=== PATIENT | female | born 1945 | race Caucasian/White ===

== ENCOUNTER 2017-02-16 16:11 | Outpatient (RCR) | payer MEDICARE, SELFPAY | END 2017-02-26 | LOC: PULREHAB 16:11 | PROVIDERS: Referring Provider Internal Medicine; Visit Provider Family Medicine | DX: J44.9 Chronic obstructive pulmonary disease, unspecified (principal) | CPT/HCPCS: G0239; G0424 ==

== ENCOUNTER → 2017-06-08 08:18 | Outpatient (CLI) | payer MEDICARE, SELFPAY ==
--- NOTE | 2017-06-08 08:26 | CT_ITS ---
EXAM: CT LUNG LOW DOSE WO CONTRAST COMPARISON: 05/07/2016 HISTORY: 71 year old female asymptomatic with 29-tdtc-slnm smoking history ORDERING PHYSICIAN: Mona Stephens MD PATIENT AGE: 71 years TECHNIQUE: The exam was performed on a GE Light Speed [address] scanner using 2.9 mGy CTDI. A low dose helical CT CHEST was performed on a multi-detector scanner. All CT scans at the facility use one or more dose reduction, viz: automated exposure control; ma/kV adjustment per patient size (including targeted exams where dose is matched to indication; i.e. head); or iterative reconstruction technique. The LDCT was performed in a facility that meets the criteria for the screening program. Data regarding this exam was submitted to ACR which is an approved registry. The order for this exam indicates that it came as a result of a lung cancer screening counseling shard decision-making visit that included all the elements required of such a visit including smoking cessation. The radiologist interpreting this exam meets the [facility] criteria for the LDCT lung cancer screening program. The exam is reported using the Lung-RADS classification scale and reported to the ACR registry. NOTE: This study was performed for the specific purposes of lung cancer screening and is not an alternative to diagnostic chest CT. RADIATION DOSE: CTDI vol(CT dose Index-volume) = 2.9mG DLP (Dose Length Product) = 97.16 mGcm FINDINGS: There are centrilobular emphysematous changes with scattered areas of fibrosis. There is mild bronchial thickening.. Slight increase atelectatic changes/scarring noted in the lingula. No suspicious pulmonary nodules. IMPRESSION: 1. Lung RADS Category: 2, benign 2. Other findings: Centrilobular emphysema with scattered areas of fibrosis RECOMMENDATIONS: 12 month LDCT follow-up
--- NOTE | 2017-06-08 08:51 | XR_ITS ---
XR DEXA axial skeleton HISTORY: ITS.REASON: POST MENOPAUSAL ORDERING PHYSICIAN: Mona Stephens MD PATIENT AGE: 71 years COMPARISON: None FINDINGS: The BMD measured at the left femoral neck is 0.729 g/cm squared with a T score of -2.2 . This is considered Osteopenic according to the World Health Organization criteria. Fracture risk is Moderate. Treatment is advised. L1 L4 density is a T score of 0.8 which is within normal limits. On the scanogram images there is some decreased density in the left femoral neck. While this could be artifactual, one cannot exclude a lytic process. Consider left hip films for further evaluation IMPRESSION: 1. Osteopenia with moderate fracture risk. Recommend follow-up exam May 2019 2. Possible lytic lesion left femoral neck. Suggest hip films for further evaluation
== END ==
PROVIDERS: Family Provider Family Medicine; PCP Family Medicine; Visit Provider Family Medicine
DX: Z87.891 Personal history of nicotine dependence (principal); M85.89 Other specified disorders of bone density and structure, multiple sites; Z12.2 Encounter for screening for malignant neoplasm of respiratory organs
CPT/HCPCS: 77080

== ENCOUNTER → 2017-06-08 10:27 | Outpatient (POV) | payer MEDICARE, SELFPAY | PROVIDERS: Family Provider Family Medicine; PCP Family Medicine; Visit Provider Family Medicine | DX: Z00.00 Encounter for general adult medical examination without abnormal findings (principal) ==

== ENCOUNTER 2017-06-15 14:36 | Observation (INO) ==
[2017-06-15 14:54] LABS: Basophils # 0.1 K/mm3 (0-0.2); Basophils % 0.9 % (0.1-2.0); Eosinophils # 0.4 K/mm3 (0.0-0.4); Eosinophils % 2.9 % (0.1-12.0); Hematocrit 37.4 % (37.0-47.0); Hemoglobin 11.3 g/dL (12.2-16.2); Lymphocytes # 2.6 K/mm3 (0.7-4.5); Lymphocytes % 19.5 K/mm3 (10-50); Mean Corpuscular HGB Conc 30.3 g/dL (31.8-35.4); Mean Corpuscular Hemoglobin 26.5 pg (27.0-31.2); Mean Corpuscular Volume 87.4 fl (81-99); Mean Platelet Volume 8.4 fl (7.4-10.4); Monocytes # 0.7 K/mm3 (0.1-1.0); Monocytes % 5.4 % (1.7-9.3); Neutrophils # 9.6 K/mm3 (1.8-7.8); Neutrophils % 71.2 % (37.0-80.0); Platelet Count 359 K/mm3 (142-424); Red Blood Count 4.28 M/mm3 (4.20-5.40); Red Cell Distribution Width 15.7 % (11.5-17.5); White Blood Count 13.4 K/mm3 (4.8-10.8)
--- NOTE | 2017-06-15 15:09 | Emergency Department Note ---
ED Disposition Clinical Impression: Chest pain Qualifiers: Chest pain type: precordial pain Qualified Code(s): R07.2 - Precordial pain Disposition: Still a Patient Condition on Discharge: Good Referrals: Mona Stephens MD [Primary Care Provider] - - Critical Care Critical Care Time: No Attestation: On 06/15/17, the high probability of a clinically significant, sudden or life threatening deterioration of the following system(s) required my full and direct attention, intervention and personal management. The time I documented below is in addition to time spent performing reported procedures but includes the following listed in this critical care notation. Medical Decision Making - Fernando Inquiry Pt receiving controlled substance: No Vital Signs: 06/15/17 14:37 Temperature 97.8 F Temperature Source Oral Pulse Rate [Right Radial] 96 H Respiratory Rate 16 Blood Pressure [Right Arm] 132/2 Blood Pressure Mean [Right Arm] 45 Blood Pressure Source [Right Arm] Automatic Cuff Blood Pressure Position [Right Arm] Supine 02 Sat by Pulse Oximetry 98 Oxygen Delivery Method Room Air Nasal Cannula - Lab Data Lab Results 06/15/17 14:40: WBC 13.4 H, RBC 4.28, Hgb 11.3 L, Hct 37.4, MCV 87.4, MCH 26.5 L , MCHC 30.3 L, RDW 15.7, Plt Count 359, MPV 8.4, Neut % (Auto) 71.2, Lymph % ( Auto) 19.5, [place] % (Auto) 5.4, Eos % (Auto) 2.9, Baso % (Auto) 0.9, Neut # (Auto ) 9.6 H, Lymph # (Auto) 2.6, [place] # (Auto) 0.7, Eos # (Auto) 0.4, Baso # (Auto) 0.1 06/15/17 14:40: Sodium 137, Potassium 4.5, Chloride 103, Carbon Dioxide 26, Anion Gap 12.5, BUN 22 H, Creatinine 1.64 H, Estimated Creat Clear 48, Estimated GFR 31 L, Est GFR ( Amer) 37 L, Glucose 103, Calcium 8.9, Total Bilirubin 0.4, AST 17, ALT 5 L, Alkaline Phosphatase 99, Total Creatine Kinase 119, CK-MB (CK-2) 0.7, CK-MB (CK-2) Rel Index 0.6, Troponin I < 0.02, Total Protein 7.5, Albumin 3.5, Globulin 4.0 H, Albumin/Globulin Ratio 0.9 L Result diagrams: 06/15/17 14:40 06/15/17 14:40 Orders (Tests/Meds): ORDERS Category Date Time Status ECG Request by /Nse Stat Y 06/15/17 14:46 Ordered - Radiology Data #1 Image(s): Chest Image Reviewed: Yes I have reviewed radiologist's interpretation Mild left lower lobe atelectasis - ECG Data Tracing #1 EKG interpreted by Claudio Keenan MD: Rhythm: sinus Rate: 96 [place]: normal Ectopy: none Conduction: normal ST Segment Changes: none T Wave Changes: none Q Waves: none No evidence of acute ischemia or injury Low voltage QRS Medical Decision Narrative: 3:45 PM: I have discussed the case with Dr. Stephens who agrees to admit the patient to the hospital. We discussed the patient's clinical information, including history, exam, laboratory and radiology results and ED course. Per hospital procedure, I will write temporary bridge inpatient orders on the patient. Specific orders requested by the admitting physician: Serial cardiac enzymes, cardiology consult General Adult HPI - General Chief complaint: Chest Pain Stated complaint: chest apin Time Seen by Provider: 06/15/17 15:08 Mode of Arrival: EMS Limitations: No Limitations Description of Symptoms (Recalled from ER Triage Doc. by RN): chest pain - History of Present Illness HPI narrative: Patient states that she was in the store today and had 3 episodes of chest pain which went from her substernal area up into her neck and jaw and under her right breast, associated with diaphoresis. She is always on oxygen so she says she does not really know if she was short of breath. She has COPD. Denies nausea or vomiting. Currently has no pain. Each episode lasted about 1-1/2 minutes. She says she does not have any known heart problems. She has seen Dr. Guzman but she does not remember what that was for. She has had a stress test but says it was a long time ago. To her knowledge she has never had an angiogram. Denies any history of heart attack or stent placement. She says she is on a blood pressure medication to lower her heart rate. She is on cholesterol medication. She denies diabetes. - Related Data Allergies Allergy/AdvReac Type Severity Reaction Status Date / Time Sulfa (Sulfonamide Allergy Unknown Unverified 02/16/17 14:48 Antibiotics) sulfamethoxazole AdvReac Unknown Unverified 02/16/17 14:48 trimethoprim AdvReac Unknown Unverified 02/16/17 14:48 [facility] History I have reviewed the patient's past medical history: Yes ROS Obtained: Yes All systems reviewed & no additional complaints Physical Exam - General General appearance: alert, in no apparent distress - Head Head exam: atraumatic, normocephalic, normal inspection - Eye Eye exam: Present: normal appearance, PERRL, EOMI - ENT ENT exam: Present: normal exam, normal oropharynx, mucous membranes moist, TM's normal bilaterally, normal external ear exam - Neck Neck exam: Present: normal inspection, full ROM, trachea midline. Absent: meningismus, lymphadenopathy - Chest Chest inspection: Present: normal inspection, symmetric chest wall rise. Absent : tenderness - Respiratory Respiratory exam: Present: normal lung sounds bilaterally. Absent: respiratory distress - Cardiovascular Cardiovascular exam: Present: regular rate, normal rhythm. Absent: JVD - Abdominal Exam Abdominal exam: Present: soft, normal bowel sounds. Absent: distention, tenderness, guarding - Extremities Exam Extremities exam: Present: normal inspection, full ROM, normal capillary refill. Absent: calf tenderness - Neurological Exam Neurological exam: Present: alert, oriented X3 - Psychiatric Psychiatric exam: Present: normal affect, normal mood - Skin Skin exam: Present: warm, dry, intact, normal color
[2017-06-15 15:14] LABS: Alanine Aminotransferase 5 U/L (12-78); Albumin Level 3.5 gm/dL (3.4-5.0); Albumin/Globulin Ratio 0.9 (1.1-1.8); Alkaline Phosphatase 99 U/L (46-116); Anion Gap 12.5 mEq/L (5-15); Aspartate Amino Transferase 17 U/L (15-37); Bilirubin,Total 0.4 mg/dL (0.2-1.0); Blood Urea Nitrogen 22 mg/dL (7-18); Calcium 8.9 mg/dL (8.5-10.1); Carbon Dioxide 26 mmol/L (21.0-32.0); Chloride 103 mmol/L (98-107); Creatine Kinase 119 U/L (26-192); Glucose 103 mg/dL (74-106); Potassium 4.5 mmoL/L (3.5-5.1); Sodium 137 mmol/L (136-145); Total Protein,Serum 7.5 gm/dL (6.4-8.2)
--- NOTE | 2017-06-15 17:57 | History & Physical Report ---
*Admission Date: 06/15/17 *Chief complaint: chst pain *History of present illness: Ms Roland is a 71 year old female with a history of COPD with chronic respiratory failure on continuous O2, HTN, Spinal stenosis, and anxiety and depression who when at [facility] today had a sudden onset of midsternal chest pain that lasted about 1 1/2 minutes. The pain radiated throughout the chest and up into her neck. She describes the pain as a heaviness and ache. Her breathing was as usual but she did become diaphoretic. She had 3 episodes of the chest pain with a brief time between each. EMS was called and the pain was gone when they arrived. She denied nausea and vomiting. She was brought to the ER for evaluation and then admitted for further evaluation and treatment. At the time of this exam the patient remains comfortable and breathing as usual. Monitor showing NSR. [facility] History Medical History: Reports:: Chronic Obstructive Pulmonary Disease (COPD), Depression, Gastroesophageal Reflux Disease(GERD), Hiatal Hernia, Home Oxygen, Hypertension, Lung Disease Denies:: Atherosclerotic Heart Disease, Diabetes Mellitus Type 2, Seizures Other Medical History: Reports: Arthritis Laterality Cases: Right: Total Hip Replacement Comment: Lipoma removed from Ax[place] 2012 - *Social History Smoking Status: Former smoker *Family Hx:: Cancer, Coronary Artery Disease, Diabetes Review of Systems - Constitutional Denies body ache(s), Denies fever(s), Denies headache(s) - Eyes Reports change in vision - ENT Denies ear pain, Denies sore throat - *Cardiovascular Reports chest pain, Reports excessive sweating, Reports shortness of breath, Denies leg swelling, Denies fast heart rate - *Respiratory Reports shortness of breath, Denies chest congestion, Denies cough - *Gastrointestinal Reports heartburn, Denies abdominal pain, Denies change in bowel habits, Denies change in stools, Denies bright, red blood in stools, Denies nausea, Denies vomiting - *Genitourinary Denies abnormal periods - *Musculoskeletal Comments: Has stayed in all winter and not been walking much. - *Neurologic Denies behavioral changes, Denies dizziness, Denies headache(s) Meds Home Medications Medication Instructions Recorded Confirmed Type ALPRAZolam [Xanax 0.5mg tab] 0.25 mg PO BID 06/15/17 06/15/17 History Duloxetine HCl [Duloxetine HCl] 60 mg PO DAILY 06/15/17 06/15/17 History Esomeprazole Magnesium [Nexium] 40 mg PO DAILY 06/15/17 06/15/17 History Gabapentin [Gabapentin 300mg Cap] 600 mg PO TID 06/15/17 06/15/17 History Metoprolol Tartrate [Lopressor 12.5 mg PO BID 06/15/17 06/15/17 History 25mg tablet] Montelukast Sodium [Montelukast 10 mg PO HS 06/15/17 06/15/17 History 10mg Tab] Pravastatin Sodium [Pravachol 20mg 20 mg PO HS 06/15/17 06/15/17 History Tablet] Roflumilast [Daliresp] 500 mcg PO DAILY 06/15/17 06/15/17 History Umeclidinium Brm/Vilanterol Tr 1 puff IH DAILY 06/15/17 06/15/17 History [Anoro Ellipta 62.5-25 Mcg INH] buPROPion HCl [Bupropion HCl Sr] 100 mg PO DAILY 06/15/17 06/15/17 History Allergies Allergy/AdvReac Type Severity Reaction Status Date / Time Sulfa (Sulfonamide Allergy Unknown Verified 06/15/17 16:27 Antibiotics) sulfamethoxazole AdvReac Unknown Verified 06/15/17 16:27 trimethoprim AdvReac Unknown Verified 06/15/17 16:27 Exam Vital signs and Labs for Last 24 Hours: Temp Pulse Resp BP Pulse Ox 97.6 F 99 H 20 166/66 96 06/15/17 17:27 06/15/17 17:27 06/15/17 17:27 06/15/17 17:27 06/15/17 17:27 Laboratory Tests 06/15/17 06/15/17 06/15/17 14:40 14:40 17:15 WBC 13.4 H RBC 4.28 Hgb 11.3 L Hct 37.4 MCV 87.4 MCH 26.5 L MCHC 30.3 L Plt Count 359 Neut % (Auto) 71.2 Lymph % (Auto) 19.5 [place] % (Auto) 5.4 Eos % (Auto) 2.9 Baso % (Auto) 0.9 Sodium 137 Potassium 4.5 Chloride 103 Carbon Dioxide 26 Anion Gap 12.5 BUN 22 H Creatinine 1.64 H Estimated Creat Clear 48 Estimated GFR 31 L Est GFR ( Amer) 37 L Glucose 103 Calcium 8.9 Total Bilirubin 0.4 AST 17 ALT 5 L Alkaline Phosphatase 99 Total Creatine Kinase 119 CK-MB (CK-2) 0.7 CK-MB (CK-2) Rel Index 0.6 Troponin I < 0.02 < 0.02 Total Protein 7.5 Albumin 3.5 Globulin 4.0 H I & O for Last 24 hours: Intake & Output 06/13/17 06/14/17 06/15/17 06/16/17 11:59 11:59 11:59 11:59 Weight 223 lb 3 oz Radiology Reports for the Last 24 Hours: 06/15/17 CXR IMPRESSION Mild left lower lobe atelectasis - Constitutional no acute distress Comments: comfortable - *Routine HEENT Exam Head: Present: normocephalic, atraumatic Eye: Present: PERRL. Absent: conjunctival icterus, scleral injection ENT: Present: mucous membranes moist, oropharynx clear - *Routine Neck Exam Present: supple. Absent: carotid bruit, lymphadenopathy, thyromegaly - *Routine Respiratory Exam Present: decreased breath sounds, CTA bilaterally (A&P), prolonged expiratory phase - *Routine Cardiovascular Exam Present: RRR Comments: monitor showing NSR - *Routine Abdominal Exam Present: soft, normoactive bowel sounds. Absent: tenderness, distended - *Routine Extremities Exam Absent: edema, calf tenderness - *Routine Skin Exam Present: dry, warm - *Routine Neurological Exam Present: alert, oriented X3 Assessment and Plan (1) Chest pain Current visit: Yes Status: Acute Qualifiers: Chest pain type: precordial pain Qualified Code(s): R07.2 - Precordial pain Category: Medical Code(s): R07.9 - Chest pain, unspecified (2) COPD (chronic obstructive pulmonary disease) Current visit: Yes Status: Chronic Category: Medical Code(s): J44.9 - Chronic obstructive pulmonary disease, unspecified (3) Chronic respiratory failure Current visit: Yes Status: Chronic Category: Medical Code(s): J96.10 - Chronic respiratory failure, unspecified whether with hypoxia or hypercapnia (4) HTN (hypertension) Current visit: Yes Status: Chronic Category: Medical Code(s): I10 - Essential (primary) hypertension (5) Spinal stenosis Current visit: Yes Status: Chronic Category: Medical Code(s): M48.00 - Spinal stenosis, site unspecified - Assessment and plan all Dx Assessment and Plan for all problems:: cardiology workup with cardiology consult
--- NOTE | 2017-06-16 08:08 | Progress Note ---
Internal Medicine - PN: Subj *Date: 06/16/17 *Time: 08:05 Interval history: Patient was able to sleep some last night. She is short of breath at present after giving herself a bath. He is n.p.o. for cardiac consult. She did eat last night without difficulty. She has ambulated to the bathroom. She has had no further chest discomfort Exam Vital signs and Labs for Last 24 Hours: Temp Pulse Resp BP Pulse Ox 98.2 F 89 18 102/46 92 L 06/16/17 07:35 06/16/17 07:35 06/16/17 07:35 06/16/17 07:35 06/16/17 07:35 Laboratory Results - last 24 hr 06/15/17 17:15: Troponin I < 0.02 06/15/17 19:53: Troponin I < 0.02 06/15/17 23:00: Troponin I < 0.02 I & O for Last 24 hours: Intake & Output 06/13/17 06/14/17 06/15/17 06/16/17 11:59 11:59 11:59 11:59 Intake Total 360 / 360 Balance 360 / 360 Weight 223 lb 3 oz - Constitutional no acute distress - *Routine Respiratory Exam Comments: Fibrotic crackles heard in bases bilaterally - *Routine Cardiovascular Exam Present: RRR Comments: Monitor showing normal sinus rhythm - *Routine Abdominal Exam Present: soft, normoactive bowel sounds. Absent: tenderness - *Routine Extremities Exam Absent: edema, calf tenderness - *Routine Neurological Exam Present: alert, oriented X3 Assessment and Plan (1) Chest pain Current visit: Yes Status: Acute Qualifiers: Chest pain type: precordial pain Qualified Code(s): R07.2 - Precordial pain Category: Medical Code(s): R07.9 - Chest pain, unspecified (2) COPD (chronic obstructive pulmonary disease) Current visit: Yes Status: Chronic Category: Medical Code(s): J44.9 - Chronic obstructive pulmonary disease, unspecified (3) Chronic respiratory failure Current visit: Yes Status: Chronic Category: Medical Code(s): J96.10 - Chronic respiratory failure, unspecified whether with hypoxia or hypercapnia (4) HTN (hypertension) Current visit: Yes Status: Chronic Category: Medical Code(s): I10 - Essential (primary) hypertension (5) Spinal stenosis Current visit: Yes Status: Chronic Category: Medical Code(s): M48.00 - Spinal stenosis, site unspecified - Assessment and plan all Dx Assessment and Plan for all problems:: Cardiology to see this morning and will follow their recommendations. Will repeat CBC and BMP now.
[2017-06-16 08:44] LABS: Basophils # 0.1 K/mm3 (0-0.2); Basophils % 1.2 % (0.1-2.0); Eosinophils # 0.4 K/mm3 (0.0-0.4); Eosinophils % 3.4 % (0.1-12.0); Hematocrit 33.2 % (37.0-47.0); Hemoglobin 10.2 g/dL (12.2-16.2); Lymphocytes # 2.2 K/mm3 (0.7-4.5); Lymphocytes % 21.2 K/mm3 (10-50); Mean Corpuscular HGB Conc 30.8 g/dL (31.8-35.4); Mean Corpuscular Hemoglobin 26.5 pg (27.0-31.2); Mean Corpuscular Volume 86.2 fl (81-99); Mean Platelet Volume 9.2 fl (7.4-10.4); Monocytes # 0.6 K/mm3 (0.1-1.0); Monocytes % 5.3 % (1.7-9.3); Neutrophils # 7.3 K/mm3 (1.8-7.8); Neutrophils % 68.9 % (37.0-80.0); Platelet Count 313 K/mm3 (142-424); Red Blood Count 3.85 M/mm3 (4.20-5.40); Red Cell Distribution Width 15.6 % (11.5-17.5); White Blood Count 10.6 K/mm3 (4.8-10.8)
[2017-06-16 08:56] LABS: Anion Gap 11.5 mEq/L (5-15); Potassium 4.5 mmoL/L (3.5-5.1)
--- NOTE | 2017-06-16 13:54 | Pharmacy Consult Notes ---
[facility] Pharmacy VTE Monitoring - Patient Demographics Admission date: 06/16/17 Report Date: 06/16/17 Time: 13:54 Allergies/Adverse Reactions: Patient Allergies Sulfa (Sulfonamide Antibiotics) Allergy (Unknown, Verified 06/15/17 16:27) sulfamethoxazole Adverse Reaction (Unknown, Verified 06/15/17 16:27) trimethoprim Adverse Reaction (Unknown, Verified 06/15/17 16:27) Height: 1.63 m Weight: 101.236 kg Patient Problems: Current Active Problems Chest pain (Acute) COPD (chronic obstructive pulmonary disease) (Chronic) Chronic respiratory failure (Chronic) HTN (hypertension) (Chronic) Spinal stenosis (Chronic) - VTE Risk Labs: VTE Related Lab Results Hgb 10.2 g/dL (12.2-16.2) L 06/16/17 08:25 Hct 33.2 % (37.0-47.0) L 06/16/17 08:25 Plt Count 313 K/mm3 (142-424) 06/16/17 08:25 BUN 20 mg/dL (7-18) H 06/16/17 08:25 Creatinine 1.49 mg/dL (0.55-1.02) H 06/16/17 08:25 Estimated Creat Clear 55 mL/min (0-300) 06/16/17 08:25 Was VTE Risk Assessment Performed: Yes VTE Score: 4 VTE Risk Level: Low Risk Clinical Trial Participant: No - Prophylaxis VTE Prophylaxis Ordered?: Yes Types of VTE Prophylaxis: TEDS Knee High Location of Applied Device: Bilateral Lower Extremeties
[2017-06-17 06:28] LABS: Hematocrit 31.5 % (37.0-47.0); Hemoglobin 9.8 g/dL (12.2-16.2)
--- NOTE | 2017-06-17 08:53 | Progress Note ---
Internal Medicine - PN: Subj *Date: 06/17/17 *Time: 08:50 Interval history: Patient states she is feeling well today other than some pain in her right wrist. She states she slept off and on last night. She denies any pain or shortness of breath. Exam Vital signs and Labs for Last 24 Hours: Temp Pulse Resp BP Pulse Ox 98.0 F 85 20 140/80 94 L 06/17/17 07:53 06/17/17 07:53 06/17/17 07:53 06/17/17 07:53 06/17/17 07:53 Laboratory Results - last 24 hr 06/16/17 08:25: Sodium 140, Potassium 4.5, Chloride 107, Carbon Dioxide 26, Anion Gap 11.5, BUN 20 H, Creatinine 1.49 H, Estimated Creat Clear 55, Estimated GFR 34 L, Est GFR ( Amer) 42 L, Glucose 109 H 06/17/17 06:04: Hgb 9.8 L, Hct 31.5 L I & O for Last 24 hours: Intake & Output 06/14/17 06/15/17 06/16/17 06/17/17 11:59 11:59 11:59 11:59 Intake Total 360 / 360 1340 / 1340 Output Total 900 / 900 Balance 360 / 360 440 / 440 Weight 223 lb 3 oz 223 lb 3 oz Radiology Reports for the Last 24 Hours: Heart Cath IMPRESSION: 1. Normal coronary arteries 2. Normal ejection fraction 3. Normal left ventricular end-diastolic pressure - Constitutional no acute distress - *Routine Respiratory Exam Present: rales (fibrotic rales in the bases) - *Routine Cardiovascular Exam Present: RRR - *Routine Abdominal Exam Present: soft, normoactive bowel sounds. Absent: tenderness - *Routine Extremities Exam Absent: edema Assessment and Plan (1) Chest pain Current visit: Yes Status: Acute Qualifiers: Chest pain type: precordial pain Qualified Code(s): R07.2 - Precordial pain Category: Medical Code(s): R07.9 - Chest pain, unspecified (2) COPD (chronic obstructive pulmonary disease) Current visit: Yes Status: Chronic Category: Medical Code(s): J44.9 - Chronic obstructive pulmonary disease, unspecified (3) Chronic respiratory failure Current visit: Yes Status: Chronic Category: Medical Code(s): J96.10 - Chronic respiratory failure, unspecified whether with hypoxia or hypercapnia (4) HTN (hypertension) Current visit: Yes Status: Chronic Category: Medical Code(s): I10 - Essential (primary) hypertension (5) Spinal stenosis Current visit: Yes Status: Chronic Category: Medical Code(s): M48.00 - Spinal stenosis, site unspecified - Assessment and plan all Dx Assessment and Plan for all problems:: Patient's heart cath was normal and her chest pain has resolved. Will discuss possible disposition today with Dr. Stephens.
--- NOTE | 2017-06-17 12:05 | Progress Note ---
Subjective Date: 06/17/17 Time: 12:02 Principal diagnosis: COPD and Angina Pectoris Interval history: 71-year-old white female admitted to facility on 06/15/2017 with chest pain and shortness of breath. Patient denies chest pain or shortness of breath during this examination. Patient underwent left heart catheterization on 06/16/2017, which revealed normal coronary arteries and a normal EF. Patient's chest pain was noncardiac. Patient stated she is doing much better today. Exam Vital signs and Labs for Last 24 Hours: Temp Pulse Resp BP Pulse Ox 98.2 F 91 H 20 153/77 93 L 06/17/17 11:54 06/17/17 11:54 06/17/17 11:54 06/17/17 11:54 06/17/17 11:54 Laboratory Results - last 24 hr 06/17/17 06:04: Hgb 9.8 L, Hct 31.5 L I & O for Last 24 hours: Intake & Output 06/14/17 06/15/17 06/16/17 06/17/17 23:59 23:59 23:59 23:59 Intake Total 360 / 360 850 / 850 490 / 490 Output Total 900 / 900 Balance 360 / 360 -50 / -50 490 / 490 Weight 223 lb 3 oz 223 lb 3 oz - Constitutional no acute distress, average body habitus, cooperative - *Routine Neck Exam Present: supple, full ROM, normal carotid upstroke, trachea midline. Absent: JVD, carotid bruit - *Routine Respiratory Exam Present: CTA bilaterally, wheezes Comments: bilateral lower bases. - *Routine Cardiovascular Exam Present: RRR, Normal S1, Normal S2. Absent: murmur, gallop, rubs, JVD - *Routine Abdominal Exam Present: soft. Absent: distended, guarding - *Routine Extremities Exam Present: full ROM, pulses intact, normal capillary refill. Absent: cyanosis, clubbing, edema, calf tenderness - *Routine Neurological Exam Present: alert, oriented X3, CN II-XII intact, moving all extremities, normal speech Progress Note: A&P (1) Chest pain Status: Acute Current Visit: Yes (2) COPD (chronic obstructive pulmonary disease) Status: Chronic Current Visit: Yes (3) Chronic respiratory failure Status: Chronic Current Visit: Yes (4) HTN (hypertension) Status: Chronic Current Visit: Yes (5) Spinal stenosis Status: Chronic Current Visit: Yes Assessment and Plan for All Diagnoses:: Plan: 1. Continue medical management per PCP. 2. Cardiology clinic follow up in 2-3 weeks.
--- NOTE | 2017-06-20 15:04 | Discharge Summary ---
General - General Admission date: 06/16/17 Discharge date: 06/17/17 HPI HPI: Ms Roland is a 71 year old female with a history of COPD with chronic respiratory failure on continuous O2, HTN, Spinal stenosis, and anxiety and depression who when at [facility] today, had a sudden onset of midsternal chest pain that lasted about 1 1/2 minutes. The pain radiated throughout the chest and up into her neck. She describes the pain as a heaviness and ache. Her breathing was as usual but she did become diaphoretic. She had 3 episodes of the chest pain with a brief time between each. EMS was called and the pain was gone when they arrived. She denied nausea and vomiting. She was brought to the ER for evaluation and then admitted for further evaluation and treatment. Hospital Course Hospital Course: Cardiology was consulted and the patient had a heart cath. It was normal. Her CP did not return. She was stable to be discharged home but on 06/08/2017, she had a Dexa scan that showed a possible lytic lesion in the left femoral neck. An x-ray was ordered and showed arthritis but no lytic lesion. The patient was dishcarged home. Objective Vital signs: Temp Pulse Resp BP Pulse Ox 98.2 F 91 H 20 153/77 93 L 06/17/17 11:54 06/17/17 11:54 06/17/17 11:54 06/17/17 11:54 06/17/17 11:54 Narrative: - Constitutional no acute distress Comments: comfortable - *Routine HEENT Exam Head: Present: normocephalic, atraumatic Eye: Present: PERRL. Absent: conjunctival icterus, scleral injection ENT: Present: mucous membranes moist, oropharynx clear - *Routine Neck Exam Present: supple. Absent: carotid bruit, lymphadenopathy, thyromegaly - *Routine Respiratory Exam Present: decreased breath sounds, CTA bilaterally (A&P), prolonged expiratory phase - *Routine Cardiovascular Exam Present: RRR Comments: monitor showing NSR - *Routine Abdominal Exam Present: soft, normoactive bowel sounds. Absent: tenderness, distended - *Routine Extremities Exam Absent: edema, calf tenderness - *Routine Skin Exam Present: dry, warm - *Routine Neurological Exam Present: alert, oriented X3 DS: Diagnosis - Discharge Diagnosis (1) Chest pain Status: Acute (2) COPD (chronic obstructive pulmonary disease) Status: Chronic (3) Chronic respiratory failure Status: Chronic (4) HTN (hypertension) Status: Chronic (5) Spinal stenosis Status: Chronic Discharge Plan - Patient Discharge Instructions ACTIVITY: Continue current activity DIET: continue same diet Additional Instructions: Continue same diet and activity Patient Instructions: Chronic Obstructive Pulmonary Disease, Cardiac Catheterization, High Blood Pressure, DI for Cardiac Catheterization, DI for Surgical Site Infection, DI for Chest Pain, Surgical Site Infection, Respiratory Failure - Follow up Plan Follow up with: Mona Stephens MD [Primary Care Provider] - 1 week Disposition: Home, Self-Custodial Medications: Home Medications Medication Instructions Recorded Confirmed Type ALPRAZolam [Xanax 0.5mg tab] 0.25 mg PO BID 06/15/17 06/15/17 History Duloxetine HCl 60 mg PO DAILY 06/15/17 06/15/17 History Esomeprazole Magnesium [Nexium] 40 mg PO DAILY 06/15/17 06/15/17 History Gabapentin [Gabapentin 300mg Cap] 600 mg PO TID 06/15/17 06/15/17 History Metoprolol Tartrate [Lopressor 12.5 mg PO BID 06/15/17 06/15/17 History 25mg tablet] Montelukast Sodium [Montelukast 10 mg PO HS 06/15/17 06/15/17 History 10mg Tab] Roflumilast [Daliresp] 500 mcg PO DAILY 06/15/17 06/15/17 History Umeclidinium Brm/Vilanterol Tr 1 puff IH DAILY 06/15/17 06/15/17 History [Anoro Ellipta 62.5-25 Mcg INH] buPROPion HCl [Bupropion HCl Sr] 100 mg PO DAILY 06/15/17 06/15/17 History Prescriptions/Medication Reconciliation: New Pravastatin Sodium [Pravachol 20mg Tablet] 20 mg PO HS tablet predniSONE [Deltasone 5mg tablet] 5 mg PO DAILY tablet Non Formulary [Pt's Own Medication] 1 each PO DAILY each Aspirin [Aspirin EC 325mg Tab] 325 mg PO DAILY tablet Nitroglycerin [Nitrostat 0.4mg SL Tablet] 0.4 mg SL Q5MINP PRN tab.subl PRN Reason: Chest Pain Continue Roflumilast [Daliresp] 500 mcg PO DAILY Montelukast Sodium [Montelukast 10mg Tab] 10 mg PO HS Gabapentin [Gabapentin 300mg Cap] 600 mg PO TID Esomeprazole Magnesium [Nexium] 40 mg PO DAILY Duloxetine HCl 60 mg PO DAILY buPROPion HCl [Bupropion HCl Sr] 100 mg PO DAILY ALPRAZolam [Xanax 0.5mg tab] 0.25 mg PO BID Umeclidinium Brm/Vilanterol Tr [Anoro Ellipta 62.5-25 Mcg INH] 1 puff IH DAILY Metoprolol Tartrate [Lopressor 25mg tablet] 12.5 mg PO BID Discontinued Pravastatin Sodium [Pravachol 20mg Tablet] 20 mg PO HS
== END 2017-06-17 13:30 | disposition home or self-care (01) ==
LOC: 2ND 14:36 → ER 14:36 → 2ND 17:11
PROVIDERS: ADMIT Family Medicine; ATTEND Family Medicine

== ENCOUNTER → 2017-06-30 10:55 | Outpatient (CLI) | payer MEDICARE, SELFPAY ==
--- NOTE | 2017-06-30 11:01 | XR_ITS ---
XR wrist RT min 3V, XR wrist LT min 3V Ordering Physician: XIAO Watkins Patient Age: 71 years: Female HISTORY: ITS.REASON: BILAT WRIST PAIN Bilateral wrist pain no known injury TECHNIQUE Right Wrist: 3 Views:. Left Wrist 3 Views COMPARISON :None ======= RIGHT WRIST: 3 VIEWS:. Arthritic changes are most pronounced at the articulation between the distal scaphoid and the trapezium here at the radial aspect of the distal wrist. The marked joint space narrowing with sclerosis about this joint reflects these arthritic changes. No erosions . The first carpal-metacarpal joint which is most typically involved with osteoarthritis appears to be well-maintained and unremarkable. The radial carpal joint appears intact carpals seem to demonstrate normal relationship. Specifically the lunate and scaphoid relationships normal. Mild diffuse demineralization evident. . LEFT WRIST 3 VIEWS There is a similar pattern at the left wrist with marked narrowing and sclerosis at the scaphoid-trapezium articulation. There is also slight narrowing and arthritic changes at the scaphoid-trapezoid articulation. As well here on the left Again the first carpal-metacarpal joint space is well-maintained with no remarkable arthritic changes evident. The lunate does have numerous stippled tiny cystic areas at dorsal and radial aspect which are likely tiny subchondral cyst. These do yield a slightly ill-defined appearance at its radial cortex where it articulates with the scaphoid.. Could reflect tiny erosions but this less likely & I favor numerous small subcortical cyst likely degenerative in nature. I would also note the lunate, although not displaced, does have slight accentuated dorsal tilt on the left than right. This could be in part positional. Otherwise the radial carpal joint spaces satisfactory distal radius and ulna appear satisfactory bilaterally. Carpal metacarpal joints appear satisfactory all levels note: This study was dictated with a voice-recognition system. There may be typographical error is related to such. If they are significant please notify us for corrections IMPRESSION: 1. Both right & left wrist demonstrate pronounced arthritic changes at the scaphoid-trapezium articulation. Both right & left wrist with marked sclerosis and narrowing about this joint. .. 2. The first carpal-metacarpal joint (which is more typically involved with early osteoarthritis), appears intact & satisfactory bilaterally. 3. At LEFT wrist, note numerous tiny lucent areas which are likely subchondral cystic changes, along the dorsal, & radial aspect lunate.-Suspect most Likely reflecting small degenerative changes,. Less likely other erosive change. No joint effusion evident 4. Slight dorsal tilt of the left lunate vs right noted, but no dislocation. This may be exaggerated by position 5. Diffuse demineralization bilateral
--- NOTE | 2017-06-30 11:01 | XR_ITS ---
XR chest 2V Ordering Physician: XIAO Watkins Patient Age: 71 years: Female HISTORY: ITS.REASON: SOBshort of breath coughing TECHNIQUE: PA and lateral chest COMPARISON :Screening CT chest from June 08, [address] chest is some COPD with fibrotic changes and some mild airway thickening most evident towards the right base. On today's plain film series slight hazy appearance the medial right base which reflects these chronic feature but I could not exclude some wispy infiltrate superimposed at the medial right lung base and. Also additional anterior fat pad towards the right middle lobe accounts for the density anteriorly towards the RML on lateral view. The diaphragm hyperexpansion reflecting COPD. Heart is normal in size calcified modest aorta. Chest wall T-spine unremarkable. No pleural effusions. No pneumothorax. IMPRESSION Images of changes and COPD again evident. Question/suspect subtle infiltrate superimposed upon chronic changes at the medial right base today's exam
== END ==
PROVIDERS: PCP Family Medicine; Visit Provider Physician Assistant
DX: M25.531 Pain in right wrist (principal); M25.532 Pain in left wrist; R06.02 Shortness of breath
CPT/HCPCS: 71046; 73110

== ENCOUNTER → 2017-09-06 16:53 | Outpatient (CLI) | payer MEDICARE, SELFPAY ==
--- NOTE | 2017-09-06 16:58 | XR_ITS ---
XR chest 2V HISTORY: ITS.REASON: CHRONIC RESPIRATORY FAILURE WITH HYPOXIA ORDERING PHYSICIAN: Mona Stephens MD PATIENT AGE: 71 years COMPARISON: 06/30/2017 FINDINGS: Unremarkable cardiovascular structures. Chronic changes are present in the left lower lobe. There is hyperinflation with attenuation of peripheral pulmonary vessels consistent with COPD. No lobar consolidation or collapse. There is a 12 mm hyperdensity in the posterior costophrenic sulcus possibly due to summation artifact. No acute bony anomalies. IMPRESSION: COPD with chronic changes 1 cm hyperdensity posterior costophrenic sulcus. Possible developing pulmonary nodule. Chest CT may be of further value
== END ==
PROVIDERS: PCP Family Medicine; Visit Provider Family Medicine
DX: J96.11 Chronic respiratory failure with hypoxia (principal)
CPT/HCPCS: 71046

== ENCOUNTER → 2018-03-14 16:21 | Outpatient (CLI) | payer MEDICARE, SELFPAY ==
--- NOTE | 2018-03-14 16:26 | XR_ITS ---
XR chest 2V HISTORY: ITS.REASON: CHRONIC RESPIRATORY FAILURE, COPD, former smoker ORDERING PHYSICIAN: Mona Stephens MD PATIENT AGE: 72 years COMPARISON: 09/06/2017 FINDINGS: The cardiomediastinal silhouette and pulmonary vascularity are within normal limits. The lungs are clear without infiltrates, suspicious nodules, or pleural effusions. COPD. Chronic changes in the left lower lung zone No acute bony abnormalities. IMPRESSION: COPD, no change with no acute finding
== END ==
PROVIDERS: PCP Family Medicine; Visit Provider Family Medicine
DX: J96.11 Chronic respiratory failure with hypoxia (principal)
CPT/HCPCS: 71046

== ENCOUNTER → 2018-04-20 12:54 | Outpatient (CLI) | payer MEDICARE, SELFPAY | PROVIDERS: PCP Family Medicine; Visit Provider Family Medicine | DX: J96.11 Chronic respiratory failure with hypoxia (principal) | CPT/HCPCS: 93225; 93226 ==

== ENCOUNTER → 2018-04-26 15:36 | Outpatient (POV) | payer MEDICARE, SELFPAY ==
[2018-04-26 16:23] LABS: Basophils # 0.1 K/mm3 (0-0.2); Basophils % 0.7 % (0.1-2.0); Eosinophils # 0.3 K/mm3 (0.0-0.4); Eosinophils % 1.6 % (0.1-12.0); Hematocrit 36.5 % (37.0-47.0); Lymphocytes # 2.4 K/mm3 (0.7-4.5); Lymphocytes % 15.4 % (10-50); Mean Corpuscular Hemoglobin 25.1 pg (27.0-31.2); Mean Corpuscular Volume 83.6 fl (81-99); Mean Platelet Volume 7.3 fl (7.4-10.4); Monocytes # 0.6 K/mm3 (0.1-1.0); Monocytes % 4.2 % (1.7-9.3); Neutrophils % 78.2 % (37.0-80.0); Platelet Count 471 K/mm3 (142-424); Red Blood Count 4.36 M/mm3 (4.20-5.40); White Blood Count 15.4 K/mm3 (4.8-10.8)
[2018-04-26 16:59] LABS: MANUAL DIFFERENTIAL MANUAL DIFFERENTIAL (MANUAL DIFF)
[2018-04-26 17:41] LABS: Lymphocytes % 16 % (10-50); Monocytes % 5 % (2-9); Neutrophils % 79 % (42-76); Platelet Estimate Slight Increase; Total Cells Counted 100
[2018-04-26 17:42] LABS: Hypochromasia 2+
[2018-04-26 18:18] LABS: Alanine Aminotransferase 15 U/L (12-78); Albumin Level 3.1 gm/dL (3.4-5.0); Albumin/Globulin Ratio 0.9 (1.1-1.8); Alkaline Phosphatase 99 U/L (46-116); Anion Gap 12.3 mEq/L (5-15); Aspartate Amino Transferase 6 U/L (15-37); Bilirubin,Total 0.2 mg/dL (0.2-1.0); Blood Urea Nitrogen 17 mg/dL (7-18); Calcium 9.4 mg/dL (8.5-10.1); Carbon Dioxide 28 mmol/L (21.0-32.0); Chloride 106 mmol/L (98-107); Creatinine,Serum 1.71 mg/dL (0.55-1.02); Estimated Glomerular Filt Rate 29 ml/min (>60); GFR (African American) 36 ML/MIN (>60); Globulin 3.6 gm/dl (1.3-3.2); Glucose 88 mg/dL (74-106); Potassium 5.3 mmoL/L (3.5-5.1); Sodium 141 mmol/L (136-145); Total Protein,Serum 6.7 gm/dL (6.4-8.2)
[2018-04-28 07:16] LABS: Iron 30 ug/dL (27-139); UIBC 327 ug/dL (118-369)
[2018-04-28 07:33] LABS: Iron Saturation 8 % (15-55)
[2018-04-28 09:25] LABS: Vitamin B12 589 pg/mL (232-1245)
== END ==
PROVIDERS: Visit Provider Internal Medicine
DX: D50.0 Iron deficiency anemia secondary to blood loss (chronic) (principal); J96.10 Chronic respiratory failure, unspecified whether with hypoxia or hypercapnia; J43.9 Emphysema, unspecified; J47.9 Bronchiectasis, uncomplicated
CPT/HCPCS: 36415; 80053; 82607; 83540; 83550; 85007; 85025

== ENCOUNTER 2018-05-31 10:05 | Inpatient (IN) ==
--- NOTE | 2018-05-31 10:09 | Emergency Department Note ---
ED Disposition Clinical Impression: Dizziness Vomiting Qualifiers: Vomiting type: unspecified Vomiting Intractability: non-intractable Nausea presence: with nausea Qualified Code(s): R11.2 - Nausea with vomiting, unspe cified Disposition: Admitted as Observation Condition on Discharge: [facility] - Critical Care Critical Care Time: No Attestation: On , the high probability of a clinically significant, sudden or life threatening deterioration of the following system(s) required my full and direct attention, intervention and personal management. The time I documented below is in addition to time spent performing reported procedures but includes the following listed in this critical care notation. Medical Decision Making - Fernando Inquiry Pt receiving controlled substance: No Vital Signs: 05/31/18 10:06 05/31/18 10:36 05/31/18 11:36 Temperature 97.8 F Temperature Source Oral Pulse Rate [Orthostatic Lying Left Radial] Pulse Rate [Orthostatic Sitting Left Radial] Pulse Rate [Orthostatic Standing Left Radial] Pulse Rate [Right Brachial] 66 72 74 Respiratory Rate 18 18 20 Blood Pressure [Orthostatic Lying Right Arm] Blood Pressure [Orthostatic Sitting Right Arm] Blood Pressure [Orthostatic Standing Right Arm] Blood Pressure [Right Arm] 153/67 H 149/57 H 111/62 Blood Pressure Mean [Right Arm] 95 87 78 Blood Pressure Source [Right Arm] Automatic Cuff Automatic Cuff Automatic Cuff Blood Pressure Position [Right Arm] Supine Sitting Sitting 02 Sat by Pulse Oximetry 96 99 98 Oxygen Delivery Method Nasal Cannula Room Air Oxygen Flow Rate (LPM) 2 05/31/18 12:00 05/31/18 12:30 05/31/18 13:00 Temperature Temperature Source Pulse Rate [Orthostatic Lying Left Radial] Pulse Rate [Orthostatic Sitting Left Radial] Pulse Rate [Orthostatic Standing Left Radial] Pulse Rate [Right Brachial] 73 79 80 Respiratory Rate 16 20 20 Blood Pressure [Orthostatic Lying Right Arm] Blood Pressure [Orthostatic Sitting Right Arm] Blood Pressure [Orthostatic Standing Right Arm] Blood Pressure [Right Arm] 140/66 149/60 H 150/69 H Blood Pressure Mean [Right Arm] 90 89 96 Blood Pressure Source [Right Arm] Automatic Cuff Automatic Cuff Automatic Cuff Blood Pressure Position [Right Arm] Sitting Sitting Sitting 02 Sat by Pulse Oximetry 99 97 96 Oxygen Delivery Method Nasal Cannula Room Air Room Air Oxygen Flow Rate (LPM) 2 05/31/18 14:00 05/31/18 14:09 05/31/18 14:30 Temperature Temperature Source Pulse Rate [Orthostatic Lying Left Radial] 77 Pulse Rate [Orthostatic Sitting Left Radial] 76 Pulse Rate [Orthostatic Standing Left Radial] 80 Pulse Rate [Right Brachial] 79 75 Respiratory Rate 14 21 Blood Pressure [Orthostatic Lying Right Arm] 141/74 H Blood Pressure [Orthostatic Sitting Right Arm] 141/75 H Blood Pressure [Orthostatic Standing Right Arm] 136/54 L Blood Pressure [Right Arm] 141/74 H 143/66 H Blood Pressure Mean [Right Arm] 96 91 Blood Pressure Source [Right Arm] Automatic Cuff Automatic Cuff Blood Pressure Position [Right Arm] Sitting Sitting 02 Sat by Pulse Oximetry 99 100 Oxygen Delivery Method Nasal Cannula Room Air Oxygen Flow Rate (LPM) 2 - Lab Data Lab Results 05/31/18 10:14: WBC 14.5 H, RBC 4.20, Hgb 10.8 L, Hct 34.4 L, MCV 81.8, MCH 25.6 L, MCHC 31.3 L, RDW 16.6, Plt Count 414, MPV 7.8, Neut % (Auto) 66.5, Lymph % (Auto) 24.9, [place] % (Auto) 4.8, Eos % (Auto) 3.2, Baso % (Auto) 0.6, Neut # (Auto) 9.7 H, Lymph # (Auto) 3.6, [place] # (Auto) 0.7, Eos # (Auto) 0.5 H, Baso # (Auto) 0.1 05/31/18 10:14: Sodium 138, Potassium 4.4, Chloride 102, Carbon Dioxide 26, Anion Gap 14.4, BUN 14, Creatinine 1.48 H, Estimated Creat Clear 52, Estimated GFR 35 L, Est GFR ( Amer) 42 L, Glucose 126 H, Calcium 8.9, Total Bilirubin 0.2, AST 15, ALT 17, Alkaline Phosphatase 95, Troponin I < 0.02, Total Protein 7.0, Albumin 2.8 L, Globulin 4.2 H, Albumin/Globulin Ratio 0.7 L 05/31/18 14:25: Urine Color Yellow, Urine Appearance Clear, Urine pH 6.5, Ur Specific [place] <= 1.005, Urine Protein Negative, Urine Glucose (UA) Negative, Urine Ketones Negative, Urine Blood Negative, Urine Nitrate Negative, Urine Bilirubin Negative, Urine Urobilinogen 0.2, Ur Leukocyte Esterase Negative, Urine RBC None, Urine WBC 3-5, Ur Squamous Epith Cells 3-5, Urine Bacteria Trace Result diagrams: 05/31/18 10:14 05/31/18 10:14 Orders (Tests/Meds): ED MEDICATIONS Generic Name Dose Route Start Last Admin Trade Name Freq PRN Reason Stop Dose Admin Sodium Chloride 1,000 mls @ 50 mls/hr 05/31/18 15:16 05/31/18 16:37 Sod Chlor 0.9% 1000ml Bag IV 06/30/18 15:15 50 mls/hr .Q20H NYASIA Administration Meclizine HCl 25 mg 05/31/18 21:00 Antivert 25mg Tablet PO 06/30/18 20:59 TID NYASIA Ondansetron HCl 4 mg 05/31/18 15:16 Zofran 4mg/2ml Vial IV 06/30/18 15:15 Q8HP PRN Nausea Discontinued Medications Generic Name Dose Route Start Last Admin Trade Name Freq PRN Reason Stop Dose Admin Meclizine HCl 25 mg 05/31/18 10:25 05/31/18 12:01 Antivert 25mg Tablet PO 05/31/18 10:26 25 mg ONCE ONE Administration Ondansetron HCl 4 mg 05/31/18 10:24 05/31/18 10:42 Zofran 4mg/2ml Vial IV 05/31/18 10:25 4 mg ONCE ONE Administration Promethazine HCl 6.25 mg 05/31/18 10:25 05/31/18 12:01 Phenergan 25mg/Ml 1ml Vial IM 05/31/18 10:26 6.25 mg ONCE ONE Administration Sodium Chloride 25 ml 05/31/18 10:25 05/31/18 12:01 Sod Chlor 0.9% 25ml Bag IV 05/31/18 10:26 Not Given ONCE ONE Sodium Chloride 1,000 ml 05/31/18 10:26 05/31/18 10:42 Sod Chlor 0.9% 1000ml Bag IV 05/31/18 10:27 1,000 ml BOLUS ONE Administration - Radiology Data #1 Image(s): Chest Image Reviewed: Yes I have reviewed radiologist's interpretation IMPRESSION: Possible minimal right lower lobe pneumonia versus confluence of vascular shadows or focal atelectasis Dictated By: Michael Ventura Signed By: <Electronically signed by Michael Ventura in OV> 05/31/18 1106 - CT Data CT Scan: Head Time Received: 11:[address] Reviewed: Yes: I discussed the CT results w/the radiologist, I have viewed the radiologist's interpretation Findings Narrative: IMPRESSION: Findings of age-appropriate cortical atrophy with mild chronic ischemic white matter changes, no acute intracranial pathology noted Dictated By: Michael Ventura Signed By: <Electronically signed by Michael Ventura in OV> 05/31/18 1053 - ECG Data Tracing #1 EKG interpreted by Claudio Keenan MD: Rhythm: sinus Rate: 69 [place]: normal Ectopy: none Conduction: normal ST Segment Changes: none T Wave Changes: none Q Waves: none No evidence of acute ischemia or injury Low voltage QRS Baseline artifact and wander present, but I consider the EKG adequate for accurate interpretation. - Physician Consults Physician Consulted: Angelo Time: 12:56 Reason -: Admission, Pt condition Comment/Response: He requests that Sanjay maneuver be performed to see if her symptoms resolved. Additional Consult: Angelo Time: 14:16 Reason -: Admission, Pt condition Comment/Response: Agrees to admit the patient to the hospital. We discussed the patient's clinical information, including history, exam, laboratory and radiology results and ED course. Per hospital procedure, I will write temporary bridge inpatient orders on the patient. Specific orders requested by the admitting physician: Gentle hydration, continued treatment with Antivert and antiemetics. - Reevaluation(s) Time: 12:43 Reevaluation #1: States she feels much better, dizziness is better, however when ambulated in the emergency department she is very dizzy and unable to walk without assistance. Medical Decision Narrative: Prior LH: ANGIOGRAPHIC RESULTS: 1. The left main artery normal 2. The left anterior descending artery normal 3. The circumflex artery dominant normal 4. The right coronary artery normal 5. The TAY ventriculogram reveals normal 65% 6. The left ventricular end-diastolic pressure 10 mmHg IMPRESSION: 1. Normal coronary arteries 2. Normal ejection fraction 3. Normal left ventricular end-diastolic pressure PLAN: 1. Evaluation of noncardiac chest pain Dictated By: Ian Guzman MD Signed By: <Electronically signed by Ian Guzman MD in [place]> 06/16/17 1134 12:50 PM: Sanjay maneuver performed. No vertigo induced to during any of the movements, therefore unlikely benign positional vertigo. She will be ambulated again to see if she has improved. 1:30 PM: Still feels unsteady when she walks. General Adult HPI - General Stated complaint: Vomiting Time Seen by Provider: 05/31/18 10:27 - History of Present Illness HPI narrative: Brought in by ambulance with complaints of vomiting and dizziness that began this morning at about 8:30 AM. About 6 episodes of vomiting. No diarrhea or abdominal pain. Describes dizziness that feels like movement. Dizziness improves when she closes her eyes. Worsens when she moves her head. No auditory symptoms. Has been getting occasional headaches, but does not have a headache now. Denies numbness or weakness or visual symptoms. No diplopia or loss of vision. Denies URI symptoms. No prior history of vertigo. - Related Data Home Medications Medication Instructions Recorded Confirmed ALPRAZolam [Xanax 0.5mg tab] 0.25 mg PO BID 06/15/17 05/31/18 Esomeprazole Magnesium [Nexium] 40 mg PO DAILY 06/15/17 05/31/18 Gabapentin [Gabapentin 300mg Cap] 600 mg PO TID 06/15/17 05/31/18 Metoprolol Tartrate [Lopressor 12.5 mg PO BID 06/15/17 05/31/18 25mg tablet] Montelukast Sodium [Montelukast 10 mg PO HS 06/15/17 05/31/18 10mg Tab] Roflumilast [Daliresp] 500 mcg PO DAILY 06/15/17 05/31/18 Pravastatin Sodium [Pravachol 20mg 20 mg PO HS 10/12/17 05/31/18 Tablet] predniSONE [Deltasone 5mg 5 mg PO DAILY 10/12/17 05/31/18 tablet] Albuterol Sulfate [Albuterol HFA 2 puffs IH QID 05/31/18 05/31/18 Inhaler] Clotrimazole [Mycelex 10mg Briseida] 10 mg PO 5XDAY 05/31/18 05/31/18 Duloxetine HCl 60 mg PO DAILY 05/31/18 05/31/18 Ferrous Sulfate [High Potency Iron] 65 mg PO DAILY 05/31/18 05/31/18 Fluticasone Propionate 1 spray NS DAILYP PRN 05/31/18 05/31/18 Tiotropium [place] [Spiriva 1 inh IH DAILY 05/31/18 05/31/18 18mcg/puff inhaler] Ubidecarenone [Co Q-10] 200 mg PO DAILY 05/31/18 05/31/18 buPROPion HCl [Bupropion Xl] 150 mg PO DAILY 05/31/18 05/31/18 hydroCHLOROthiazide [HCTZ 25mg 12.5 mg PO DAILY 05/31/18 05/31/18 tab] Allergies Allergy/AdvReac Type Severity Reaction Status Date / Time Sulfa (Sulfonamide Allergy Unknown Verified 05/31/18 10:13 Antibiotics) sulfamethoxazole AdvReac Unknown Verified 05/31/18 10:13 trimethoprim AdvReac Unknown Verified 05/31/18 10:13 [facility] History - Hepatitis A Screen Attestation statement:: This patient has been screened for Hepatitis A risk factors. I have reviewed the patient's past medical history: Yes Medical History: Reports:: Chronic Obstructive Pulmonary Disease (COPD), Coronary Artery Disease, Depression, Gastroesophageal Reflux Disease(GERD), Hiatal Hernia, Home Oxygen, Hyperlipidemia, Hypertension, Lung Disease Denies:: Atherosclerotic Heart Disease, Diabetes Mellitus Type 1, Diabetes Mellitus Type 2, Internal Pacemaker, Seizures Other Medical History: Reports: Arthritis Laterality Cases: Right: Total Hip Replacement Other Surgeries: No: Pacemaker Comment: Lipoma removed from [place] 2012 - Social History Smoking Status: Former smoker Alcohol Intake: never Occupational Status: retired Housing: house Household Members: spouse - Psychiatric History Pschychiatric History:: Reports:: Depression Family Hx:: Cancer, Coronary Artery Disease, Diabetes ROS Obtained: Yes All systems reviewed & no additional complaints - Constitutional Constitutional: Denies fever(s) - Eyes Eyes: Denies blind spots, Denies change in vision, Denies diplopia - ENT Ears, Nose, Mouth, and Throat: Denies ear discharge, Denies otalgia, Denies hearing loss, Denies nasal discharge, Denies sore throat - Cardiovascular Cardiovascular: Denies chest pain - Respiratory Respiratory: No cough, No dyspnea - Gastrointestinal Gastrointestingal: Reports: nausea, vomiting. Denies: abdominal pain, diarrhea - Neurologic Neurologic: Reports as per HPI, Denies numbness, Denies weakness Physical Exam - General General appearance: alert, in no apparent distress - Head Head exam: atraumatic, normocephalic, normal inspection - Eye Eye exam: Present: normal appearance, PERRL, EOMI - ENT ENT exam: Present: normal exam, normal oropharynx, mucous membranes moist, TM's normal bilaterally, normal external ear exam - Neck Neck exam: Present: normal inspection, full ROM, trachea midline. Absent: meningismus - Chest Chest inspection: Present: normal inspection, symmetric chest wall rise - Respiratory Respiratory exam: Present: normal lung sounds bilaterally. Absent: respiratory distress - Cardiovascular Cardiovascular exam: Present: regular rate, normal rhythm. Absent: JVD - Abdominal Exam Abdominal exam: Present: soft, normal bowel sounds. Absent: distention, tenderness, guarding - Extremities Exam Extremities exam: Present: normal inspection, full ROM, normal capillary refill. Absent: calf tenderness - Back Exam Back exam: Present: normal inspection. Absent: tenderness - Neurological Exam Neurological exam: Present: alert, oriented X3, CN II-XII intact. Absent: motor sensory deficit - Psychiatric Psychiatric exam: Present: normal affect, normal mood - Skin Skin exam: Present: warm, dry, intact, normal color
[2018-05-31 10:31] LABS: Basophils # 0.1 K/mm3 (0-0.2); Basophils % 0.6 % (0.1-2.0); Eosinophils # 0.5 K/mm3 (0.0-0.4); Eosinophils % 3.2 % (0.1-12.0); Hematocrit 34.4 % (37.0-47.0); Hemoglobin 10.8 g/dL (12.2-16.2); Lymphocytes # 3.6 K/mm3 (0.7-4.5); Lymphocytes % 24.9 % (10-50); Mean Corpuscular HGB Conc 31.3 g/dL (31.8-35.4); Mean Corpuscular Hemoglobin 25.6 pg (27.0-31.2); Mean Corpuscular Volume 81.8 fl (81-99); Mean Platelet Volume 7.8 fl (7.4-10.4); Monocytes # 0.7 K/mm3 (0.1-1.0); Monocytes % 4.8 % (1.7-9.3); Neutrophils # 9.7 K/mm3 (1.8-7.8); Neutrophils % 66.5 % (37.0-80.0); Platelet Count 414 K/mm3 (142-424); Red Cell Distribution Width 16.6 % (11.5-17.5); White Blood Count 14.5 K/mm3 (4.8-10.8)
[2018-05-31 10:48] LABS: Alanine Aminotransferase 17 U/L (12-78); Albumin Level 2.8 gm/dL (3.4-5.0); Albumin/Globulin Ratio 0.7 (1.1-1.8); Alkaline Phosphatase 95 U/L (46-116); Anion Gap 14.4 mEq/L (5-15); Aspartate Amino Transferase 15 U/L (15-37); Bilirubin,Total 0.2 mg/dL (0.2-1.0); Blood Urea Nitrogen 14 mg/dL (7-18); Calcium 8.9 mg/dL (8.5-10.1); Carbon Dioxide 26 mmol/L (21.0-32.0); Chloride 102 mmol/L (98-107); Globulin 4.2 gm/dl (1.3-3.2); Glucose 126 mg/dL (74-106); Potassium 4.4 mmoL/L (3.5-5.1); Sodium 138 mmol/L (136-145)
[2018-05-31 14:37] LABS: Microscopic, Urine URINE MICROSCOPIC (MICROSCOPIC)
[2018-05-31 14:39] LABS: Appearance,Urine CLEAR (Clear); Bilirubin,Urine Negative (Negative); Blood, Urine Negative (Negative); Color,Urine YELLOW (Yellow); Glucose,Urine (UA) Negative (Negative); Ketones,Urine Negative (Negative); Leukocyte Esterase,Urine Negative (Negative); PH,Urine 6.5 (5.0-8.5); Protein,Urine Negative (Negative); Specific Gravity, Urine <= 1.005 (1.005-1.030); Urobilinogen,Urine 0.2 EU/dl (0.2)
[2018-05-31 15:01] LABS: Bacteria,Urine Trace /lpf
--- NOTE | 2018-05-31 15:28 | Pharmacy Consult Notes ---
[facility] Pharmacy VTE Monitoring - Patient Demographics Admission date: 05/31/18 Report Date: 05/31/18 Time: 15:28 Allergies/Adverse Reactions: Patient Allergies Sulfa (Sulfonamide Antibiotics) Allergy (Unknown, Verified 05/31/18 10:13) sulfamethoxazole Adverse Reaction (Unknown, Verified 05/31/18 10:13) trimethoprim Adverse Reaction (Unknown, Verified 05/31/18 10:13) Height: 1.63 m Weight: 97.664 kg Patient Problems: Current Active Problems Dizziness (Acute) Vomiting (Acute) - VTE Risk Labs: VTE Related Lab Results Hgb 10.8 g/dL (12.2-16.2) L 05/31/18 10:14 Hct 34.4 % (37.0-47.0) L 05/31/18 10:14 Plt Count 414 K/mm3 (142-424) 05/31/18 10:14 BUN 14 mg/dL (7-18) 05/31/18 10:14 Creatinine 1.48 mg/dL (0.55-1.02) H 05/31/18 10:14 Estimated Creat Clear 52 mL/min (50-200) 05/31/18 10:14 Clinical Trial Participant: No - Prophylaxis VTE Prophylaxis Ordered?: Yes Types of VTE Prophylaxis: TEDS Knee High
--- NOTE | 2018-05-31 16:38 | History & Physical Report ---
*Admission Date: 05/31/18 *Chief complaint: vomiting and dizziness *History of present illness: Ms. Roland is a 72-year-old female with a history of anxiety, depression, COPD, spinal stenosis, chronic back pain, who presented to [facility] emergency room after experiencing sudden onset at about 8:30 AM of nausea, vomiting, and dizziness. She states this episode started with her eyes at which time she was unable to see as well. She did vomit about 6 times. She became sicker and sicker and called EMS who brought her to the hospital. She describes her dizziness with any head movement and improved with closing her eyes. With evaluation in the emergency room CT of the head showed no acute findings. Chest x-ray showed a possible pneumonia. She was given IV fluids, anti-emetics, and meclizine and then admitted for further evaluation and treatment. At the time of this exam her nausea has ceased and she has not vomited since receiving Zofran and Phenergan in the emergency room. She is hungry and would like food to eat. She denies abdominal pain and fever. She has been voiding without difficulty. She does describe some upper respiratory symptoms with a nonproductive cough and ongoing shortness of breath. She does wear oxygen continuously. [facility] History Medical History: Reports:: Anxiety, Chronic Obstructive Pulmonary Disease (COPD), Coronary Artery Disease, Depression, Gastroesophageal Reflux Disease(GERD), Hiatal Hernia, Home Oxygen, Hyperlipidemia, Hypertension, Lung Disease Denies:: Atherosclerotic Heart Disease, Cancer, Diabetes Mellitus Type 1, Diabetes Mellitus Type 2, Internal Pacemaker, MRSA, Seizures *Have you ever received a pneumonia vaccine?: Yes *Have you received a flu vaccine this season?: Yes Other Medical History: Reports: Arthritis Laterality Cases: Right: Arthroscopy Hip, Breast Biopsy, Total Hip Replacement, Bilateral: Cataract Other Surgeries: No: Pacemaker Amputation: No Fractures: No - *Social History Educational Level: Completed GED/General Educational Development Smoking Status: Former smoker Tobacco Type: cigarettes Alcohol Intake: former *Occupational Status:: retired Housing: house Household Members: spouse *Travel in the last 8 weeks: None - Psychiatric History Expresses thoughts of harming self/others: None Suicide Plan Description: No Plan Pschychiatric History:: Reports:: Depression Family Hx:: Cancer, Coronary Artery Disease, Diabetes Review of Systems - Constitutional Denies body ache(s) - Eyes Reports blurry vision - ENT Reports dizziness, Denies ear pain, Denies sore throat - *Cardiovascular Reports shortness of breath (Patient is always short of breath. She does use her inhalers.), Denies chest pain - *Respiratory Reports cough, Reports shortness of breath, Denies chest congestion, Denies coughing up blood - *Gastrointestinal Reports heartburn, Reports nausea, Reports vomiting, Denies abdominal pain, Denies change in bowel habits, Denies change in stools, Denies coffee ground vomit, Denies constipation, Denies cramping, Denies vomiting blood, Denies bright, red blood in stools, Denies loose stools, Denies black, tarry stools - *Genitourinary Denies difficulty urinating - *Musculoskeletal Denies abnormal walking (She does use a walker in her home on occasion) - *Neurologic Reports unsteadiness, Reports dizziness, Denies abnormal walking (She feels unsteady on her feet), Denies abnormal speech, Denies numbness, Denies weakness Meds Home Medications Medication Instructions Recorded Confirmed Type ALPRAZolam [Xanax 0.5mg tab] 0.25 mg PO BID 06/15/17 05/31/18 History Esomeprazole Magnesium [Nexium] 40 mg PO DAILY 06/15/17 05/31/18 History Gabapentin [Gabapentin 300mg Cap] 600 mg PO TID 06/15/17 05/31/18 History Metoprolol Tartrate [Lopressor 12.5 mg PO BID 06/15/17 05/31/18 History 25mg tablet] Montelukast Sodium [Montelukast 10 mg PO HS 06/15/17 05/31/18 History 10mg Tab] Roflumilast [Daliresp] 500 mcg PO DAILY 06/15/17 05/31/18 History Pravastatin Sodium [Pravachol 20mg 20 mg PO HS 10/12/17 05/31/18 History Tablet] predniSONE [Deltasone 5mg 5 mg PO DAILY 10/12/17 05/31/18 History tablet] Albuterol Sulfate [Albuterol HFA 2 puffs IH QID 05/31/18 05/31/18 History Inhaler] Clotrimazole [Mycelex 10mg Briseida] 10 mg PO 5XDAY 05/31/18 05/31/18 History Duloxetine HCl 60 mg PO DAILY 05/31/18 05/31/18 History Ferrous Sulfate [High Potency Iron] 65 mg PO DAILY 05/31/18 05/31/18 History Fluticasone Propionate 1 spray NS DAILYP PRN 05/31/18 05/31/18 History Tiotropium Finger [Spiriva 1 inh IH DAILY 05/31/18 05/31/18 History 18mcg/puff inhaler] Ubidecarenone [Co Q-10] 200 mg PO DAILY 05/31/18 05/31/18 History buPROPion HCl [Bupropion Xl] 150 mg PO DAILY 05/31/18 05/31/18 History hydroCHLOROthiazide [HCTZ 25mg 12.5 mg PO DAILY 05/31/18 05/31/18 History tab] Allergies Allergy/AdvReac Type Severity Reaction Status Date / Time Sulfa (Sulfonamide Allergy Unknown Verified 05/31/18 10:13 Antibiotics) sulfamethoxazole AdvReac Unknown Verified 05/31/18 10:13 trimethoprim AdvReac Unknown Verified 05/31/18 10:13 Exam Vital signs and Labs for Last 24 Hours: Temp Pulse Resp BP Pulse Ox 97.5 F L 82 19 132/57 L 96 05/31/18 15:16 05/31/18 15:16 05/31/18 15:16 05/31/18 15:16 05/31/18 15:16 Laboratory Results - last 24 hr 05/31/18 10:14: WBC 14.5 H, RBC 4.20, Hgb 10.8 L, Hct 34.4 L, MCV 81.8, MCH 25.6 L, MCHC 31.3 L, RDW 16.6, Plt Count 414, MPV 7.8, Neut % (Auto) 66.5, Lymph % (Auto) 24.9, [place] % (Auto) 4.8, Eos % (Auto) 3.2, Baso % (Auto) 0.6, Neut # (Auto) 9.7 H, Lymph # (Auto) 3.6, [place] # (Auto) 0.7, Eos # (Auto) 0.5 H, Baso # (Auto) 0.1 05/31/18 10:14: Sodium 138, Potassium 4.4, Chloride 102, Carbon Dioxide 26, Anion Gap 14.4, BUN 14, Creatinine 1.48 H, Estimated Creat Clear 52, Estimated GFR 35 L, Est GFR ( Amer) 42 L, Glucose 126 H, Calcium 8.9, Total Bilirubin 0.2, AST 15, ALT 17, Alkaline Phosphatase 95, Troponin I < 0.02, Total Protein 7.0, Albumin 2.8 L, Globulin 4.2 H, Albumin/Globulin Ratio 0.7 L 05/31/18 14:25: Urine Color Yellow, Urine Appearance Clear, Urine pH 6.5, Ur Specific [place] <= 1.005, Urine Protein Negative, Urine Glucose (UA) Negative, Urine Ketones Negative, Urine Blood Negative, Urine Nitrate Negative, Urine Bilirubin Negative, Urine Urobilinogen 0.2, Ur Leukocyte Esterase Negative, Urine RBC None, Urine WBC 3-5, Ur Squamous Epith Cells 3-5, Urine Bacteria Trace I & O for Last 24 hours: Intake & Output 05/29/18 05/30/18 05/31/18 06/01/18 11:59 11:59 11:59 11:59 Intake Total 1000 / 1000 Balance 1000 / 1000 Weight 213 lb 215 lb 5 oz Radiology Reports for the Last 24 Hours: CT of the head 05/31/2018 IMPRESSION: Findings of age-appropriate cortical atrophy with mild chronic ischemic white matter changes, no acute intracranial pathology noted Chest x-ray 05/31/2018 IMPRESSION: Possible minimal right lower lobe pneumonia versus confluence of vascular shadows or focal atelectasis - Constitutional no acute distress, obese - *Routine HEENT Exam Head: Present: normocephalic, atraumatic Eye: Present: PERRL. Absent: conjunctival icterus, scleral injection, nystagmus ENT: Present: mucous membranes moist, oropharynx clear - *Routine Neck Exam Present: supple. Absent: carotid bruit, lymphadenopathy, thyromegaly - *Routine Respiratory Exam Present: CTA bilaterally (Anteriorly and posteriorly; diminished breath sounds posteriorly) - *Routine Cardiovascular Exam Present: RRR - *Routine Abdominal Exam Present: soft, normoactive bowel sounds. Absent: tenderness - *Routine Extremities Exam Absent: edema (She has YESSENIA holes on), calf tenderness - *Routine Neurological Exam Present: alert, oriented X3 Assessment and Plan (1) GERD (gastroesophageal reflux disease) Current visit: Yes Status: Acute Category: Medical Code(s): K21.9 - Gastro-esophageal reflux disease without esophagitis (2) Dizziness Current visit: Yes Status: Acute Category: Medical Code(s): R42 - Dizziness and giddiness (3) Vomiting Current visit: Yes Status: Acute Qualifiers: Vomiting type: unspecified Vomiting Intractability: non-intractable Nausea presence: with nausea Qualified Code(s): R11.2 - Nausea with vomiting, unspecified Category: Medical Code(s): R11.10 - Vomiting, unspecified (4) COPD (chronic obstructive pulmonary disease) Current visit: No Status: Chronic Category: Medical Code(s): J44.9 - Chronic obstructive pulmonary disease, unspecified (5) Spinal stenosis Current visit: No Status: Chronic Category: Medical Code(s): M48.00 - Spinal stenosis, site unspecified (6) Renal insufficiency Current visit: Yes Status: Acute Category: Medical Code(s): N28.9 - Disorder of kidney and ureter, unspecified - Assessment and plan all Dx Assessment and Plan for all problems:: White blood cell count is slightly elevated at 14,000 with normal differential. Urinalysis is negative. She has some renal insufficiency. We will continue with IV fluids and repeat labs in the morning. Rocephin has been ordered IV. Most of home meds have been reordered as well. Regular diet has been ordered.
[2018-06-01 06:06] LABS: Basophils # 0.1 K/mm3 (0-0.2); Basophils % 0.7 % (0.1-2.0); Eosinophils # 0.5 K/mm3 (0.0-0.4); Eosinophils % 3.7 % (0.1-12.0); Hematocrit 32.8 % (37.0-47.0); Hemoglobin 9.9 g/dL (12.2-16.2); Lymphocytes # 2.5 K/mm3 (0.7-4.5); Lymphocytes % 18.1 % (10-50); Mean Corpuscular HGB Conc 30.2 g/dL (31.8-35.4); Mean Corpuscular Hemoglobin 25.2 pg (27.0-31.2); Mean Corpuscular Volume 83.3 fl (81-99); Mean Platelet Volume 8.1 fl (7.4-10.4); Monocytes # 0.6 K/mm3 (0.1-1.0); Monocytes % 4.5 % (1.7-9.3); Neutrophils # 10.1 K/mm3 (1.8-7.8); Platelet Count 393 K/mm3 (142-424); Red Blood Count 3.93 M/mm3 (4.20-5.40); Red Cell Distribution Width 16.6 % (11.5-17.5); White Blood Count 13.8 K/mm3 (4.8-10.8)
[2018-06-01 06:20] LABS: Anion Gap 12.7 mEq/L (5-15); Calcium 8.4 mg/dL (8.5-10.1); Potassium 4.7 mmoL/L (3.5-5.1)
--- NOTE | 2018-06-01 07:52 | Progress Note ---
Internal Medicine - PN: Subj Interval history: Patient had a good night. She slept well. She denies chest pain. She is always short of breath. She has had no further nausea, vomiting, or dizziness. She tolerated a regular diet last evening and this morning. She has been up to the bathroom without dizziness. Chest x-ray did show a possible pneumonia. White blood cell count remains elevated at 13,000 with normal differential. Laboratory Tests 06/01/18 05:49 Sodium 142 Potassium 4.7 Chloride 107 Carbon Dioxide 27 Anion Gap 12.7 BUN 16 Creatinine 1.75 H Estimated Creat Clear 45 Estimated GFR 29 L Est GFR ( Amer) 35 L Glucose 105 Calcium 8.4 L Exam Vital signs and Labs for Last 24 Hours: Temp Pulse Resp BP Pulse Ox 98.9 F 86 17 109/72 L 95 06/01/18 04:00 06/01/18 04:00 06/01/18 04:00 06/01/18 04:00 06/01/18 04:00 Laboratory Results - last 24 hr 05/31/18 10:14: WBC 14.5 H, RBC 4.20, Hgb 10.8 L, Hct 34.4 L, MCV 81.8, MCH 25.6 L, MCHC 31.3 L, RDW 16.6, Plt Count 414, MPV 7.8, Neut % (Auto) 66.5, Lymph % (Auto) 24.9, [place] % (Auto) 4.8, Eos % (Auto) 3.2, Baso % (Auto) 0.6, Neut # (Auto) 9.7 H, Lymph # (Auto) 3.6, [place] # (Auto) 0.7, Eos # (Auto) 0.5 H, Baso # (Auto) 0.1 05/31/18 10:14: Sodium 138, Potassium 4.4, Chloride 102, Carbon Dioxide 26, Anion Gap 14.4, BUN 14, Creatinine 1.48 H, Estimated Creat Clear 52, Estimated GFR 35 L, Est GFR ( Amer) 42 L, Glucose 126 H, Calcium 8.9, Total Bilirubin 0.2, AST 15, ALT 17, Alkaline Phosphatase 95, Troponin I < 0.02, Total Protein 7.0, Albumin 2.8 L, Globulin 4.2 H, Albumin/Globulin Ratio 0.7 L 05/31/18 14:25: Urine Color Yellow, Urine Appearance Clear, Urine pH 6.5, Ur Specific [place] <= 1.005, Urine Protein Negative, Urine Glucose (UA) Negative, Urine Ketones Negative, Urine Blood Negative, Urine Nitrate Negative, Urine Bilirubin Negative, Urine Urobilinogen 0.2, Ur Leukocyte Esterase Negative, Urine RBC None, Urine WBC 3-5, Ur Squamous Epith Cells 3-5, Urine Bacteria Trace 06/01/18 05:49: WBC 13.8 H, RBC 3.93 L, Hgb 9.9 L, Hct 32.8 L, MCV 83.3, MCH 25.2 L, MCHC 30.2 L, RDW 16.6, Plt Count 393, MPV 8.1, Neut % (Auto) 73.0, Lymph % (Auto) 18.1, [place] % (Auto) 4.5, Eos % (Auto) 3.7, Baso % (Auto) 0.7, Neut # (Auto) 10.1 H, Lymph # (Auto) 2.5, [place] # (Auto) 0.6, Eos # (Auto) 0.5 H, Baso # (Auto) 0.1 06/01/18 05:49: Sodium 142, Potassium 4.7, Chloride 107, Carbon Dioxide 27, Anion Gap 12.7, BUN 16, Creatinine 1.75 H, Estimated Creat Clear 45, Estimated GFR 29 L, Est GFR ( Amer) 35 L, Glucose 105, Calcium 8.4 L I & O for Last 24 hours: Intake & Output 05/29/18 05/30/18 05/31/18 06/01/18 11:59 11:59 11:59 11:59 Intake Total 1961 / 1961 Output Total 900 / 900 Balance 1062 / 1062 Weight 213 lb 215 lb 5 oz - Constitutional no acute distress Comments: Sitting up in the bed eating her breakfast. Appears comfortable. - *Routine Respiratory Exam Comments: Decreased breath sounds in right base. Soft expiratory wheeze heard in the left base. - *Routine Cardiovascular Exam Present: RRR - *Routine Abdominal Exam Present: soft, normoactive bowel sounds. Absent: tenderness - *Routine Extremities Exam Absent: calf tenderness Comments: YESSENIA house on - *Routine Neurological Exam Present: alert, oriented X3 Assessment and Plan (1) GERD (gastroesophageal reflux disease) Current visit: Yes Status: Acute Category: Medical Code(s): K21.9 - Gastro-esophageal reflux disease without esophagitis (2) Dizziness Current visit: Yes Status: Acute Category: Medical Code(s): R42 - Dizziness and giddiness (3) Vomiting Current visit: Yes Status: Acute Qualifiers: Vomiting type: unspecified Vomiting Intractability: non-intractable Nausea presence: with nausea Qualified Code(s): R11.2 - Nausea with vomiting, unspecified Category: Medical Code(s): R11.10 - Vomiting, unspecified (4) COPD (chronic obstructive pulmonary disease) Current visit: No Status: Chronic Category: Medical Code(s): J44.9 - Chronic obstructive pulmonary disease, unspecified (5) Spinal stenosis Current visit: No Status: Chronic Category: Medical Code(s): M48.00 - Sp inal stenosis, site unspecified (6) Renal insufficiency Current visit: Yes Status: Acute Category: Medical Code(s): N28.9 - Disorder of kidney and ureter, unspecified (7) Chronic respiratory failure Current visit: Yes Status: Acute Category: Medical Code(s): J96.10 - Chronic respiratory failure, unspecified whether with hypoxia or hypercapnia (8) Left ventricular hypertrophy Current visit: Yes Status: Acute Category: Medical Code(s): I51.7 - Cardiomegaly (9) Pulmonary emphysema Current visit: Yes Status: Acute Category: Medical Code(s): J43.9 - Emphysema, unspecified (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 Miranda 04/26/2018. Anemia studies were ordered. Iron was 30 and vitamin B12 was 589 - Assessment and plan all Dx Assessment and Plan for all problems:: Will repeat chest x-ray this morning. Continue with IV Rocephin for now. Restarted prednisone and Daliresp
--- NOTE | 2018-06-01 14:18 | Consult Report ---
History of Present Illness Consult date: 06/01/18 Requesting physician: Moan Stephens Chief complaint: Shortness of breath Additional Medical History:: 1. Vomiting 2. Dizziness 3. Chronic Obstructive Pulmonary Disease a. Pulmonary emphysema b. History of tobacco use: Quit smoking 11 years ago c. Home dependent Oxygen at 2 liters. 4. Left Ventricular Hypertrophy a. Last heart catheterization (06/16) revealed EF 65% 5. Essential hypertension a. Well controlled 6. Anemia a. Hemoglobin 9.9 (06/01/18) b. Hematocrit 32.8 (06/01/18) 7. Renal Insufficiency a. Creatinine 1.75 (06/01/18) History of present illness: 72-year-old female admitted to [facility] on 05/31/2018 with vomiting and dizziness. Patient stated she had vomited at least 6 times at home prior to coming to the emergency room. Patient states for the past few days she has been experiencing dizziness with movement. Patient denies chest pain, tightness or pressure. She complains of increased shortness of breath with exertion. States unable to walk 10 feet without becoming very short of breath to where she needs to sit down and rest. Patient does have history of severe COPD requiring home oxygen at 2 L. Patient states since receiving medication for her vomiting she has felt better. Patient has had no active vomiting since being admitted to facility. Patient noted with 1+ pedal edema. Patient is wearing YESSENIA hose. Patient denies palpitations at this time. Patient states in April,, she wore a Holter monitor for 48 hours. States that she did have some episodes of high heart rate. Holter monitor results revealed 5 short runs of SVT. Patient stated she has had episodes of heart rate being in the 130s at times especially with anxiety. Cardiology was consulted due to possible heart arrhythmia. Last catheterization was in 06/16 which revealed Normal Coronaries. Pt was last evaluated by Cardiology in 05/2017. Pt was to follow up in Cardiology clinic at that time, but pt did not follow up. 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 Vital signs stable. CXR revealed: Borderline underlying emphysematous changes noted. There are somewhat coarse bronchovascular markings in the right perihilar region and right middle lobe suggesting a minimal right middle lobe pneumonic infiltrate. The remainder right lung field is clear and left lung field is clear. Cardiac size is normal and the vascularity is normal. There is no pleural fluid. IMPRESSION: Findings suggesting right perihilar and right middle lobe bronchopneumonia Head CT scan revealed: The base of skull is normal, mastoids are clear. The basilar cisterns are normal for age. The ventricular system is normal. There is no ischemic infarct and there is no bleed and there are no extra-axial fluid collections. There are mild reticular hypodensities consistent with chronic ischemic white matter changes. The sylvian fissures and cortical sulci are prominent. The bony calvarium appears intact. IMPRESSION: Findings of age-appropriate cortical atrophy with mild chronic ischemic white matter changes, no acute intracranial pathology noted. Echocardiogram will be obtained. Pt is currently on a beta aisha. Will continue to monitor pt at this time. Thank you for letting Cardiology participate in the care of this pt. Case was discussed with Dr. Guzman. [facility] History Medical History: Reports:: Anxiety, Chronic Obstructive Pulmonary Disease (COPD), Coronary Artery Disease, Depression, Gastroesophageal Reflux Disease(GERD), Hiatal Hernia, Home Oxygen, Hyperlipidemia, Hypertension, Lung Disease Denies:: Atherosclerotic Heart Disease, Cancer, Diabetes Mellitus Type 1, Diabetes Mellitus Type 2, Internal Pacemaker, MRSA, Seizures *Have you ever received a pneumonia vaccine?: Yes *Have you received a flu vaccine this season?: Yes Other Medical History: Reports: Arthritis Laterality Cases: Right: Arthroscopy Hip, Breast Biopsy, Total Hip Replacement, Bilateral: Cataract Other Surgeries: No: Pacemaker Amputation: No Fractures: No - *Social History Educational Level: Completed GED/General Educational Development Smoking Status: Former smoker Tobacco Type: cigarettes Alcohol Intake: former *Occupational Status:: retired Housing: house Household Members: spouse *Travel in the last 8 weeks: None - Psychiatric History Expresses thoughts of harming self/others: None Suicide Plan Description: No Plan Pschychiatric History:: Reports:: Anxiety, Depression Family Hx:: Cancer, Coronary Artery Disease, Diabetes Meds Home Medications Medication Instructions Recorded Confirmed Type ALPRAZolam [Xanax 0.5mg tab] 0.25 mg PO BID 06/15/17 05/31/18 History Esomeprazole Magnesium [Nexium] 40 mg PO DAILY 06/15/17 05/31/18 History Gabapentin [Gabapentin 300mg Cap] 600 mg PO TID 06/15/17 05/31/18 History Metoprolol Tartrate [Lopressor 12.5 mg PO BID 06/15/17 05/31/18 History 25mg tablet] Montelukast Sodium [Montelukast 10 mg PO HS 06/15/17 05/31/18 History 10mg Tab] Roflumilast [Daliresp] 500 mcg PO DAILY 06/15/17 05/31/18 History Pravastatin Sodium [Pravachol 20mg 20 mg PO HS 10/12/17 05/31/18 History Tablet] predniSONE [Deltasone 5mg 5 mg PO Q48H 10/12/17 06/01/18 History tablet] Albuterol Sulfate [Albuterol HFA 2 puffs IH QID 05/31/18 05/31/18 History Inhaler] Clotrimazole [Mycelex 10mg Briseida] 10 mg PO 5XDAY 05/31/18 05/31/18 History Duloxetine HCl 60 mg PO DAILY 05/31/18 05/31/18 History Ferrous Sulfate [High Potency Iron] 65 mg PO DAILY 05/31/18 05/31/18 History Fluticasone Propionate 1 spray NS DAILYP PRN 05/31/18 05/31/18 History Tiotropium [place] [Spiriva 1 inh IH DAILY 05/31/18 05/31/18 History 18mcg/puff inhaler] Ubidecarenone [Co Q-10] 200 mg PO DAILY 05/31/18 05/31/18 History buPROPion HCl [Bupropion Xl] 150 mg PO DAILY 05/31/18 05/31/18 History hydroCHLOROthiazide [HCTZ 25mg 12.5 mg PO NEEDED PRN 05/31/18 06/01/18 History tab] Allergies Allergy/AdvReac Type Severity Reaction Status Date / Time Sulfa (Sulfonamide Allergy Unknown Verified 05/31/18 10:13 Antibiotics) sulfamethoxazole AdvReac Unknown Verified 05/31/18 10:13 trimethoprim AdvReac Unknown Verified 05/31/18 10:13 Review of Systems - Review of Systems Review of systems:: pertinent systems reviewed and negative unless documented below - *Cardiovascular Reports shortness of breath, Reports shortness of breath with activity, Reports generalized swelling, Denies chest pain - *Respiratory Reports shortness of breath, Reports wheezing - *Gastrointestinal Denies abdominal pain - *Musculoskeletal Reports muscle weakness - *Neurologic Reports unsteadiness, Reports dizziness, Denies abnormal walking (She feels unsteady on her feet), Denies abnormal speech, Denies numbness, Denies weakness - Psychiatric Reports depression, Denies confusion, Denies thoughts of hurting/killing others, Denies thoughts of hurting/killing yourself - Hematologic/Lymphatic Reports easy bruising Exam Vital signs and Labs for Last 24 Hours: Temp Pulse Resp BP Pulse Ox 98.1 F 83 20 110/59 L 94 L 06/01/18 08:00 06/01/18 08:00 06/01/18 08:00 06/01/18 08:00 06/01/18 08:00 Laboratory Results - last 24 hr 05/31/18 14:25: Urine Color Yellow, Urine Appearance Clear, Urine pH 6.5, Ur Specific Premier <= 1.005, Urine Protein Negative, Urine Glucose (UA) Negative, Urine Ketones Negative, Urine Blood Negative, Urine Nitrate Negative, Urine Bilirubin Negative, Urine Urobilinogen 0.2, Ur Leukocyte Esterase Negative, Urine RBC None, Urine WBC 3-5, Ur Squamous Epith Cells 3-5, Urine Bacteria Trace 06/01/18 05:49: WBC 13.8 H, RBC 3.93 L, Hgb 9.9 L, Hct 32.8 L, MCV 83.3, MCH 25.2 L, MCHC 30.2 L, RDW 16.6, Plt Count 393, MPV 8.1, Neut % (Auto) 73.0, Lymph % (Auto) 18.1, [place] % (Auto) 4.5, Eos % (Auto) 3.7, Baso % (Auto) 0.7, Neut # (Auto) 10.1 H, Lymph # (Auto) 2.5, [place]igg # (Auto) 0.6, Eos # (Auto) 0.5 H, Baso # (Auto) 0.1 06/01/18 05:49: Sodium 142, Potassium 4.7, Chloride 107, Carbon Dioxide 27, Anion Gap 12.7, BUN 16, Creatinine 1.75 H, Estimated Creat Clear 45, Estimated GFR 29 L, Est GFR ( Amer) 35 L, Glucose 105, Calcium 8.4 L I & O for Last 24 hours: Intake & Output 05/29/18 05/30/18 05/31/18 06/01/18 23:59 23:59 23:59 23:59 Intake Total 1344 / 1344 978 / 978 Output Total 900 / 900 Balance 444 / 444 978 / 978 Weight 215 lb 5 oz - Constitutional mild distress, obese - *Routine HEENT Exam Head: Present: normocephalic Eye: Present: PERRL ENT: Present: mucous membranes moist - *Routine Neck Exam Present: supple, full ROM, normal carotid upstroke. Absent: JVD, carotid bruit - Routine Chest/Breast/Axilla Exam Chest wall: Absent: tenderness, mass, pacemaker - *Routine Respiratory Exam Present: decreased breath sounds. Absent: rales, rhonchi, wheezes - *Routine Cardiovascular Exam Present: RRR, Normal S1, Normal S2. Absent: murmur, gallop, rubs, click, JVD - *Routine Abdominal Exam Present: soft, normoactive bowel sounds. Absent: tenderness, distended, guarding, mass - *Routine Extremities Exam Present: edema, full ROM, pulses intact, normal capillary refill. Absent: Shyla's sign - *Routine Skin Exam Present: intact, dry, warm, normal turgor. Absent: mottling, lesions - *Routine Neurological Exam Present: alert, oriented X3, CN II-XII intact, normal reflexes, moving all extremities, normal speech - Routine Psychiatric Exam Present: normal affect, normal thought process, anxious. Absent: suicidal ideation, auditory hallucinations Assessment and Plan (1) GERD (gastroesophageal reflux disease) Current visit: Yes Status: Acute Category: Medical Code(s): K21.9 - Gastro-esophageal reflux disease without esophagitis (2) Dizziness Current visit: Yes Status: Acute Category: Medical Code(s): R42 - Dizziness and giddiness (3) Vomiting Current visit: Yes Status: Acute Qualifiers: Vomiting type: unspecified Vomiting Intractability: non-intractable Nausea presence: with nausea Qualified Code(s): R11.2 - Nausea with vomiting, unspecified Category: Medical Code(s): R11.10 - Vomiting, unspecified (4) COPD (chronic obstructive pulmonary disease) Current visit: No Status: Chronic Category: Medical Code(s): J44.9 - Chronic obstructive pulmonary disease, unspecified (5) Spinal stenosis Current visit: No Status: Chronic Category: Medical Code(s): M48.00 - Spinal stenosis, site unspecified (6) Renal insufficiency Current visit: Yes Status: Acute Category: Medical Code(s): N28.9 - Disorder of kidney and ureter, unspecified (7) Chronic respiratory failure Current visit: Yes Status: Acute Category: Medical Code(s): J96.10 - Chronic respiratory failure, unspecified whether with hypoxia or hypercapnia (8) Left ventricular hypertrophy Current visit: Yes Status: Acute Category: Medical Code(s): I51.7 - Cardiomegaly (9) Pulmonary emphysema Current visit: Yes Status: Acute Category: Medical Code(s): J43.9 - Emphysema, unspecified (10) Secondary pulmonary hypertension Current visit: Yes Status: Acute Category: Medical (11) Anemia Current visit: Yes Status: Chronic Category: Medical Code(s): D64.9 - Anemia, unspecified - Assessment and plan all Dx Assessment and Plan for all problems:: Plan: 1. Obtain Echocardiogram to assess LV function and valve status.(today.) 2. Pt is on a Beta Aisha (Lopressor 12.5mg BID). Pt stated she is only taking once a day. Lopressor 12.5mg ordered as twice daily. 3. Obtain Lipid panel with morning labs. 4. Will continue to monitor pt's condition.
[2018-06-02 06:28] LABS: Chol/HDL Ratio 3.6 (1-3.5)
--- NOTE | 2018-06-02 08:14 | Progress Note ---
Internal Medicine - PN: Subj *Date: 06/02/18 *Time: 08:09 Interval history: Patient states she is not feeling well this morning. She states she is wheezing and coughing. She denies any pain. She states she slept well throughout the night. She did eat breakfast this morning. Exam Vital signs and Labs for Last 24 Hours: Temp Pulse Resp BP Pulse Ox 98.6 F 80 16 142/60 H 92 L 06/02/18 08:00 06/02/18 08:00 06/02/18 08:00 06/02/18 08:00 06/02/18 08:00 Laboratory Results - last 24 hr 06/02/18 05:38: Triglycerides 111, Cholesterol 160, LDL Cholesterol 93, VLDL Cholesterol 22, HDL Cholesterol 45, Cholesterol/HDL Ratio 3.6 H I & O for Last 24 hours: Intake & Output 05/30/18 05/31/18 06/01/18 06/02/18 11:59 11:59 11:59 11:59 Intake Total 2322 / 2322 960 / 960 Output Total 900 / 900 200 / 200 Balance 1422 / 1422 760 / 760 Weight 213 lb 213 lb 7 oz Microbiology Reports for the Last 24 Hours: Microbiology 05/31/18 14:25 Urine,Random Urine Culture - Final Multiple organisms, suggests contamination. Radiology Reports for the Last 24 Hours: CXR - Findings suggesting right perihilar and right middle lobe bronchopneumonia - Constitutional no acute distress - *Routine Respiratory Exam Present: rhonchi, wheezes - *Routine Cardiovascular Exam Present: RRR - *Routine Abdominal Exam Present: soft, normoactive bowel sounds. Absent: tenderness - *Routine Extremities Exam Absent: cyanosis, clubbing, edema Assessment and Plan (1) GERD (gastroesophageal reflux disease) Current visit: Yes Status: Acute Category: Medical Code(s): K21.9 - Gastro-esophageal reflux disease without esophagitis (2) Dizziness Current visit: Yes Status: Acute Category: Medical Code(s): R42 - Dizziness and giddiness (3) Vomiting Current visit: Yes Status: Acute Qualifiers: Vomiting type: unspecified Vomiting Intractability: non-intractable Nausea presence: with nausea Qualified Code(s): R11.2 - Nausea with vomiting, unspecified Category: Medical Code(s): R11.10 - Vomiting, unspecified (4) COPD (chronic obstructive pulmonary disease) Current visit: No Status: Chronic Category: Medical Code(s): J44.9 - Chronic obstructive pulmonary disease, unspecified (5) Spinal stenosis Current visit: No Status: Chronic Category: Medical Code(s): M48.00 - Spinal stenosis, site unspecified (6) Renal insufficiency Current visit: Yes Status: Acute Category: Medical Code(s): N28.9 - Disorder of kidney and ureter, unspecified (7) Chronic respiratory failure Current visit: Yes Status: Acute Category: Medical Code(s): J96.10 - Chronic respiratory failure, unspecified whether with hypoxia or hypercapnia (8) Left ventricular hypertrophy Current visit: Yes Status: Acute Category: Medical Code(s): I51.7 - Cardiomegaly (9) Pulmonary emphysema Current visit: Yes Status: Acute Category: Medical Code(s): J43.9 - Emphysema, unspecified (10) Secondary pulmonary hypertension Current visit: Yes Status: Acute Category: Medical (11) Anemia Current visit: Yes Status: Chronic Category: Medical Code(s): D64.9 - Anem ia, unspecified (12) Bronchopneumonia Current visit: Yes Status: Acute Category: Medical Code(s): J18.0 - Bronchopneumonia, unspecified organism - Assessment and plan all Dx Assessment and Plan for all problems:: Repeat chest x-ray shows a bronchopneumonia and patient is wheezing today. She normally takes duo nebs at home but has not had these while in the hospital. We will restart nebs today. Cardiology has seen the patient and may be increasing her metoprolol dose, however they would like to see her echo report first.
[2018-06-02 09:42] LABS: Basophils # 0.1 K/mm3 (0-0.2); Basophils % 0.7 % (0.1-2.0); Eosinophils # 0.7 K/mm3 (0.0-0.4); Eosinophils % 4.9 % (0.1-12.0); Hematocrit 32.5 % (37.0-47.0); Lymphocytes # 2.6 K/mm3 (0.7-4.5); Lymphocytes % 19.5 % (10-50); Mean Corpuscular HGB Conc 30.8 g/dL (31.8-35.4); Mean Corpuscular Hemoglobin 25.4 pg (27.0-31.2); Mean Corpuscular Volume 82.6 fl (81-99); Mean Platelet Volume 7.9 fl (7.4-10.4); Monocytes # 0.7 K/mm3 (0.1-1.0); Neutrophils # 9.4 K/mm3 (1.8-7.8); Neutrophils % 69.9 % (37.0-80.0); Platelet Count 392 K/mm3 (142-424); Red Blood Count 3.93 M/mm3 (4.20-5.40); Red Cell Distribution Width 16.6 % (11.5-17.5); White Blood Count 13.5 K/mm3 (4.8-10.8)
[2018-06-02 09:51] LABS: Anion Gap 12.6 mEq/L (5-15); Calcium 8.9 mg/dL (8.5-10.1); Potassium 4.6 mmoL/L (3.5-5.1)
--- NOTE | 2018-06-02 10:00 | Cardiology Report ---
PROCEDURE: 2-D M-mode and color Doppler study INDICATIONS FOR THE TEST: Chest pain COPD+ Heart Murmur Tobacco Smoking Palpitations Fatigue Syncope Edema Hypertension Diabetes Mellitus Rheumatic Fever SOB+CALLE Obesity Hyperlipidemia Family History HD Additional History PATIENT INFORMATION HEIGHT:64 WEIGHT:215 GENDER: Female B/P:109/72 2-D/M-MODE INTERPRETATION: 2-D MEASUREMENTS OBSERVED VALUES IN CMS Right Ventricular Dimension (RVDd) 2.1 Interventricular Septum (Thickness)(IVsd) 1.4 Left Ventricular Internal Dimensions(LVIDd) 4.9 Left Ventricular Posterior Wall (Thickness)(LVPWd) 0.8 Aortic Root 2.6 Aortic Cusp Separation 1.9 Left Atrial Dimensions (LAD) 3.5 2D 1. Left atrium is mildly enlarged, left ventricle is normal size, mild qualitative concentric left ventricular hypertrophy, visually estimated ejection fraction of 55% with no regional wall motion abnormality. 2. The right atrium and right ventricle are relatively normal size and function. 3. The aortic valve is minimally thickened and fibrosed. 4. The mitral and tricuspid valvular grossly normal. 5. The pulmonic valve is poorly present. 6. No significant pericardial effusion noted. DOPPLER INTERROGATION: Doppler interrogation of the aortic, mitral and tricuspid valvular presence of mild mitral and tricuspid regurgitation, tricuspid regurgitation jet velocity is inadequate for calculation of the right ventricular systolic pressure, grade 1 diastolic dysfunction seen without tissue Doppler evidence of raised left atrial pressure. CONCLUSION: 1. Mildly enlarged left atrium, normal left ventricular size, mild concentric left ventricular hypertrophy, visually estimated ejection fraction 55% with no regional wall motion abnormality, grade 1 diastolic dysfunction seen without tissue Doppler evidence of raised left atrial pressure. 2. Mild mitral and tricuspid regurgitation 3. No significant pericardial effusion noted.
--- NOTE | 2018-06-02 10:37 | Progress Note ---
Subjective Date: 06/02/18 Time: 08:20 Principal diagnosis: COPD and Heart arrhythmia Interval history: 72 year old female admitted to [facility] on 05/31/18 with vomiting and dizziness. Pt alert and oriented to person and place appropriately. Pt stated she is feeling much better and has had no vomiting since admission. Pt denies chest pain, tightness or pressure. Complains of shortness of breath. Pt does have history of COPD and requires Oxygen at 2 liters continuously. Denies palpitations or dizziness. Pt stated she is able to ambulate to the restroom with no dizziness. VS stable. equipment monitor phototypesetting reveals normal sinus rhythm with no ectopy with heart rate ranging in the 70-80's. Lab drawn this am. Creatinine 1.91. Pt does have history of renal insufficency. YESSENIA hose intact on legs bilaterally. 1+ pedal edema noted bilaterally. CXR revealed: Borderline underlying emphysematous changes noted. There are somewhat coarse bronchovascular markings in the right perihilar region and right middle lobe suggesting a minimal right middle lobe pneumonic infiltrate. The remainder right lung field is clear and left lung field is clear. Cardiac size is normal and the vascularity is normal. There is no pleural fluid. IMPRESSION: Findings suggesting right perihilar and right middle lobe bronchopneumonia. Echocardiogram revealed: 2D 1. Left atrium is mildly enlarged, left ventricle is normal size, mild qualitative concentric left ventricular hypertrophy, visually estimated ejection fraction of 55% with no regional wall motion abnormality. 2. The right atrium and right ventricle are relatively normal size and function. 3. The aortic valve is minimally thickened and fibrosed. 4. The mitral and tricuspid valvular grossly normal. 5. The pulmonic valve is poorly present. 6. No significant pericardial effusion noted. DOPPLER INTERROGATION: Doppler interrogation of the aortic, mitral and tricuspid valvular presence of mild mitral and tricuspid regurgitation, tricuspid regurgitation jet velocity is inadequate for calculation of the right ventricular systolic pressure, grade 1 diastolic dysfunction seen without tissue Doppler evidence of raised left atrial pressure. CONCLUSION: 1. Mildly enlarged left atrium, normal left ventricular size, mild concentric left ventricular hypertrophy, visually estimated ejection fraction 55% with no regional wall motion abnormality, grade 1 diastolic dysfunction seen without tissue Doppler evidence of raised left atrial pressure. 2. Mild mitral and tricuspid regurgitation 3. No significant pericardial effusion noted. Due to pt not taking her Metoprolol (at home) as prescribed, will recommend Toprol XL 25mg for better heart rate control and palpitations. Thank you for letting Cardiology participate in the care of this pt. Exam Vital signs and Labs for Last 24 Hours: Temp Pulse Resp BP Pulse Ox 98.6 F 80 16 142/60 H 92 L 06/02/18 08:00 06/02/18 08:00 06/02/18 08:00 06/02/18 08:00 06/02/18 08:00 Laboratory Results - last 24 hr 06/02/18 05:38: Triglycerides 111, Cholesterol 160, LDL Cholesterol 93, VLDL Cholesterol 22, HDL Cholesterol 45, Cholesterol/HDL Ratio 3.6 H 06/02/18 09:30: WBC 13.5 H, RBC 3.93 L, Hgb 10.0 L, Hct 32.5 L, MCV 82.6, MCH 25.4 L, MCHC 30.8 L, RDW 16.6, Plt Count 392, MPV 7.9, Neut % (Auto) 69.9, Lymph % (Auto) 19.5, [place] % (Auto) 5.0, Eos % (Auto) 4.9, Baso % (Auto) 0.7, Neut # (Auto) 9.4 H, Lymph # (Auto) 2.6, [place] # (Auto) 0.7, Eos # (Auto) 0.7 H, Baso # (Auto) 0.1 06/02/18 09:30: Sodium 140, Potassium 4.6, Chloride 105, Carbon Dioxide 27, Anion Gap 12.6, BUN 16, Creatinine 1.91 H, Estimated Creat Clear 41, Estimated GFR 26 L, Est GFR ( Amer) 31 L, Glucose 102, Calcium 8.9 I & O for Last 24 hours: Intake & Output 05/30/18 05/31/18 06/01/18 06/02/18 23:59 23:59 23:59 23:59 Intake Total 1344 / 1344 1458 / 1458 480 / 480 Output Total 900 / 900 200 / 200 Balance 444 / 444 1458 / 1458 280 / 280 Weight 215 lb 5 oz 213 lb 7 oz Microbiology Reports for the Last 24 Hours: Microbiology 05/31/18 14:25 Urine,Random Urine Culture - Final Multiple organisms, suggests contamination. - Constitutional mild distress, obese - *Routine HEENT Exam Head: Present: normocephalic Eye: Present: PERRL ENT: Present: mucous membranes dry - *Routine Neck Exam Present: supple, full ROM, normal carotid upstroke. Absent: JVD, carotid bruit, lymphadenopathy - Routine Chest/Breast/Axilla Exam Chest wall: Present: tenderness. Absent: mass, pacemaker - *Routine Respiratory Exam Present: accessory muscle use, wheezes, distant breath sounds - *Routine Cardiovascular Exam Present: RRR, Normal S1, Normal S2. Absent: murmur, gallop, click, bradycardia, tachycardia, JVD - *Routine Abdominal Exam Present: soft, normoactive bowel sounds. Absent: guarding, firm - *Routine Extremities Exam Present: edema, full ROM, pulses intact, normal capillary refill. Absent: cyanosis, clubbing - Routine Back/Spine/Pelvis Exam Back/Spine: Present: full ROM. Absent: CVA tenderness - *Routine Skin Exam Present: intact, dry, warm. Absent: cyanosis, erythema - *Routine Neurological Exam Present: alert, oriented X3, CN II-XII intact, normal reflexes, abnormal gait, moving all extremities, normal speech - Routine Psychiatric Exam Present: normal affect, normal thought process. Absent: suicidal ideation Progress Note: A&P (1) GERD (gastroesophageal reflux disease) Status: Acute Current Visit: Yes (2) Dizziness Status: Acute Current Visit: Yes (3) Vomiting Status: Acute Current Visit: Yes (4) COPD (chronic obstructive pulmonary disease) Status: Chronic Current Visit: No (5) Spinal stenosis Status: Chronic Current Visit: No (6) Renal insufficiency Status: Acute Current Visit: Yes (7) Chronic respiratory failure Status: Acute Current Visit: Yes (8) Left ventricular hypertrophy Status: Acute Current Visit: Yes (9) Pulmonary emphysema Status: Acute Current Visit: Yes (10) Secondary pulmonary hypertension Status: Acute Current Visit: Yes (11) Anemia Status: Chronic Current Visit: Yes (12) Bronchopneumonia Status: Acute Current Visit: Yes Assessment and Plan for All Diagnoses:: Plan: 1. Recommend stopping the Metoprolol 12.5mg BID. Recommend starting Toprol XL 25mg daily for better compliance. 2. Please do not hesitate to notify Cardiology if pt's condition becomes worse. 3. Follow up in Cardiac clinic in one week after discharged from facility.
--- NOTE | 2018-06-03 08:21 | Progress Note ---
Internal Medicine - PN: Subj *Date: 06/03/18 *Time: 08:18 Interval history: Patient states she is feeling a little bit better this morning. She has less shortness of breath and wheezing. She thinks the breathing treatments are helping. She denies any pain and slept off and on throughout the night. She had a good breakfast this morning. She is requesting her fall risk order be removed as her dizziness has improved and she thinks she can walk around the room on her own. Exam Vital signs and Labs for Last 24 Hours: Temp Pulse Resp BP Pulse Ox 98.3 F 84 20 152/68 H 92 L 06/03/18 04:00 06/03/18 06:33 06/03/18 04:00 06/03/18 04:00 06/03/18 06:33 Laboratory Results - last 24 hr 06/02/18 09:30: WBC 13.5 H, RBC 3.93 L, Hgb 10.0 L, Hct 32.5 L, MCV 82.6, MCH 25.4 L, MCHC 30.8 L, RDW 16.6, Plt Count 392, MPV 7.9, Neut % (Auto) 69.9, Lymph % (Auto) 19.5, [place] % (Auto) 5.0, Eos % (Auto) 4.9, Baso % (Auto) 0.7, Neut # (Auto) 9.4 H, Lymph # (Auto) 2.6, [place] # (Auto) 0.7, Eos # (Auto) 0.7 H, Baso # (Auto) 0.1 06/02/18 09:30: Sodium 140, Potassium 4.6, Chloride 105, Carbon Dioxide 27, Anion Gap 12.6, BUN 16, Creatinine 1.91 H, Estimated Creat Clear 41, Estimated GFR 26 L, Est GFR ( Amer) 31 L, Glucose 102, Calcium 8.9 I & O for Last 24 hours: Intake & Output 05/31/18 06/01/18 06/02/18 06/03/18 11:59 11:59 11:59 11:59 Intake Total 2322 / 2322 960 / 960 183 / 1838 Output Total 900 / 900 200 / 200 Balance 1422 / 1422 760 / 760 1838 Weight 213 lb 213 lb 7 oz Microbiology Reports for the Last 24 Hours: Microbiology 06/01/18 21:41 Sputum - Expectorated Sputum Gram Stain - Final 06/01/18 21:41 Sputum - Expectorated Sputum Sputum Culture - Preliminary 05/31/18 16:20 Blood Blood Culture - Preliminary NO GROWTH AFTER 48 HOURS 05/31/18 16:20 Blood Blood Culture - Preliminary NO GROWTH AFTER 48 HOURS 05/31/18 14:25 Urine,Random Urine Culture - Final Multiple organisms, suggests contamination. - Constitutional no acute distress - *Routine Respiratory Exam Present: rhonchi, wheezes. Absent: rales - *Routine Cardiovascular Exam Present: RRR - *Routine Abdominal Exam Present: soft, normoactive bowel sounds. Absent: tenderness - *Routine Extremities Exam Present: edema (trace bilateral). Absent: cyanosis, clubbing Assessment and Plan (1) Bronchopneumonia Current visit: Yes Status: Acute Category: Medical Code(s): J18.0 - Bronchopneumonia, unspecified organism (2) GERD (gastroesophageal reflux disease) Current visit: Yes Status: Acute Category: Medical Code(s): K21.9 - [place] stro-esophageal reflux disease without esophagitis (3) Dizziness Current visit: Yes Status: Acute Category: Medical Code(s): R42 - Dizziness and giddiness (4) Vomiting Current visit: Yes Status: Acute Qualifiers: Vomiting type: unspecified Vomiting Intractability: non-intractable Nausea presence: with nausea Qualified Code(s): R11.2 - Nausea with vomiting, unspecified Category: Medical Code(s): R11.10 - Vomiting, unspecified (5) COPD (chronic obstructive pulmonary disease) Current visit: No Status: Chronic Category: Medical Code(s): J44.9 - Chronic obstructive pulmonary disease, unspecified (6) Spinal stenosis Current visit: No Status: Chronic Category: Medical Code(s): M48.00 - Spinal stenosis, site unspecified (7) Renal insufficiency Current visit: Yes Status: Acute Category: Medical Code(s): N28.9 - Disorder of kidney and ureter, unspecified (8) Chronic respiratory failure Current visit: Yes Status: Acute Category: Medical Code(s): J96.10 - Chronic respiratory failure, unspecified whether with hypoxia or hypercapnia (9) Left ventricular hypertrophy Current visit: Yes Status: Acute Category: Medical Code(s): I51.7 - Cardiomegaly (10) Pulmonary emphysema Current visit: Yes Status: Acute Category: Medical Code(s): J43.9 - Emphysema, unspecified (11) Secondary pulmonary hypertension Current visit: Yes Status: Acute Category: Medical (12) Anemia Current visit: Yes Status: Chronic Category: Medical Code(s): D64.9 - Anemia, unspecified - Assessment and plan all Dx Assessment and Plan for all problems:: Levaquin was added to the antibiotic regimen yesterday. Still awaiting sputum culture. Will recheck labs tomorrow.
--- NOTE | 2018-06-03 08:32 | Progress Note ---
Internal Medicine - PN: Subj *Date: 06/03/18 *Time: 08:31 Exam Vital signs and Labs for Last 24 Hours: Temp Pulse Resp BP Pulse Ox 98.0 F 89 20 107/49 L 94 L 06/03/18 08:00 06/03/18 08:00 06/03/18 08:00 06/03/18 08:00 06/03/18 08:00 Laboratory Results - last 24 hr 06/02/18 09:30: WBC 13.5 H, RBC 3.93 L, Hgb 10.0 L, Hct 32.5 L, MCV 82.6, MCH 25.4 L, MCHC 30.8 L, RDW 16.6, Plt Count 392, MPV 7.9, Neut % (Auto) 69.9, Lymph % (Auto) 19.5, [place] % (Auto) 5.0, Eos % (Auto) 4.9, Baso % (Auto) 0.7, Neut # (Auto) 9.4 H, Lymph # (Auto) 2.6, [place] # (Auto) 0.7, Eos # (Auto) 0.7 H, Baso # (Auto) 0.1 06/02/18 09:30: Sodium 140, Potassium 4.6, Chloride 105, Carbon Dioxide 27, Anion Gap 12.6, BUN 16, Creatinine 1.91 H, Estimated Creat Clear 41, Estimated GFR 26 L, Est GFR ( Amer) 31 L, Glucose 102, Calcium 8.9 I & O for Last 24 hours: Intake & Output 05/31/18 06/01/18 06/02/18 06/03/18 23:59 23:59 23:59 23:59 Intake Total 1344 / 1344 1458 / 1458 1200 / 1200 1359 / 1359 Output Total 900 / 900 200 / 200 Balance 444 / 444 1458 / 1458 1000 / 1000 1359 / 1359 Weight 97.664 kg 96.814 kg Microbiology Reports for the Last 24 Hours: Microbiology 06/01/18 21:41 Sputum - Expectorated Sputum Gram Stain - Final 06/01/18 21:41 Sputum - Expectorated Sputum Sputum Culture - Preliminary 05/31/18 16:20 Blood Blood Culture - Preliminary NO GROWTH AFTER 48 HOURS 05/31/18 16:20 Blood Blood Culture - Preliminary NO GROWTH AFTER 48 HOURS 05/31/18 14:25 Urine,Random Urine Culture - Final Multiple organisms, suggests contamination. Assessment and Plan (1) Bronchopneumonia Current visit: Yes Status: Acute Category: Medical Code(s): J18.0 - Bronchopneumonia, unspecified organism (2) GERD (gastroesophageal reflux disease) Current visit: Yes Status: Acute Category: Medical Code(s): K21.9 - Gastro-esophageal reflux disease without esophagitis (3) Dizziness Current visit: Yes Status: Acute Category: Medical Code(s): R42 - Dizziness and giddiness (4) Vomiting Current visit: Yes Status: Acute Qualifiers: Vomiting type: unspecified Vomiting Intractability: non-intractable Nausea presence: with nausea Qualified Code(s): R11.2 - Nausea with vomiting, unspecified Category: Medical Code(s): R11.10 - Vomiting, unspecified (5) COPD (chronic obstructive pulmonary disease) Current visit: No Status: Chronic Category: Medical Code(s): J44.9 - Chronic obstructive pulmonary disease, unspecified (6) Spinal stenosis Current visit: No Status: Chronic Category: Medical Code(s): M48.00 - Spinal stenosis, site unspecified (7) Renal insufficiency Current visit: Yes Status: Acute Category: Medical Code(s): N28.9 - Disorder of kidney and ureter, unspecified (8) Chronic respiratory failure Current visit: Yes Status: Acute Category: Medical Code(s): J96.10 - Chronic respiratory failure, unspecified whether with hypoxia or hypercapnia (9) Left ventricular hypertrophy Current visit: Yes Status: Acute Category: Medical Code(s): I51.7 - Cardiomegaly (10) Pulmonary emphysema Current visit: Yes Status: Acute Category: Medical Code(s): J43.9 - Emphysema, unspecified (11) Secondary pulmonary hypertension Current visit: Yes Status: Acute Category: Medical (12) Anemia Current visit: Yes Status: Chronic Category: Medical Code(s): D64.9 - Anemia, unspecified The patient's infection will respond to the chosen ABx?: Yes Is the patient receiving the right drug, dose, and route?: Yes Could a more targeted ABx be ordered?: No (CULTURES PENDING AT TIME OF DOCUMENTATION)
[2018-06-04 06:31] LABS: Basophils % 0.2 % (0.1-2.0); Hematocrit 32.8 % (37.0-47.0); Hemoglobin 10.2 g/dL (12.2-16.2); Lymphocytes # 1.3 K/mm3 (0.7-4.5); Lymphocytes % 7.3 % (10-50); Mean Corpuscular Hemoglobin 25.2 pg (27.0-31.2); Mean Corpuscular Volume 81.5 fl (81-99); Mean Platelet Volume 7.4 fl (7.4-10.4); Monocytes # 0.4 K/mm3 (0.1-1.0); Monocytes % 2.4 % (1.7-9.3); Neutrophils # 15.6 K/mm3 (1.8-7.8); Platelet Count 394 K/mm3 (142-424); Red Blood Count 4.02 M/mm3 (4.20-5.40); Red Cell Distribution Width 16.5 % (11.5-17.5); White Blood Count 17.4 K/mm3 (4.8-10.8)
[2018-06-04 06:43] LABS: Albumin Level 2.6 gm/dL (3.4-5.0); Albumin/Globulin Ratio 0.6 (1.1-1.8); Anion Gap 11.1 mEq/L (5-15); Bilirubin,Total 0.2 mg/dL (0.2-1.0); Calcium 9.2 mg/dL (8.5-10.1); Globulin 4.2 gm/dl (1.3-3.2); Potassium 5.1 mmoL/L (3.5-5.1); Total Protein,Serum 6.8 gm/dL (6.4-8.2)
[2018-06-04 09:22] LABS: Lymphocytes % 7 % (10-50); Monocytes % 2 % (2-9); Neutrophils % 91 % (42-76); Total Cells Counted 100
[2018-06-04 09:23] LABS: Hypochromasia 2+
--- NOTE | 2018-06-04 10:24 | Progress Note ---
Internal Medicine - PN: Subj *Date: 06/04/18 *Time: 10:21 Interval history: The patient remains stable. She is not getting out of bed much and I encouraged her to do so. She is using her incentive spirometry and doing quite well with that. She still has exertional dyspnea and that will likely continue. Exam Vital signs and Labs for Last 24 Hours: Temp Pulse Resp BP Pulse Ox 97.8 F 96 H 18 146/54 H 93 L 06/04/18 08:00 06/04/18 08:00 06/04/18 08:00 06/04/18 08:00 06/04/18 08:00 Laboratory Results - last 24 hr 06/04/18 06:00: WBC 17.4 H D, RBC 4.02 L, Hgb 10.2 L, Hct 32.8 L, MCV 81.5, MCH 25.2 L, MCHC 31.0 L, RDW 16.5, Plt Count 394, MPV 7.4, Neut % (Auto) 90.0 H, Lymph % (Auto) 7.3 L, [place] % (Auto) 2.4, Eos % (Auto) 0.0 L, Baso % (Auto) 0.2, Neut # (Auto) 15.6 H, Lymph # (Auto) 1.3, [place] # (Auto) 0.4, Eos # (Auto) 0.0, Baso # (Auto) 0.0, Total Counted 100, Neutrophils % (Manual) 91 H, Lymphocytes % (Manual) 7 L, Monocytes % (Manual) 2, Platelet Estimate Normal, Hypochromasia 2+ 06/04/18 06:00: Sodium 140, Potassium 5.1, Chloride 106, Carbon Dioxide 28, Anion Gap 11.1, BUN 14, Creatinine 1.52 H D, Estimated Creat Clear 51, Estimated GFR 34 L, Est GFR ( Amer) 41 L D, Glucose 138 H, Calcium 9.2, Total Bilirubin 0.2, AST 17, ALT 17, Alkaline Phosphatase 84, Total Protein 6.8, Albumin 2.6 L, Globulin 4.2 H, Albumin/Globulin Ratio 0.6 L Laboratory Tests 06/04/18 06/04/18 06:00 06:00 WBC 17.4 H D Hgb 10.2 L Hct 32.8 L Sodium 140 Potassium 5.1 BUN 14 Creatinine 1.52 H D I & O for Last 24 hours: Intake & Output 06/01/18 06/02/18 06/03/18 06/04/18 11:59 11:59 11:59 11:59 Intake Total 2322 / 2322 960 / 960 2078 Output Total 900 / 900 200 / 200 1050 / 1050 Balance 1422 / 1422 760 / 760 2078 1187 / 1187 Weight 213 lb 7 oz Microbiology Reports for the Last 24 Hours: Microbiology 06/01/18 21:41 Sputum - Expectorated Sputum Gram Stain - Final 06/01/18 21:41 Sputum - Expectorated Sputum Sputum Culture - Final Normal Respiratory Gloria - Constitutional no acute distress - *Routine Respiratory Exam Present: decreased breath sounds, rales (A few rales heard at the left base.). Absent: wheezes - *Routine Extremities Exam Present: edema (YESSENIA stockings in place.) Assessment and Plan (1) Bronchopneumonia Current visit: Yes Status: Acute Category: Medical Code(s): J18.0 - Bronchopneumonia, unspecified organism (2) GERD (gastroesophageal reflux disease) Current visit: Yes Status: Acute Category: Medical Code(s): K21.9 - Gastro-esophageal reflux disease without esophagitis (3) Dizziness Current visit: Yes Status: Acute Category: Medical Code(s): R42 - Dizziness and giddiness (4) Vomiting Current visit: Yes Status: Acute Qualifiers: Vomiting type: unspecified Vomiting Intractability: non-intractable Nausea presence: with nausea Qualified Code(s): R11.2 - Nausea with vomiting, unspecified Category: Medical Code(s): R11.10 - Vomiting, unspecified (5) COPD (chronic obstructive pulmonary disease) Current visit: No Status: Chronic Category: Medical Code(s): J44.9 - Chronic obstructive pulmonary disease, unspecified (6) Spinal stenosis Current visit: No Status: Chronic Category: Medical Code(s): M48.00 - Spinal stenosis, site unspecified (7) Renal insufficiency Current visit: Yes Status: Acute Category: Medical Code(s): N28.9 - Disorder of kidney and ureter, unspecified (8) Chronic respiratory failure Current visit: Yes Status: Acute Category: Medical Code(s): J96.10 - Chronic respiratory failure, unspecified whether with hypoxia or hypercapnia (9) Left ventricular hypertrophy Current visit: Yes Status: Acute Category: Medical Code(s): I51.7 - Cardiomegaly (10) Pulmonary emphysema Current visit: Yes Status: Acute Category: Medical Code(s): J43.9 - Emphysema, unspecified (11) Secondary pulmonary hypertension Current visit: Yes Status: Acute Category: Medical (12) Anemia Current visit: Yes Status: Chronic Category: Medical Code(s): D64.9 - Anemia, unspecified - Assessment and plan all Dx Assessment and Plan for all problems:: Anemia persists. White count remains elevated especially with her now taking a larger dose of prednisone. Slightly elevated potassium is noted as well. Creatinine is slightly elevated as it has been through the hospitalization.
--- NOTE | 2018-06-05 11:00 | Progress Note ---
Internal Medicine - PN: Subj *Date: 06/05/18 *Time: 11:00 Exam Vital signs and Labs for Last 24 Hours: Temp Pulse Resp BP Pulse Ox 98.1 F 85 18 122/55 L 94 L 06/05/18 08:00 06/05/18 10:37 06/05/18 08:00 06/05/18 08:00 06/05/18 08:00 I & O for Last 24 hours: Intake & Output 06/02/18 06/03/18 06/04/18 06/05/18 23:59 23:59 23:59 23:59 Intake Total 1200 / 1200 2466 / 2466 2484 / 2484 787 / 787 Output Total 200 / 200 350 / 350 1500 / 1500 1650 / 1650 Balance 1000 / 1000 2116 / 2116 984 / 984 -863 / -863 Weight 98.146 kg Microbiology Reports for the Last 24 Hours: Microbiology 06/01/18 21:41 Sputum - Expectorated Sputum Gram Stain - Final 06/01/18 21:41 Sputum - Expectorated Sputum Sputum Culture - Final Normal Respiratory Gloria Assessment and Plan (1) Bronchopneumonia Current visit: Yes Status: Acute Category: Medical Code(s): J18.0 - Bronchopneumonia, unspecified organism (2) GERD (gastroesophageal reflux disease) Current visit: Yes Status: Acute Category: Medical Code(s): K21.9 - Gastro-esophageal reflux disease without esophagitis (3) Dizziness Current visit: Yes Status: Acute Category: Medical Code(s): R42 - Dizziness and giddiness (4) Vomiting Current visit: Yes Status: Acute Qualifiers: Vomiting type: unspecified Vomiting Intractability: non-intractable Nausea presence: with nausea Qualified Code(s): R11.2 - Nausea with vomiting, unspecified Category: Medical Code(s): R11.10 - Vomiting, unspecified (5) COPD (chronic obstructive pulmonary disease) Current visit: No Status: Chronic Category: Medical Code(s): J44.9 - Chronic obstructive pulmonary disease, unspecified (6) Spinal stenosis Current visit: No Status: Chronic Category: Medical Code(s): M48.00 - Spinal stenosis, site unspecified (7) Renal insufficiency Current visit: Yes Status: Acute Category: Medical Code(s): N28.9 - Disorder of kidney and ureter, unspecified (8) Chronic respiratory failure Current visit: Yes Status: Acute Category: Medical Code(s): J96.10 - Chronic respiratory failure, unspecified whether with hypoxia or hypercapnia (9) Left ventricular hypertrophy Current visit: Yes Status: Acute Category: Medical Code(s): I51.7 - Cardiomegaly (10) Pulmonary emphysema Current visit: Yes Status: Acute Category: Medical Code(s): J43.9 - Emphysema, unspecified (11) Secondary pulmonary hypertension Current visit: Yes Status: Acute Category: Medical (12) Anemia Current visit: Yes Status: Chronic Category: Medical Code(s): D64.9 - Anemia, unspecified The patient's infection will respond to the chosen ABx?: Yes Is the patient receiving the right drug, dose, and route?: Yes Could a more targeted ABx be ordered?: No
--- NOTE | 2018-06-05 15:49 | Progress Note ---
Internal Medicine - PN: Subj *Date: 06/05/18 *Time: 15:46 Interval history: She continues about the same. She has been encouraged to get up in the room more and states that she has done so. Her weight has slightly increased and it seems that she might have a bit more pretibial edema despite the YESSENIA stockings. Exam Vital signs and Labs for Last 24 Hours: Temp Pulse Resp BP Pulse Ox 98.0 F 108 H 20 115/56 L 93 L 06/05/18 12:00 06/05/18 14:45 06/05/18 12:00 06/05/18 12:00 06/05/18 12:00 I & O for Last 24 hours: Intake & Output 06/03/18 06/04/18 06/05/18 06/06/18 11:59 11:59 11:59 11:59 Intake Total 2078 / 2078 2477 / 2477 1901 / 1901 240 / 240 Output Total 1050 / 1050 2450 / 2450 Balance 2078 / 2078 1427 / 1427 -549 / -549 240 / 240 Weight 216 lb 6 oz - Constitutional no acute distress - *Routine Respiratory Exam Present: decreased breath sounds, crackles (Left base) - *Routine Cardiovascular Exam Present: RRR - *Routine Abdominal Exam Present: soft. Absent: tenderness - *Routine Extremities Exam Present: edema (Perhaps slightly increased despite YESSENIA stockings) - *Routine Neurological Exam Present: alert, oriented X3 Assessment and Plan (1) Bronchopneumonia Current visit: Yes Status: Acute Category: Medical Code(s): J18.0 - Bronchopneumonia, unspecified organism (2) GERD (gastroesophageal reflux disease) Current visit: Yes Status: Acute Category: Medical Code(s): K21.9 - Gastro-esophageal reflux disease without esophagitis (3) Dizziness Current visit: Yes Status: Acute Category: Medical Code(s): R42 - Dizziness and giddiness (4) Vomiting Current visit: Yes Status: Acute Qualifiers: Vomiting type: unspecified Vomiting Intractability: non-intractable Nausea presence: with nausea Qualified Code(s): R11.2 - Nausea with vomiting, unspecified Category: Medical Code(s): R11.10 - Vomiting, unspecified (5) COPD (chronic obstructive pulmonary disease) Current visit: No Status: Chronic Category: Medical Code(s): J44.9 - Chronic obstructive pulmonary disease, unspecified (6) Spinal stenosis Current visit: No Status: Chronic Category: Medical Code(s): M48.00 - Spinal stenosis, site unspecified (7) Renal insufficiency Current visit: Yes Status: Acute Category: Medical Code(s): N28.9 - Di sorder of kidney and ureter, unspecified (8) Chronic respiratory failure Current visit: Yes Status: Acute Category: Medical Code(s): J96.10 - Chronic respiratory failure, unspecified whether with hypoxia or hypercapnia (9) Left ventricular hypertrophy Current visit: Yes Status: Acute Category: Medical Code(s): I51.7 - Cardiomegaly (10) Pulmonary emphysema Current visit: Yes Status: Acute Category: Medical Code(s): J43.9 - Emphy sema, unspecified (11) Secondary pulmonary hypertension Current visit: Yes Status: Acute Category: Medical (12) Anemia Current visit: Yes Status: Chronic Category: Medical Code(s): D64.9 - Anemia, unspecified - Assessment and plan all Dx Assessment and Plan for all problems:: May be able to be discharged tomorrow on antibiotics and prednisone.
[2018-06-06 06:20] LABS: Anion Gap 12.6 mEq/L (5-15); Basophils # 0.1 K/mm3 (0-0.2); Basophils % 0.5 % (0.1-2.0); Calcium 9.3 mg/dL (8.5-10.1); Eosinophils # 0.1 K/mm3 (0.0-0.4); Eosinophils % 0.6 % (0.1-12.0); Hematocrit 30.4 % (37.0-47.0); Hemoglobin 9.2 g/dL (12.2-16.2); Lymphocytes # 2.7 K/mm3 (0.7-4.5); Lymphocytes % 18.9 % (10-50); Mean Corpuscular HGB Conc 30.4 g/dL (31.8-35.4); Mean Corpuscular Hemoglobin 24.5 pg (27.0-31.2); Mean Corpuscular Volume 80.5 fl (81-99); Mean Platelet Volume 7.4 fl (7.4-10.4); Monocytes # 0.6 K/mm3 (0.1-1.0); Monocytes % 4.4 % (1.7-9.3); Neutrophils # 10.7 K/mm3 (1.8-7.8); Neutrophils % 75.6 % (37.0-80.0); Platelet Count 398 K/mm3 (142-424); Potassium 4.6 mmoL/L (3.5-5.1); Red Blood Count 3.77 M/mm3 (4.20-5.40); Red Cell Distribution Width 16.5 % (11.5-17.5); White Blood Count 14.1 K/mm3 (4.8-10.8)
--- NOTE | 2018-06-06 08:18 | Progress Note ---
Internal Medicine - PN: Subj *Date: 06/06/18 *Time: 08:14 Interval history: She received IV Lasix last p.m. and was awake frequently to void. Shortness of breath is at baseline. She denies cough. She is eating without difficulty and without nausea and vomiting. Bowels are moving. She is voiding QS. She has ambulated in the room without difficulty. Duo nebs to make her a little shaky. Laboratory Tests 06/02/18 06/06/18 06/06/18 05:38 05:50 05:50 WBC 14.1 H RBC 3.77 L Hgb 9.2 L Hct 30.4 L MCV 80.5 L MCH 24.5 L MCHC 30.4 L Plt Count 398 Neut % (Auto) 75.6 Lymph % (Auto) 18.9 [place] % (Auto) 4.4 Sodium 145 Potassium 4.6 Chloride 107 Carbon Dioxide 30 Anion Gap 12.6 BUN 19 H D Creatinine 1.62 H Estimated Creat Clear 49 Estimated GFR 31 L Est GFR ( Amer) 38 L Glucose 90 Calcium 9.3 Triglycerides 111 Cholesterol 160 LDL Cholesterol 93 VLDL Cholesterol 22 HDL Cholesterol 45 Cholesterol/HDL Ratio 3.6 H Exam Vital signs and Labs for Last 24 Hours: Temp Pulse Resp BP Pulse Ox 97.8 F 94 H 20 139/72 92 L 06/06/18 08:00 06/06/18 08:00 06/06/18 08:00 06/06/18 08:00 06/06/18 08:00 Laboratory Results - last 24 hr 06/06/18 05:50: WBC 14.1 H, RBC 3.77 L, Hgb 9.2 L, Hct 30.4 L, MCV 80.5 L, MCH 24.5 L, MCHC 30.4 L, RDW 16.5, Plt Count 398, MPV 7.4, Neut % (Auto) 75.6, Lymph % (Auto) 18.9, [place] % (Auto) 4.4, Eos % (Auto) 0.6, Baso % (Auto) 0.5, Neut # (Auto) 10.7 H, Lymph # (Auto) 2.7, [place] # (Auto) 0.6, Eos # (Auto) 0.1, Baso # (Auto) 0.1 06/06/18 05:50: Sodium 145, Potassium 4.6, Chloride 107, Carbon Dioxide 30, Anion Gap 12.6, BUN 19 H D, Creatinine 1.62 H, Estimated Creat Clear 49, Estimated GFR 31 L, Est GFR ( Amer) 38 L, Glucose 90, Calcium 9.3 I & O for Last 24 hours: Intake & Output 06/03/18 06/04/18 06/05/18 06/06/18 11:59 11:59 11:59 11:59 Intake Total 2078 2477 / 2477 1901 / 1901 1451 / 1451 Output Total 1050 / 1050 2450 / 2450 1325 / 1325 Balance 2078 1427 / 1427 -549 / -549 126 / 126 Weight 216 lb 6 oz Microbiology Reports for the Last 24 Hours: Microbiology 05/31/18 16:20 Blood Blood Culture - Final NO GROWTH AFTER 5 DAYS 05/31/18 16:20 Blood Blood Culture - Final NO GROWTH AFTER 5 DAYS - Constitutional no acute distress Comments: Sitting up in the bed and is eating her breakfast. Breathing is easy and un labored. - *Routine Respiratory Exam Comments: Decreased breath sounds on the right. Crackles in the left base. Breathing is easy and unlabored - *Routine Cardiovascular Exam Present: RRR - *Routine Abdominal Exam Present: soft, normoactive bowel sounds. Absent: tenderness - *Routine Extremities Exam Comments: YESSENIA house on - *Routine Neurological Exam Present: alert, oriented X3 Assessment and Plan (1) Bronchopneumonia Current visit: Yes Status: Acute Category: Medical Code(s): J18.0 - Bronchopneumonia, unspecified organism (2) GERD (gastroesophageal reflux disease) Current visit: Yes Status: Acute Category: Medical Code(s): K21.9 - Gastro-esophageal reflux disease without esophagitis (3) Dizziness Current visit: Yes Status: Acute Category: Medical Code(s): R42 - Dizziness and giddiness (4) Vomiting Current visit: Yes Status: Acute Qualifiers: Vomiting type: unspecified Vomiting Intractability: non-intractable Nausea presence: with nausea Qualified Code(s): R11.2 - Nausea with vomiting, unspecified Category: Medical Code(s): R11.10 - Vomiting, unspecified (5) COPD (chronic obstructive pulmonary disease) Current visit: No Status: Chronic Category: Medical Code(s): J44.9 - Chronic obstructive pulmonary disease, unspecified (6) Spinal stenosis Current visit: No Status: Chronic Category: Medical Code(s): M48.00 - Spinal stenosis, site unspecified (7) Renal insufficiency Current visit: Yes Status: Acute Category: Medical Code(s): N28.9 - Disorder of kidney and ureter, unspecified (8) Chronic respiratory failure Current visit: Yes Status: Acute Category: Medical Code(s): J96.10 - Chronic respiratory failure, unspecified whether with hypoxia or hypercapnia (9) Left ventricular hypertrophy Current visit: Yes Status: Acute Category: Medical Code(s): I51.7 - Cardiomegaly (10) Pulmonary emphysema Current visit: Yes Status: Acute Category: Medical Code(s): J43.9 - Emphysema, unspecified (11) Secondary pulmonary hypertension Current visit: Yes Status: Acute Category: Medical (12) Anemia Current visit: Yes Status: Chronic Category: Medical Code(s): D64.9 - Anemia, unspecified - Assessment and plan all Dx Assessment and Plan for all problems:: Patient thinks she might go home today. We will continue with antibiotics and duo nebs.
--- NOTE | 2018-06-07 13:32 | Discharge Summary ---
General - General Admission date:: 06/01/18 Discharge date: 06/06/18 HPI HPI: Ms. Roland is a 72-year-old female with a history of anxiety, depression, COPD, spinal stenosis, chronic back pain, who presented to [facility] emergency room after experiencing sudden onset at about 8:30 AM of nausea, vomiting, and dizziness. She states this episode started with her eyes at which time she was unable to see as well. She did vomit about 6 times. She became sicker and sicker and called EMS who brought her to the hospital. She describes her dizziness with any head movement and improved with closing her eyes. With evaluation in the emergency room CT of the head showed no acute findings. Chest x-ray showed a possible pneumonia. She was given IV fluids, anti-emetics, and meclizine and then admitted for further evaluation and treatment. At the time of this exam her nausea has ceased and she has not vomited since receiving Zofran and Phenergan in the emergency room. She is hungry and would like food to eat. She denies abdominal pain and fever. She has been voiding without difficulty. She does describe some upper respiratory symptoms with a nonproductive cough and ongoing shortness of breath. She does wear oxygen cain nuously. Hospital Course Hospital Course: The patient's white blood cell count was slightly elevated. She did have some renal deficiency. IV fluids were started as was Rocephin. Most of her home medications were reordered. The patient had no further nausea, vomiting, or dizziness. She tolerated a diet and was up to the bathroom without any dizziness. The patient had telemetry ordered, however it was not placed. A holter monitor from April 2018 revealed 5 short [address]T. Dr. Stephens felt she was having some type of dysrhythmia therefore cardiology was consulted. Cardiology saw the patient and ordered an echo. The patient was supposed to be taking Lopressor 12.5 mg twice daily but admitted to only taking it once a day. Cardiology felt she would need this twice a day. Dr. Stephens then changed her medication to metoprolol succinate 25 mg daily. She had a repeat chest x-ray showing a right perihilar and right middle lobe bronchopneumonia. She began wheezing, therefore duo nebs were added as well as Levaquin. The patient's echo showed an EF of 55% with grade 1 diastolic dysfunction. Cardiology felt she should remain on metoprolol XL 25 mg daily for better heart rate control and could follow-up in the office. Incentive spirometry was ordered and the patient did well with this. Her shortness of breath at rest did improve, however she continued to have exertional dyspnea. She was started on some prednisone. Her weight did increase slightly, therefore she received some Lasix. Her shortness of breath returned to baseline and she denied any cough. She was ambulating in the room without difficulty. Her white blood cell count remained elevated but this was thought to be due to the steroids. She was stable to be discharged home on continue antibiotics and duo nebs. Objective Vital signs: Temp Pulse Resp BP Pulse Ox 97.8 F 94 H 20 139/72 92 L 06/06/18 08:00 06/06/18 08:00 06/06/18 08:00 06/06/18 08:00 06/06/18 08:00 Narrative: - Constitutional no acute distress, obese - *Routine HEENT Exam Head: Present: normocephalic, atraumatic Eye: Present: PERRL. Absent: conjunctival icterus, scleral injection, nystagmus ENT: Present: mucous membranes moist, oropharynx clear - *Routine Neck Exam Present: supple. Absent: carotid bruit, lymphadenopathy, thyromegaly - *Routine Respiratory Exam Present: CTA bilaterally (Anteriorly and posteriorly; diminished breath sounds posteriorly) - *Routine Cardiovascular Exam Present: RRR - *Routine Abdominal Exam Present: soft, normoactive bowel sounds. Absent: tenderness - *Routine Extremities Exam Absent: edema (She has YESSENIA holes on), calf tenderness - *Routine Neurological Exam Present: alert, oriented X3 DS: Diagnosis - Discharge Diagnosis (1) Bronchopneumonia Status: Acute (2) GERD (gastroesophageal reflux disease) Status: Acute (3) Dizziness Status: Acute (4) Vomiting Status: Acute (5) COPD (chronic obstructive pulmonary disease) Status: Chronic (6) Spinal stenosis Status: Chronic (7) Renal insufficiency Status: Acute (8) Chronic respiratory failure Status: Acute (9) Left ventricular hypertrophy Status: Acute (10) Pulmonary emphysema Status: Acute (11) Secondary pulmonary hypertension Status: Acute (12) Anemia Status: Chronic Discharge Plan - Patient Discharge Instructions ACTIVITY: Continue current activity DIET: continue same diet Patient Instructions: Pneumonia-Adult, DI for Diarrhea and Traveler's Diarrhea -- Adult, DI for Diarrhea and Traveler's Diarrhea -- Child, DI for Nausea -- Adult, DI for Nausea -- Child - Follow up Plan Follow up with: Mona Stephens MD [Staff Physician] - 06/13/18 Disposition: Home, Self-Snf Medications: Home Medications Medication Instructions Recorded Confirmed Type ALPRAZolam [Xanax 0.5mg tab] 0.25 mg PO BID 06/15/17 05/31/18 History Esomeprazole Magnesium [Nexium] 40 mg PO DAILY 06/15/17 05/31/18 History Gabapentin [Gabapentin 300mg Cap] 600 mg PO TID 06/15/17 05/31/18 History Montelukast Sodium [Montelukast 10 mg PO HS 06/15/17 05/31/18 History 10mg Tab] Roflumilast [Daliresp] 500 mcg PO DAILY 06/15/17 05/31/18 History Pravastatin Sodium [Pravachol 20mg 20 mg PO HS 10/12/17 05/31/18 History Tablet] Albuterol Sulfate [Albuterol HFA 2 puffs IH QID 05/31/18 05/31/18 History Inhaler] Clotrimazole [Mycelex 10mg Briseida] 10 mg PO 5XDAY 05/31/18 05/31/18 History Duloxetine HCl 60 mg PO DAILY 05/31/18 05/31/18 History Ferrous Sulfate [High Potency Iron] 65 mg PO DAILY 05/31/18 05/31/18 History Fluticasone Propionate 1 spray NS DAILYP PRN 05/31/18 05/31/18 History Tiotropium Lolita [Spiriva 1 inh IH DAILY 05/31/18 05/31/18 History 18mcg/puff inhaler] Ubidecarenone [Co Q-10] 200 mg PO DAILY 05/31/18 05/31/18 History buPROPion HCl [Bupropion Xl] 150 mg PO DAILY 05/31/18 05/31/18 History hydroCHLOROthiazide [HCTZ 25mg 12.5 mg PO NEEDED PRN 05/31/18 06/01/18 History tab] Cefdinir [Omnicef 300mg Capsule] 300 mg PO BID #14 cap 06/06/18 Rx Metoprolol Succinate [Toprol XL 25 mg PO DAILY #30 tab.er.24h 06/06/18 Rx 25mg tablet] predniSONE [Deltasone 5mg 10 mg PO Q48H #60 tab 06/06/18 Rx tablet] Prescriptions/Medication Reconciliation: New Cefdinir [Omnicef 300mg Capsule] 300 mg PO BID #14 cap Metoprolol Succinate [Toprol XL 25mg tablet] 25 mg PO DAILY #30 tab.er.24h Continue Roflumilast [Daliresp] 500 mcg PO DAILY Montelukast Sodium [Montelukast 10mg Tab] 10 mg PO HS Gabapentin [Gabapentin 300mg Cap] 600 mg PO TID Esomeprazole Magnesium [Nexium] 40 mg PO DAILY ALPRAZolam [Xanax 0.5mg tab] 0.25 mg PO BID Pravastatin Sodium [Pravachol 20mg Tablet] 20 mg PO HS Duloxetine HCl 60 mg PO DAILY Ubidecarenone [Co Q-10] 200 mg PO DAILY Ferrous Sulfate [High Potency Iron] 65 mg PO DAILY Albuterol Sulfate [Albuterol HFA Inhaler] 2 puffs IH QID Clotrimazole [Mycelex 10mg Briseida] 10 mg PO 5XDAY Tiotropium Lolita [Spiriva 18mcg/puff inhaler] 1 inh IH DAILY hydroCHLOROthiazide [HCTZ 25mg tab] 12.5 mg PO NEEDED PRN PRN Reason: FLUID buPROPion HCl [Bupropion Xl] 150 mg PO DAILY Fluticasone Propionate 1 spray NS DAILYP PRN PRN Reason: ALLERGIES Changed predniSONE [Deltasone 5mg tablet] 10 mg PO Q48H #60 tab Discontinued Metoprolol Tartrate [Lopressor 25mg tablet] 12.5 mg PO BID
== END 2018-06-06 10:35 | disposition home or self-care (01) | DRG 194 ==
LOC: 2ND 10:05 → ER 10:05 → 2ND 14:59
PROVIDERS: ADMIT Family Medicine; ATTEND Family Medicine
CPT/HCPCS: 36415; 70450; 71010; 71020; 71045; 71046; 80048; 80053; 80061; 81001; 84484; 85007; 85025; 87040; 87070; 87086; 87205; 93005; 93306; 94640; 94760; 94761; 96365; 96372; 96375; 99284; G0378; J2405

== ENCOUNTER → 2018-07-13 09:39 | Outpatient (CLI) | payer MEDICARE, SELFPAY ==
[2018-07-13 12:05] LABS: Basophils # 0.1 K/mm3 (0-0.2); Basophils % 0.7 % (0.1-2.0); Eosinophils # 0.3 K/mm3 (0.0-0.4); Eosinophils % 1.7 % (0.1-12.0); Hematocrit 36.6 % (37.0-47.0); Lymphocytes # 2.5 K/mm3 (0.7-4.5); Lymphocytes % 16.3 % (10-50); Mean Corpuscular HGB Conc 30.1 g/dL (31.8-35.4); Mean Corpuscular Hemoglobin 25.8 pg (27.0-31.2); Mean Corpuscular Volume 85.8 fl (81-99); Mean Platelet Volume 7.8 fl (7.4-10.4); Monocytes # 0.7 K/mm3 (0.1-1.0); Monocytes % 4.7 % (1.7-9.3); Neutrophils # 11.7 K/mm3 (1.8-7.8); Neutrophils % 76.6 % (37.0-80.0); Platelet Count 371 K/mm3 (142-424); Red Blood Count 4.26 M/mm3 (4.20-5.40); Red Cell Distribution Width 17.2 % (11.5-17.5); White Blood Count 15.3 K/mm3 (4.8-10.8)
[2018-07-13 12:10] LABS: MANUAL DIFFERENTIAL MANUAL DIFFERENTIAL (MANUAL DIFF)
[2018-07-13 12:33] LABS: Alanine Aminotransferase 18 U/L (12-78); Albumin/Globulin Ratio 0.8 (1.1-1.8); Alkaline Phosphatase 100 U/L (46-116); Anion Gap 12.4 mEq/L (5-15); Aspartate Amino Transferase 9 U/L (15-37); Bilirubin,Total 0.3 mg/dL (0.2-1.0); Blood Urea Nitrogen 12 mg/dL (7-18); Calcium 8.8 mg/dL (8.5-10.1); Carbon Dioxide 28 mmol/L (21.0-32.0); Chloride 104 mmol/L (98-107); Creatinine,Serum 1.77 mg/dL (0.55-1.02); Estimated Glomerular Filt Rate 28 ml/min (>60); GFR (African American) 34 ML/MIN (>60); Globulin 3.7 gm/dl (1.3-3.2); Glucose 100 mg/dL (74-106); Potassium 4.4 mmoL/L (3.5-5.1); Sodium 140 mmol/L (136-145); Total Protein,Serum 6.7 gm/dL (6.4-8.2)
[2018-07-13 14:45] LABS: Anisocytosis 1+; Eosinophils % 2 % (0-3); Lymphocytes % 19 % (10-50); Monocytes % 3 % (2-9); Neutrophils % 76 % (42-76); Platelet Estimate Slight Increase; Total Cells Counted 100
[2018-07-13 14:46] LABS: Hypochromasia 2+; Microcytosis 1+
[2018-07-14 08:22] LABS: Iron 257 ug/dL (27-139); UIBC 54 ug/dL (118-369)
[2018-07-14 10:51] LABS: Iron Saturation 83 % (15-55)
[2018-07-14 10:52] LABS: Vitamin B12 478 pg/mL (232-1245)
== END ==
PROVIDERS: PCP Family Medicine; Visit Provider Internal Medicine
DX: D50.0 Iron deficiency anemia secondary to blood loss (chronic) (principal); J43.9 Emphysema, unspecified; J47.9 Bronchiectasis, uncomplicated; Z87.891 Personal history of nicotine dependence
CPT/HCPCS: 36415; 80053; 82607; 83540; 83550; 85007; 85025; 94060; 94726; 94729

== ENCOUNTER → 2018-08-02 10:53 | Outpatient (POV) | payer MEDICARE, SELFPAY | PROVIDERS: Visit Provider Internal Medicine | DX: Z00.00 Encounter for general adult medical examination without abnormal findings (principal) ==

== ENCOUNTER → 2018-08-03 07:33 | Outpatient (CLI) | payer MEDICARE, SELFPAY ==
--- NOTE | 2018-08-03 07:36 | CT_ITS ---
CT lung screening EXAM: CT LUNG LOW DOSE WO CONTRAST HISTORY: Greater than 40 pack-year smoking history or invasive traumatic for lung cancer ITS.REASON: HX TOBACCO USE ORDERING PHYSICIAN: Benito Yanez MD PATIENT AGE: 72 years COMPARISON: 06/08/2017 TECHNIQUE: The exam was performed on a [employer] Light Speed [address] scanner using 2.90 mGy CTDI. A low dose helical CT CHEST was performed on a multi-detector scanner. All CT scans at the facility use one or more dose reduction, viz: automated exposure control, ma/kV adjustment per patient size (including targeted exams where dose is matched to indication, i.e. head), or iterative reconstruction technique. The LDCT was performed in a facility that meets the criteria for the screening program. Data regarding this exam was submitted to ACR which is an approved registry. The order for this exam indicates that it came as a result of a lung cancer screening counseling shard decision-making visit that included all the elements required of such a visit including smoking cessation. The radiologist interpreting this exam meets the CMS criteria for the LDCT lung cancer screening program. The exam is reported using the Lung-RADS classification scale and reported to the ACR registry. NOTE: This study was performed for the specific purposes of lung cancer screening and is not an alternative to diagnostic chest CT. RADIATION DOSE: CTDI vol(CT dose Index-volume) = 2.90mG DLP (Dose Length Product) = 109.68 mGcm FINDINGS: There are scattered fibrotic changes. There is COPD with centrilobular emphysema. No suspicious pulmonary nodules. Calcified granuloma is present in the left lower lobe. IMPRESSION: 1. Lung RADS Category: 2, benign 2. Other findings: Centrilobular emphysema with fibrosis RECOMMENDATIONS: 12 month LDCT follow-up
== END ==
PROVIDERS: PCP Family Medicine; Visit Provider Family Medicine
DX: Z12.2 Encounter for screening for malignant neoplasm of respiratory organs (principal); Z87.891 Personal history of nicotine dependence

== ENCOUNTER → 2018-08-08 09:33 | Outpatient (CLI) | payer MEDICARE, SELFPAY ==
--- NOTE | 2018-08-08 09:43 | FL_ITS ---
Fluoro up to 1 hour CLINICAL INDICATION: ITS.REASON: DIAPHRAHM DYSFUNCTION ORDERING PHYSICIAN: Chirag iMranda MD PATIENT AGE: 72 years Comparison: None Fluoroscopy time: 37 seconds FINDINGS: sniff test was performed with fluoroscopic guidance. Right hemidiaphragm is elevated compared to the left side. The patient was instructed to take a sniff in and the diaphragm was observed on both sides. There is normal diaphragmatic excursion on both sides. There is no evidence of diaphragmatic paralysis or peritonsillar commotion of the diaphragm. IMPRESSION: Elevated right hemidiaphragm but no evidence of diaphragmatic paralysis
[2018-08-08 09:57] LABS: Blood Urea Nitrogen 14 mg/dL (7-18); Creatinine,Serum 1.88 mg/dL (0.55-1.02); Estimated Glomerular Filt Rate 26 ml/min (>60); GFR (African American) 32 ML/MIN (>60)
== END ==
PROVIDERS: Visit Provider Internal Medicine
DX: J98.6 Disorders of diaphragm (principal)
CPT/HCPCS: 36415; 76000; 82565; 84520

== ENCOUNTER → 2018-12-27 11:42 | Outpatient (POV) | payer MEDICARE, SELFPAY | PROVIDERS: Visit Provider Internal Medicine | DX: Z00.00 Encounter for general adult medical examination without abnormal findings (principal) ==

== ENCOUNTER → 2019-09-14 13:24 | Outpatient (CLI) | payer MEDICARE, SELFPAY ==
--- NOTE | 2019-09-14 13:29 | MM_ITS ---
PROCEDURE: MM DIG SCREENING MAMM BI W/CAD Digital Breast Tomosynthesis Included CLINICAL INDICATION: HYPERTROPHY OF BREAST There is a history of breast cancer patient's great aunt. There has been a previous biopsy right breast for benign disease. COMPARISON: DMSB DIG MAMM-SCREEN MAYDA from 11/30/2012 DMSB DIG MAMM-SCREEN MAYDA from 01/15/2014 DMDB DIG MAMM-DX MAYDA W/CAD from 09/04/2016 TECHNIQUE: Standard CC and MLO images and 3D Tomosynthesis was obtained. R2 CAD reviewed. FINDINGS: Low-density fatty breast parenchyma is again noted with scattered fibroglandular densities. The nipples are inverted bilaterally left side more prominent than right as noted previously. There is a biopsy clip right breast. There is faint arterial calcification bilaterally. There is a stable small hazy density at the biopsy clip site right breast likely representing minimal post biopsy scarring. There is no new or suspicious lesion in either breast and no suspicious microcalcifications. IMPRESSION: Fatty type breast parenchyma with no suspicious lesions seen BI-RAD Category: 2 Benign Finding(s) FOLLOW-UP: 1YR 1 Year Follow-up (A letter has been sent to the patient regarding results of the study.) Dictated by: Dr. Tod Ventura MD 09/15/2019 10:[address] Tod Ventura MD in [place] 09/15/2019 10:54
== END ==
PROVIDERS: PCP Family Medicine; Visit Provider Family Medicine
DX: N62 Hypertrophy of breast (principal); Z12.31 Encounter for screening mammogram for malignant neoplasm of breast
CPT/HCPCS: 77063; 77067

== ENCOUNTER → 2019-12-11 10:44 | Outpatient (CLI) | payer MEDICARE, SELFPAY | PROVIDERS: PCP Family Medicine; Visit Provider Internal Medicine Pulmonary Disease | DX: G47.30 Sleep apnea, unspecified (principal); J44.9 Chronic obstructive pulmonary disease, unspecified | CPT/HCPCS: 94762 ==

== ENCOUNTER → 2020-01-09 12:51 | Outpatient (CLI) | payer MEDICARE, SELFPAY ==
[2020-01-09 13:55] VITALS: PULSE 70; PULSE 75
--- NOTE | 2020-01-09 15:04 | CT_ITS ---
PROCEDURE: CT LUNG SCREENING CLINICAL INDICATION: Screening former smoker quit 12 years ago 56.25 pack year smoking history copd prior 08/03/18 COMPARISON: CT LUNGSCREEN CT lung screening from 08/03/2018 TECHNIQUE: The exam was performed on a [employer] Light Speed [address] scanner using 2.90 mGy CTDI. A low dose helical CT CHEST was performed on a multi-detector scanner. All CT scans at the facility use one or more dose reduction, viz: automated exposure control, ma/kV adjustment per patient size (including targeted exams where dose is matched to indication, i.e. head), or iterative reconstruction technique. The LDCT was performed in a facility that meets the criteria for the screening program. Data regarding this exam was submitted to ACR which is an approved registry. The order for this exam indicates that it came as a result of a lung cancer screening counseling shard decision-making visit that included all the elements required of such a visit including smoking cessation. The radiologist interpreting this exam meets the CMS criteria for the LDCT lung cancer screening program. The exam is reported using the Lung-RADS classification scale and reported to the ACR registry. NOTE: This study was performed for the specific purposes of lung cancer screening and is not an alternative to diagnostic chest CT. RADIATION DOSE: CTDI vol(CT dose Index-volume) = 2.90mG DLP (Dose Length Product) = 103.42 mGcm FINDINGS: Centrilobular emphysema with scattered areas of scarring. Mild bronchial thickening. A significant change OTHER FINDINGS: Coronary calcification IMPRESSION: Lung-RADS Category 2 Benign Appearance or Behavior Follow-up: Continue annual screening with LDCT in 12 months Dictated by: Adal Greenwood MD 01/14/2020 11:44 Adal Greenwood MD in [place] 01/14/2020 11:44
== END ==
PROVIDERS: PCP Family Medicine; Visit Provider Internal Medicine Pulmonary Disease
DX: Z87.891 Personal history of nicotine dependence (principal); Z12.2 Encounter for screening for malignant neoplasm of respiratory organs
CPT/HCPCS: 94060; 94618; 94640; 94726; 94729

== ENCOUNTER → 2020-01-16 12:00 | Outpatient (CLI) | payer MEDICARE, SELFPAY ==
[2020-01-16 15:27] LABS: Coronavirus 19 IgG Antibody Negative (Negative); Coronavirus 19 IgM Antibody Negative (Negative)
== END ==
PROVIDERS: Visit Provider Internal Medicine Pulmonary Disease
DX: Z01.818 Encounter for other preprocedural examination (principal); J44.9 Chronic obstructive pulmonary disease, unspecified; G47.30 Sleep apnea, unspecified
CPT/HCPCS: 36415; 86328

== ENCOUNTER → 2020-01-17 20:02 | Outpatient (CLI) | payer MEDICARE, SELFPAY | PROVIDERS: PCP Family Medicine; Visit Provider Internal Medicine Pulmonary Disease | DX: G47.30 Sleep apnea, unspecified; G47.8 Other sleep disorders; J96.11 Chronic respiratory failure with hypoxia; J44.9 Chronic obstructive pulmonary disease, unspecified | CPT/HCPCS: 95810 ==

== ENCOUNTER → 2020-05-03 14:15 | Outpatient (CLI) | payer MEDICARE, SELFPAY | PROVIDERS: PCP Family Medicine; Visit Provider Internal Medicine Pulmonary Disease | DX: R06.00 Dyspnea, unspecified (principal) | CPT/HCPCS: 94060; 94618 ==

== ENCOUNTER → 2020-11-06 14:29 | Outpatient (CLI) | payer MEDICARE, SELFPAY ==
--- NOTE | 2020-11-06 14:35 | XR_ITS ---
PROCEDURE: XR HIP RT 2-3V W/PELVIS CLINICAL INDICATION: S/P RT HIP REPLACEMNET COMPARISON: CR HIPCMLT XR hip LT 2-3V w/pelvis from 06/17/2017 FINDINGS: Status post total right hip arthroplasty in good position. No evidence of orthopedic complication. No significant change from 06/17/2017. Mild osteoarthritic changes are present involving the left hip. IMPRESSION: No change status post right hip replacement Dictated by: Adal Greenwood MD 11/06/2020 16:06 Adal Greenwood MD in [place] 11/06/2020 16:06
[2020-11-06 18:02] LABS: Alanine Aminotransferase 13 U/L (12-78); Albumin Level 3.4 g/dl (3.5-5.0); Albumin/Globulin Ratio 1.1 (1.1-1.8); Alkaline Phosphatase 90 U/L (38-126); Anion Gap 15.6 mEq/L (5-15); Aspartate Amino Transferase 20 U/L (14-36); Bilirubin,Total 0.2 mg/dl (0.2-1.3); Blood Urea Nitrogen 16 mg/dl (7-17); Calcium 10.1 mg/dl (8.4-10.2); Carbon Dioxide 26 mmol/L (22.0-30.0); Chloride 104 mmol/L (98-107); Estimated Glomerular Filt Rate 31 ml/min (>60); GFR (African American) 38 ML/MIN (>60); Glucose 73 mg/dl (74-100); Potassium 4.6 mmoL/L (3.5-5.1); Sodium 141 mmol/L (136-145); Total Protein,Serum 6.4 g/dl (6.3-8.2)
[2020-11-06 18:43] LABS: Erythrocyte Sedimentation Rate 26 mm/hr (0-30)
== END ==
PROVIDERS: PCP Family Medicine; Visit Provider Family Medicine
DX: M25.551 Pain in right hip (principal); N28.9 Disorder of kidney and ureter, unspecified; J96.11 Chronic respiratory failure with hypoxia; Z96.641 Presence of right artificial hip joint
CPT/HCPCS: 73502; 80053; 85651

== ENCOUNTER → 2021-01-07 15:17 | Outpatient (CLI) | payer MEDICARE, SELFPAY ==
--- NOTE | 2021-01-07 15:20 | MM_ITS ---
PROCEDURE: MM DIG SCREENING MAMM BI W/CAD Digital Breast Tomosynthesis Included CLINICAL INDICATION: SCREENING There is a history of breast cancer patient's great aunt. COMPARISON: MG DMSB DIG MAMM-SCREEN MAYDA from 01/15/2014 MG DMDB DIG MAMM-DX MAYDA W/CAD from 09/04/2016 MG MM DIG SCREENING MAMM BI W/CAD from 09/14/2019 TECHNIQUE: Standard CC and MLO images and 3D Tomosynthesis was obtained. R2 CAD reviewed. FINDINGS: The breasts are composed primarily of fat with scattered fibroglandular densities in the central portions bilaterally as noted previously. The nipples are inverted but left nipple more prominently than right in this has been noted previously. There is a biopsy clip right breast. There is faint arterial calcification in both breasts and there are couple of benign-appearing microcalcifications in each breast. There are small fatty replaced nodes in both axilla. There is no suspicious lesion and no suspicious microcalcifications. IMPRESSION: Fatty type breast parenchyma with no suspicious lesions seen BI-RAD Category: 2 Benign Finding(s) FOLLOW-UP: 1YR 1 Year Follow-up (A letter has been sent to the patient regarding results of the study.) Dictated by: Dr. Tod Ventura MD 01/10/2021 14:36 Dr. Tod Ventura MD in [place] 01/10/2021 14:36
== END ==
PROVIDERS: PCP Family Medicine; Visit Provider Physician Assistant
DX: Z12.31 Encounter for screening mammogram for malignant neoplasm of breast (principal)
CPT/HCPCS: 77063; 77067

== ENCOUNTER → 2021-01-15 15:23 | Outpatient (CLI) | payer MEDICARE, SELFPAY ==
--- NOTE | 2021-01-15 15:23 | CT_ITS ---
PROCEDURE: CT LUNG SCREENING CLINICAL INDICATION: lung cancer screening COMPARISON: CT CT LUNG SCREENING from 01/09/2020 TECHNIQUE: The exam was performed on a [employer] Light Speed [address] scanner using 2.90 mGy CTDI. A low dose helical CT CHEST was performed on a multi-detector scanner. All CT scans at the facility use one or more dose reduction, viz: automated exposure control, ma/kV adjustment per patient size (including targeted exams where dose is matched to indication, i.e. head), or iterative reconstruction technique. The LDCT was performed in a facility that meets the criteria for the screening program. Data regarding this exam was submitted to ACR which is an approved registry. The order for this exam indicates that it came as a result of a lung cancer screening counseling shard decision-making visit that included all the elements required of such a visit including smoking cessation. The radiologist interpreting this exam meets the [facility] criteria for the LDCT lung cancer screening program. The exam is reported using the Lung-RADS classification scale and reported to the ACR registry. NOTE: This study was performed for the specific purposes of lung cancer screening and is not an alternative to diagnostic chest CT. RADIATION DOSE: CTDI vol(CT dose Index-volume) = 2.90mG DLP (Dose Length Product) = 100.2 mGcm FINDINGS: COPD with centrilobular emphysema and scattered areas of scarring. No suspicious nodules identified. There is asymmetry in the chest with the right side smaller than the with the sternum tilted posteriorly toward the right. This has developed since previous exam OTHER FINDINGS: No other pertinent findings evident. IMPRESSION: Lung-RADS Category 2 Benign Appearance or Behavior Follow-up: Continue annual screening with LDCT in 12 months Dictated by: Adal Greenwood MD 01/18/2021 11:37 Adal Greenwood MD in [place] 01/18/2021 11:37
== END ==
PROVIDERS: PCP Family Medicine; Visit Provider Internal Medicine Pulmonary Disease
DX: Z87.891 Personal history of nicotine dependence (principal); Z12.2 Encounter for screening for malignant neoplasm of respiratory organs
CPT/HCPCS: 71271

== ENCOUNTER → 2021-07-17 15:22 | Outpatient (CLI) | payer MEDICARE, SELFPAY ==
--- NOTE | 2021-07-17 15:25 | US_ITS ---
FINAL REPORT TECHNIQUE: Ultrasound images of the kidneys and bladder were obtained. CLINICAL HISTORY: RENAL SUFFICIENCY FINDINGS: The right kidney measures 9 cm in length. It is normal in echogenicity. There is no hydronephrosis. The left kidney measures 9 cm in length. It is normal in echogenicity. There is no hydronephrosis. There is a 1.3 cm left renal cyst. Arterial flow is noted bilaterally. The urinary bladder is unremarkable. IMPRESSION: No hydronephrosis. 1.3 cm left renal cyst. Reviewed, Interpreted and Dictated by Pelon Reyes III, MD Transcribed by Sara Granda Authenticated by Pelon Reyes III, MD on 07/17/2021 04:37:02 PM [facility]
== END ==
PROVIDERS: PCP Family Medicine; Visit Provider Family Medicine
DX: N28.9 Disorder of kidney and ureter, unspecified (principal)
CPT/HCPCS: 76770

== ENCOUNTER → 2021-09-30 15:54 | Outpatient (POV) | payer MEDICARE, SELFPAY | PROVIDERS: Visit Provider Dermatology | DX: Z00.00 Encounter for general adult medical examination without abnormal findings (principal) ==

== ENCOUNTER → 2021-12-02 13:12 | Outpatient (CLI) | payer MEDICARE, SELFPAY | PROVIDERS: PCP Family Medicine; Visit Provider Internal Medicine Pulmonary Disease | DX: R06.02 Shortness of breath (principal) | CPT/HCPCS: 94010 ==

== ENCOUNTER → 2022-01-14 10:33 | Outpatient (CLI) | payer MEDICARE, SELFPAY ==
[2022-01-14 11:55] LABS: Basophils # 0.1 K/mm3 (0-0.2); Basophils % 0.7 % (0.1-2.0); Eosinophils # 0.1 K/mm3 (0.0-0.4); Eosinophils % 1.2 % (0.1-12.0); Hematocrit 39.4 % (37.0-47.0); Hemoglobin 12.3 g/dL (12.2-16.2); Lymphocytes # 2.1 K/mm3 (0.7-4.5); Lymphocytes % 17.7 % (10-50); Mean Corpuscular HGB Conc 31.2 g/dL (31.8-35.4); Mean Corpuscular Hemoglobin 30.5 pg (27.0-31.2); Mean Corpuscular Volume 97.9 fl (81-99); Mean Platelet Volume 9.3 fl (7.4-10.4); Monocytes # 0.5 K/mm3 (0.1-1.0); Monocytes % 3.9 % (1.7-9.3); Neutrophils % 76.6 % (37.0-80.0); Platelet Count 327 K/mm3 (142-424); Red Blood Count 4.02 M/mm3 (4.20-5.40); Red Cell Distribution Width 14.1 % (11.5-17.5); White Blood Count 11.7 K/mm3 (4.8-10.8)
[2022-01-14 12:47] LABS: Albumin Level 3.3 g/dl (3.5-5.0); Anion Gap 16.9 mEq/L (5-15); Blood Urea Nitrogen 20 mg/dl (7-17); Calcium 10.8 mg/dl (8.4-10.2); Carbon Dioxide 30 mmol/L (22.0-30.0); Chloride 102 mmol/L (98-107); Estimated Glomerular Filt Rate 22 ml/min (>60); GFR (African American) 26 ML/MIN (>60); Glucose 109 mg/dl (74-100); Potassium 5.9 mmoL/L (3.5-5.1); Sodium 143 mmol/L (136-145)
[2022-01-14 12:55] LABS: Intact Parathyroid Hormone 9.3 pg/mL (7.5-53.5)
[2022-01-14 13:01] LABS: 25-OH Vitamin D, Total 69.9 ng/mL (30-100)
[2022-01-14 14:33] LABS: Microscopic, Urine URINE MICROSCOPIC (MICROSCOPIC)
[2022-01-14 15:37] LABS: Appearance,Urine SL CLOUDY (Clear); Bilirubin,Urine Negative (Negative); Blood, Urine Negative (Negative); Color,Urine YELLOW (Yellow); Glucose,Urine (UA) Negative (Negative); Ketones,Urine Negative (Negative); Leukocyte Esterase,Urine 1+ (Negative); Nitrate,Urine POSITIVE (Negative); Protein,Urine Negative (Negative); Urobilinogen,Urine 0.2 EU/dl (0.2)
[2022-01-14 16:22] LABS: Amorphous Sediment,Urine 1+ /lpf; Bacteria,Urine 4+ /lpf; Triple Phosphate Crystal,Urine 2+ /lpf; WBC,Urine 20-50 #/hpf (0-3)
[2022-01-15 15:58] LABS: Creatinine,Urine Random 93 mg/dL (Not Estab.)
== END ==
PROVIDERS: PCP Family Medicine; Visit Provider Internal Medicine Nephrology
DX: N18.32 Chronic kidney disease, stage 3b (principal); E55.9 Vitamin D deficiency, unspecified; N39.0 Urinary tract infection, site not specified; B96.4 Proteus (mirabilis) (morganii) as the cause of diseases classified elsewhere
CPT/HCPCS: 36415; 80069; 81001; 82306; 82570; 83970; 84155; 85025; 87086; 87088; 87186

== ENCOUNTER → 2022-01-19 12:37 | Outpatient (POV) | payer MEDICARE, SELFPAY | PROVIDERS: Visit Provider Internal Medicine Nephrology | DX: Z00.00 Encounter for general adult medical examination without abnormal findings (principal) ==

== ENCOUNTER → 2022-01-26 14:47 | Outpatient (CLI) | payer MEDICARE, SELFPAY ==
--- NOTE | 2022-01-26 14:48 | CT_ITS ---
FINAL REPORT CLINICAL HISTORY: lung cancer screening former smoker, quit 14 years ago. smoked 1 ppd x 40 years. copd COMPARISON: December 2020 FINDINGS: Low-Dose Chest CT CTDI vol (mGy): 2.90 DLP (mGy-cm): 103.94 Axial images were obtained from the lung apex to the mid abdomen by computed tomography. Low-dose protocol was utilized. FINDINGS: CHEST: There is no axillary adenopathy. There is no hilar or mediastinal adenopathy. The heart is proper size. There is no pericardial or pleural effusion. Limited images of the upper abdomen are unremarkable. Lung window images demonstrate no suspicious infiltrate or nodule. Moderate emphysema. Scattered areas of scarring. IMPRESSION: Lung RADS category 1. Recommend 12 month follow-up low-dose chest CT. Reviewed, Interpreted and Dictated by Mona Plunkett MD Transcribed by Patrick Torres Authenticated and [facility]
== END ==
PROVIDERS: PCP Family Medicine; Visit Provider Internal Medicine Pulmonary Disease
DX: Z87.891 Personal history of nicotine dependence (principal); Z12.2 Encounter for screening for malignant neoplasm of respiratory organs
CPT/HCPCS: 71271

== ENCOUNTER → 2022-02-23 15:49 | Outpatient (CLI) | payer MEDICARE, SELFPAY ==
[2022-02-23 17:58] LABS: Albumin Level 3.7 g/dl (3.5-5.0); Anion Gap 15.5 mEq/L (5-15); Blood Urea Nitrogen 20 mg/dl (7-17); Calcium 10.3 mg/dl (8.4-10.2); Carbon Dioxide 28 mmol/L (22.0-30.0); Chloride 100 mmol/L (98-107); Estimated Glomerular Filt Rate 23 ml/min (>60); GFR (African American) 28 ML/MIN (>60); Glucose 71 mg/dl (74-100); Phosphorous 3.8 mg/dl (2.5-4.5); Potassium 4.5 mmoL/L (3.5-5.1); Sodium 139 mmol/L (136-145)
[2022-02-25 14:26] LABS: Albumin 3.3 g/dL (2.9-4.4); Alpha-1-Globulin 0.3 g/dL (0.0-0.4); Alpha-2-Globulin 0.9 g/dL (0.4-1.0); Gamma Globulin 0.8 g/dL (0.4-1.8)
[2022-02-27 10:13] LABS: Protein, Total 6.4 g/dL (6.0-8.5)
[2022-02-27 10:14] LABS: Free Kappa Lt Chains 60.7
== END ==
PROVIDERS: PCP Family Medicine; Visit Provider Internal Medicine Nephrology
DX: N39.0 Urinary tract infection, site not specified (principal); N18.32 Chronic kidney disease, stage 3b
CPT/HCPCS: 36415; 80069; 82306; 83883; 83970; 84155; 84165

== ENCOUNTER 2022-04-08 13:00 | Outpatient (RCR) | payer MEDICARE, SELFPAY | END 2022-05-29 14:52 | disposition home or self-care (01) | LOC: PT 13:00 | PROVIDERS: Visit Provider Family Medicine | DX: J44.9 Chronic obstructive pulmonary disease, unspecified (principal) | CPT/HCPCS: 94626 ==

== ENCOUNTER → 2022-05-15 15:23 | Outpatient (CLI) | payer MEDICARE, SELFPAY ==
--- NOTE | 2022-05-15 15:27 | CT_ITS ---
FINAL REPORT TECHNIQUE: Axial images through the abdomen and pelvis were performed without contrast. This study was performed with techniques to keep radiation doses as low as reasonably achievable, (ALARA). Individualized dose reduction techniques using automated exposure control or adjustment of mA and/or kV according to the patient's size were employed. CLINICAL HISTORY: LOWER ABD PAIN FINDINGS: ABDOMEN: There is mild scarring in the lung bases. The heart size is normal. Limited images of the liver are unremarkable. The spleen is normal. No adrenal mass is identified. The aorta is normal in caliber. There is no significant free fluid or adenopathy. There is no nephrolithiasis. There is no hydronephrosis. Moderate vascular calcification is identified. PELVIS: The appendix is normal. The urinary bladder is unremarkable. There is no significant free fluid or adenopathy. Postoperative changes are seen from right hip arthroplasty. IMPRESSION: No acute inflammatory process. Reviewed, Interpreted and Dictated by Pelon Reyes III, MD Transcribed by Olivia Clinton Authenticated and [facility]
== END ==
PROVIDERS: PCP Family Medicine; Visit Provider Family Medicine
DX: R10.30 Lower abdominal pain, unspecified (principal)
CPT/HCPCS: 74176

== ENCOUNTER 2022-07-30 16:46 | Emergency (ER) | payer MEDICARE, SELFPAY ==
[2022-07-30 16:51] VITALS: BP 142/67; PULSE 85; RESP 20; TEMP 37; O2SAT 96; BMI 30.9
[2022-07-30 17:00] VITALS: BP 131/63; PULSE 79; O2SAT 96
--- NOTE | 2022-07-30 17:08 | CT_ITS ---
PROCEDURE INFORMATION: Exam: CT Cervical Spine Without Contrast Exam date and time: 07/30/2022 5:20 PM Age: 76 years old Clinical indication: Injury or trauma; Fall; Blunt trauma TECHNIQUE: Imaging protocol: Computed tomography of the cervical spine without contrast. Radiation optimization: All CT scans at this facility use at least one of these dose optimization techniques: automated exposure control; mA and/or kV adjustment per patient size (includes targeted exams where dose is matched to clinical indication); or iterative reconstruction. REPORTING DATA: Count of CT and Cardiac NM exams in prior 12 months: This patient has received 2 known CTs and 0 known cardiac nuclear medicine studies in the 12 months prior to the current study. COMPARISON: CT HEAD/BRAIN WO CON 07/30/2022 5:16 PM FINDINGS: Bones/joints: Bone mineralization is decreased, suggestive of osteopenia. No acute cervical spine fracture is identified. There is straightening of the normal cervical lordosis. Severe degenerative changes of the cervical spine are present. There is no severe spinal canal stenosis. Multilevel neural foraminal narrowing from uncinate spurring and facet arthropathy is noted. Lungs: The lung apices are clear. Vasculature: Atherosclerotic calcifications are present at the carotid bifurcations. Soft tissues: Unremarkable. IMPRESSION: 1. No acute abnormality. 2. Chronic findings as discussed above.
--- NOTE | 2022-07-30 17:08 | CT_ITS ---
PROCEDURE INFORMATION: Exam: CT Head Without Contrast Exam date and time: 07/30/2022 5:16 PM Age: 76 years old Clinical indication: Injury or trauma; Fall; Laceration; Without residual foreign body; Forehead TECHNIQUE: Imaging protocol: Computed tomography of the head without contrast. Radiation optimization: All CT scans at this facility use at least one of these dose optimization techniques: automated exposure control; mA and/or kV adjustment per patient size (includes targeted exams where dose is matched to clinical indication); or iterative reconstruction. REPORTING DATA: Count of CT and Cardiac NM exams in prior 12 months: This patient has received 2 known CTs and 0 known cardiac nuclear medicine studies in the 12 months prior to the current study. COMPARISON: HEADWO CT head/brain wo con 05/31/2018 10:41 AM FINDINGS: Brain: There is no acute intracranial hemorrhage, cerebral edema, or midline shift. Chronic microvascular ischemic changes are seen in the periventricular white matter. A chronic lacunar infarct is noted within the left thalamus. Age-related cerebral and cerebellar volume loss is present. Cerebral ventricles: Mild ex vacuo dilation of the lateral ventricles is noted. Paranasal sinuses: There is no acute sinusitis. Mastoid air cells: The mastoid air cells are clear. Orbital cavities: The included orbital structures are unremarkable. Bones/joints: No acute fracture. Soft tissues: Unremarkable. Vasculature: Atherosclerotic calcifications are seen involving the cavernous carotid arteries. IMPRESSION: 1. No acute intracranial abnormality. 2. Atrophy and chronic deep white matter ischemic changes.
--- NOTE | 2022-07-30 17:24 | PC.NURSE ---
pt arrived back to room from rad
[2022-07-30 17:31] VITALS: BP 168/73; PULSE 77; O2SAT 99
[2022-07-30 18:00] VITALS: BP 183/82; PULSE 75; O2SAT 99
--- NOTE | 2022-07-30 18:26 | PC.NURSE ---
MONICA PEREZ AT
[2022-07-30 18:30] VITALS: BP 173/74; PULSE 71; RESP 18; O2SAT 98
--- NOTE | 2022-07-30 19:04 | HMH.EDGENADL ---
Discharge Plan Disposition Patient Disposition: Home, Self-Care Condition: Good Chief Complaint: Wound/Laceration Prescriptions Prescriptions: No Action albuterol sulfate 90 mcg/actuation HFA aerosol inhaler 1 inh INHALATION QID PRN (Reason: shortness of breath or wheezing) Qty: 8.5 12RF ipratropium-albuterol 0.5 mg-3 mg(2.5 mg base)/3 mL solution for nebulization 3 ml INHALATION Q6H PRN (Reason: shortness of breath or wheezing) Qty: 15 12RF Trelegy Ellipta 100-62.5-25 mcg blister with device 1 inh INHALATION DAILY Qty: 60 8RF hydrochlorothiazide 25 MG tablet 12.5 mg PO NEEDED PRN (Reason: FLUID) Rx Instructions: PATIENT STATES SHE TAKES NEEDED ABOUT THREE TIMES MONTHLY FOR SWELLING bupropion HCl 150 MG tablet extended release 24 hr 150 mg PO DAILY duloxetine 60 MG capsule,delayed release(DR/EC) 60 mg PO DAILY coenzyme Q10 200 MG capsule 200 mg PO DAILY ferrous sulfate 27 MG tablet 65 mg PO DAILY fluticasone propionate 9.9 ML spray,suspension 1 spray intranasal DAILYP PRN (Reason: ALLERGIES) clotrimazole 10 MG gamal 10 mg PO 5XDAY metoprolol succinate 25 MG tablet extended release 24 hr 25 mg PO DAILY Qty: 30 5RF cefdinir 300 MG capsule 300 mg PO BID Qty: 14 1RF prednisone 5 MG tablet 10 mg PO Q48H Qty: 60 2RF alprazolam 0.5 MG tablet 0.25 mg PO BID Label Comments: esomeprazole magnesium 40 MG capsule,delayed release(DR/EC) 40 mg PO DAILY gabapentin 300 MG capsule 600 mg PO TID Label Comments: montelukast 10 MG tablet 10 mg PO HS roflumilast 500 MCG tablet 500 mcg PO DAILY Label Comments: pravastatin 20 MG tablet 20 mg PO HS Referrals Follow up/Referrals: Mona Stephens MD [Primary Care Provider] - See instructions Activity Restrictions/Add. Instructions Additional Instructions/Restrictions: Stitches out in 5 to 7 days. Follow-up PCP in 1 to 2 days. Return to ER for redness, thick drainage, warmth. Clinical Impressions Clinical Impression: Fall, Laceration Instructions Patient Instructions: DI for Laceration Repair Discharge ED Provider: Yoel Galvez General Adult HPI General Chief complaint: Wound/Laceration Stated complaint: Fall Time Seen by Provider: 07/30/22 18:31 Mode of Arrival: EMS Source of Information: Patient and EMS Limitations: No Limitations Description of Symptoms (Recalled from ER Triage Doc. by RN): pt to ed c/o fall. pt states she lost her footing and fell in her home. laceration above the left eye noted. pt denies LOC. History of Present Illness HPI narrative: 76yo F presents to the ER secondary to mechanical fall. Laceration above the left eye. No LOC. Denies blood thinner use. Related Data Home Medications Medication Instructions Recorded Confirmed alprazolam 0.5 mg tablet 0.25 mg PO BID Anxiety 06/15/17 01/26/22 esomeprazole magnesium 40 mg 40 mg PO DAILY GERD 06/15/17 01/26/22 capsule,delayed release gabapentin 300 mg capsule 600 mg PO TID NEUROPATHY 06/15/17 01/26/22 montelukast 10 mg tablet 10 mg PO HS COPD 06/15/17 01/26/22 roflumilast 500 mcg tablet 500 mcg PO DAILY COPD 06/15/17 01/26/22 pravastatin 20 mg tablet 20 mg PO HS Cholesterol 10/12/17 01/26/22 bupropion HCl 150 mg 24 hr tablet, 150 mg PO DAILY mood 05/31/18 01/26/22 extended release clotrimazole 10 mg gamal 10 mg PO 5XDAY ANTIFUNGAL 05/31/18 01/26/22 coenzyme Q10 200 mg capsule 200 mg PO DAILY Supplement 05/31/18 01/26/22 duloxetine 60 mg capsule,delayed 60 mg PO DAILY mood 05/31/18 01/26/22 release ferrous sulfate 27 mg iron tablet 65 mg PO DAILY Supplement 05/31/18 01/26/22 fluticasone propionate 50 1 spray intranasal DAILYP PRN 05/31/18 01/26/22 mcg/actuation nasal ALLERGIES spray,suspension hydrochlorothiazide 25 mg tablet 12.5 mg PO NEEDED PRN FLUID 05/31/18 01/26/22 Previous Rx's Medication Instructions Recorded
[2022-07-30 19:40] VITALS: BP 156/79; PULSE 73; RESP 18; TEMP 36.7
== END 2022-07-30 19:42 | disposition home or self-care (01) ==
PROVIDERS: Emergency Provider Family Medicine; PCP Family Medicine
DX: W19.XXXA Unspecified fall, initial encounter; J96.11 Chronic respiratory failure with hypoxia; Z87.891 Personal history of nicotine dependence; S01.112A Laceration without foreign body of left eyelid and periocular area, initial encounter
CPT/HCPCS: 12013; 70450; 72125; 99283; 99285

== ENCOUNTER → 2022-09-02 15:43 | Outpatient (CLI) | payer MEDICARE, SELFPAY ==
--- NOTE | 2022-09-02 | CA_ITS ---
FINAL REPORT TECHNIQUE: Ultrasound images of the deep venous system were obtained from the left groin to the calf veins. CLINICAL HISTORY: s/p fall 1 month ago. Left leg pain and edema COMPARISON: None FINDINGS: The deep venous system is normally compressible. Normal flow is identified. IMPRESSION: No evidence of left lower extremity DVT. Reviewed, Interpreted and Dictated by Pelon Reyes III, MD Transcribed by Brandy Graham Authenticated and . [facility]
--- NOTE | 2022-09-02 16:17 | XR_ITS ---
FINAL REPORT CLINICAL HISTORY: INJURY FINDINGS: LEFT KNEE SERIES Three views of the left knee were obtained. There is no acute fracture or dislocation. There is mild degenerative change. There is no soft tissue abnormality. IMPRESSION: Mild degenerative change. Reviewed, Interpreted and Dictated by Pelon Reyes III, MD Transcribed by Harpreet Day Authenticated and [facility]
== END ==
PROVIDERS: PCP Family Medicine; Visit Provider Physician Assistant
DX: M79.605 Pain in left leg (principal); M25.562 Pain in left knee; S89.92XD Unspecified injury of left lower leg, subsequent encounter
CPT/HCPCS: 73562; 93971

== ENCOUNTER → 2022-10-29 12:49 | Outpatient (CLI) | payer MEDICARE, SELFPAY | PROVIDERS: PCP Family Medicine; Visit Provider Internal Medicine Pulmonary Disease | DX: R06.09 Other forms of dyspnea (principal) | CPT/HCPCS: 94060; 94726; 94729 ==

== ENCOUNTER → 2023-01-11 08:50 | Outpatient (CLI) | payer MEDICARE, SELFPAY ==
[2023-01-11 08:54] LABS: Adenovirus F 40/41, stool Not Detected (NotDetected); Astrovirus Not Detected (NotDetected); Campylobacter Not Detected (NotDetected); Clostridium Difficile A/B, PCR Not Detected (NotDetected); Cryptosporidium Not Detected (NotDetected); Cyclospora Cayetanesis Not Detected (NotDetected); Entamoeba histolytica Not Detected (NotDetected); Enteroaggregative E coli Not Detected (NotDetected); Enteropathogenic E coli Not Detected (NotDetected); Enterotoxigenic E coli Not Detected (NotDetected); Giardia lamblia Not Detected (NotDetected); Norovirus Not Detected (NotDetected); Plesimonas Shigalloides, PCR Not Detected (NotDetected); Rotavirus A Not Detected (NotDetected); Salmonella, PCR Not Detected (NotDetected); Sapovirus Not Detected (NotDetected); Shiga-like toxin E coli Not Detected (NotDetected); Shigella Enterovasive E coli Not Detected (NotDetected); Vibrio Cholerae Not Detected (NotDetected); Vibrio, PCR Not Detected (NotDetected); Yersinia Entercolitica, PCR Not Detected (NotDetected)
== END ==
LOC: LAB 08:51
PROVIDERS: PCP Family Medicine; Visit Provider Surgery
DX: R19.7 Diarrhea, unspecified (principal)
CPT/HCPCS: 87506

== ENCOUNTER → 2023-02-01 14:19 | Outpatient (CLI) | payer MEDICARE, SELFPAY ==
--- NOTE | 2023-02-01 14:19 | CT_ITS ---
FINAL REPORT TECHNIQUE: Axial images were obtained from the lung apex to the mid abdomen by computed tomography. This study was performed with techniques to keep radiation doses as low as reasonably achievable (ALARA). Individualized dose reduction techniques using automated exposure control or adjustment of mA and/or kV according to the patient's size were employed. CLINICAL HISTORY: lung cancer screening former smoker x 15 yrs 1 ppd x 40 yrs COMPARISON: 01/26/2022 FINDINGS: CHEST CT LOW DOSE CTDI vol (mGy): 2.90 DLP (mGy-cm): 102.12 There is no axillary adenopathy. There is no hilar or mediastinal adenopathy. The heart is normal in size. There is no pericardial or pleural effusion. There is moderate emphysema and moderate scarring. Findings are stable since prior. Lung window images demonstrate no suspicious infiltrate or nodule. Limited images of the upper abdomen are unremarkable. IMPRESSION: Lung RADS category 1. Recommend 12 month follow-up low-dose chest CT. Reviewed, Interpreted and Dictated by Pelon Reyes III, MD Transcribed by Olivia Clinton Authenticated and [facility]
== END ==
PROVIDERS: PCP Family Medicine; Visit Provider Internal Medicine Pulmonary Disease
DX: F17.210 Nicotine dependence, cigarettes, uncomplicated (principal); Z12.2 Encounter for screening for malignant neoplasm of respiratory organs
CPT/HCPCS: 71271

== ENCOUNTER 2023-04-12 14:49 | Outpatient (CLI) | payer MEDICARE, SELFPAY | END 2023-04-12 23:59 | LOC: RT 14:50 | PROVIDERS: PCP Family Medicine; Visit Provider Nurse Practitioner Family | DX: R29.898 Other symptoms and signs involving the musculoskeletal system (principal); R41.3 Other amnesia; Z86.73 Personal history of transient ischemic attack (TIA), and cerebral infarction without residual deficits; Z87.828 Personal history of other (healed) physical injury and trauma; M54.9 Dorsalgia, unspecified; Z99.81 Dependence on supplemental oxygen | CPT/HCPCS: 94762 ==

== ENCOUNTER 2023-04-15 15:03 | Outpatient (CLI) | payer MEDICARE, SELFPAY ==
--- NOTE | 2023-04-15 15:08 | XR_ITS ---
FINAL REPORT CLINICAL HISTORY: back pain, abn reflexes, weakness FINDINGS: SPINE LUMBOSACRAL INCL BENDING VIEWS Seven views of the lumbar spine were obtained. There is no acute fracture. There are moderate and severe degenerative changes with vacuum phenomenon at multiple levels. There is moderate vascular calcification. There is no abnormal movement with flexion and extension maneuvers. IMPRESSION: Degenerative changes as detailed above. Reviewed, Interpreted and Dictated by Pelon Reyes III, MD Transcribed by Olivia Clinton Authenticated and [facility]
--- NOTE | 2023-04-15 16:07 | MR_ITS ---
PROCEDURE INFORMATION: Exam: MR Head Without Contrast Exam date and time: 04/15/2023 4:05 PM Age: 77 years old Clinical indication: Other: Memory loss; Additional info: Memory loss, HX of head injury TECHNIQUE: Imaging protocol: Magnetic resonance imaging of the head without contrast. COMPARISON: CT HEAD/BRAIN WO CON 07/30/2022 5:16 PM FINDINGS: Age-related volume loss. Major vascular flow voids at the skull base are preserved. No extra-axial fluid collection. Non-specific white matter gliosis, probable chronic microvascular ischemia. Small chronic bilateral cerebellar infarcts. No midline shift or significant intracranial mass effect. No cerebral edema. No diffusion restriction. Visualized paranasal sinuses are clear. Large bilateral mastoid effusions. IMPRESSION: No acute intracranial abnormality.
--- NOTE | 2023-04-15 16:07 | MR_ITS ---
PROCEDURE INFORMATION: Exam: MR Lumbar Spine Without Contrast Exam date and time: 04/15/2023 4:05 PM Age: 77 years old Clinical indication: Low back pain; Additional info: Abn reflexes, back pain, weakness TECHNIQUE: Imaging protocol: Magnetic resonance imaging of the lumbar spine without contrast. COMPARISON: CR XR LUMBAR SPINE 6V W BENDING 04/15/2023 3:37 PM FINDINGS: Transitional anatomy at the lumbosacral junction. S1 is considered partially lumbarized. Vertebral body height and AP alignment is preserved. Multilevel disc desiccation disc space narrowing with degenerative endplate signal. Negative for discitis/osteomyelitis. No epidural fluid collection. Conus medullaris terminates at L2. L1-L2: Mild disc bulge and mild bilateral facet joint arthropathy. No significant central or foraminal stenosis. L2-L3: Mild disc bulge, mild bilateral facet joint arthropathy and posterior laxity of ligamentum flavum. No significant central canal stenosis. There is mild bilateral foraminal stenosis. L3-L4: Moderate disc bulge with [id number] facet joint arthropathy, small facet joint effusions and posterior laxity of ligamentum flavum. Findings result in moderate central canal stenosis, mild right foraminal stenosis and moderate to severe left foraminal stenosis. L4-L5: [id number] disc bulge with moderate bilateral facet joint arthropathy, bilateral facet joint effusions and posterior laxity of ligamentum flavum. Findings result in moderate central canal stenosis, mild right foraminal stenosis and [id number] left foraminal stenosis. L5-S1: Moderate disc bulge with bilateral facet joint arthropathy and posterior laxity of ligamentum flavum. Findings result in moderate to severe central canal stenosis, moderate to severe right foraminal stenosis and moderate left foraminal stenosis. IMPRESSION: Multilevel degenerative change as above including moderate central canal stenosis at L3-L4, moderate central canal stenosis at L4-L5 and moderate to severe central canal stenosis at L5-S1.
[2023-04-15 16:37] LABS: Basophils # 0.1 K/mm3 (0-0.2); Basophils % 0.7 % (0.1-2.0); Eosinophils # 0.3 K/mm3 (0.0-0.4); Eosinophils % 3.6 % (0.1-12.0); Hematocrit 36.7 % (37.0-47.0); Hemoglobin 12.1 g/dL (12.2-16.2); Lymphocytes # 1.8 K/mm3 (0.7-4.5); Mean Corpuscular HGB Conc 32.9 g/dL (31.8-35.4); Mean Corpuscular Volume 91.1 fl (81-99); Monocytes # 0.5 K/mm3 (0.1-1.0); Neutrophils # 6.4 K/mm3 (1.8-7.8); Neutrophils % 70.9 % (37.0-80.0); Platelet Count 287 K/mm3 (142-424); Red Blood Count 4.02 M/mm3 (4.20-5.40); Red Cell Distribution Width 14.4 % (11.5-17.5); White Blood Count 9.1 K/mm3 (4.8-10.8)
[2023-04-15 17:10] LABS: Alanine Aminotransferase 14 U/L (12-78); Albumin Level 3.5 g/dl (3.5-5.0); Albumin/Globulin Ratio 1.4 (1.1-1.8); Alkaline Phosphatase 90 U/L (38-126); Anion Gap 9.6 mEq/L (5-15); Aspartate Amino Transferase 23 U/L (14-36); Bilirubin,Total 0.3 mg/dl (0.2-1.3); Blood Urea Nitrogen 16 mg/dl (7-17); Calcium 9.9 mg/dl (8.4-10.2); Carbon Dioxide 31 mmol/L (22.0-30.0); Chloride 105 mmol/L (98-107); Estimated Glomerular Filt Rate 31 ml/min (>60); GFR (African American) 38 ML/MIN (>60); Globulin 2.5 g/dL (1.3-3.2); Glucose 91 mg/dl (74-100); Potassium 4.6 mmoL/L (3.5-5.1); Sodium 141 mmol/L (136-145)
[2023-04-15 17:16] LABS: C-Reactive Protein 4.2 mg/L (0-4)
[2023-04-15 17:24] LABS: Erythrocyte Sedimentation Rate 57 mm/hr (0-30)
[2023-04-15 17:43] LABS: Thyroid Stimulating Hormone 2.07 uIU/mL (0.465-4.68)
[2023-04-15 18:18] LABS: Vitamin B12 265 pg/mL (239-931)
[2023-04-15 18:20] LABS: Folate 5.26 ng/mL
[2023-04-16 11:13] LABS: Rapid Plasma Reagin Ab Titer Non Reactive titer (NonRea<1:1)
== END 2023-04-15 23:59 ==
LOC: RAD 15:04
PROVIDERS: PCP Family Medicine; Visit Provider Nurse Practitioner Family
DX: R29.898 Other symptoms and signs involving the musculoskeletal system; R41.3 Other amnesia; Z86.73 Personal history of transient ischemic attack (TIA), and cerebral infarction without residual deficits; Z87.828 Personal history of other (healed) physical injury and trauma; Z99.81 Dependence on supplemental oxygen; R29.2 Abnormal reflex; M54.50 Low back pain, unspecified
CPT/HCPCS: 36415; 70551; 72114; 72148; 76376; 80053; 82607; 82746; 84443; 85025; 85651; 86140; 86593

== ENCOUNTER 2023-04-28 14:55 | Outpatient (CLI) | payer MEDICARE, SELFPAY ==
[2023-04-28 15:03] LABS: Microscopic, Urine URINE MICROSCOPIC (MICROSCOPIC)
[2023-04-28 16:21] LABS: Appearance,Urine SL CLOUDY (Clear); Bilirubin,Urine Negative (Negative); Blood, Urine Negative (Negative); Color,Urine YELLOW (Yellow); Glucose,Urine (UA) Negative (Negative); Ketones,Urine Negative (Negative); Leukocyte Esterase,Urine 1+ (Negative); Nitrate,Urine Negative (Negative); PH,Urine 5.5 (5.0-8.5); Protein,Urine 1+ (Negative); Specific Gravity, Urine >= 1.030 (1.005-1.030); Urobilinogen,Urine 0.2 EU/dl (0.2)
[2023-04-28 16:28] LABS: Hematocrit 36.1 % (37.0-47.0); Hemoglobin 11.2 g/dL (12.2-16.2); Mean Corpuscular Hemoglobin 30.2 pg (27.0-31.2); Mean Corpuscular Volume 97.4 fl (81-99); Platelet Count 251 K/mm3 (142-424); Red Blood Count 3.71 M/mm3 (4.20-5.40); Red Cell Distribution Width 14.9 % (11.5-17.5); White Blood Count 8.3 K/mm3 (4.8-10.8)
[2023-04-28 16:37] LABS: Albumin Level 3.4 g/dl (3.5-5.0); Anion Gap 10.7 mEq/L (5-15); Blood Urea Nitrogen 13 mg/dl (7-17); Calcium 9.9 mg/dl (8.4-10.2); Carbon Dioxide 29 mmol/L (22.0-30.0); Chloride 106 mmol/L (98-107); Estimated Glomerular Filt Rate 31 ml/min (>60); GFR (African American) 38 ML/MIN (>60); Glucose 102 mg/dl (74-100); Phosphorous 3.5 mg/dl (2.5-4.5); Potassium 4.7 mmoL/L (3.5-5.1); Sodium 141 mmol/L (136-145)
[2023-04-28 16:48] LABS: Intact Parathyroid Hormone 67.7 pg/mL (7.5-53.5)
[2023-04-28 16:54] LABS: 25-OH Vitamin D, Total 66.1 ng/mL (30-100)
[2023-04-28 17:10] LABS: Bacteria,Urine 1+ /lpf; Squamous Epithelial Cell,Urine Occasional #/hpf (0-5)
[2023-04-28 18:39] LABS: Creatinine,Urine Random 285 mg/dL (Not Estab.)
== END 2023-04-28 23:59 ==
PROVIDERS: PCP Psychiatry & Neurology Sleep Medicine; Visit Provider Nurse Practitioner
DX: N18.4 Chronic kidney disease, stage 4 (severe) (principal); E55.9 Vitamin D deficiency, unspecified; R82.90 Unspecified abnormal findings in urine; B96.89 Other specified bacterial agents as the cause of diseases classified elsewhere
CPT/HCPCS: 36415; 80069; 81001; 82306; 82570; 83970; 84155; 85014; 85018; 85048; 85049; 87086

== ENCOUNTER 2023-05-03 09:47 | Outpatient (POV) | payer MEDICARE, SELFPAY | END 2023-05-03 23:59 | disposition home or self-care (01) | LOC: SC 09:48 | PROVIDERS: Visit Provider Nurse Practitioner | DX: Z00.00 Encounter for general adult medical examination without abnormal findings (principal) ==

== ENCOUNTER 2023-05-10 16:28 | Outpatient (CLI) | payer MEDICARE, SELFPAY ==
[2023-05-10 17:51] LABS: Erythrocyte Sedimentation Rate 51 mm/hr (0-30); Hemoglobin A1C 5.3 % (4.0-6.0)
[2023-05-10 18:35] LABS: Chol/HDL Ratio 4.5 (1-3.5); Cholesterol 174 mg/dl (140-200); HDL Cholesterol 39 mg/dl (40-60); Triglycerides 293 mg/dl (30-150); VLDL Cholesterol 59 mg/dL (0-40)
[2023-05-10 18:46] LABS: C-Reactive Protein 6.3 mg/L (0-4); Direct LDL Cholesterol 88.51 mg/dL (100-129)
== END 2023-05-10 23:59 ==
LOC: LAB 16:29
PROVIDERS: PCP Family Medicine; Visit Provider Nurse Practitioner Family
DX: R06.09 Other forms of dyspnea (principal); R42 Dizziness and giddiness; I63.523 Cerebral infarction due to unspecified occlusion or stenosis of bilateral anterior cerebral arteries; R29.898 Other symptoms and signs involving the musculoskeletal system; M48.061 Spinal stenosis, lumbar region without neurogenic claudication; R94.130 Abnormal response to nerve stimulation, unspecified; R73.09 Other abnormal glucose; Z99.81 Dependence on supplemental oxygen; W19.XXXA Unspecified fall, initial encounter; Z79.899 Other long term (current) drug therapy
CPT/HCPCS: 36415; 80061; 83036; 85651; 86140; 93225

== ENCOUNTER 2023-05-11 16:10 | Outpatient (POV) | payer MEDICARE, SELFPAY | END 2023-05-11 23:59 | disposition home or self-care (01) | LOC: SC 16:10 | PROVIDERS: PCP Family Medicine; Visit Provider Dermatology | DX: Z00.00 Encounter for general adult medical examination without abnormal findings (principal) ==

== ENCOUNTER 2023-05-13 11:53 | Outpatient (CLI) | payer MEDICARE, SELFPAY | END 2023-05-13 23:59 | LOC: RT 11:54 | PROVIDERS: PCP Family Medicine; Visit Provider Nurse Practitioner Family | DX: I63.9 Cerebral infarction, unspecified (principal); Z79.899 Other long term (current) drug therapy | CPT/HCPCS: 93270 ==

== ENCOUNTER 2023-05-20 08:59 | Outpatient (CLI) | payer MEDICARE, SELFPAY ==
--- NOTE | 2023-05-20 08:59 | CA_ITS ---
APPROVED REPORT EXAM: Comprehensive 2D, Doppler, and color-flow Echocardiogram Dumpster Operator: MARTHA Ha, RVS Ht: 5 ft 4 in Wt: 192lbs BSA: 1.92 BP: 126/74 mmHg Indications: Dizziness, Hx- 2 strokes, COPD, portable O2, SOA 2D Dimensions LA Volume 76.40 mL LA Volume Index 38.80 mL/m2 (M/F) 16-34 M-Mode Dimensions RVDd 2.39 cm (0.9-2.6) LA Diam 3.89 cm (1.9-4.0) LVDd 4.97 cm (3.5-5.7) LVDs 3.15 cm (3.5-5.7) IVSd 0.87 cm (0.6-1.1) PWd 1.02 cm (0.6-1.1) EF (Teich) 66.20% EPSs 0.27 cm FS 36.60% EDV (Teich) 116.60 mL TAPSE 2.58 (<1.7) ESV (Teich) 39.40 mL LV Diastology E Decel Time 170 (160-240 msec) E/A Ratio 0.93 MED A' 6.70 cm/s LAT A' 7.70 cm/s Aortic Valve AoV Peak Dalton. 118.0 (50-130 cm/s) AO Peak GR. 5.60 mmHg AO Mean GR. 3.00 (<5 mmHg) AO VTI 29.8 (18-25 cm) Mitral Valve MV A Velocity 101.0 (40-130 cm/s) E/A Ratio 0.93 MV Mean Gr. 1.60 (<2mmHg) Tricuspid Valve TR P. Velocity 255.00 cm/s RAP Estimate 10.00 mmHg RVSP 36.00 mmHg Left Ventricle The left ventricle is normal size. The left ventricular systolic function is normal. The left ventricular ejection fraction is within the normal range. There is increased LV wall thickness. There is normal LV segmental wall motion. The left ventricular diastolic function is normal. LVEF is 55%. Right Ventricle The right ventricle is normal size. The right ventricular systolic function is normal. Atria The left atrium is mildly dilated. Right atrium is mildly dilated. The interatrial shunt is not well-visualized. Aortic Valve The aortic valve is mildly thickened. There is no aortic valvular stenosis. No aortic regurgitation is present. Mitral Valve The mitral valve leaflets are mildly thickened. No evidence of mitral valve stenosis. Mild mitral regurgitation. Tricuspid Valve The tricuspid valve leaflets are thin and pliable. Trace tricuspid regurgitation. RVSP is 25 mmHg plus RA pressure. Pulmonic Valve The pulmonary valve is normal in structure. Trace pulmonic regurgitation. Great Vessels The aortic root is normal in size. The ascending aorta is normal in size. The IVC is not well-visualized. Pericardium There is no pericardial effusion. Other Information Study Quality: Technically Difficult Conclusion Technically difficult study due to poor acoustic windows. Normal biventricular systolic function. Mild biatrial dilation. Mild MR. Electronically signed by : Tarsha Mari MD 05/24/2023 11:17:24
--- NOTE | 2023-05-20 08:59 | CA_ITS ---
FINAL REPORT TECHNIQUE: Color Doppler, duplex Doppler and barth scale sonography of the bilateral neck vasculature was performed. Velocities were measured in the carotid arteries. Stenosis evaluation based on velocity criteria. CLINICAL HISTORY: Eval for carotid artery stenosis, CVA x2, COPD COMPARISON: None FINDINGS: The peak systolic velocity of the right common carotid artery is 96 cm/sec and internal carotid artery 130 cm/sec. The diastolic velocity in the internal carotid artery is 18 cm/sec. The ICA/CCA ratio is 1.6. Visually, a moderate amount of plaque is seen. These findings are consistent with less than 50% stenosis. The external carotid artery is patent. The right vertebral artery is patent with antegrade flow. The peak systolic velocity of the left common carotid artery is 95 cm/sec and internal carotid artery 126 cm/sec. The diastolic velocity in the internal carotid artery is 21 cm/sec. The ICA/CCA ratio is 1.5. Visually, a moderate amount of plaque is seen. These findings are consistent with less than 50% stenosis. The external carotid artery is patent. The left vertebral artery is patent with antegrade flow. IMPRESSION: No evidence of significant carotid stenosis. Bilateral patent vertebral arteries. If indicated, CTA or MRA could further evaluate. Reviewed, Interpreted and Dictated by Pelon Reyes III, MD Transcribed by Sveta Whipple Authenticated and [facility]
== END 2023-05-20 23:59 ==
LOC: RT 08:59
PROVIDERS: PCP Family Medicine; Visit Provider Nurse Practitioner Family
DX: R42 Dizziness and giddiness (principal); I63.89 Other cerebral infarction; R29.898 Other symptoms and signs involving the musculoskeletal system; R73.9 Hyperglycemia, unspecified; Z99.81 Dependence on supplemental oxygen; W19.XXXA Unspecified fall, initial encounter
CPT/HCPCS: 93306; 93880

== ENCOUNTER 2023-09-05 00:03 | Emergency (ER) | payer MEDICARE, SELFPAY ==
[2023-09-05 00:03] VITALS: BP 100/57; PULSE 63; RESP 16; TEMP 36.5; O2SAT 98; BMI 37.0
--- NOTE | 2023-09-05 00:11 | CT_ITS ---
PROCEDURE INFORMATION: Exam: CT Chest Without Contrast; Diagnostic Exam date and time: 09/05/2023 12:54 AM Age: 77 years old Clinical indication: Pain; Right-sided; Additional info: Mechanical fall, R side pain TECHNIQUE: Imaging protocol: Diagnostic computed tomography of the chest without contrast. Radiation optimization: All CT scans at this facility use at least one of these dose optimization techniques: automated exposure control; mA and/or kV adjustment per patient size (includes targeted exams where dose is matched to clinical indication); or iterative reconstruction. COMPARISON: CT LUNG SCREENING 02/01/2023 2:23 PM FINDINGS: Lungs: Significant centrilobular emphysematous changes. Bandlike densities at the lung bases consistent with scarring and/or atelectasis. Pleural spaces: Unremarkable. No pneumothorax. No pleural effusion. Heart: Unremarkable. No cardiomegaly. No pericardial effusion. Lymph nodes: Unremarkable. No enlarged lymph nodes. Vasculature: Unremarkable. No aortic aneurysm. Bones/joints: There are acute fractures of the posterior right 10th and 11th ribs with 1 shaft's with displacement at each fracture site. Nondisplaced fracture of the right L1 transverse process is noted. No fracture of the thoracic spine. Soft tissues: Unremarkable. IMPRESSION: 1. Acute fractures of the posterior right 10th and 11th ribs with 1 shaft with displacement at both fracture sites. No segmental component. 2. Nondisplaced fracture of the right L1 transverse process. 3. Significant emphysematous changes. Scarring and/or atelectasis at both lung bases. COMMENTS: The presence of pulmonary emphysema on CT is an independent risk factor for lung cancer. In the absence of a history or active diagnosis of lung cancer, it is recommended that this patient with emphysema be evaluated for enrollment in a low dose CT lung cancer screening program.
--- NOTE | 2023-09-05 00:11 | CT_ITS ---
PROCEDURE INFORMATION: Exam: CT Head Without Contrast Exam date and time: 09/05/2023 12:48 AM Age: 77 years old Clinical indication: Injury or trauma; Fall; Other: Right side pain TECHNIQUE: Imaging protocol: Computed tomography of the head without contrast. Radiation optimization: All CT scans at this facility use at least one of these dose optimization techniques: automated exposure control; mA and/or kV adjustment per patient size (includes targeted exams where dose is matched to clinical indication); or iterative reconstruction. COMPARISON: CT HEAD/BRAIN WO CON 09/05/2023 12:48 AM FINDINGS: Brain: No evidence for intracranial hemorrhage, mass lesions or acute stroke. Intracranial vascular calcifications. Mild small vessel ischemic change in the periventricular white matter. Cerebral ventricles: Moderate ventricular prominence similar to 04/15/2023. Pituitary gland and sella: Negative Paranasal sinuses: Visualized sinuses are unremarkable. No fluid levels. Mastoid air cells: Visualized mastoid air cells are well aerated. Orbital cavities: Negative. Parotid and submandibular glands: Negative Bones: Unremarkable. No acute fracture. Soft tissues: Unremarkable. Vasculature: Negative. Other findings: Mild generalized atrophy. IMPRESSION: 1. No evidence for intracranial hemorrhage, mass lesions or acute stroke. 2. Intracranial vascular calcifications. 3. Mild generalized atrophy. 4. Mild small vessel ischemic change in the periventricular white matter. 5. Moderate ventricular prominence similar to 04/15/2023.
--- NOTE | 2023-09-05 00:11 | CT_ITS ---
PROCEDURE INFORMATION: Exam: CT Abdomen And Pelvis Without Contrast Exam date and time: 09/05/2023 12:56 AM Age: 77 years old Clinical indication: Other: Right side pain; Additional info: Mechanical fall, R side pain TECHNIQUE: Imaging protocol: Computed tomography of the abdomen and pelvis without contrast. Radiation optimization: All CT scans at this facility use at least one of these dose optimization techniques: automated exposure control; mA and/or kV adjustment per patient size (includes targeted exams where dose is matched to clinical indication); or iterative reconstruction. COMPARISON: CT ABDOMEN PELVIS WO CON 05/15/2022 3:28 PM FINDINGS: Lungs: The chest is reported separately. Liver: Normal. No mass. Gallbladder and biliary ducts: Normal. No calcified stones. No ductal dilation. Pancreas: Normal. No ductal dilation. Spleen: Normal. No splenomegaly. Adrenal glands: Normal. No mass. Kidneys and ureters: Normal. No hydronephrosis. Stomach and bowel: Unremarkable. No obstruction. No mucosal thickening. Appendix: No evidence of appendicitis. Intraperitoneal space: Unremarkable. No free air. No significant fluid collection. Vasculature: Diffuse calcific atherosclerotic disease without aneurysmal dilation of the aorta. Lymph nodes: Unremarkable. No enlarged lymph nodes. Urinary bladder: Unremarkable as visualized. Reproductive: Unremarkable as visualized. Bones/joints: There are acute fractures of the posterior 10th and 11th ribs with 1 shaft with displacement of each fracture. There are nondisplaced fractures of the right transverse processes from L1 through L3. There is a transitional spine noted with prominent L5 transverse processes which fuse with the sacrum. Significant degenerative disc disease and facet arthropathy from L2 through S1. No vertebral compression deformity. Right total hip prosthesis is noted anatomic alignment. Soft tissues: Unremarkable. IMPRESSION: 1. Acute fractures of the posterior right 10th and 11th ribs and the right L1 through L3 transverse process. 2. No acute intraabdominal or intrapelvic process.
--- NOTE | 2023-09-05 00:11 | CT_ITS ---
PROCEDURE INFORMATION: Exam: CT Cervical Spine Without Contrast Exam date and time: 09/05/2023 12:51 AM Age: 77 years old Clinical indication: Injury or trauma; Fall; Other: Right sided pain TECHNIQUE: Imaging protocol: Computed tomography of the cervical spine without contrast. Radiation optimization: All CT scans at this facility use at least one of these dose optimization techniques: automated exposure control; mA and/or kV adjustment per patient size (includes targeted exams where dose is matched to clinical indication); or iterative reconstruction. COMPARISON: CT CERVICAL SPINE WO CON 07/30/2022 5:20 PM FINDINGS: Bones: Spine alignment is normal. No fracture or bone destruction. Predental space narrowing and hypertrophic pannus around the dens consistent with arthritis. Multilevel degenerative change of the cervical spine predominantly at C2-C3, C3-C4, C4-C5, C5-C6, C6-C7 levels with disc space narrowing and posterior disc osteophyte complexes. Mild to moderate multilevel facet arthropathy. Moderately severe left foraminal narrowing at C5-C6 due to uncovertebral joint hypertrophy image . Lungs: Lung apices are normal. Vasculature: Carotid calcifications. Soft tissues: Unremarkable. IMPRESSION: 1. Spine alignment is normal. 2. No fracture or bone destruction. 3. Predental space narrowing and hypertrophic pannus around the dens consistent with arthritis. 4. Multilevel degenerative change of the cervical spine predominantly at C2-C3, C3-C4, C4-C5, C5-C6, C6-C7 levels with disc space narrowing and posterior disc osteophyte complexes. 5. Mild to moderate multilevel facet arthropathy. 6. Carotid calcifications. 7. Moderately severe left foraminal narrowing at C5-C6 due to uncovertebral joint hypertrophy image 3.
--- NOTE | 2023-09-05 00:13 | ED_ITS ---
Discharge Plan Disposition Patient Disposition: Xfer Short-Term Hosp Prescriptions Prescriptions: No Action alprazolam 0.25 mg tablet 0.25 mg PO TID furosemide 20 mg tablet 20 mg PO DAILY PRN gabapentin 600 mg tablet 300 mg PO TID hyoscyamine sulfate 0.125 mg/mL drops 1 ml PO QAC Align 4 mg capsule 4 mg PO DAILY psyllium husk [Daily Fiber] 0.4 gram capsule 0.4 g PO DAILY roflumilast [Daliresp] 250 mcg tablet 250 mcg PO DAILY albuterol sulfate 90 mcg/actuation HFA aerosol inhaler 1 inh INHALATION QID PRN (Reason: shortness of breath or wheezing) Qty: 8.5 12RF Trelegy Ellipta 100-62.5-25 mcg blister with device 1 inh INHALATION DAILY Qty: 60 8RF bupropion HCl 150 MG tablet extended release 24 hr 150 mg PO DAILY duloxetine 60 MG capsule,delayed release(DR/EC) 60 mg PO DAILY coenzyme Q10 200 MG capsule 200 mg PO DAILY clotrimazole 10 MG gamal 10 mg PO 5XDAY metoprolol succinate 25 MG tablet extended release 24 hr 25 mg PO DAILY Qty: 30 5RF montelukast 10 MG tablet 10 mg PO HS pravastatin 20 MG tablet 20 mg PO HS Referrals Follow up/Referrals: Mona Stephens MD [Primary Care Provider] - See instructions Clinical Impressions Clinical Impression: Fall, Multiple fractures of ribs, Closed fracture of transverse process of lumbar vertebra Stand Alone Forms Stand Alone Forms: Transfer Record - ED Discharge ED Provider: Miguel Ángel Shanks General Adult HPI General Chief complaint: Fall Stated complaint: Fall from standing position Time Seen by Provider: 09/05/23 00:05 History of Present Illness HPI narrative: 77-year-old female with history of CVA, COPD on 2 L oxygen at baseline, hypertension, GERD, LVH presents to the ER for right-sided pain after a fall in her bathroom striking the right side on the tub. Patient states she has had at least 5 falls in the last month. She states she frequently has to call EMS in order to have assistance getting up from her falls. EMS reports to me that they have been out to her house multiple times, she usually refuses transport, however today she was having pain in her right side so she agreed to transport. They are concerned that patient and her are unable to care for themselves. They both use assistive devices (patient uses a walker, uses a cane) and EMS is concerned that they are having difficulties caring for each other. When I discussed this further with patient, she states she feels safe at home and does not believe she needs additional help. She does state that EMS has been out to her house often enough that they now know her dog's name. Patient reports pain in her right side, she states she thinks she may have broken a rib, however she demonstrates to her right lateral abdomen when complaining of pain. She denies hitting her head or losing consciousness, denies new pain in any extremities or her back or neck. Related Data Home Medications Medication Instructions Recorded Confirmed montelukast 10 mg tablet 10 mg PO HS COPD 06/15/17 07/12/23 pravastatin 20 mg tablet 20 mg PO HS Cholesterol 10/12/17 07/12/23 bupropion HCl 150 mg 24 hr tablet, 150 mg PO DAILY mood 05/31/18 07/12/23 extended release clotrimazole 10 mg gamal 10 mg PO 5XDAY ANTIFUNGAL 05/31/18 07/12/23 coenzyme Q10 200 mg capsule 200 mg PO DAILY Supplement 05/31/18 07/12/23 duloxetine 60 mg capsule,delayed 60 mg PO DAILY mood 05/31/18 07/12/23 release alprazolam 0.25 mg tablet 0.25 mg PO TID 03/29/23 07/12/23 furosemide 20 mg tablet 20 mg PO DAILY PRN 03/29/23 07/12/23 Bifidobacterium infantis 4 mg 4 mg PO DAILY 07/07/23 07/12/23 capsule (Align) gabapentin 600 mg tablet 300 mg PO TID 07/07/23 07/12/23 hyoscyamine sulfate 0.125 mg/mL 1 ml PO QAC 07/07/23 07/12/23 oral drops psyllium husk 0.4 gram capsule 0.4 g PO DAILY 07/07/23 07/12/23 (Daily Fiber) roflumilast 250 mcg tablet 250 mcg PO DAILY 07/07/23 07/12/23 (Daliresp) Previous Rx's Medication Instructions Recorded metoprolol succinate 25 mg 25 mg PO DAILY ##30 06/06/18 tablet,extended release 24 hr albuterol sulfate 90 mcg/actuation 1 inh inhalation QID PRN shortness 10/29/22 aerosol inhaler of breath or wheezing #8.5 grams fluticasone fur. 100 mcg-umeclid 1 inh inhalation DAILY #60 ea 10/29/22 62.5 mcg-vilant 25 mcg inhalat.powder (Trelegy Ellipta) Allergies Allergy/AdvReac Type Severity Reaction Status Date / Time Sulfa (Sulfonamide Allergy Unknown Verified 07/07/23 14:26 Antibiotics) sulfamethoxazole AdvReac Unknown Verified 07/07/23 14:26 trimethoprim AdvReac Unknown Verified 07/07/23 14:26 PFSH [facility] Disclaimer: The information contained in this section may have been updated after the patient was seen, as this information can be updated by other users. Medical History PVC (premature ventricular contraction) PAC (premature atrial contraction) History of CVA (cerebrovascular accident) Chronic lacunar infarct, left thalamus, seen on head CT July 2022 Oxygen dependent History of COPD, managed by [facility] pulmonology Arthritis Anxiety Nocturnal hypoxemia Despite of oxygen at 2 L via nasal cannula, PSG under supervision 2019 showed no evidence of underlying sleep disordered breathing Stopped smoking with greater than 30 pack year history Sleep disorder breathing Chronic hypoxemic respiratory failure Asthma-COPD overlap syndrome Renal insufficiency Surgical History History of total hip replacement History of breast biopsy Status post arthroscopy of hip Family History Other Cancer Coronary artery disease Diabetes Social History Smoking Status: Former smoker tobacco type: cigarettes alcohol intake: current alcohol intake frequency: holidays/special occasions only substance use type: denies use current occupational status: retired Travel in the last 8 weeks: None household members: spouse housing: house current occupational exposures/hazards: No caffeine: No ROS Obtained: Yes All systems reviewed & no additional complaints except as documented Constitutional Constitutional: Denies chills, Denies fever(s), Denies headache(s) and Denies weakness Eyes Eyes: Denies change in vision ENT Ears, Nose, Mouth, and Throat: Denies dizziness, Denies headache(s), Denies nasal congestion and Denies sore throat Cardiovascular Cardiovascular: Reports chest pain (Right-sided chest wall pain), Denies dyspnea and Denies leg edema Respiratory Respiratory: Denies cough and Denies dyspnea Gastrointestinal Gastrointestingal: Reports abdominal pain; Denies constipation, diarrhea, nausea or vomiting Genitourinary Female Genitourinary: Denies dysuria Musculoskeletal Musculoskeletal: Denies arthralgias, Denies myalgias, Denies numbness and Denies tingling Integumentary/Breasts Skin/Breast: Denies change in pigmentation Neurologic Neurologic: Denies dizziness, Denies headache(s), Denies numbness, Denies tingling and Denies weakness Physical Exam General General appearance: alert and in no apparent distress Head Head exam: atraumatic and normocephalic Eye Eye exam: Present PERRL and EOMI ENT ENT exam: Present mucous membranes moist Neck Neck exam: Present normal inspection and full ROM Chest Chest inspection: Present symmetric chest wall rise and tenderness (R posterior chest wall tenderness, no deformity or crepitus) Respiratory Respiratory exam: Absent respiratory distress or stridor Cardiovascular Cardiovascular exam: Present regular rate and normal rhythm Abdominal Exam Abdominal exam: Present soft and tenderness (Patient has tenderness at the level of the umbilicus along her right lateral abdomen, no rebound or guarding, there is bruising along the right posterior flank); Absent distention Extremities Exam Extremities exam: Present full ROM and other (No deformity or other signs of injury); Absent tenderness or joint swelling Back Exam Back exam: Present tenderness (Right flank, right lumbar region) Neurological Exam Neurological exam: Present alert and oriented X3; Absent motor sensory deficit Psychiatric Psychiatric exam: Present normal affect and normal mood Skin Skin exam: Present warm and dry Medical Decision Making Fernando Inquiry Pt receiving controlled substance: No Vital Signs: 09/05/23 00:03 Temperature 97.7 F Temperature Source Oral Pulse Rate [Left] 63 Respiratory Rate 16 Blood Pressure [Right Arm] 100/57 L Blood Pressure Mean [Right Arm] 71 02 Sat by Pulse Oximetry 98 Oxygen Delivery Method Nasal Cannula Oxygen Flow Rate (LPM) 4 Lab Data Lab Results 09/05/23 00:15: WBC 9.0, RBC 3.94 L, Hgb 12.0 L, Hct 37.7, MCV 95.8, MCH 30.5, MCHC 31.9, RDW 14.4, Plt Count 286, MPV 8.8, Neut % (Auto) 68.2, Lymph % (Auto) 19.8, [place] % (Auto) 4.6, Eos % (Auto) 6.5, Baso % (Auto) 0.9, Neut # (Auto) 6.1, Lymph # (Auto) 1.8, [place] # (Auto) 0.4, Eos # (Auto) 0.6 H, Baso # (Auto) 0.1, PT 10.3, INR 0.91, Sodium 144, Potassium 4.1, Chloride 107, Carbon Dioxide 34 H, Anion Gap 7.1, BUN 18 H, Creatinine 1.80 H, Estimated Creat Clear 40, Estimated GFR 27 L, Est GFR ( Amer) 33 L, Glucose 110 H, Calcium 9.9, Total Bilirubin 0.2, AST 37 H, ALT 18, Alkaline Phosphatase 87, Total Protein 6.4, Albumin 3.6, Globulin 2.8, Albumin/Globulin Ratio 1.3 09/05/23 00:15 09/05/23 00:15 Orders (Tests/Meds): ED MEDICATIONS Discontinued Medications Generic Name Dose Route Start Last Admin Trade Name Freq PRN Reason Stop Dose Admin Acetaminophen 650 mg 09/05/23 00:20 09/05/23 00:27 Acetaminophen 325mg Tab PO 09/05/23 00:21 650 mg ONCE ONE Administration Lidocaine 1 each 09/05/23 01:12 09/05/23 01:22 Lidocaine 5% Transdermal Patch TP 09/05/23 01:13 1 each ONCE ONE Administration Morphine Sulfate 2 mg 09/05/23 01:12 09/05/23 01:22 Morphine 2mg/Ml Syringe IV 09/05/23 01:13 2 mg ONCE ONE Administration ORDERS Category Date Time Status CT abdomen pelvis wo con Stat Cat Scan 09/05/23 00:[address] cervical spine wo con Stat Cat Scan 09/05/23 00:[address] chest wo con Stat Cat Scan 09/05/23 00:[address] head/brain wo con Stat Cat Scan 09/05/23 00:11 Completed CBC w/Auto Diff [Complete Blood Count Auto Diff] Stat Lab 09/05/23 00:15 Completed CMP [Comprehensive Metabolic Panel] Stat Lab 09/05/23 00:15 Completed PT INR [Prothrombin Time INR] Stat Lab 09/05/23 00:15 Completed Medical Decision Narrative: In summary, this 77-year-old female presents to the emergency department today with concerns of right-sided pain after fall. On initial evaluation patient is hemodynamically stable, afebrile, exam notable for tenderness to palpation along the right abdomen without bruising, rebound, guarding, no other signs of injury on exam. Unable to rule out intracranial or cervical spine injury due to patient's age, these are my differential as well as rib fracture, pneumothorax, muscle spasm, abdominal wall hematoma, blunt force liver injury, or other intra- abdominal injury. Based on these concerns, I ordered basic labs, CT imaging of the head, neck, chest, abdomen/pelvis. Patient received Tylenol for treatment. Labs personally reviewed demonstrate baseline kidney dysfunction, no actionable abnormality. Patient additionally received morphine, lidocaine patch for continued pain management. CT imaging of the chest personally interpreted demonstrates at least 2 right posterior rib fractures with mild displacement, no pneumothorax or hemothorax appreciated, L1-L3 R transverse process fractures. See radiology read for final interpretation. No acute intra-abdominal pathology on my personal interpretation, see radiology read for final interpretation. CT head and C-spine are negative for acute traumatic injury. See radiology read. Patient is requiring 4 L nasal cannula now, up from 2 L at baseline. She performed incentive spirometry and achieved 2250. Rib injury guidelines score 7. Given patient has a moderate RIG score and increased NC requirement, I believe she requires hospitalization. She is also receiving IV narcotics and lidocaine patches for pain control. Additionally, with her multiple consecutive transverse process fractures, she requires technology integration specialist evaluation and needs to be transferred for poly traumatic injuries. Patient and are in agreement with this plan. I discussed this case with transfer center, patient was accepted for ED to ED transfer to [facility] by Dr. Kapadia. Patient requires transfer via ALS for continued pain management as well as increased oxygen requirement. She was transferred in stable condition. Critical Care Critical Care Time Critical Care Time: No
[2023-09-05 00:23] LABS: Basophils # 0.1 K/mm3 (0-0.2); Basophils % 0.9 % (0.1-2.0); Eosinophils # 0.6 K/mm3 (0.0-0.4); Eosinophils % 6.5 % (0.1-12.0); Hematocrit 37.7 % (37.0-47.0); Lymphocytes # 1.8 K/mm3 (0.7-4.5); Lymphocytes % 19.8 % (10-50); Mean Corpuscular HGB Conc 31.9 g/dL (31.8-35.4); Mean Corpuscular Hemoglobin 30.5 pg (27.0-31.2); Mean Corpuscular Volume 95.8 fl (81-99); Mean Platelet Volume 8.8 fl (7.4-10.4); Monocytes # 0.4 K/mm3 (0.1-1.0); Monocytes % 4.6 % (1.7-9.3); Neutrophils # 6.1 K/mm3 (1.8-7.8); Neutrophils % 68.2 % (37.0-80.0); Platelet Count 286 K/mm3 (142-424); Red Blood Count 3.94 M/mm3 (4.20-5.40); Red Cell Distribution Width 14.4 % (11.5-17.5)
[2023-09-05 00:26] LABS: Chloride 107 mmol/L (98-107); Potassium 4.1 mmoL/L (3.5-5.1); Sodium 144 mmol/L (136-145)
[2023-09-05] MEDS: ACETAMINOPHEN 325MG TAB 650 MG PO (00:27)
[2023-09-05 00:28] LABS: Alanine Aminotransferase 18 U/L (12-78); Aspartate Amino Transferase 37 U/L (14-36); Blood Urea Nitrogen 18 mg/dl (7-17); Creatinine Clearance Estimated 40 mL/min (50-200); Estimated Glomerular Filt Rate 27 ml/min (>60); GFR (African American) 33 ML/MIN (>60)
[2023-09-05 00:29] LABS: Albumin Level 3.6 g/dl (3.5-5.0); Albumin/Globulin Ratio 1.3 (1.1-1.8); Alkaline Phosphatase 87 U/L (38-126); Anion Gap 7.1 mEq/L (5-15); Bilirubin,Total 0.2 mg/dl (0.2-1.3); Calcium 9.9 mg/dl (8.4-10.2); Carbon Dioxide 34 mmol/L (22.0-30.0); Globulin 2.8 g/dL (1.3-3.2); Glucose 110 mg/dl (74-100); Total Protein,Serum 6.4 g/dl (6.3-8.2)
[2023-09-05 00:35] LABS: INR 0.91 (0.9-1.1); Prothrombin Time 10.3 seconds (10.1-12.5)
--- NOTE | 2023-09-05 01:19 | PC.NURSE ---
Incentive spirometer used on patient; patient able to get to 2250 the first time and 2500 the second.
[2023-09-05] MEDS: LIDOCAINE 5% TRANSDERMAL PATCH 1 EACH TP (01:22)
[2023-09-05] MEDS: MORPHINE 2MG/ML SYRINGE 2 MG IV (01:22)
--- NOTE | 2023-09-05 01:40 | PC.NURSE ---
Contacted [facility] in regards to transfer, Jennifer LE contacted [facility] to [facility].
[2023-09-05 04:07] VITALS: BP 146/73; PULSE 62; RESP 16; TEMP 36.6; O2SAT 98
== END 2023-09-05 05:05 | disposition short-term general hospital (02) ==
PROVIDERS: Emergency Provider Emergency Medicine; PCP Family Medicine
DX: S32.019A Unspecified fracture of first lumbar vertebra, initial encounter for closed fracture (principal); S32.029A Unspecified fracture of second lumbar vertebra, initial encounter for closed fracture; S32.039A Unspecified fracture of third lumbar vertebra, initial encounter for closed fracture; S22.41XA Multiple fractures of ribs, right side, initial encounter for closed fracture; J44.9 Chronic obstructive pulmonary disease, unspecified; I10 Essential (primary) hypertension; K21.9 Gastro-esophageal reflux disease without esophagitis; Z99.81 Dependence on supplemental oxygen; Z86.73 Personal history of transient ischemic attack (TIA), and cerebral infarction without residual deficits; W18.39XA Other fall on same level, initial encounter
CPT/HCPCS: 70450; 71250; 72125; 74176; 80053; 85025; 85610; 96374; 99285; J2270

== ENCOUNTER 2023-10-20 10:57 | Outpatient (CLI) | payer MEDICARE, SELFPAY ==
--- OUTSIDE RECORDS SUMMARY | 2023-10-20 11:01 | XMS_ITS ---
Author Organization [facility] Address [address] [place] [id number] Care Team Providers Care Saw Boss Name Role Phone Glenn Stephens Primary Care Provider Meseret Bella [phone] Encounters Encounter Location Date Provider Diagnosis [facility] [address] [place] [id number] 10/07/2023 Meseret Bella PLAN OF TREATMENT Next Appt Details Provider Name:Celia rooney, 10/20/2023 10:30:00 AM, [address], [address], [place], [place], [id number], Provider Name:Glenn stuart, 10/20/2023 10:49:00 AM, [address], [address], [place], [place], [id number], Provider Name:Glenn stuart, 11/15/2023 01:30:00 PM, [address], [address], [place], [place], [phone],
--- OUTSIDE RECORDS SUMMARY | 2023-10-20 11:01 | XMS_ITS ---
[facility] Address [address] [id number] Care Team Providers Care Assembler [place] Name Role Phone Glenn Stephens Primary Care Provider [phone] Celia Sampson Unavailable [phone] ALLERGIES Allergen (clinical drug ingredient) Drug/Non Drug Allergy documented on EMR Reaction Allergy Type Onset Date Status Substance with sulfonamide structure and antibacterial mechanism of action (substance) Sulfa Antibiotics Unknown Drug Allergy Active REASON FOR VISIT f/u discharge from [place] MEDICATIONS Medication SIG (Take, Route, Frequency, Duration) Notes Start Date End Date Status Trelegy Ellipta 100-62.5-25 MCG/ACT 1 puff(s) inhaled once a day Active OXYGEN 2 LITERS DIRECTED Ac tive Albuterol Sulfate HFA 108 (90 Base) MCG/ACT 2 inhalations four times a day as needed Active Furosemide 20 MG 1 tab(s) orally once a day prn Active Montelukast Sodium 10 MG TAKE 1 TABLET B Y MOUTH EVERY EVENING Active Snicxrgoen-WKFY-Nrqpslkj 50-325-40 MG 1 tablet as needed Orally every 6h prn Active Align 4 MG as directed Orally q HS Active Ferrous Sulfate 325 (65 Fe) MG 1 tablet Orally qod Active Coenzyme Q-10 200 MG as directed Orally qd Active Vitamin D3 1000 UNIT 1 capsule Orally On ce a day Active Voltaren 1 % as directed External ly qid Active FiberCon 625 MG 2 tablets as needed Orally Two times a day Active Senna S 8.6-50 MG 2 tab Orally Twice a day Active MiraLax 17 GM/SCOOP 1 scoop mixed with 8 ounces of fluid Orally bid Active Lidocaine 5 % 1 patch remove after 12 hours Externally Once a day Active ALPRAZolam 0.25 MG 1 tablet Orally Thre e times a day for 30 day(s) Active Gabapentin 300 MG 1 capsule Orally Thr ee times a day for 30 day(s) Active Loratadine 10 MG 1 tablet Orally Once a day for 30 day(s) 10/20/2023 Active Flonase Allergy Relief 50 MCG/ACT 1 spray in each nostril Nasally Once a day 10/20/2023 Active Commode Bedside - as directed 08/03/2023 Not-Taking traMADol HCl 50 MG 1 tablet Orally Thre e times a day 10/05/2023 Active Cymbalta 60 MG 1 cap(s) orally once a day for 30 day(s) Active Ipratropium-Albuterol 0.5-2.5 (3) MG/3ML 3 mL inhaled 4 times a day prn Not-Taking Pure Wick as directed use nigh tly as needed 09/17/2022 Not-Taking Donepezil HCl 5 MG 1 tab(s) orally once a day (at bedtime) Active Metoprolol Succinate ER 50 MG 1 tablet Orally Once a day Active Pravastatin Sodium 20 MG TAKE 1 TABLET B Y MOUTH AT BEDTIME Active buPROPion HCl ER (SR) 150 MG TAKE 1 TABLET BY MOUTH ONCE DAILY Active Roflumilast 500 MCG TAKE 1 TABLET BY KAROL TH ONCE DAILY Active PROBLEMS Problem Type ICD Code Onset Dates Problem Status W/U Status Risk SNOMED Code Notes Problem Chronic rhinitis (J31.0) Active confirmed 67084782 VITAL SIGNS Weight 171.8 lbs 10/20/2023 Blood pressure systolic 110 mm Hg 10/20/19 24 Blood pressure diastolic 70 mm Hg 024 Heart Rate 62 /min 10/20/2023 Height 63.50 in 10/20/2023 BMI 29.95 kg/m2 10/20/2023 Encounters Encounter Location Date Provider Diagnosis [facility] [address] [place], [place] [id number] 10/20/2023 Celia Sampson Chronic rhinitis J31 .0 ; Weakness R53.1 ; History of fall Z91.81 ; Pain, joint, shoulder, right M25.511 and Right hip pain M25.551 ASSESSMENTS Encounter Date Diagnosis Assessment Notes Treatment Notes Treatment Clinical Notes 10/20/2023 Chronic rhinitis (ICD-10 - J31.0) 10/20/2023 Weakness (ICD-10 - R53.1) 10/20/2023 History of fall (ICD-10 - Z91.81) 10/20/2023 Pain, joint, shoulder, right (ICD-10 - M25.511) 10/20/2023 Right hip pain (ICD-10 - M25.551) PLAN OF TREATMENT Medication Medication Name Sig Start Date Stop Date Notes Loratadine 10 MG 1 tablet Orally Once a day for 30 day(s) 10/20/2023 Flonase Allergy Relief 50 MCG/ACT 1 spray in each nostril Nasally Once a day 10/20/2023 Pending Test Test Name Order Date X ray : Shoulder, right 10/20/2023 Next Appt Details Provider Name:Celia rooney, 10/20/2023 10:30:00 AM, [facility] [address] [facility], [address], [place], [phone], Provider Name:Glenn Mclean [facility], 10/20/2023 10:49:00 AM, [address] [place], [place] [address] [address] [facility], [address], [place], [place], [phone], Provider Name:Glenn Mclean [facility], 11/15/2023 01:30:00 PM, [address] [facility], [address], [place], [place], [id number], History and Physical Notes * HPI (History of Present Illness) Category Sub-Category Detail Notes HPI Here for follow up on: Nursing h ome discharge. Pt states she was discharged last Wednesday. Pt's states she is doing better. Stiull having weakness in her legs and some pain that is controlled with the Tramadol
--- OUTSIDE RECORDS SUMMARY | 2023-10-20 11:01 | XMS_ITS ---
Author Organization [facility] Address [address] [facility] [address] [place] [phone] Care Team Providers Care Mountain Or [place] Guide Name Role Phone Glenn Stephens Primary Care Provider MEDICATIONS Medication SIG (Take, Route, Fr equency, Duration) Notes Start Date End Date Status traMADol HCl 50 MG 1 tablet Orally Three times a day 10/05/2023 Active Encounters Encounter Location Date Provider Diagnosis [facility] [address] [facility] [address] [place] [id number] 10/20/2023 Glenn Stephens PLAN OF TREATMENT Medication Medication Name Sig Start Date Stop Date Notes traMADol HCl 50 MG 1 tablet Orally Three times a day 10/04 Next Appt Details Provider Name:Celia rooney, 10/20/2023 10:30:00 AM, [address], [address], [place], [phone], Provider Name:Glenn stuart, 10/20/2023 10:49:00 AM, [address], [address], [place], [phone], Provider Name:Glenn stuart, 11/15/2023 01:30:00 PM, [address], [address], [place], [place], [id number],
--- OUTSIDE RECORDS SUMMARY | 2023-10-20 11:02 | XMS_ITS | Patient Health Record ---
[facility] [address] [id number] Care Team Providers Care Technology Trainer Name Role Phone Glenn Stephens Primary Care Provider Mari Yanez Unavailable [phone] Meseret Bella Unavailable [phone] Celia Sampson Unavailable [phone] ALLERGIES Allergen (clinical drug ingredient) Drug/Non Drug Allergy documented on EMR Reaction Allergy Type Onset Date Status Substance with sulfonamide structure and antibacterial mechanism of action (substance) Sulfa Antibiotics Unknown Drug Allergy Active RESULTS Component Value Reference Range Notes CBC Venipuncture (in house) Reviewed date:02/05/2023 09:12:58 AM Interpretation: Performing Lab: Notes/Report: wbc 10.4 3.5 - 10 lymph 15.8 15 - 50 mid 4.5 2 - 15 gran 79.7 35 - 80 rbc 3.84 3.5 - 5.5 hgb 11.5 11.5 - 16.5 hct 35.2 35 - 55 mcv 91.5 75 - 100 mch 30.0 25 - 35 mchc 32.8 31 - 38 platlet 338 100 - 400 P-Comprehensive Metabolic Pa letty (CMP) Reviewed date:02/08/2023 09:30:17 AM Interpretation:Glu 109, Creat 1.95, Egfr 26 Performing Lab: Notes/Report: Test performed by [facility] [address] [place] [address] , [address], [place] [address] Derrick Mckenzie MD, Scissors Grinder CLIA: [id number] Sodium 143 135-145 mEq/L Potassium 4.9 3.5-5.3 mEq/L Chloride 108 97-108 mEq/L CO2 25 22-32 mEq/L Glucose 109 65-99 mg/dL BUN 17 8-23 mg/dL Creatinine 1.95 0.50-1.00 mg/dL Calcium 9.7 8.6-10.4 mg/dL eGFR by Creatinine 26 >59 mL/min/1.73m2 Protein 6.1 6.0-8.3 g/dL Albumin 3.6 3.5-5.3 g/dL Alkaline Phosphatase 101 35-121 IU/L ALT (SGPT) 9 <5-47 IU/L AST (SGOT) 11 <5-40 IU/L Bilirubin, Total <0.2 <0.2-1.2 mg/dL A/G Ratio 1.4 1.1-2.5 mg/dL P-CPK Reviewed date:02/08/2023 09:30:17 AM Interpretation:Normal Performing Lab: Notes/Report: Test performed by [facility] [address] [place] [address] , [place] [address] Derrick Mckenzie MD, Scissors Grinder CLIA: [id number] Creatine Kinase 34 20-180 U/L P-Comprehensive Metabolic Pa letty (CMP) Reviewed date:07/15/2023 10:38:48 AM Interpretation:creat 1.44, gfr 37, pro 5.7 Performing Lab: Notes/Report: Test performed by [facility] [address] [place] [address] , [address], [place] [address] Derrick Mckenzie MD, Scissors Grinder CLIA: [id number] Sodium 144 135-145 mEq/L Potassium 4.9 3.5-5.3 mEq/L Chloride 105 97-108 mEq/L CO2 28 22-32 mEq/L Glucose 94 65-99 mg/dL BUN 14 8-23 mg/dL Creatinine 1.44 0.50-1.00 mg/dL Calcium 10.0 8.6-10.4 mg/dL eGFR by Creatinine 37 >59 mL/min/1.73m2 Protein 5.7 6.0-8.3 g/dL Albumin 3.6 3.5-5.3 g/dL Alkaline Phosphatase 85 35-121 IU/L ALT (SGPT) 8 <5-47 IU/L AST (SGOT) 13 <5-40 IU/L Bilirubin, Total <0.2 <0.2-1.2 mg/dL A/G Ratio 1.7 1.1-2.5 mg/dL P-TSH Reviewed date:07/15/2023 10:38:48 AM Interpretation:Normal Performing Lab: Notes/Report: Test performed by [facility] [address] , [address], [place] [address] Derrick Mckenzie MD, Scissors Grinder CLIA: [id number] TSH 2.71 0.43-5.25 mU/L JUANITA Reviewed date:01/15/2023 03:13:42 PM Interpretation: Performing Lab: Notes/Report: P-Culture, Urine Reviewed date:09/05/2023 10:38:44 PM Interpretation: Performing Lab: Notes/Report: Test performed by [facility] [address] , [facility], [place] [address] Derrick Mckenzie MD, Scissors Grinder CLIA: [id number] Specimen Source Urine - Void Culture, Urine See Below See Microbiol ogy Report Streptococcus viridans group 10,000-15,000 CFU/ml Streptococcus viridans group Sensitivity not available MEDICATIONS Medication SIG (Take, Route, Frequency, Duration) Notes Start Date End Date Status ALPRAZolam 0.25 MG 1 tablet Orally Thre e times a day for 30 day(s) Active Gabapentin 300 MG 1 capsule Orally Thr ee times a day for 30 day(s) Active Voltaren 1 % as directed External ly qid Active Metoprolol Succinate ER 50 MG 1 tablet Orally Once a day Active Pravastatin Sodium 20 MG TAKE 1 TABLET B Y MOUTH AT BEDTIME Active Loratadine 10 MG 1 tablet Orally Once a day for 30 day(s) 10/20/2023 Active buPROPion HCl ER (SR) 150 MG TAKE 1 TABLET BY MOUTH ONCE DAILY Active Flonase Allergy Relief 50 MCG/ACT 1 spray in each nostril Nasally Once a day 10/20/2023 Active Donepezil HCl 5 MG 1 tab(s) orally once a day (at bedtime) Active Senna S 8.6-50 MG 2 tab Orally Twice a day Active MiraLax 17 GM/SCOOP 1 scoop mixed with 8 ounces of fluid Orally bid Active Lidocaine 5 % 1 patch remove after 12 hours Externally Once a day Active Montelukast Sodium 10 MG TAKE 1 TABLET B Y MOUTH EVERY EVENING Active Roflumilast 500 MCG TAKE 1 TABLET BY KAROL TH ONCE DAILY Active Cymbalta 60 MG 1 cap(s) orally once a day for 30 day(s) Active Ipratropium-Albuterol 0.5-2.5 (3) MG/3ML 3 mL inhaled 4 times a day prn Not-Taking Pure Wick as directed use nigh tly as needed 09/17/2022 Not-Taking Hwimhxofbs-LIVC-Saeuhluc 50-325-40 MG 1 tablet as needed Orally every 6h prn Active Align 4 MG as directed Orally q HS Active Trelegy Ellipta 100-62.5-25 MCG/ACT 1 puff(s) inhaled once a day Active OXYGEN 2 LITERS DIRECTED Ac tive FiberCon 625 MG 2 tablets as needed Orally Two times a day Active Ferrous Sulfate 325 (65 Fe) MG 1 tablet Orally qod Active Coenzyme Q-10 200 MG as directed Orally qd Active Vitamin D3 1000 UNIT 1 capsule Orally On ce a day Active Albuterol Sulfate HFA 108 (90 Base) MCG/ACT 2 inhalations four times a day as needed Active traMADol HCl 50 MG 1 tablet Orally Thre e times a day 10/05/2023 Active Furosemide 20 MG 1 tab(s) orally once a day prn Active Commode Bedside - as directed 08/03/2023 Not-Taking IMMUNIZATIONS Vaccine Route Administration Date Status Comme nts COVID 19 Moderna Unknown 04/10/2020 Administered COVID 19 Moderna Unknown 05/08/2020 Administered COVID 19 Moderna Unknown 01/29/2021 Administered DT, 7 YEARS OR OLDER Unknown 05/04/1996 Administered Fluzone High Dose (65yr and older) IM Intramuscular 11/20/2011 Administered Fluzone High Dose (65yr and older) IM Intramuscular 12/11/2013 Administered Fluzone High Dose (65yr and older) IM Intramuscular 11/29/2014 Administered Fluzone High Dose (65yr and older) IM Intramuscular 11/14/2015 Administered Fluzone High Dose (65yr and older) IM Intramuscular 01/04/2017 Administered Fluzone High Dose (65yr and older) IM Intramuscular 12/14/2018 Administered Fluzone High Dose (65yr and older) IM Intramuscular 12/06/2019 Administered Fluzone High Dose (65yr and older) ID Intradermal 12/05/2020 Administered Fluzone High Dose (65yr and older) IM Intramuscular 01/07/2023 Administered H1N1 flu vaccine IM Intramuscular 12/24/2008 Administered Hepatitis A (adult) Unknown 02/04/2018 Administered Hepatitis A (adult) Unknown 08/08/2018 Administered PNEUMOVAX 23 VACCINE IM Intramuscular 12/22/2010 Administe red Prevnar (PCV13) IM Intramuscular 08/21/2014 Administered Tetanus Tdap-Adacel (over 7yrs) IM Intramuscular 05/31/2017 Administered xFlu shot-36 months and older IM Intramuscular 01/13/2006 Administered xFlu shot-36 months and older IM Intramuscular 01/13/2007 Administered xFlu shot-36 months and older IM Intramuscular 01/11/2008 Administered xFlu shot-36 months and older IM Intramuscular 10/30/2008 Administered xFluzone (6mos and older)-trivalent IM Intramuscular 11/18/2009 Administered xFluzone Intradermal (18-64yrs)-trivalent-medic are pts IM Intramuscular 12/14/2012 Administered bHnjdliz-twnjdqiwz-cgqbdla e pts. IM Intramuscular 12/22/2010 Administered SOCIAL HISTORY Sex Assigned At : Social History Observation Description Sex Assigned At Unknown PROBLEMS Problem Type ICD Code Onset Dates Problem Status W/U Status Risk SNOMED Code Notes Problem Gastro-esophagea l reflux disease without esophagitis (K21.9) Active confirmed Gastro-esophage al reflux disease without esophagitis (423047492) Problem Hyperkalemia (E87.5) Active confirmed 77766912 Problem Essential hypertension (I10) Active confirmed 64640458 Problem Constipation (K59.00) Active confirmed Constipation (29850777) Problem Anxiety (F41.9) Active confirmed 821127 02 Problem Osteopenia (M85.80) Active confirmed Osteopenia (572953065) Problem Depression with anxiety (F41.8) Active confirmed 704066141 Problem Memory loss (R41.3) Active confirmed 887836727 Problem Chronic rhinitis (J31.0) Active confirmed 33722426 Problem Centrilobular emphysema (J43.2) Active confirmed 17483081 Problem Chronic obstructive pulmonary disease, unspecified (J44.9) Active confirmed 35887000 Problem Chronic respiratory failure with hypoxia (J96.11) Active confirmed 415845769 Problem Nocturnal enuresis (N39.44) Active confirmed 6687999 Problem Aftercare following joint replacement surgery (Z47.1) Active confirmed History of musculoskeletal operation (640718767) Problem Personal history of nicotine dependence (Z87.891) Active confirmed Nicotine dependence (59356626) Problem Cataract (H26.9) Active confirmed 03483 0009 Problem Other chronic pain (G89.29) Active confirmed 04479073 Problem 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) Active confirmed 967784468 Problem Pulmonary fibrosis (J84.10) Active confirmed 34448617 Problem Spinal stenosis of lumbosacral region (M48.07) Active confirmed 13228360 Problem Renal insufficiency (N28.9) Active confirmed 520607871 Problem Dermatitis (L30.9) Active confirmed 318759068 Problem Imbalance (R26.89) Active confirmed 573863417 Problem BMI 37.0-37.9, adult (Z68.37) Active confirmed 964697348 Problem Dyslipidemia (E78.5) Active confirmed Dyslipidemia (292609657) Problem Urinary incontinence, unspecified type (R32) Active confirmed 904833189 Problem Status post hip replacement, 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) Active confirmed 224037820 Problem Dependence on continuous supplemental oxygen (Z99.81) Active confirmed Dependence o n continuous supplemental oxygen (87307925977928) Problem Difficulty in walking (R26.2) Active confirmed Walking disa bility (652340402) Problem Fibrocystic breast disease (FCBD), unspecified laterality (N60.19) Active confirmed 71197749 Problem CVA, old, 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) Active confirmed Hemiplegia as l ate effect of cerebrovascular disease (494022095) Problem Pressure injury of skin of buttock, unspecified injury stage, unspecified laterality (L89.309) Active confirmed 272797602 VITAL SIGNS Heart Rate 62 /min 10/20/2023 Respiratory Rate 18 /min 09/28/2023 Blood pressure diastolic 70 mm Hg 10/20/2023 Height 63.50 in 10/20/2023 Blood pressure systolic 110 mm Hg 10/20/2023 Weight 171.8 lbs 10/20/2023 BMI 29.95 kg/m2 10/20/2023 Encounters Encounter Location Date Provider Diagnosis [facility] [address] [facility] [address] [place], [place] [id number] 10/27/2022 J Vinay Angelo [facility] [address] [place], [place] [id number] 12/30/2022 J Vinay Angelo [facility] [address] [place], [place] [id number] 01/04/2023 J Vinay Stephens Anxiety F41.9 [facility] [address] [place], [place] [id number] 02/08/2023 J Vinay Stephens Renal insufficiency N28.9 [facility] [address] [place], [place] [id number] 02/15/2023 J Vinay Stephens Low back pain, unspecified M54.50 [facility] [address] [place], [place] [id number] 04/05/2023 J Vinay Angelo Anxiety F41.9 [facility] [address] [place], [place] [id number] 05/06/2023 J Vinay Angelo [facility] [address] [place], [place] [id number] 07/02/2023 J Vinay Angelo Anxiety F41.9 and Spinal stenosis of lumbosacral region M48.07 [facility] [address] [place], [place] [id number] 07/15/2023 J Vinay Angelo [facility] [address] [place], [place] [id number] 07/19/2023 J Vinay Angelo [facility] [address] [place] [id number] 07/21/2023 J Vinay Angelo [facility] [address] [place] [id number] 08/03/2023 J Vniay Angelo [facility] [address] [place] [id number] 08/10/2023 J Vinay Angelo [facility] [address] [place] [id number] 08/19/2023 J Vinay Angelo [facility] [address] [place], [place] [id number] 08/23/2023 Glenn Stephens [facility] [address] [place], [place] [id number] 09/01/2023 Glenn Stephens [facility] [address] [place] [id number] 09/01/2023 J Vinay Stephens [facility] [address] [place] [id number] 09/03/2023 Celia Alfaronicole [facility] [address] [place] [id number] 09/05/2023 Celia Dominicdy [facility] [address] [place], [place] [id number] 09/21/2023 Glenn Stephens [facility] [address] [place], [place] [id number] 09/23/2023 J Vinay Stephens Anxiety F41.9 and Spinal stenosis of lumbosacral region M48.07 [facility] [address] [place], [place] [id number] 09/30/2023 R Armaan Yanez [facility] [address] [place] [id number] 10/07/2023 Meseret Bella [facility] [address] [place] [id number] 10/20/2023 Glenn Stephens [facility] [address] [place], [place] [id number] 10/20/2023 Celia Crowdy Chronic rhinitis J31 .0 ; Weakness R53.1 ; History of fall Z91.81 ; Pain, joint, shoulder, right M25.511 and Right hip pain M25.[address] [facility] [address] [place], [place] [id number] 09/28/2023 Meseret Bella Anxiety F41.9 ; Spin al stenosis of lumbosacral region M48.07 ; Chronic obstructive pulmonary disease, unspecified J44.9 ; Chronic respiratory failure with hypoxia J96.11 ; Essential hypertension I10 ; Status post hip replacement, 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 ; Centrilobular emphysema J43.2 ; Gastro-esophageal reflux disease without esophagitis K21.9 ; Closed fracture of multiple ribs of right side with routine healing, subsequent encounter S22.41XD ; Other fracture of first lumbar vertebra, subsequent encounter for fracture with routine healing S32.018D ; Acid reflux K21.9 ; Dependence on continuous supplemental oxygen Z99.81 ; CVA, old, 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 ; Bilateral leg weakness M62.81 ; Difficulty in walking R26.2 ; Dyslipidemia E78.5 ; Aftercare following joint replacement surgery Z47.1 ; Anemia D64.9 ; Headache, unspecified R51.9 ; Constipation K59.00 and Memory loss R41.3 [facility] [address] [facility] [place] [facility] [address] [id number] 09/03/2023 Celia Crowdy Dysuria R30.0 and Pressure injury of skin of buttock, unspecified injury stage, unspecified laterality L89.309 [facility] [address] [facility] [address] [id number] 07/12/2023 Glenn Stephens Chronic obstructive pulmonary disease, unspecified J44.9 ; Chronic respiratory failure with hypoxia J96.11 ; Essential hypertension I10 ; Status post hip replacement, 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 ; Spinal stenosis of lumbosacral region M48.07 ; Centrilobular emphysema J43.2 ; Fatigue, unspecified type R53.83 and Weight loss R63.4 [facility] [address] [facility] [address] [place] [id number] 02/04/2023 Glenn Stephens Generalized weakness R53.1 ; Spinal stenosis of lumbosacral region M48.07 ; Status post hip replacement, 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 ; Chronic respiratory failure with hypoxia J96.11 ; Depression with anxiety F41.8 and Centrilobular emphysema J43.2 [facility] [address] [facility] [place] [facility] [address] [place] [id number] 05/10/2023 Glenn Stephens Spinal stenosis of lumbosacral region M48.07 ; Chronic respiratory failure with hypoxia J96.11 ; Renal insufficiency N28.9 ; Memory loss R41.3 and Imbalance R26.89 [facility] [address] [facility] [address] [place] [id number] 10/26/2022 Glenn Stephens Centrilobular emphys luz J43.2 ; Nocturnal enuresis N39.44 ; Other chronic pain G89.29 ; Renal insufficiency N28.9 ; Spinal stenosis of lumbosacral region M48.07 ; Status post hip replacement, 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 ; Essential hypertension I10 and Left leg pain M79.605 [facility] [address] [facility] [place] [facility] [address] [place] [id number] 01/07/2023 Glenn Stephens ASSESSMENTS Encounter Date Diagnosis Assessment Notes Treatment Notes Treatment Clinical Notes 09/28/2023 Anxiety (ICD-10 - F41.9) 10/20/2023 Chronic rhinitis (ICD-10 - J31.0) 10/20/2023 Weakness (ICD-10 - R53.1) 10/26/2022 Centrilobular emphysema (ICD-10 - J43.2) 10/26/2022 Nocturnal enuresis (ICD-10 - N39.44) 01/04/2023 Anxiety (ICD-10 - F41.9) 02/08/2023 Renal insufficiency (ICD-10 - N28.9) 02/15/2023 Low back pain, unspecified (ICD-10 - M54.50) 04/05/2023 Anxiety (ICD-10 - F41.9) 05/10/2023 Chronic respiratory failure with hypoxia (ICD-10 - J96.11) 05/10/2023 Spinal stenosis of lumbosacral region (ICD-10 - M48.07) follow-up with neurology and Neurosurgery 07/02/2023 Anxiety (ICD-10 - F41.9) 02/04/2023 Spinal stenosis of lumbosacral region (ICD-10 - M48.07) 02/04/2023 Generalized weakness (ICD-10 - R53.1) 07/12/2023 Chronic obstructive pulmonary disease, unspecified (ICD-10 - J44.9) 07/12/2023 Chronic respiratory failure with hypoxia (ICD-10 - J96.11) 09/03/2023 Dysuria (ICD-10 - R30.0) 09/03/2023 Pressure injury of skin of buttock, unspecified injury stage, unspecified laterality (ICD-10 - L89.309) Will see if home health can start doing wound care. 09/23/2023 Anxiety (ICD-10 - F41.9) 09/23/2023 Spinal stenosis of lumbosacral region (ICD-10 - M48.07) 02/04/2023 Status post hip replacement, right (ICD-10 - Z96.641) 07/02/2023 Spinal stenosis of lumbosacral region (ICD-10 - M48.07) 07/12/2023 Essential hypertension (ICD-10 - I10) 05/10/2023 Renal insufficiency (ICD-10 - N28.9) 10/26/2022 Other chronic pain (ICD-10 - G89.29) 10/20/2023 History of fall (ICD-10 - Z91.81) 09/28/2023 Spinal stenosis of lumbosacral region (ICD-10 - M48.07) 09/28/2023 Chronic obstructive pulmonary disease, unspecified (ICD-10 - J44.9) 09/28/2023 Chronic respiratory failure with hypoxia (ICD-10 - J96.11) 10/20/2023 Pain, joint, shoulder, right (ICD-10 - M25.511) 10/26/2022 Renal insufficiency (ICD-10 - N28.9) 05/10/2023 Memory loss (ICD-10 - R41.3) 02/04/2023 Chronic respiratory failure with hypoxia (ICD-10 - J96.11) 07/12/2023 Status post hip replacement, right (ICD-10 - Z96.641) 07/12/2023 Spinal stenosis of lumbosacral region (ICD-10 - M48.07) 05/10/2023 Imbalance (ICD-10 - R26.89) 02/04/2023 Depression with anxiety (ICD-10 - F41.8) 10/26/2022 Spinal stenosis of lumbosacral region (ICD-10 - M48.07) 10/20/2023 Right hip pain (ICD-10 - M25.551) 09/28/2023 Essential hypertension (ICD-10 - I10) 09/28/2023 Status post hip replacement, right (ICD-10 - Z96.641) 10/26/2022 Status post hip replacement, right (ICD-10 - Z96.641) 02/04/2023 Centrilobular emphysema (ICD-10 - J43.2) 07/12/2023 Centrilobular emphysema (ICD-10 - J43.2) 07/12/2023 Fatigue, unspecified type (ICD-10 - R53.83) 10/26/2022 Essential hypertension (ICD-10 - I10) 09/28/2023 Centrilobular emphysema (ICD-10 - J43.2) 09/28/2023 Gastro-esophageal reflux disease without esophagitis (ICD-10 - K21.9) 10/26/2022 Left leg pain (ICD-10 - M79.605) 07/12/2023 Weight loss (ICD-10 - R63.4) 09/28/2023 Closed fracture of multiple ribs of right side with routine healing, subsequent encounter (ICD-10 - S22.41XD) 09/28/2023 Other fracture of first lumbar vertebra, subsequent encounter for fracture with routine healing (ICD-10 - S32.018D) 09/28/2023 Acid reflux (ICD-10 - K21.9) 09/28/2023 Dependence on continuous supplemental oxygen (ICD-10 - Z99.81) 09/28/2023 CVA, old, hemiparesis (ICD-10 - I69.359) 09/28/2023 Bilateral leg weakness (ICD-10 - M62.81) 09/28/2023 Difficulty in walking (ICD-10 - R26.2) continue with PT/OT 09/28/2023 Dyslipidemia (ICD-10 - E78.5) 09/28/2023 Aftercare following joint replacement surgery (ICD-10 - Z47.1) 09/28/2023 Anemia (ICD-10 - D64.9) 09/28/2023 Headache, unspecified (ICD-10 - R51.9) 09/28/2023 Constipation (ICD-10 - K59.00) 09/28/2023 Memory loss (ICD-10 - R41.3) 09/28/2023 Other needs CBC and CMP PLAN OF TREATMENT Pending Test Test Name Order Date X ray : Spine, lumbosacral 05/06/2022 X ray : Shoulder, right 10/20/2023 Cologuard 08/03/2022 Next Appt Details Provider Name:Celia Woody nevin, 10/20/2023 10:30:00 AM, [address], [place], [id number], Provider Name:Glenn Mclean Co er, 10/20/2023 10:49:00 AM, [address], [address], [place], [place], [id number], Provider Name:Glenn Mclean [facility], 11/15/2023 01:30:00 PM, [address], [address], [place], [id number], Insurance Providers Payer Name Payer Address Payer Phone Subscriber Number Group Number Insured Name Patient Relationship to Insured Coverage Start Date Coverage End Date [employer] (MEDICAR E) [address] [address] [place] [address] [id number] KENZIE GODFREY Self - patient is the insured MEDICATIONS ADMINISTERED Medication Instructions Date of Administration Dosage Notes B-12 11/16/2012 1 mL B-12 12/14/2012 1 mL MEDICAL (GENERAL) HISTORY Medical History History ICD Code anxiety depression with seasonal affective disor whitney COPD fibrocystic breast disease spinal stenosis chronic back pain 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 200712/19/13 MRI of right knee minor observ ations. 05/13/16 low-dose CT 05/08/2020 Covid vaccine x2 COVID 19 Booster 01/29/2021, Moderna 09/05/2023 Mechanical fall res ulting inn right rib Fx 9-11 and L1-2right transverse prcess Fx Surgical History Surgery Date(Month/Year) lipoma axilla 05/2012 right hip total arthroplasty 01/31/15 colonoscopy, Dr. Solorzano 09/2016 Hospitalization History Reason Date(Month/Year) pneumonia and Bronchitis August 2007 chest pains 06/27/12 right hip total arthroplasty 01/31- 5 [facility] 05/2017 after mechanical fal resu lting in Fx ribs and Lumbar 1-3 Fx; O2 dependent COPD' previous CVA ; AMS 09/04-09/22/2023
--- NOTE | 2023-10-20 11:03 | XR_ITS ---
FINAL REPORT CLINICAL HISTORY: PAIN..fall in august FINDINGS: Right shoulder Three views were obtained. There is no acute fracture or dislocation. There are mild hypertrophic changes of the AC joint. No soft tissue abnormality is identified. IMPRESSION: No acute process. Reviewed, Interpreted and Dictated by Giovanni Connolly MD Transcribed by Olivia Clinton Authenticated and [facility]
== END 2023-10-20 23:59 | disposition home or self-care (01) ==
LOC: RAD 10:59
PROVIDERS: PCP Family Medicine; Visit Provider Physician Assistant
DX: M25.511 Pain in right shoulder (principal)
CPT/HCPCS: 73030

== ENCOUNTER 2023-11-08 13:39 | Outpatient (CLI) | payer MEDICARE, SELFPAY ==
[2023-11-08 14:42] LABS: Basophils # 0.1 K/mm3 (0-0.2); Basophils % 0.8 % (0.1-2.0); Eosinophils # 0.4 K/mm3 (0.0-0.4); Hematocrit 37.7 % (37.0-47.0); Hemoglobin 11.5 g/dL (12.2-16.2); Lymphocytes # 1.7 K/mm3 (0.7-4.5); Lymphocytes % 19.3 % (10-50); Mean Corpuscular HGB Conc 30.4 g/dL (31.8-35.4); Mean Corpuscular Volume 98.6 fl (81-99); Mean Platelet Volume 9.8 fl (7.4-10.4); Monocytes # 0.4 K/mm3 (0.1-1.0); Monocytes % 4.7 % (1.7-9.3); Neutrophils # 6.4 K/mm3 (1.8-7.8); Neutrophils % 71.1 % (37.0-80.0); Platelet Count 295 K/mm3 (142-424); Red Blood Count 3.83 M/mm3 (4.20-5.40); Red Cell Distribution Width 13.6 % (11.5-17.5); White Blood Count 8.9 K/mm3 (4.8-10.8)
[2023-11-08 14:57] LABS: Albumin Level 3.1 g/dl (3.5-5.0); Anion Gap 6.7 mEq/L (5-15); Blood Urea Nitrogen 15 mg/dl (7-17); Calcium 10.1 mg/dl (8.4-10.2); Carbon Dioxide 30 mmol/L (22.0-30.0); Chloride 107 mmol/L (98-107); Estimated Glomerular Filt Rate 40 ml/min (>60); GFR (African American) 48 ML/MIN (>60); Glucose 91 mg/dl (74-100); Phosphorous 3.1 mg/dl (2.5-4.5); Potassium 4.7 mmoL/L (3.5-5.1); Sodium 139 mmol/L (136-145)
[2023-11-09 08:08] LABS: Microscopic, Urine URINE MICROSCOPIC (MICROSCOPIC)
[2023-11-09 10:34] LABS: Appearance,Urine CLEAR (Clear); Bilirubin,Urine Negative (Negative); Blood, Urine Negative (Negative); Color,Urine YELLOW (Yellow); Glucose,Urine (UA) Negative (Negative); Ketones,Urine Negative (Negative); Leukocyte Esterase,Urine Negative (Negative); Nitrate,Urine Negative (Negative); Protein,Urine TRACE (Negative); Urobilinogen,Urine 0.2 EU/dl (0.2)
[2023-11-09 10:57] LABS: Yeast,Urine Occasional /lpf
[2023-11-09 10:58] LABS: Bacteria,Urine Trace /lpf; Calcium Oxalate Crystals,Urine 1+ /lpf; Creatinine,Urine Random 100 mg/dL (Not Estab.)
== END 2023-11-08 23:59 | disposition home or self-care (01) ==
LOC: LAB 13:40
PROVIDERS: PCP Family Medicine; Visit Provider Nurse Practitioner
DX: N18.32 Chronic kidney disease, stage 3b (principal)
CPT/HCPCS: 36415; 80069; 81001; 82043; 82570; 84156; 85025

== ENCOUNTER 2023-11-12 11:39 | Outpatient (POV) | payer MEDICARE, SELFPAY | END 2023-11-12 23:59 | disposition home or self-care (01) | LOC: SC 11:39 | PROVIDERS: Visit Provider Nurse Practitioner | DX: Z00.00 Encounter for general adult medical examination without abnormal findings (principal) ==

== ENCOUNTER 2024-05-22 14:21 | Outpatient (CLI) | payer MEDICARE, SELFPAY ==
[2024-05-22 15:07] LABS: Mean Corpuscular HGB Conc 31.6 g/dL (31.8-35.4); Mean Corpuscular Hemoglobin 30.6 pg (27.0-31.2); Mean Corpuscular Volume 96.9 fl (81-99); Platelet Count 296 K/mm3 (142-424); Red Blood Count 3.92 M/mm3 (4.20-5.40); White Blood Count 10.7 K/mm3 (4.8-10.8)
[2024-05-22 16:03] LABS: 25-OH Vitamin D, Total 63.7 ng/mL (30-100)
[2024-05-22 16:40] LABS: Albumin Level 3.2 g/dl (3.5-5.0); Anion Gap 0.4 mEq/L (5-15); Blood Urea Nitrogen 18 mg/dl (7-17); Calcium 10.6 mg/dl (8.4-10.2); Carbon Dioxide 34 mmol/L (22.0-30.0); Chloride 110 mmol/L (98-107); Estimated Glomerular Filt Rate 31 ml/min (>60); GFR (African American) 38 ML/MIN (>60); Glucose 72 mg/dl (74-100); Phosphorous 2.9 mg/dl (2.5-4.5); Potassium 4.4 mmoL/L (3.5-5.1); Sodium 140 mmol/L (136-145)
[2024-05-22 16:49] LABS: Intact Parathyroid Hormone 11.7 pg/mL (7.5-53.5)
[2024-05-23 07:34] LABS: Microscopic, Urine URINE MICROSCOPIC (MICROSCOPIC)
[2024-05-23 08:45] LABS: Appearance,Urine CLEAR (Clear); Bilirubin,Urine Negative (Negative); Blood, Urine Negative (Negative); Color,Urine YELLOW (Yellow); Glucose,Urine (UA) 250 (Negative); Ketones,Urine Negative (Negative); Leukocyte Esterase,Urine Negative (Negative); Nitrate,Urine Negative (Negative); Protein,Urine Negative (Negative); Urobilinogen,Urine 0.2 EU/dl (0.2)
[2024-05-23 09:20] LABS: Creatinine,Urine Random 37 mg/dL (Not Estab.)
[2024-05-23 10:05] LABS: Amorphous Sediment,Urine Trace /lpf; Bacteria,Urine Trace /lpf; Squamous Epithelial Cell,Urine Occasional #/hpf (0-5)
== END 2024-05-22 23:59 | disposition home or self-care (01) ==
LOC: LAB 14:22
PROVIDERS: PCP Family Medicine; Visit Provider Nurse Practitioner
DX: N18.30 Chronic kidney disease, stage 3 unspecified (principal)
CPT/HCPCS: 36415; 80069; 81001; 82306; 82570; 83970; 84156; 85027

== ENCOUNTER 2024-11-06 10:05 | Outpatient (CLI) | payer MEDICARE, SELFPAY ==
--- OUTSIDE RECORDS SUMMARY | 2024-11-06 10:10 | XMS_ITS | Clinical Summary ---
Author Organization [facility] Address [address] [place] [address] Care Team Providers Care Cloth Bleaching Range Back Tender Name Role Phone Doni Stephens MD Primary Care Provider [phone] Allergies Active Allergy Reactions Criticality Noted Date Comments Sulfa Drugs Unknown - Patient st ates they do not know rxn details,Other - please document in the comment field Low 09/05/2023 Cannot recall reaction. Medications montelukast (Singulair) 10 MG tablet Take 1 tablet (10 mg) by mouth every night. 4 Active roflumilast (Daliresp) 500 MCG tablet Take 1 tablet (500 mcg) by mouth 1 (one) time each day in the morning. 7 Active DULoxetine (Cymbalta) [address] capsule Take 1 capsule (60 mg) by mouth 1 (one) time each day in the morning. 4 Active gabapentin (Neurontin) 600 MG tablet Take 0.5 tablets (300 mg) by mouth 3 (three) times a day. 5 Active oxygen (O2) gas Inhale continuously. via nasal canula Active albuterol 108 (90 Base) MCG/ACT inhaler Inhale 2 puffs every 6 (six) hours if needed. Active pravastatin (Pravachol) 20 MG tablet Take 1 tablet (20 mg) by mouth every night. Active Coenzyme Q10 (CoQ10) 100 MG capsule Take 200 mg by mouth 1 (one) time each day in the morning. Active cholecalciferol (Vitamin D-3) 50 MCG (2000 UT) capsule Take 1 capsule (2,000 Units) by mouth 1 (one) time each day in the evening. Active ALPRAZolam (Xanax) 0.25 MG tablet Take 1 tablet (0.25 mg) by mouth 3 (three) times a day. 4 Active Fluticasone-Ume clidin-Vilant (Trelegy Ellipta) 100-62.5-25 MCG/ACT aerosol powder Inhale 1 puff 1 (one) time each day in the morning. Active furosemide (Lasix) 20 MG tablet Take 1 tablet (20 mg) by mouth 1 (one) time each day if needed. Active aspirin 81 MG EC tablet Take 1 tablet (81 mg) by mouth 1 (one) time each day in the morning. Active Probiotic Product (ALIGN DUALBIOTIC PO) Take 1 tablet by mouth every night. Active donepezil (Aricept) 5 MG tablet Take 1 tablet (5 mg) by mouth every night. Active polycarbophil (Fibercon) 625 MG tablet Take 1 tablet (625 mg) by mouth 2 (two) times a day. Active Ferrous Sulfate (Iron) 325 (65 Fe) MG tablet Take 1 tablet by mouth every other day. 1 tablet 4 Active buPROPion XL (Wellbutrin XL) 150 MG 24 hr tablet Take 1 tablet (150 mg) by mouth 1 (one) time each day. Do not crush, chew, or split. 30 tablet 4 Active metoprolol succinate XL (Toprol-XL) 50 MG 24 hr tablet Take 1 tablet (50 mg) by mouth 1 (one) time each day. Do not crush or chew. 30 tablet 4 Active fluticasone (Flonase) 50 MCG/ACT nasal spray 4 Active lidocaine (Lidoderm) 5 % patch 4 Active traMADol (Ultram) 50 MG tablet 4 Active butalbital-acet aminophen-caffe ine 50-325-40 MG tablet 1 tablet as needed Orally every 6h prn Active erythromycin (Romycin) 5 MG/GM ophthalmic ointment 4 Active gabapentin (Neurontin) 300 MG capsule 4 Active ipratropium-alb uterol (Duo-Neb) 0.5-2.5 mg/3 mL nebulizer solution 3 mL inhaled 4 times a day prn Active fluocinonide (Lidex) 0.05 % external solution Apply 0.05 Applications topically daily. 5 Active ketoconazole (NIZOral) 2 % shampoo Apply 1 Application topically 1 (one) time per week. 5 Active loratadine (Claritin) 10 MG tablet Take 1 tablet by mouth Daily. Active Active Problems Problem Noted Date Diagnosed Date Headache due to caffeine withdrawal syndrome Overview (09/20/2023): Fioricet Neck pain 09/19/2023 Overview (09/19/2023): Flex-ex or MRI Will discuss with patient Topical diclofenac Dysphagia 09/13/2023 Overview (09/18/2023): DHT in place 09/13: MBS failed 09/16: MBS- [place] thick; Easy to chew 09/17: Remove DHT if consuming >50% of meals Confusion and disorientation 09/09/2023 Overview (09/18/2023): Family stated baseline delirium prior to event Delirium precautions CTH chronic infarcts 09/17: Mentation A&Ox3 Fall, initial encounter 09/05/2023 Overview (09/14/2023): SGT admit Closed fracture of multiple ribs of right side 0 09/05/2023 Overview (09/12/2023): R 9-11 IS <1000 ml on admission; RIG of 10 Resp hygiene and multimodal pain control PAP/PEP Lumbar transverse process fr acture, closed, initial encounter 09/05/2023 Overview (09/05/2023): L1-3 Pain control Lumbar hernia 09/05/2023 Overview (09/19/2023): 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 COPD (chronic obstructive pulmonary disease) 08/2023 Overview (09/12/2023): On 2L NC at home Restarted home meds CKD (chronic kidney disease) 09/05/2023 Overview (09/05/2023): Avoid nephrotoxic drugs CVA (cerebral vascular accident) 09/05/2023 Overview (09/05/2023): Resume home ASA 81 mg Hypertension 09/05/2023 Overview (09/19/2023): Resume home medications Coreg 12.5mg BID resistant HTN Lopressor up to 25 BID UTI (urinary tract infection) 09/05/2023 Overview (09/08/2023): Diagnosed 09/02 Resume home antibiotics once med rec is completed Ceftin ends 09/08 Immunizations Immunization Administration Dates Next Due Hep A, Adult 08/08/2018,02/04/2018 Influenza, High-dose, Split Virus, Trivalent, Injectable, preservative free 12/06/2019,12/14/2018,01/04/2017 Influenza, Unspecified 11/08/2016 Influenza, high-dose, quadrivalent 11/14,01/07/2023,12/05/2020,12/05,12/14/2018,01/04/2017,11/14/2015 ,11/29/2014,12/11/2013,11/20/2011 Influenza, injectable, quadrivalent 12/06/2019,1 ,01/04/2017 Influenza, seasonal, injectable 11/30/19 15,11/29/2012,12/22/2010,11/18,10/30/2008,01/11/2008,01/13/2007 ,01/13/2006 Influenza, seasonal, intrade rmal, preservative free 12/14/2012 Pneumococcal Conjugate PCV 13 08/21/2014 Pneumococcal Polysaccharide PPV23 12/22/2010 Rsv, Bivalent, Protein Subun it Rsvpref, Diluent Reconstituted, 0.5mL, PF 03/31/2023 TD (adult), 2 Lf tetanus tox oid, preservative free, adsorbed 05/04/1996 Tdap 05/31/2017 Family History Medical History Relation Name Comments Cardiac disorder Other 1 Other cancer Other 2 Relation Name Status Comments Other 1 Other 2 Social History Tobacco Use Types Packs/Day Years Used Date Smoking Tobacco: Former Smokeless Tobacco: Never Tobacco Cessation:Counseling Given: Not Answered Alcohol Use Standard Drinks/Week Comments Never 0 (1 standard drink = 0.6 oz pur e alcohol) Humiliation, Afraid, Rape, and Kick questionnair e Answer Date Recorded Within the last year, have y ou been afraid of your partner or ex-partner? No 09/06/2023 Within the last year, have y ou been humiliated or emotionally abused in other ways by your partner or ex-partner? No Within the last year, have y ou been kicked, hit, slapped, or otherwise physically hurt by your partner or ex-partner? No 09/06/2023 Within the last year, have y ou been raped or forced to have any kind of sexual activity by your partner or ex-partner? No 09/06/2023 Overall Financial Resource Strain (CARDIA) Answe r Date Recorded How hard is it for you to pa y for the very basics like food, housing, medical care, and heating? Not hard at all 09/06/2023 PHQ-2 Answer Date Recorded Patient Health Questionnaire-2 Score 2 05/03/2023 Hunger Vital Sign Answer Date Recorded Within the past 12 months, y ou worried that your food would run out before you got the money to buy more. Never true 09/06/19 24 Within the past 12 months, t he food you bought just didn't last and you didn't have money to get more. Never true 09/06/2023 PRAPARE - Transportation Answer Date Re corded In the past 12 months, has l ack of transportation kept you from medical appointments or from getting medications? No 09/2023 In the past 12 months, has l ack of transportation kept you from meetings, work, or from getting things needed for daily living? No 09/06/2023 Housing Stability Vital Sign Answer Juancarlos e Recorded In the last 12 months, was t here a time when you were not able to pay the mortgage or rent on time? No 09/06/2023 In the last 12 months, how many places have you lived? 1 09/06/2023 In the last 12 months, was t here a time when you did not have a steady place to sleep or slept in a retirement (including now)? No 09/06/2023 CAGE ASSESSMENT Answer Date Recorded Cage unable to access Not on file 09/11/2023 Cage max number of drinks Not on file 2023 Cage Beverages a week Not on file 09/11/2023 Have you ever felt you should CUT down on your d rinking? 0 09/11/2023 Have you been ANNOYED by people criticizing your drinking? 0 09/11/2023 Have you felt GUILTY about your drinking? 0 09/11/2023 Have you had a drink first t fifi in the morning (EYE-HEARING AID REPAIR TECHNICIAN) to steady your nerves or to get rid of a hangover? 0 09/11/2023 CAGE Questionnaire Score 0 024 Utilities Answer Date Recorded In the past 12 months has th e electric, gas, oil, or water company threatened to shut off services in your home? No 09/06/2023 Comments No Sex and Gender Information Value Date Recorded Sex Assigned at Not on file Legal Sex Female 8:12 PM EDT Gender Identity Not on file Sexual Orientation Not on file Last Filed Vital Signs Vital Sign Reading Time Taken Comments Blood Pressure 138/76 05/26/2024 8:42 AM EDT Pulse 87 05/26/2024 8:42 AM EDT Temperature 36.7 C (98.1 F) 05/26/2024 8:42 AM EDT Respiratory Rate 18 05/26/2024 8:42 AM EDT Oxygen Saturation 93% 05/26/2024 8:4 2 AM EDT 2 liters of oxygen Inhaled Oxygen Concentration - - Weight 74.4 kg (164 lb) 05/26/2024 8:42 AM EDT Height 162.6 cm (5' 4 ) 05/26/2024 8:42 AM EDT Body Mass Index 28.15 05/26/2024 8:42 AM EDT Plan of Treatment Upcoming Encounters Date Type Department Care Team (Late st Contact Info) Description 01/12/2025 9:40 AM EST Office Visit [facility] [address] [place] [phone] 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, 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 [address] [address] Health Maintenance Due Date Last Done Comments [facility]-Bone Density Scan 1945 [facility]-Medicare Annual Wellness (AWV) 1945 [facility]-Infant/Child/Adol SDOH Screenings 1945 [facility]- SDOH Screenings 10/17/1963 [facility]-Adult SDOH Screenings 10/17/1963 [facility]-Zoster Vaccines (1 of 2) 10/17/1995 [facility]-Depression Screening 05/02/2024 05/03/2023 [id number] Vaccine ( season) 2024 01/29/2021, 05/08/2020, 04/10/2020 [facility]-Influenza Vaccine (#1) 10/30/202411/14, 01/07/2023, 12/05/2020, Additional history exists [facility]-DTaP,Tdap,and Td Vaccines (2 - Td or Tdap) 06/01/2027 05/31/2017, 05/04/1996 [facility]-Pneumococcal Vaccine: 50+ Years Completed 08/21/2014, 12/22/2010 [facility]-Hepatitis A Vaccines Aged Out 08/08/2018, 08/2017 No longer eligible based on patient's age to complete this topic [facility]-RSV Vaccine: 60+ Years or Completed 03/31/2023 [facility]-Hepatitis C Screening Completed 09/05/2023 [facility]-Obesity Intervention Completed 025, 02/28/2024, 11/12/2023, Additional history exists HPV Vaccines Aged Out No longer eligi ble based on patient's age to complete this topic [facility]-HIB Vaccines Aged Out No longer e ligible based on patient's age to complete this topic [facility]-IPV Vaccines Aged Out No longer e ligible based on patient's age to complete this topic [facility]-Rotavirus Vaccines Aged Out No lo nger eligible based on patient's age to complete this topic Procedures Procedure Name Priority Date/Time Associated Diagnosis Comments HEPATITIS C ANTIBODY - ED W/REFLEX TO HCV QUANT PCR STAT 09/05/2023 7:55 AM EDT from Last 3 Months or Most Recently Relevant to Health Maintenance Results * Hepatitis C Antibody - ED (09/05/2023 7:55 AM EDT) Hepatitis C Antibody Negative Negative 09/05/2023 8:43 AM EDT [facility] Blood Venous blood specimen / Unknown Venipuncture / Unknown 09/05/2023 7:55 AM EDT 09/05/2023 8:02 AM EDT us Kermit Reardon MD LAB BLOOD ORDERABLES Final Re sult [facility] [address] [place] [address] from Last 3 Months or Most Recently Relevant to Health Maintenance Insurance [facility] MEDIC[facility] Advance Directives * Full Code (Latest Code Status on File) Date Activated Date Inactivated Comments 09/19/2023 1:52 PM 09/22/2023 5:37 PM Question Answer Comments Patient has decision-making capacity? Yes Care Teams Cloth Bleaching Range Back Tender Relationship Specialty Start Date End Date Doni Stephens MD [address] [place] [address] PCP - General 07/12/20
--- OUTSIDE RECORDS SUMMARY | 2024-11-06 10:10 | XMS_ITS | Encounter Summary ---
Author Organization Healthcare Address [address] [place] [address] Care Team Providers Care Admeasurer Name Role Phone Doni Stephens MD Primary Care Provider [phone] Encounter Details Date Type Department Care Team (Late st Contact Info) Description 09/06/2023 Lab Requisition [facility] [address] [place] [address] Zak Chery MD [address] [facility] [address] [place] [address] Encounter for general adult medical examination without abnormal findings Social History Tobacco Use Types Packs/Day Years Used Date Smoking Tobacco: Former Smokeless Tobacco: Never Humiliation, Afraid, Rape, and Kick questionnair e [...] place to sleep or slept in a halfway (including now)? No 09/06/2023 Utilities Answer Date Recorded In the past 12 months has th e electric, gas, oil, or water company threatened to shut off services in your home? No 09/06/2023 Comments Unknown Sex and Gender Information Value Date Recorded Sex Assigned at Not on file Legal Sex Female 8:12 PM EDT Gender Identity Not on file Sexual Orientation Not on file documented as of this encounter Plan of Treatment Upcoming Encounters Date Type Department Care Team (Late st Contact Info) Description 01/12/2025 9:40 AM EST Office Visit [facility] [address] [place] [phone] 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, SECURITIES ADVISER [address] [address] documented as of this encounter Procedures Procedure Name Priority Date/Time Associated Diagnosis Comments MULTI DRUG RESISTANCE TEST Routine 09/06/2023 5:00 PM EDT Encounter for general adult medical examination without abnormal findings documented in this encounter Results * Multi Drug Resistance Test (09/06/2023 5:00 PM EDT) Culture No growth at day 1 09/07/2023 4:21 PM EDT [facility] Swab (Nares and Mary Rectal) 09/06/2023 5:00 PM EDT 09/06/2023 6:55 PM EDT us Zak Chery MD LAB MICROBIOLOGY - GEN ERAL ORDERABLES Final Result [facility] [address] [place] [address] documented in this encounter Visit Diagnoses Diagnosis Encounter for general adult medical examination without abnormal findings documented in this encounter Additional Health Concerns Assessment Noted Time A fall risk assessment has been complete d for the patient 05/03/2023 10:03 AM EST A Body Mass Index follow-up plan has been documented for the patient 09/22/2023 3:25 PM EDT documented as of this encounter Care Teams Admeasurer Relationship Specialty Start Date End Date Doni Stephens MD [address] [place] [id number] PCP - General 07/12/20 documented as of this encounter
== END 2024-11-06 23:59 | disposition home or self-care (01) ==
LOC: LAB 10:08
PROVIDERS: PCP Family Medicine; Visit Provider Family Medicine
DX: B89 Unspecified parasitic disease (principal)

== ENCOUNTER 2024-11-08 09:06 | Outpatient (CLI) | payer MEDICARE, SELFPAY | END 2024-11-08 23:59 | disposition home or self-care (01) | LOC: LAB 09:08 | PROVIDERS: PCP Family Medicine; Visit Provider Family Medicine | DX: B89 Unspecified parasitic disease (principal) | CPT/HCPCS: 87177 ==

== ENCOUNTER 2025-01-10 15:09 | Outpatient (CLI) | payer MEDICARE, SELFPAY ==
--- OUTSIDE RECORDS SUMMARY | 2024-01-20 09:15 | XMS_ITS ---
Author Organization [facility] Address [address] [facility] [address] [id number] Care Team Providers Care Board Design Engineer Name Role Phone Glenn Stephens Primary Care Provider [phone] Allergies Allergen (clinical drug ingredient) Drug/Non Drug Allergy documented on EMR Reaction Allergy Type Onset Date Status Substance with sulfonamide structure and antibacterial mechanism of action (substance) Sulfa Antibiotics Unknown Drug Allergy Active Results Component Value Reference Range Notes P-Basic Metabolic Panel (BMP ) Reviewed date:01/25/2024 03:42:17 PM Interpretation:Cr 1.5, Ca 10.8, gfr 35 Performing Lab: Notes/Report: Test performed by [facility] , [address], [place] [address] Derrick Mckenzie MD, Mapping Pilot CLIA: [id number] Sodium 141 135-145 mmol/L Potassium 4.7 3.5-5.3 mmol/L Chloride 105 97-108 mmol/L CO2 30 22-32 mmol/L Glucose 77 65-99 mg/dL BUN 15 8-23 mg/dL Creatinine 1.50 0.50-1.00 mg/dL Calcium 10.8 8.6-10.4 mg/dL eGFR by Creatinine 35 >59 mL/min/1.73m2 P-CPK Reviewed date:01/25/2024 03:42:17 PM Interpretation:19 Performing Lab: Notes/Report: Test performed by [facility] [address], [address], [place] [address] Derrick Mckenzie MD, Mapping Pilot CLIA: [id number] Creatine Kinase 19 20-180 U/L P-Sed Rate (ESR) Reviewed date:01/25/2024 03:42:17 PM Interpretation:Normal Performing Lab: Notes/Report: Test performed by [facility], [facility] [address] [facility] , [address], [place] [address] Derrick Mckenzie MD, Mapping Pilot CLIA: [id number] Erythrocyte Sedimentation Rate (ESR), Automated 8 <31 mm/hr REASON FOR VISIT 2 month check, Needs bone density screening Medications Medication SIG (Take, Route, Frequency, Duration) Notes Start Date End Date Status Senna S 8.6-50 MG 2 tab Orally Twice a day Not-Taking Ytxojzwpvk-BYYC-Tqfrzztr 50-325-40 MG 1 tablet as needed Orally every 6h prn Not-Taking MiraLax 17 GM/SCOOP 1 scoop mixed with 8 ounces of fluid Orally bid Not-Taking Pure Wick as directed use nigh tly as needed 09/17/2022 Unknown Ipratropium-Albuterol 0.5-2.5 (3) MG/3ML 3 mL inhaled 4 times a day prn Unknown Furosemide 20 MG TAKE 1 TABLET BY KAROL ONCE DAILY NEEDED; Duration: 30 Active Montelukast Sodium 10 MG 1 tablet Orally Once a day; Duration: 30 days Active Metoprolol Succinate ER 50 MG 1 tablet Orally Once a day; Duration: 90 days Active Gabapentin 300 MG 1 capsule Orally Thr ee times a day; Duration: 30 day(s) 01/06/2024 Active Roflumilast 500 MCG [facility]; Duration: 90 days Active predniSONE 5 MG (21) as directed Orally 01/20/2024 Active Loratadine 10 MG 1 tablet Orally Once a day; Duration: 30 day(s) 10/20/2023 Active traMADol HCl 50 MG 1 tablet Orally Thre e times a day 10/25/2023 Active Flonase Allergy Relief 50 MCG/ACT 1 spray in each nostril Nasally Once a day 10/20/2023 Active buPROPion HCl ER (SR) 150 MG 1 tablet in the morning Orally Once a day; Duration: 30 days Active OXYGEN 2 LITERS DIRECTED Ac tive Trelegy Ellipta 100-62.5-25 MCG/ACT 1 puff(s) inhaled once a day Active Albuterol Sulfate HFA 108 (90 Base) MCG/ACT 2 inhalations four times a day as needed Active Vitamin D3 1000 UNIT 1 capsule Orally On ce a day Active Align 4 MG as directed Orally q HS Active Lidocaine 5 % 1 patch remove after 12 hours Externally Once a day Active Voltaren 1 % as directed External ly qid Active Ferrous Sulfate 325 (65 Fe) MG 1 tablet Orally qod Active FiberCon 625 MG 2 tablets as needed Orally Two times a day Active Coenzyme Q-10 200 MG as directed Orally qd Active Cymbalta 60 MG 1 cap(s) orally once a day; Duration: 30 day(s) Active ALPRAZolam 0.25 MG 1 tablet Orally Thre e times a day; Duration: 30 day(s) 11/15/2023 Active Donepezil HCl 5 MG TAKE 1 TABLET BY KAROL TH ONCE DAILY AT BEDTIME; Duration: 30 Active Pravastatin Sodium 20 MG TAKE 1 TABLET B Y MOUTH AT BEDTIME; Duration: 90 days Active Vital Signs Weight 162.0 lbs 01/20/2024 Blood pressure systolic 124 mm Hg 01/20/20 24 Blood pressure diastolic 64 mm Hg 024 Heart Rate 62 /min 01/20/2024 Height 63.50 in 01/20/2024 BMI 28.24 kg/m2 01/20/2024 Encounters Encounter Location Date Provider Diagnosis [facility] [address] [phone] 01/20/2024 Glenn Stephens Chronic respiratory failure with hypoxia J96.11 ; Essential hypertension I10 ; Spinal stenosis of lumbosacral region M48.07 ; Centrilobular emphysema J43.2 ; Difficulty in walking R26.2 and Dependence on continuous supplemental oxygen Z99.81 Assessments Encounter Date Diagnosis (ICD Code) Assessment Notes Treatment Notes Treatment Clinical Notes Section Notes 01/20/2024 Chronic respiratory failure with hypoxia (ICD-10 - J96.11) 01/20/2024 Essential hypertension (ICD-10 - I10) 01/20/2024 Spinal stenosis of lumbosacral region (ICD-10 - M48.07) 01/20/2024 Centrilobular emphysema (ICD-10 - J43.2) 01/20/2024 Difficulty in walking (ICD-10 - R26.2) 01/20/2024 Dependence on continuous supplemental oxygen (ICD-10 - Z99.81) Plan Of Treatment Medication Medication Name Sig Start Date Stop Date Notes predniSONE 5 MG () as directed Orally 01/20/2024 Next Appt Details Follow Up: 3 Weeks, Reason: Provider Name:Glenn Artis er, 01/22/2025 03:45:00 PM, [address], [address], [place], [place], [id number], Progress Notes * KENZIE GODFREYDOB:[birth year] (79 yo F)Acc No.[id number]:01/20/2024 Progress Notes Patient: KENZIE CHEN Provider: Glenn Stephens M.D. :1945 A ge:78 Y S ex:Female Date:01/20/2024 Address:[address] [place] [address] [place], [id number] Subjective: * Chief Complaints: * 1 . 2 month check. 2. Needs bone density screening. * HPI: P ain: The patient is here for a check up. Pt states she is having pain all over. Pt states the pain is from her feet to her shoulders. Pt states she has had worsening pain in her hips since she fell in August. Pt states she has an appointment with Dr Toledo on Jan the . * ROS: D ERMATOLOGY: no R corey. n o H roman. G ASTROENTEROLOGY: no N ausea. n o V omiting. n o D iarrhea.? U ROLOGY: no D ifficulty urinating. n o B lood in urine. * Medical History: A nxiety, Depression with seasonal affective disorder, COPD, Fibrocystic breast disease, Spinal stenosis, Chronic back pain, CT guided needle biopsy of lung 12/26/07, neg for carcinoma, c/w BOOP, PneumoVacc at [facility] 2007, 12/19/13 MRI of right knee minor observations. , 05/13/16 low-[address] CT, 05/08/2020 Covid vaccine x2, COVID 19 Booster 01/29/2021, Moderna, 09/05/2023 Mechanical fall resulting inn right rib Fx 9-11 and L1-2right transverse prcess Fx. * Surgical History: l ipoma axilla 05/2012, right hip total arthroplasty 01/31/15, colonoscopy, Dr. Solorzano 09/2016. * Hospitalization/Major Diagno stic Procedure: p neumonia and Bronchitis August 2007, chest pains 06/27/12, right hip total arthroplasty 01/31-02/04/15, [facility] 05/2017, [facility] after mechanical fal resulting in Fx ribs and Lumbar 1-3 Fx; O2 dependent COPD' previous CVA ; AMS 09/04-09/22/2023. * Family History: F ather: , diabetes, heart disease,, coronary artery disease. M other: alive, cancer-colon, heart disease. S iblings: depression. C hildren: fibromyalgia, bipolar. 3 sister(s) . 2 daughter(s) . . * Social History: C URRENT TOBACCO USE S moking Status: Patient does NOT smoke. C affeine: yes, frequency:. Exercise: no. Home smoke detector use: yes. Marital Status: . Past smoking status: no, STOPPED 09/25/08 AFTER 1 PPD FOR 42 YEARS. Recreational drug use: no. Alcohol: Type: , Frequency: social ,Years: , Determination:. * Medications: T aking ALPRAZolam 0.25 MG Tablet 1 tablet Orally Three times a day , Taking Cymbalta 60 MG Capsule Delayed Release Particles 1 cap(s) orally once a day , Taking Pravastatin Sodium 20 MG Tablet TAKE 1 TABLET BY MOUTH AT BEDTIME , Taking Donepezil HCl 5 MG Tablet TAKE 1 TABLET BY MOUTH ONCE DAILY AT BEDTIME , Taking Voltaren 1 % Gel as directed Externally qid , Taking Lidocaine 5 % Patch 1 patch remove after 12 hours Externally Once a day , Taking FiberCon 625 MG Tablet 2 tablets as needed Orally Two times a day , Taking Ferrous Sulfate 325 (65 Fe) MG Tablet 1 tablet Orally qod , Taking Coenzyme Q-10 200 MG Capsule as directed Orally qd , Taking Vitamin D3 1000 UNIT Capsule 1 capsule Orally Once a day , Taking Align 4 MG Capsule as directed Orally q HS , Taking Trelegy Ellipta 100-62.5-25 MCG/ACT Aerosol Powder Breath Activated 1 puff(s) inhaled once a day , Taking OXYGEN 2 LITERS DIRECTED , Taking Albuterol Sulfate HFA 108 (90 Base) MCG/ACT Aerosol Solution 2 inhalations four times a day as needed , Taking Loratadine 10 MG Tablet 1 tablet Orally Once a day , Taking Flonase Allergy Relief 50 MCG/ACT Suspension 1 spray in each nostril Nasally Once a day , Taking traMADol HCl 50 MG Tablet 1 tablet Orally Three times a day , Taking buPROPion HCl ER (SR) 150 MG Tablet Extended Release 12 Hour 1 tablet in the morning Orally Once a day , Taking Montelukast Sodium 10 MG Tablet 1 tablet Orally Once a day , Taking Metoprolol Succinate ER 50 MG Tablet Extended Release 24 Hour 1 tablet Orally Once a day , Taking Roflumilast 500 MCG Tablet TAKE 1 TABLET BY MOUTH ONCE DAILY , Taking Gabapentin 300 MG Capsule 1 capsule Orally Three times a day , Taking Furosemide 20 MG Tablet TAKE 1 TABLET BY MOUTH ONCE DAILY NEEDED , Not-Taking Senna S 8.6-50 MG Tablet 2 tab Orally Twice a day , Not-Taking MiraLax 17 GM/SCOOP Powder 1 scoop mixed with 8 ounces of fluid Orally bid , Not-Taking Qesvliccpb-PNNY-Ueavjjsg 50-325-40 MG Tablet 1 tablet as needed Orally every 6h prn , Unknown Ipratropium-Albuterol 0.5-2.5 (3) MG/3ML Solution 3 mL inhaled 4 times a day prn , Unknown Pure Wick as directed use nightly as needed , Medication List reviewed and reconciled with the patient * Allergies: S ulfa Antibiotics. Objective: * Vitals: W t:162.0, Temp:98.2, BP:124/64, HR:62, O2 Sat:95% on 2 LPM, Nurse:CAROLE, Ht: 63.50, BMI:28.24. * Examination: G eneral Examination: General Appearance: N AD. H EENT: u nremarkable.?Oral cavity: n o lesions, mucosa moist and WNL, no erythema. N cruzito: s upple, no lymphadenopathy. C hest: n ormal shape and expansion. H eart: R SR. L ungs: c lear to auscultation, no wheezes or rales. A bdomen: soft and nontender, no organomegaly or masses. N eurologic Exam: N o change in exam, wheelchair. S kin: n ormal, no rash.?Peripheral pulses: n ormal. B ack: mild dorsal kyphosis. E xtremities: 2 + leg edema, improved over usual. No foot lesions on exam, Good dorsalis pedis pulse..? Assessment: * Assessment: 1. C hronic respiratory failure with hypoxia - J96.11 (Primary) 2 . E ssential hypertension - I10 3 . S johanny stenosis of lumbosacral region - M48.07 ? 4 . C entrilobular emphysema - J43.2 5 . D ifficulty in walking - R26.2 6 . D ependence on continuous supplemental oxygen - Z99.81 ? Plan: * Treatment: Value Reference Range B UN 15 8-23 - mg/dL * C alcium 10.8 H 8.6-10.4 - mg/dL * C hloride 105 97-108 - mmol/L * C O2 30 22-32 - mmol/L * C reatinine 1.50 H 0.50-1.00 - mg/dL * G lucose 77 65-99 - mg/dL * P otassium 4.7 3.5-5.3 - mmol/L * S odium 141 135-145 - mmol/L * e GFR by Creatinine 35 L >59 - mL/min/1.73m2 * Pauly Hicks 01/25/2024 3:42 :09 PM >See phone encounter 2.?Spinal stenosis of lumbosacral region? Start predniSONE Tablet Therapy Pack, 5 MG (21), as directed, Orally, 21, Refills 0.??3.?Difficulty in walking?LAB: P-CPK (Collection Date & Time - 01/20/2024 02:25 PM)?19* Value Reference Range C reatine Kinase 19 L 20-180 - U/L * Pauly Hicks 01/25/2024 3:42 :09 PM >See phone encounter ?LAB: P-Sed Rate (ESR) (Collection Date & Time - 01/20/2024 02:25 PM)?Normal * Value Reference Range E rythrocyte Sedimentation Rate (ESR), Automated 8 <31 - mm/hr * Pauly Hicks 01/25/2024 3:42 :09 PM >See phone encounter * Procedure Codes: 9 4760 PULSE OX, G2211 Complex e/m visit add on * Follow Up: 3 Weeks * Images: Billing Information: * Visit Code: 39262 Office Visit, Est Pt., Level 4. * Procedure Codes: 08673 PULSE OX. G2211 Complex e/m visit add on. * Electronic signature of Glenn Stephens MD on 01/10/2025 at 03:14 PM EST Sign off status: Pending * Provider: Glenn Stephens M.D. Date: 03/21/2023 Generated for Jeffrey betancourt/Tana/eTransmitting on: 03/12/2024 03:14 PM EST History and Physical Notes * Examination Category Sub-Category Detail Notes Category Not es General Examination HEENT: unremarkable Heart: RSR Lungs: clear to auscultatio n, no wheezes or rales Abdomen: soft and nontender, no organomegaly or masses Extremities: 2+ leg edema, improv ed over usual. No foot lesions on exam, Good dorsalis pedis pulse. General Appearance: NAD Skin: normal, no rash Neurologic Exam: No change in exam, w heelchair Neck: supple, no lymphaden opathy Oral cavity: no lesions, mucosa m oist and WNL, no erythema Peripheral pulses: normal Back: mild dorsal kyphosis Chest: normal shape and exp ansion
--- OUTSIDE RECORDS SUMMARY | 2024-02-14 08:45 | XMS_ITS ---
Author Organization [facility] Address [facility] [address] [phone] Care Team Providers Care Manager Law Name Role Phone Glenn Stephens Primary Care Provider Allergies Allergen (clinical drug ingredient) Drug/Non Drug Allergy documented on EMR Reaction Allergy Type Onset Date Status Substance with sulfonamide structure and antibacterial mechanism of action (substance) Sulfa Antibiotics Unknown Drug Allergy Active REASON FOR VISIT 3 weeks Medications Medication SIG (Take, Route, Frequency, Duration) Notes Start Date End Date Status MiraLax 17 GM/SCOOP 1 scoop mixed with 8 ounces of fluid Orally bid Not-Taking Senna S 8.6-50 MG 2 tab Orally Twice a day Not-Taking Sstnrpgesn-YRWN-Lajxnuzd 50-325-40 MG 1 tablet as needed Orally every 6h prn Not-Taking Pure Wick as directed use nigh tly as needed 09/17/2022 Unknown Ipratropium-Albuterol 0.5-2.5 (3) MG/3ML 3 mL inhaled 4 times a day prn Unknown predniSONE 10 MG 1 tablet Orally Once a day; Duration: 30 day(s) 02/14/2024 Active Montelukast Sodium 10 MG 1 tablet Orally Once a day; Duration: 30 days Active Furosemide 20 MG TAKE 1 TABLET BY KAROL TH ONCE DAILY NEEDED; Duration: 30 Active Gabapentin 300 MG 1 capsule Orally Thr ee times a day; Duration: 30 day(s) 01/06/2024 Active Flonase Allergy Relief 50 MCG/ACT 1 spray in each nostril Nasally Once a day 10/20/2023 Active Roflumilast 500 MCG TAKE 1 TABLET BY KAROL TH ONCE DAILY; Duration: 90 days Active Metoprolol Succinate ER 50 MG 1 tablet Orally Once a day; Duration: 90 days Active buPROPion HCl ER (SR) 150 MG 1 tablet in the morning Orally Once a day; Duration: 30 days Active traMADol HCl 50 MG 1 tablet Orally Thre e times a day 10/25/2023 Active Loratadine 10 MG 1 tablet Orally Once a day; Duration: 30 day(s) 10/20/2023 Active Albuterol Sulfate HFA 108 (90 Base) MCG/ACT 2 inhalations four times a day as needed Active OXYGEN 2 LITERS DIRECTED Ac tive Trelegy Ellipta 100-62.5-25 MCG/ACT 1 puff(s) inhaled once a day Active Align 4 MG as directed Orally q HS Active Lidocaine 5 % 1 patch remove after 12 hours Externally Once a day Active Coenzyme Q-10 200 MG as directed Orally qd Active Ferrous Sulfate 325 (65 Fe) MG 1 tablet Orally qod Active FiberCon 625 MG 2 tablets as needed Orally Two times a day Active Vitamin D3 1000 UNIT 1 capsule Orally On ce a day Active Voltaren 1 % as directed External ly qid Active Donepezil HCl 5 MG TAKE 1 TABLET BY KAROL ONCE DAILY AT BEDTIME; Duration: 30 Active Pravastatin Sodium 20 MG TAKE 1 TABLET B Y MOUTH AT BEDTIME; Duration: 90 days Active Cymbalta 60 MG 1 cap(s) orally once a day; Duration: 30 day(s) Active ALPRAZolam 0.25 MG 1 tablet Orally Thre e times a day; Duration: 30 day(s) 11/15/2023 Active Vital Signs Weight 160.6 lbs 02/14/2024 Blood pressure systolic 130 mm Hg 02/14/20 24 Blood pressure diastolic 70 mm Hg 024 Heart Rate 77 /min 02/14/2024 Height 63.50 in 02/14/2024 BMI 28.00 kg/m2 02/14/2024 Encounters Encounter Location Date Provider Diagnosis [facility] [address] [facility] [address] [place], [place] [id number] 02/14/2024 Glenn Stephens Chronic obstructive pulmonary disease, unspecified J44.9 ; Chronic respiratory failure with hypoxia J96.11 ; Essential hypertension I10 ; Status post hip replacement, 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 ; Spinal stenosis of lumbosacral region M48.07 and Renal insufficiency N28.9 Assessments Encounter Date Diagnosis (ICD Code) Assessment Notes Treatment Notes Treatment Clinical Notes Section Notes 02/14/2024 Chronic obstructive pulmonary disease, unspecified (ICD-10 - J44.9) 02/14/2024 Chronic respiratory failure with hypoxia (ICD-10 - J96.11) 02/14/2024 Essential hypertension (ICD-10 - I10) 02/14/2024 Status post hip replacement, right (ICD-10 - Z96.641) 02/14/2024 Spinal stenosis of lumbosacral region (ICD-10 - M48.07) 02/14/2024 Renal insufficiency (ICD-10 - N28.9) Plan Of Treatment Medication Medication Name Sig Start Date Stop Date Notes predniSONE 10 MG 1 tablet Orally Once a day; Duration: 30 day(s) 02/14/2024 Next Appt Details Follow Up: 4 Weeks, Reason: Provider Name:Glenn Artis er, 01/22/2025 03:45:00 PM, [address] [facility] [address] [facility], [address], [phone], Progress Notes * KENZIE GODFREYDOB:[birth year] (79 yo F)Acc No.[id number]:02/14/2024 Progress Notes Patient: KENZIE CHEN Provider: Glenn Stephens M.D. :1945 A ge:78 Y S ex:Female Date:02/14/2024 Address:[address] [place], [place] [id number] Subjective: * Chief Complaints: * 1 . 3 weeks. * HPI: H ip/Thigh: The patient is here for a check up on bilateral hip pain. Pt states the hip pain is a bit better but she states she is having pain in her right knee and ankle as well. 78 year old female presents with c/o hip pain. * ROS: D ERMATOLOGY: no R corey. [...] neg for carcinoma, c/w BOOP, P[facility]Vacc at [facility] 2007, 12/19/13 MRI of right knee minor [...] pains 06/27/12, right hip total arthroplasty 01/31-02/04/15, [facility] 05/2017, [facility] after mechanical fal resulting in [...] morning Orally Once a day , Taking Metoprolol Succinate ER 50 MG Tablet Extended Release 24 Hour 1 tablet Orally Once a day , Taking Roflumilast 500 MCG Tablet TAKE 1 TABLET BY MOUTH ONCE DAILY , Taking Gabapentin 300 MG Capsule 1 capsule Orally Three times a day , Taking Furosemide 20 MG Tablet TAKE 1 TABLET BY MOUTH ONCE DAILY NEEDED , Taking Montelukast Sodium 10 MG Tablet 1 tablet Orally Once a day , Not-Taking Senna S 8.6-50 MG Tablet 2 tab Orally Twice a day , Not-Taking MiraLax 17 GM/SCOOP Powder 1 scoop mixed with 8 ounces of fluid Orally bid , Not-Taking Pixiyntszl-NLRA-Ttwmdgxd 50-325-40 MG Tablet 1 tablet as needed Orally every 6h prn , Discontinued predniSONE 5 MG (21) Tablet Therapy Pack as directed Orally , Unknown Ipratropium-Albuterol 0.5-2.5 (3) MG/3ML Solution 3 mL inhaled 4 times a day prn , Unknown Pure Wick as directed use nightly as needed , Medication List reviewed and reconciled with the patient * Allergies: S ulfa Antibiotics. Objective: * Vitals: W t:160.6, Temp:97.6, BP:130/70, HR:77, O2 Sat:92% on 2LPM, Nurse:CAROLE, Ht: 63.50, BMI:28.00. * Examination: G eneral Examination: General Appearance: [...] 2 + leg edema, improved over usual. . Assessment: * Assessment: 1. C hronic obstructive pulmonary disease, unspecified - J44.9 (Primary) 2 .?Chronic respiratory failure with hypoxia - J96.11 3 . E ssential hypertension - I10 4 . S tatus post hip replacement, right - Z96.641 5 . Spinal stenosis of lumbosacral region - M48.07 6 . R enal insufficiency - N28.9 Plan: * Treatment: * Procedure Codes: 9 4760 PULSE OX, G2211 Complex e/m visit add on * Follow Up: 4 Weeks * Images: Billing Information: * Visit Code: 93061 Office Visit, Est Pt., Level 3. * Procedure Codes: 61705 PULSE OX. G2211 Complex e/m visit add on. * Electronic signature of Glenn Stephens MD on 01/10/2025 at 03:14 PM EST Sign off status: Pending * Provider: Glenn Stephens M.D. Date: 04/16/2023 Generated for Jeffrey betancourt/Tana/eTransmitting on: 03/12/2024 03:14 PM EST History and Physical Notes * HPI (History of Present Illness) Category Sub-Category Detail Notes Category Not es Hip/Thigh hip pain Examination Category Sub-Category Detail Notes Category Not es General Examination HEENT: unremarkable Heart: RSR Lungs: clear to auscultatio n, no wheezes or rales Abdomen: soft and nontender, no organomegaly or masses Extremities: 2+ leg edema, improv ed over usual. General Appearance: NAD Skin: normal, no rash Neurologic Exam: No change in exam, w heelchair Neck: supple, no lymphaden opathy Oral cavity: no lesions, mucosa m oist and WNL, no erythema Peripheral pulses: normal Back: mild dorsal kyphosis Chest: normal shape and exp ansion
--- OUTSIDE RECORDS SUMMARY | 2024-03-31 06:45 | XMS_ITS ---
Author Organization [facility] Address [facility] [address] [id number] Care Team Providers Care Missile Inspector Preflight Name Role Phone Glenn Stephens Primary Care Provider [phone] Allergies Allergen (clinical drug ingredient) Drug/Non Drug Allergy documented on EMR Reaction Allergy Type Onset Date Status Substance with sulfonamide structure and antibacterial mechanism of action (substance) Sulfa Antibiotics Unknown Drug Allergy Active REASON FOR VISIT 4 week ckup Medications Medication SIG (Take, Route, Frequency, Duration) Notes Start Date End Date Status traMADol HCl 50 MG 1 tablet Orally Thre e times a day 10/25/2023 Active Metoprolol Succinate ER 50 MG 1 tablet Orally Once a day; Duration: 90 days Active OXYGEN 2 LITERS DIRECTED Ac tive Flonase Allergy Relief 50 MCG/ACT 1 spray in each nostril Nasally Once a day 10/20/2023 Active Farxiga 10 MG 1 tablet Orally Once a day; Duration: 30 day(s) 03/31/2024 Active Align 4 MG as directed Orally q HS Active Trelegy Ellipta 100-62.5-25 MCG/ACT 1 puff(s) inhaled once a day Active Coenzyme Q-10 200 MG as directed Orally qd Active Vitamin D3 1000 UNIT 1 capsule Orally On ce a day Active Ferrous Sulfate 325 (65 Fe) MG 1 tablet Orally qod Active Pravastatin Sodium 20 MG TAKE 1 TABLET B Y MOUTH AT BEDTIME; Duration: 90 days Active Voltaren 1 % as directed External ly qid Active Lidocaine 5 % 1 patch remove after 12 hours Externally Once a day Active FiberCon 625 MG 2 tablets as needed Orally Two times a day Active Cymbalta 60 MG 1 cap(s) orally once a day; Duration: 30 day(s) Active Senna S 8.6-50 MG 2 tab Orally Twice a day Not-Taking MiraLax 17 GM/SCOOP 1 scoop mixed with 8 ounces of fluid Orally bid Not-Taking Qaqxflavui-QDZI-Pmbwmbzl 50-325-40 MG 1 tablet as needed Orally every 6h prn Not-Taking Ipratropium-Albuterol 0.5-2.5 (3) MG/3ML 3 mL inhaled 4 times a day prn Unknown Pure Wick as directed use nigh tly as needed 09/17/2022 Unknown Loratadine 10 MG 1 tablet Orally Once a day; Duration: 30 day(s) Active buPROPion HCl ER (SR) 150 MG 1 tablet in the morning Orally Once a day; Duration: 30 days Active Montelukast Sodium 10 MG 1 tablet Orally Once a day; Duration: 30 days Active Albuterol Sulfate HFA 108 (90 Base) MCG/ACT 2 inhalations four times a day as needed Active ALPRAZolam 0.25 MG 1 tablet Orally Thre e times a day; Duration: 30 day(s) 03/22/2024 Active Roflumilast 500 MCG TAKE 1 TABLET BY KAROL TH ONCE DAILY; Duration: 90 days Active Gabapentin 300 MG 1 capsule Orally Thr ee times a day; Duration: 30 day(s) 01/06/2024 Active Furosemide 20 MG TAKE 1 TABLET BY KAROL TH ONCE DAILY NEEDED; Duration: 30 Active predniSONE 10 MG 1 tablet Orally Once a day; Duration: 30 day(s) 02/14/2024 Active Donepezil HCl 5 MG TAKE 1 TABLET BY KAROL TH ONCE DAILY AT BEDTIME; Duration: 30 days Active Problems Problem Type SNOMED Code ICD Code Onset Dates Problem Status W/U Status Risk Notes Problem Chronic kidney disease stage 3B (disorder) (469110826) Chronic renal impairment, stage 3b (N18.32) Active confirmed Vital Signs Weight 164.2 lbs 03/31/2024 Blood pressure systolic 134 mm Hg 03/31/19 25 Blood pressure diastolic 76 mm Hg 025 Heart Rate 65 /min 03/31/2024 Height 63.50 in 03/31/2024 BMI 28.63 kg/m2 03/31/2024 Encounters Encounter Location Date Provider Diagnosis [facility] [address] [facility] [address], [place] [id number] 03/31/2024 Glenn Stephens Chronic respiratory failure with hypoxia J96.11 ; Status post hip replacement, 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 ; Spinal stenosis of lumbosacral region M48.07 and Chronic renal impairment, stage 3b N18.32 Assessments Encounter Date Diagnosis (ICD Code) Assessment Notes Treatment Notes Treatment Clinical Notes Section Notes 03/31/2024 Chronic respiratory failure with hypoxia (ICD-10 - J96.11) 03/31/2024 Status post hip replacement, right (ICD-10 - Z96.641) 03/31/2024 Spinal stenosis of lumbosacral region (ICD-10 - M48.07) 03/31/2024 Chronic renal impairment, stage 3b (ICD-10 - N18.32) Plan Of Treatment Medication Medication Name Sig Start Date Stop Date Notes Farxiga 10 MG 1 tablet Orally Once a day; Duration: 30 day(s) 03/31/2024 Next Appt Details Follow Up: 4 Weeks, Reason: Provider Name:Glenn Artis er, 01/22/2025 03:45:00 PM, [facility], [address], [place], [place], [phone], Progress Notes * KENZIE GODFREYDOB:[birth year] (79 yo F)Acc No.[id number]:03/31/2024 Progress Notes Patient: KENZIE CHEN Provider: Glenn Stephens M.D. :1945 A ge:78 Y S ex:Female Date:03/31/2024 Address:[address] [place] [id number] Subjective: * Chief Complaints: * 1 . 4 week ckup. * HPI: L ower back: 78 year old female presents with c/o Low Back Pain P t presents today for a 4 week follow up on hip pain. Pt sts that her hip pain has got better but sts that she is having pain in her low back. E NT/respiratory: Pt sts that she would like an order for different nasal canulas. Pt sts that the ones she got stick to her and stick in her hair at night. * ROS: D ERMATOLOGY: no R corey. [...] neg for carcinoma, c/w BOOP, Pneum[facility]Vacc at [facility] 2007, 12/19/13 MRI of right knee [...] pains 06/27/12, right hip total arthroplasty 01/31-02/04/15, [facility] 05/2017, after mechanical fal resulting in Fx ribs [...] ,Years: , Determination:. * Medications: T aking Cymbalta 60 MG Capsule Delayed Release Particles 1 cap(s) orally once a day , Taking Pravastatin Sodium 20 MG Tablet TAKE 1 TABLET BY MOUTH AT BEDTIME , Taking Voltaren 1 % [...] Taking OXYGEN 2 LITERS DIRECTED , Taking Flonase Allergy Relief 50 MCG/ACT Suspension 1 spray in each nostril Nasally Once a day , Taking traMADol HCl 50 MG Tablet 1 tablet Orally Three times a day , Taking Metoprolol Succinate ER 50 MG Tablet Extended Release 24 Hour 1 tablet Orally Once a day , Taking Roflumilast 500 MCG Tablet TAKE 1 TABLET BY MOUTH ONCE DAILY , Taking Gabapentin 300 MG Capsule 1 capsule Orally Three times a day , Taking Furosemide 20 MG Tablet TAKE 1 TABLET BY MOUTH ONCE DAILY NEEDED , Taking predniSONE 10 MG Tablet 1 tablet Orally Once a day , Taking Donepezil HCl 5 MG Tablet TAKE 1 TABLET BY MOUTH ONCE DAILY AT BEDTIME , Taking buPROPion HCl ER (SR) 150 MG Tablet Extended Release 12 Hour 1 tablet in the morning Orally Once a day , Taking Montelukast Sodium 10 MG Tablet 1 tablet Orally Once a day , Taking Albuterol Sulfate HFA 108 (90 Base) MCG/ACT Aerosol Solution 2 inhalations four times a day as needed , Taking ALPRAZolam 0.25 MG Tablet 1 tablet Orally Three times a day , Taking Loratadine 10 MG Tablet 1 tablet Orally Once a day , Not-Taking Senna S 8.6-50 MG Tablet 2 tab Orally Twice a day , Not-Taking MiraLax 17 GM/SCOOP Powder 1 scoop mixed with 8 ounces of fluid Orally bid , Not-Taking Iqsrelkhhd-TKKY-Ejogtrww 50-325-40 MG Tablet 1 tablet as needed Orally every 6h prn , Unknown Ipratropium-Albuterol 0.5-2.5 (3) MG/3ML Solution 3 mL inhaled 4 times a day prn , Unknown Pure Wick as directed use nightly as needed , Medication List reviewed and reconciled with the patient * Allergies: S ulfa Antibiotics. Objective: * Vitals: W t:164.2, Temp:97.7, BP:134/76, HR:65, O2 Sat:93% on RA, Nurse:RACHANA, Ht: 63.50, BMI:28.63. Assessment: * Assessment: 1. C hronic respiratory failure with hypoxia - J96.11 (Primary) 2 . S tatus post hip replacement, right - Z96.641 3 . S johanny stenosis of lumbosacral region - M48.07 4 . C hronic renal impairment, stage 3b - N18.32 Plan: * Treatment: * Procedure Codes: G 2211 Complex e/[place], [address] PULSE OX * Follow Up: 4 Weeks * Images: Billing Information: * Visit Code: 89694 Office Visit, Est Pt., Level 3. * Procedure Codes: G2211 Complex e/[place]. [address] PULSE OX. * Electronic signature of Glenn Stephens MD on 01/10/2025 at 03:15 PM EST Sign off status: Pending * Provider: Glenn Stephens M.D. Date: 0 03/31/2024 Generated for Jeffrey betancourt/Tana/Jacquelineransmitting on: 03/12/2024 03:15 PM EST History and Physical Notes * HPI (History of Present Illness) Category Sub-Category Detail Notes Category Not es ENT/respiratory Pt sts that she would like an order for different nasal canulas. Pt sts that the ones she got stick to her and stick in her hair at night Lower back Low Back Pain Pt presents toda y for a 4 week follow up on hip pain. Pt sts that her hip pain has got better but sts that she is having pain in her low back
--- OUTSIDE RECORDS SUMMARY | 2024-04-06 10:30 | XMS_ITS ---
Author [facility] Address [facility] [address] [place] [id number] Care Team Providers Care Service Technician Copier Name Role Phone Glenn Stephens Primary Care Provider Celia Sampson Unavailable [phone] Allergies Allergen (clinical drug ingredient) Drug/Non Drug Allergy documented on EMR Reaction Allergy Type Onset Date Status Substance with sulfonamide structure and antibacterial mechanism of action (substance) Sulfa Antibiotics Unknown Drug Allergy Active REASON FOR VISIT ear flush Medications Medication SIG (Take, Route, Frequency, Duration) Notes Start Date End Date Status Albuterol Sulfate HFA 108 (90 Base) MCG/ACT 2 inhalations four times a day as needed Active ALPRAZolam 0.25 MG 1 tablet Orally Thre e times a day; Duration: 30 day(s) 03/22/2024 Active Farxiga 10 MG 1 tablet Orally Once a day; Duration: 30 day(s) 03/31/2024 Active Gabapentin 300 MG 1 capsule Orally Thr ee times a day; Duration: 30 day(s) 04/04/2024 Active Loratadine 10 MG 1 tablet Orally Once a day; Duration: 30 day(s) Active buPROPion HCl ER (SR) 150 MG 1 tablet in the morning Orally Once a day; Duration: 30 days Active Montelukast Sodium 10 MG 1 tablet Orally Once a day; Duration: 30 days Active predniSONE 10 MG 1 tablet Orally Once a day; Duration: 30 day(s) 02/14/2024 Active Donepezil HCl 5 MG TAKE 1 TABLET BY KAROL TH ONCE DAILY AT BEDTIME; Duration: 30 days Active Furosemide 20 MG TAKE 1 TABLET BY AKROL TH ONCE DAILY NEEDED; Duration: 30 Active OXYGEN 2 LITERS DIRECTED Ac tive Roflumilast 500 MCG TAKE 1 TABLET BY KAROL TH ONCE DAILY; Duration: 90 days Active Metoprolol Succinate ER 50 MG 1 tablet Orally Once a day; Duration: 90 days Active Flonase Allergy Relief 50 MCG/ACT 1 spray in each nostril Nasally Once a day 10/20/2023 Active traMADol HCl 50 MG 1 tablet Orally Thre e times a day 10/25/2023 Active Trelegy Ellipta 100-62.5-25 MCG/ACT 1 puff(s) inhaled once a day Active Vitamin D3 1000 UNIT 1 capsule Orally On ce a day Active Align 4 MG as directed Orally q HS Active Ferrous Sulfate 325 (65 Fe) MG 1 tablet Orally qod Active Coenzyme Q-10 200 MG as directed Orally qd Active Lidocaine 5 % 1 patch remove after 12 hours Externally Once a day Active FiberCon 625 MG 2 tablets as needed Orally Two times a day Active Voltaren 1 % as directed Externally qid Active Cymbalta 60 MG 1 cap(s) orally once a day; Duration: 30 day(s) Active Pravastatin Sodium 20 MG TAKE 1 TABLET B Y MOUTH AT BEDTIME; Duration: 90 days Activ e Vital Signs Weight 166 lbs 04/06/2024 Blood pressure systolic 130 mm Hg 04/06/19 25 Blood pressure diastolic 76 mm Hg 025 Heart Rate 75 /min 04/06/2024 Height 63.50 in 04/06/2024 BMI 28.94 kg/m2 04/06/2024 Encounters Encounter Location Date Provider Diagnosis [facility] [address] [phone] 04/06/2024 Celia Adrián Non-recurrent acute serous otitis media of both ears H65.03 ; Impacted cerumen of right ear H61.21 and Hypoxia R09.02 Assessments Encounter Date Diagnosis (ICD Code) Assessment Notes Treatment Notes Treatment Clinical Notes Section Notes 04/06/2024 Non-recurrent acute serous otitis media of both ears (ICD-10 - H65.03) Has flonase at home she will start using. 04/06/2024 Impacted cerumen of right ear (ICD-10 - H61.21) Right ear was irrigated. 04/06/2024 Hypoxia (ICD-10 - R09.02) Patient was not wearing her oxygen today. Will go home and put on her oxygen. Plan Of Treatment Treatment Notes Assessment Notes Non-recurrent acute serous o titis media of both ears Has flonase at home she will start using . Impacted cerumen of right ear Right ear was irrigated. Hypoxia Patient was not wear ing her oxygen today. Will go home and put on her oxygen. Next Appt Details Follow Up: prn, Reason: Provider Name:Glenn Artis er, 01/22/2025 03:45:00 PM, [address] [facility] [address], [address] , [place], [place], [phone], Progress Notes * KENZIE GODFREYDOB:[birth year] (79 yo F)Acc No.[id number]:04/06/2024 Extended Visit Patient: KENZIE CHEN Provider: XIAO Bailey :1945 A ge:78 Y S ex:Female Date:04/06/2024 Address:[address] [place], [place] [phone] Pcp:Glenn Stephens Subjective: * Chief Complaints: * 1 . Ear flush. * HPI: E NT/respiratory: 78 year old female presents with c/o ear stopped up P t complains of ears feeling like they are full. Pt states she has been able to get some stuff out but would like to have ears cleaned today if needed. * ROS: D ERMATOLOGY: no R corey. n o H roman. G ASTROENTEROLOGY: no N ausea. n o V omiting. U ROLOGY: no D ifficulty urinating. n o B lood in urine. * Medical History: A nxiety, Depression with seasonal affective disorder, COPD, Fibrocystic breast disease, Spinal stenosis, Chronic back pain, CT guided needle biopsy of lung 12/26/07, neg for carcinoma, c/w BOOP, Pneum[facility]Vacc at [facility] 2007, 12/19/13 MRI of right knee minor observations. , 05/13/[address] low-[address], 05/08/2020 Covid vaccine x2, COVID 19 Booster 01/29/2021, Moderna, 09/05/2023 Mechanical fall resulting inn right rib Fx 9-11 and L1-2right transverse prcess Fx. * Surgical History: l ipoma axilla 05/2012, right hip total arthroplasty 01/31/2015, colonoscopy, Dr. Solorzano 09/2016. * Hospitalization/Major Diagno stic Procedure: p neumonia and Bronchitis 08/2007, chest pains 06/27/2012, right hip total arthroplasty 01/31-08/2014, [facility] 05/2017, [place] after mechanical fal resulting in Fx ribs and Lumbar 1-3 Fx; O2 dependent COPD' previous CVA ; AMS 09/04-. * Family History: F ather: , diabetes, [...] TABLET BY MOUTH ONCE DAILY , Taking Furosemide 20 MG Tablet TAKE [...] tablet Orally Once a day , Taking Farxiga 10 MG Tablet 1 tablet Orally Once a day , Taking Gabapentin 300 MG Capsule 1 capsule Orally Three times a day , Discontinued Senna S 8.6-50 MG Tablet 2 tab Orally Twice a day , Discontinued MiraLax 17 GM/SCOOP Powder 1 scoop mixed with 8 ounces of fluid Orally bid , Discontinued Xatauccnff-KULP-Kwzwompg 50-325-40 MG Tablet 1 tablet as needed Orally every 6h prn , Discontinued Ipratropium-Albuterol 0.5-2.5 (3) MG/3ML Solution 3 mL inhaled 4 times a day prn , Discontinued Pure Wick as directed use nightly as needed , Medication List reviewed and reconciled with the patient * Allergies: S ulfa Antibiotics. Objective: * Vitals: W t:166, Temp:97.8, BP:130/76, HR:75, O2 Sat:89% on RA, Nurse:yue, Ht: 63.50, BMI:28.94. * Examination: E NT/Respiratory: General Appearance: N AD. E ars: right canal with cerumen, once irrigated the canal is clear, TM's with effusion bilaterally, no erythema. H eart : R RR, normal S1 S2, no murmurs. L ungs: c lear to auscultation bilaterally. ? Assessment: * Assessment: 1. N on-recurrent acute serous otitis media of both ears - H65.03 (Primary) 2 .?Impacted cerumen of right ear - H61.21 3 . H ypoxia - R09.02 ? Plan: * Treatment: 2. I mpacted cerumen of right ear Notes: Right ear was irrigated. 3. H ypoxia Notes: Patient was not wearing her oxygen today. Will go home and put on her oxygen. * Procedure Codes: 6 9210 EAR IRRIGATION, [address] PULSE OX, 3075F SYST BP GE 130 - 139MM HG, 3078F DIAST BP < 80 MM HG * Follow Up: p rn * Images: Billing Information: * Visit Code: 96662 Office Visit, Est Pt., Level 3. Modifiers: 25 * Procedure Codes: 97541 EAR IRRIGATION. 71007 PULSE OX. 3075F SYST BP GE 130 - 139MM HG. 3078F DIAST BP < 80 MM HG. * Electronic signature of XIAO Azevedo on 01/10/2025 at 03:14 PM EST Sign off status: Pending * Provider: XIAO Bailey Date: 0 04/06/2024 Generated for Jeffrey betancourt/Tana/eTransmitting on: 1 03/12/2024 03:14 PM EST History and Physical Notes * HPI (History of Present Illness) Category Sub-Category Detail Notes Category Not es ENT/respiratory ear stopped up Pt complains of ears feeling like they are full. Pt states she has been able to get some stuff out but would like to have ears cleaned today if needed Examination Category Sub-Category Detail Notes Category Not es ENT/Respiratory Ears: right canal with cerumen, once irrigated the canal is clear, TM's with effusion bilaterally, no erythema Heart : RRR, normal S1 S2, n o murmurs Lungs: clear to auscultatio n bilaterally General Appearance: NAD
--- OUTSIDE RECORDS SUMMARY | 2024-05-08 10:15 | XMS_ITS ---
Author Organization [facility] Address 1210 [facility] [address] [phone] Care Team Providers Care Band And Cuff Cutter Name Role Phone Glenn Stephens Primary Care Provider [phone] Allergies Allergen (clinical drug ingredient) Drug/Non Drug Allergy documented on EMR Reaction Allergy Type Onset Date Status Substance with sulfonamide structure and antibacterial mechanism of action (substance) Sulfa Antibiotics Unknown Drug Allergy Active Results Component Value Reference Range Notes P-Basic Metabolic Panel (BMP ) Reviewed date:05/10/2024 08:57:20 AM Interpretation:K+ 5.7, cl 110, Cr 2.04, gfr 24 Performing Lab: Notes/Report: Test performed by [facility], [facility] [address] [place] [address] , [address], [place] [address] Derrick Mckenzie MD, Central Control Room Operator CLIA: [id number] Sodium 145 135-145 mmol/L Potassium 5.7 3.5-5.3 mmol/L Chloride 110 97-108 mmol/L CO2 26 22-32 mmol/L Glucose 73 65-99 mg/dL BUN 22 8-23 mg/dL Creatinine 2.04 0.50-1.00 mg/dL Calcium 10.4 8.6-10.4 mg/dL eGFR by Creatinine 24 >59 mL/min/1.73m2 REASON FOR VISIT 4 week f/u Medications Medication SIG (Take, Route, Frequency, Duration) Notes Start Date End Date Status Farxiga 10 MG 1 tablet Orally Once a day; Duration: 30 day(s) 03/31/2024 Active Loratadine 10 MG 1 tablet Orally Once a day; Duration: 30 day(s) Active ALPRAZolam 0.25 MG 1 tablet Orally Thre e times a day; Duration: 30 day(s) 03/22/2024 Active predniSONE 10 MG one every other day Orally Active Gabapentin 300 MG 1 capsule Orally Thr ee times a day; Duration: 30 day(s) 04/04/2024 Active Albuterol Sulfate HFA 108 (90 Base) MCG/ACT 2 inhalations four times a day as needed Active Montelukast Sodium 10 MG 1 tablet Orally Once a day; Duration: 30 days Active buPROPion HCl ER (SR) 150 MG 1 tablet in the morning Orally Once a day; Duration: 30 days Active Donepezil HCl 5 MG TAKE 1 TABLET BY KAROL ONCE DAILY AT BEDTIME; Duration: 30 days Active Furosemide 20 MG TAKE 1 TABLET BY KAROL TH ONCE DAILY NEEDED; Duration: 30 Active traMADol HCl 50 MG 1 tablet Orally Thre e times a day 10/25/2023 Active Flonase Allergy Relief 50 MCG/ACT 1 spray in each nostril Nasally Once a day 10/20/2023 Active OXYGEN 2 LITERS DIRECTED Ac tive Roflumilast 500 MCG TAKE 1 TABLET BY KAROL ONCE DAILY; Duration: 90 days Active Metoprolol Succinate ER 50 MG 1 tablet Orally Once a day; Duration: 90 days Active Align 4 MG as directed Orally q HS Active Vitamin D3 1000 UNIT 1 capsule Orally On ce a day Active Coenzyme Q-10 200 MG as directed Orally qd Active Ferrous Sulfate 325 (65 Fe) MG 1 tablet Orally qod Active Trelegy Ellipta 100-62.5-25 MCG/ACT 1 puff(s) inhaled once a day Active Cymbalta 60 MG 1 cap(s) orally once a day; Duration: 30 day(s) Active FiberCon 625 MG 2 tablets as needed Orally Two times a day Active Lidocaine 5 % 1 patch remove after 12 hours Externally Once a day Active Voltaren 1 % as directed Externally qid Active Pravastatin Sodium 20 MG TAKE 1 TABLET B Y MOUTH AT BEDTIME; Duration: 90 days Activ e Vital Signs Weight 162.8 lbs 05/08/2024 Blood pressure systolic 150 mm Hg 05/09/19 25 Blood pressure diastolic 68 mm Hg 025 Heart Rate 66 /min 05/08/2024 Height 63.50 in 05/08/2024 BMI 28.38 kg/m2 05/08/2024 Encounters Encounter Location Date Provider Diagnosis [facility] [facility] 36 [facility] [address] [place] [phone] 05/08/2024 Glenn Stephens Chronic respiratory failure with hypoxia J96.11 ; Essential hypertension I10 and Chronic renal impairment, stage 3b N18.32 Assessments Encounter Date Diagnosis (ICD Code) Assessment Notes Treatment Notes Treatment Clinical Notes Section Notes 05/08/2024 Chronic respiratory failure with hypoxia (ICD-10 - J96.11) 05/08/2024 Essential hypertension (ICD-10 - I10) 05/08/2024 Chronic renal impairment, stage 3b (ICD-10 - N18.32) Plan Of Treatment Next Appt Details Follow Up: 2 Months, Reason: Provider Name:Glenn Artis er, 01/22/2025 03:45:00 PM, [address] [facility], [address] , [place], [place], [phone], Progress Notes * KENZIE GODFREYDOB:[birth year] (79 yo F)Acc No.[id number]:05/08/2024 Progress Notes Patient: KENZIE CHEN Provider: Glenn Stephens M.D. :1945 A ge:78 Y S ex:Female Date:05/08/2024 Address:[address] [place], [place] [phone] Subjective: * Chief Complaints: * 1 . 4 week f/u. * HPI: C ardiology: The pt is here for a 4 week follow up on renal insuficiency. Pt states the Farxiga is making her feel weird and it will last at least 24 hours. Pt states she has episode over the past month where it feels like her throat is closing up. Pt states when she drinks something it will sometime help. 78 year old female presents with c/o Chest Pain. c/o Short of Breath. Denies : Dizziness. D enies : Palpitations. * ROS: D ERMATOLOGY: no R corey. [...] neg for carcinoma, c/w BOOP, P[facility]acc at [facility] 2007, 12/19/13 MRI of right [...] pains 06/27/12, right hip total arthroplasty 01/31-02/04/15, [facility] 05/2017, [place] after mechanical fal resulting in [...] BY MOUTH ONCE DAILY NEEDED , Taking Donepezil HCl 5 MG Tablet [...] Orally Three times a day , Taking predniSONE 10 MG Tablet one every other day Orally , Medication List reviewed and reconciled with the patient * Allergies: S ulfa Antibiotics. Objective: * Vitals: W t:162.8, Temp:98.6, BP:150/68, HR:66, O2 Sat:95% on RA, Nurse:CAROLE, Ht: 63.50, BMI:28.38. * Examination: G eneral Examination: General Appearance: [...] mild dorsal kyphosis. E xtremities: 2 + l eg edema, improved over usual. . Assessment: * Assessment: 1. C hronic respiratory failure with hypoxia - J96.11 (Primary) 2 . E ssential hypertension - I10 3 . C hronic renal impairment, stage 3b - N18.32 ? Plan: * Treatment: Value Reference Range B UN 22 8-23 - mg/dL * C alcium 10.4 8.6-10.4 - mg/dL * C hloride 110 H 97-108 - mmol/L * C O2 26 22-32 - mmol/L * C reatinine 2.04 H 0.50-1.00 - mg/dL * G lucose 73 65-99 - mg/dL * P otassium 5.7 H 3.5-5.3 - mmol/L * S odium 145 135-145 - mmol/L * e GFR by Creatinine 24 L >59 - mL/min/1.73m2 * Pauly Hicks 05/10/2024 08:5 7:13 AM > See phone encounter * Procedure Codes: G 2211 Complex e/[place], [address] PULSE OX, 3077F SYST BP = 140 MM HG6 IT, 3078F DIAST BP < 80 MM HG * Follow Up: 2 Months * Images: Billing Information: * Visit Code: 29072 Office Visit, Est Pt., Level 3. * Procedure Codes: G2211 Complex e/[place]. [address] PULSE OX. 3077F SYST BP = 140 MM HG6 IT. 3078F DIAST BP < 80 MM HG. * Electronic signature of Glenn Stephens MD on 01/10/2025 at 03:15 PM EST Sign off status: Pending * Provider: Glenn Stephens M.D. Date: 0 05/08/2024 Generated for Jeffrey betancourt/Tana/Enedelia on: 1 03/12/2024 03:15 PM EST History and Physical Notes * HPI (History of Present Illness) Category Sub-Category Detail Notes Category Not es Cardiology Short of Breath Chest Pain Palpitations Dizziness Examination Category Sub-Category Detail Notes Category Not [...]
--- OUTSIDE RECORDS SUMMARY | 2024-08-28 10:15 | XMS_ITS ---
[facility] Address [address] [facility] [address] [id number] Care Team Providers Care Doper Name Role Phone Glenn Stephens Primary Care Provider Allergies Allergen (clinical drug ingredient) Drug/Non Drug Allergy documented on EMR Reaction Allergy Type Onset Date Status Substance with sulfonamide structure and antibacterial mechanism of action (substance) Sulfa Antibiotics Unknown Drug Allergy Active Results Component Value Reference Range Notes P-Basic Metabolic Panel (BMP ) Reviewed date:09/29/2024 10:44:21 AM Interpretation:Cr 1.58, gfr 33 Performing Lab: Notes/Report: Test performed by [facility] [address] [place] [address] , [address], [place] [address] Derrick Mckenzie MD, [employer] CLIA: [id number] Sodium 145 135-145 mmol/L Potassium 4.8 3.5-5.3 mmol/L Chloride 108 97-108 mmol/L CO2 26 20-32 mmol/L Glucose 88 65-99 mg/dL BUN 13 8-23 mg/dL Creatinine 1.58 0.50-1.00 mg/dL Calcium 9.9 8.6-10.4 mg/dL eGFR by Creatinine 33 >59 mL/min/1.73m2 REASON FOR VISIT 2 month ckup, Needs bone density screening Medications Medication SIG (Take, Route, Frequency, Duration) Notes Start Date End Date Status OXYGEN 2 LITERS DIRECTED Ac tive Flonase Allergy Relief 50 MCG/ACT 1 spray in each nostril Nasally Once a day 10/20/2023 Active Trelegy Ellipta 100-62.5-25 MCG/ACT 1 puff(s) inhaled once a day Active Furosemide 20 MG TAKE 1 TABLET BY ONCE DAILY NEEDED; Duration: 30 Active Align 4 MG as directed Orally [...] 200 MG as directed Orally qd Active Hyoscyamine Sulfate 0.125 MG 1 tablet on the tongue and allow to dissolve as needed Orally bedtime 08/28/2024 Active Azelastine HCl 0.15 % 2 sprays (1 spray in each nostril) Nasally Twice a day; Duration: 30 days 08/28/2024 Active Montelukast Sodium 10 MG 1 tablet Orally Once a day; Duration: 30 days Active Voltaren 1 % as directed Externally qid Active Cymbalta 60 MG 1 cap(s) orally once a day; Duration: 30 days Active Pravastatin Sodium 20 MG 1 tablet Orally Once a day at bedtime; Duration: 90 days Active buPROPion HCl ER (SR) 150 MG 1 tablet in the morning Orally Once a day; Duration: 30 days Active Roflumilast 500 MCG 1 tablet Orally Once a day; Duration: 90 days Active Gabapentin 300 MG 1 capsule Orally Thr ee times a day; Duration: 30 days 08/23/2024 Active Donepezil HCl 5 MG 1 tablet at bedtime Orally Once a day; Duration: 30 days Active Loratadine 10 MG 1 tablet Orally Once a day; Duration: 30 day(s) Active Farxiga 10 MG 1 tablet Orally Once a day; Duration: 30 day(s) 03/31/2024 Active ALPRAZolam 0.25 MG 1 tablet Orally Thre e times a day; Duration: 30 day(s) 07/21/2024 Active Metoprolol Succinate ER 25 MG TAKE 1 TABLET BY MOUTH ONCE DAILY; Duration: 90 Active traMADol HCl 50 MG 1 tablet Orally Thre e times a day; Duration: 30 days 06/28/2024 Active Albuterol Sulfate HFA 108 (90 Base) MCG/ACT 2 inhalations four times a day as needed Active Problems Problem Type SNOMED Code ICD Code Onset Dates Problem Status W/U Status Risk Notes Problem Chronic anemia (965439946) Chronic anemia (D64.9) Active confirmed Vital Signs Weight 160 lbs 08/28/2024 Blood pressure systolic 132 mm Hg 08/29/19 25 Blood pressure diastolic 72 mm Hg 025 Heart Rate 92 /min 08/28/2024 Height 63.50 in 08/28/2024 BMI 27.9 kg/m2 08/28/2024 Encounters Encounter Location Date Provider Diagnosis [facility] [address] [facility] [address] [id number] 08/28/2024 Glenn Stephens Renal insufficiency N28.9 ; Chronic rhinitis J31.0 ; Essential hypertension I10 ; Chronic obstructive pulmonary disease, unspecified J44.9 ; Dyslipidemia E78.5 ; Difficulty in walking R26.2 ; Imbalance R26.89 ; Dependence on continuous supplemental oxygen Z99.81 ; Depression with anxiety F41.8 ; BMI 27.0-27.9,adult Z68.27 ; History of falling Z91.81 ; Chronic anemia D64.9 ; Anxiety F41.9 ; Chronic respiratory failure with hypoxia J96.11 ; CVA, old, 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 ; Centrilobular emphysema J43.2 and Status post hip replacement, 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 Assessments Encounter Date Diagnosis (ICD Code) Assessment Notes Treatment Notes Treatment Clinical Notes Section Notes 08/28/2024 Renal insufficiency (ICD-10 - N28.9) 08/28/2024 Chronic rhinitis (ICD-10 - J31.0) 08/28/2024 Essential hypertension (ICD-10 - I10) 08/28/2024 Chronic obstructive pulmonary disease, unspecified (ICD-10 - J44.9) 08/28/2024 Dyslipidemia (ICD-10 - E78.5) 08/28/2024 Difficulty in walking (ICD-10 - R26.2) 08/28/2024 Imbalance (ICD-10 - R26.89) 08/28/2024 Dependence on continuous supplemental oxygen (ICD-10 - Z99.81) 08/28/2024 Depression with anxiety (ICD-10 - F41.8) 08/28/2024 BMI 27.0-27.9,adult (ICD-10 - Z68.27) 08/28/2024 History of falling (ICD-10 - Z91.81) 08/28/2024 Chronic anemia (ICD-10 - D64.9) 08/28/2024 Anxiety (ICD-10 - F41.9) 08/28/2024 Chronic respiratory failure with hypoxia (ICD-10 - J96.11) 08/28/2024 CVA, old, hemiparesis (ICD-10 - I69.359) 08/28/2024 Centrilobular emphysema (ICD-10 - J43.2) 08/28/2024 Status post hip replacement, right (ICD-10 - Z96.641) Plan Of Treatment Medication Medication Name Sig Start Date Stop Date Notes Hyoscyamine Sulfate 0.125 MG 1 tablet on the tongue and allow to dissolve as needed Orally bedtime 08/28/2024 Azelastine HCl 0.15 % 2 sprays (1 spray in each nostril) Nasally Twice a day; Duration: 30 days 08/28/2024 Next Appt Details Follow Up: 2 Months, Reason: Provider Name:Glenn Artis er, 01/22/2025 03:45:00 PM, [address] [place] [address], [address], [id number], Progress Notes * KENZIE GODFREY MarthaDOB:[birth year] (79 yo F)Acc No.[id number]:08/28/2024 Progress Notes Patient: KENZIE CHEN Provider: Glenn Stephens M.D. :1945 A ge:78 Y S ex:Female Date:08/28/2024 Address:[address] [place], [place] [id number] Subjective: * Chief Complaints: * 1 . 2 month ckup. 2. Needs bone density screening. * HPI: Rema delgadosade back: Pt here for checkup for Chronic pain. Pt states that her back pain is better from last time. Pt states they have some other things to discuss. C/o of uppper respiratory secretions. Takes a towel to bed with her. Also with issues with bowel control. * ROS: D ERMATOLOGY: no R corey. [...] neg for carcinoma, c/w BOOP, PneumoVacc at [facility] 2007, 12/19/13 MRI of right knee [...] pains 06/27/12, right hip total arthroplasty 01/31-02/04/15, [facility] 05/2017, after mechanical fal resulting in Fx [...] ,Years: , Determination:. * Medications: T aking Voltaren 1 % Gel as directed Externally [...] nostril Nasally Once a day , Taking Furosemide 20 MG Tablet TAKE 1 TABLET BY MOUTH ONCE DAILY NEEDED , Taking Albuterol Sulfate HFA 108 (90 Base) MCG/ACT Aerosol Solution 2 inhalations four times a day as needed , Taking Loratadine 10 MG Tablet 1 tablet Orally Once a day , Taking Farxiga 10 MG Tablet 1 tablet Orally Once a day , Taking Metoprolol Succinate ER 25 MG Tablet Extended Release 24 Hour TAKE 1 TABLET BY MOUTH ONCE DAILY , Taking traMADol HCl 50 MG Tablet 1 tablet Orally Three times a day , Taking ALPRAZolam 0.25 MG Tablet 1 tablet Orally Three times a day , Taking Roflumilast 500 MCG Tablet 1 tablet Orally Once a day , Taking Gabapentin 300 MG Capsule 1 capsule Orally Three times a day , Taking Pravastatin Sodium 20 MG Tablet 1 tablet Orally Once a day at bedtime , Taking buPROPion HCl ER (SR) 150 MG Tablet Extended Release 12 Hour 1 tablet in the morning Orally Once a day , Taking Donepezil HCl 5 MG Tablet 1 tablet at bedtime Orally Once a day , Taking Cymbalta 60 MG Capsule Delayed Release Particles 1 cap(s) orally once a day , Taking Montelukast Sodium 10 MG Tablet 1 tablet Orally Once a day , Medication List reviewed and reconciled with the patient * Allergies: S ulfa Antibiotics. Objective: * Vitals: W t: 160, Temp: 000, BP: 132/72, HR: 92, O2 Sat: 97% on RA, Nurse: bharathi, Ht: 63.50, BMI:27.9. * Examination: G eneral Examination: General Appearance: N AD. H EENT: e dentulous, recently extracted. O ral cavity: n o lesions, mucosa moist and WNL, no erythema. N cruzito: ?supple, no lymphadenopathy. C hest: n ormal shape and expansion. H eart: R SR. Lungs: c lear to auscultation, no wheezes or rales. A bdomen: soft and nontender, no organomegaly or masses. N eurologic Exam: N o change in exam, wheelchair. S kin: n ormal, no rash. P eripheral pulses: n ormal. B ack: mild dorsal kyphosis. E xtremities: 2 + l eg edema, improved over usual. . Assessment: * Assessment: 1. R enal insufficiency - N28.9 (Primary) 2 . C hronic rhinitis - J31.0? 3. E ssential hypertension - I10 4 . C hronic obstructive pulmonary disease, unspecified - J44.9 5 . D yslipidemia - E78.5 6 . Difficulty in walking - R26.2 7 . I mbalance - R26.89 8 .?Dependence on continuous supplemental oxygen - Z99.81 9 . D epression with anxiety - F41.8 1 0. B MD 27.0-27.9,adult - Z68.27 1 1. H istory of falling - Z91.81 1 2. C hronic anemia - D64.9 1 3. A nxiety - F41.9 1 4. C hronic respiratory failure with hypoxia - J96.11 ? 1 5. C VA, old, hemiparesis - I69.359 1 6. C entrilobular emphysema - J43.2 1 7. S tatus post hip replacement, right - Z96.641 Plan: * Treatment: Value Reference Range B UN 13 8-23 - mg/dL * C alcium 9.9 8.6-10.4 - mg/dL * C hloride 108 97-108 - mmol/L * C O2 26 20-32 - mmol/L * C reatinine 1.58 H 0.50-1.00 - mg/dL * G lucose 88 65-99 - mg/dL * P otassium 4.8 3.5-5.3 - mmol/L * S odium 145 135-145 - mmol/L * e GFR by Creatinine 33 L >59 - mL/min/1.73m2 * Pauly Hicks 09/29/2024 10:44 :13 AM EDT > See phone encounter 2.?Chronic rhinitis? Start Azelastine HCl Solution, 0.15 %, 2 sprays (1 spray in each nostril), Nasally, Twice a day, 30days, 1, Refills 3;?Start Hyoscyamine Sulfate Tablet Disintegrating, 0.125 MG, 1 tablet on thetongue and allow to dissolve as needed, Orally, bedtime, 45, Refills 2.?? * Procedure Codes: G 2211 Complex e/m visit add on, 1036F TOBACCO NON-USER, G8783 BP SCR PRFRM RCMDD DEFIND SCR INTVL, G8752 MOST RECENT SYSTOLIC BP < 140MM HG, G8754 MOST RECENT DIASTOLIC BP < 90MM HG, G8420 BMI<30 AND >=22 CALC & DOCU * Follow Up: 2 Months * Images: Billing Information: * Visit Code: 82647 Office Visit, Est Pt., Level 4. * Procedure Codes: G2211 Complex e/m visit add on. 1036F TOBACCO NON-USER. G8783 BP SCR PRFRM RCMDD DEFIND SCR INTVL. G8752 MOST RECENT SYSTOLIC BP < 140MM HG. G8754 MOST RECENT DIASTOLIC BP < 90MM HG. G8420 BMI<30 AND >=22 CALC & DOCU. * Electronic signature of Glenn Stephens MD on 01/10/2025 at 03:15 PM EST Sign off status: Pending * Provider: Glenn Stephens M.D. Date: 0 08/28/2024 Generated for Jeffrey betancourt/Tana/Otiliaitting on: 03/12/2024 03:15 PM EST History and Physical Notes * Examination Category Sub-Category Detail Notes Category Not es General Examination HEENT: edentulous, recently extracted Heart: RSR Lungs: clear to auscultatio n, [...]
--- OUTSIDE RECORDS SUMMARY | 2024-10-17 05:30 | XMS_ITS ---
Author Organization [facility] Address [address] [place] [id number] Care Team Providers Care Spudder Name Role Phone Glenn Stephens Primary Care Provider [phone] Meseret Bella [phone] Allergies Allergen (clinical drug ingredient) Drug/Non Drug Allergy documented on EMR Reaction Allergy Type Onset Date Status Substance with sulfonamide structure and antibacterial mechanism of action (substance) Sulfa Antibiotics Unknown Drug Allergy Active REASON FOR VISIT Poss. Parasites Encounters Encounter Location Date Provider [facility] [place], [place] [phone] 10/17/2024 Meseret Bella Plan Of Treatment Next Appt Details Provider Name:Glenn Artis er, 01/22/2025 03:45:00 PM, [address], [address], [place], [place], [id number], Progress Notes * KENZIE GODFREYDOB:[birth year] (79 yo F)Acc No.[id number]:10/17/2024 Progress Notes Patient: KENZIE CHEN Provider: SUSHANT Scales :1945 A ge:79 Y S ex:Female Date:10/17/2024 Address:[address] [place], [place] [address] BERRIOS [id number] Pcp:Glenn Stephens Subjective: * Chief Complaints: * 1 . Poss. Parasites. * ROS: D ERMATOLOGY: no R corey. [...] pains 06/27/12, right hip total arthroplasty 01/31-02/04/15, [facility] 05/2017, after mechanical fal resulting in [...] , Frequency: social ,Years: , Determination:. * Allergies: S ulfa Antibiotics. Objective: * Vitals: Assessment: Plan: * Treatment: * Images: Billing Information: * Visit Code: * Procedure Codes: * Electronic signature of Christi Bella APRN on 01/10/2025 at 03:14 PM EST Sign off status: Pending * Provider: SUSHANT Scales Date: 0 10/17/2024 Generated for Jeffrey betancourt/Tana/Enedelia on: 1 03/12/2024 03:14 PM EST
--- OUTSIDE RECORDS SUMMARY | 2024-10-20 10:15 | XMS_ITS ---
Author Organization [facility] Address [address] [place] [address] [address] [facility] [address] [place], [place] [phone] Care Team Providers Care Leaf Fat Scraper Name Role Phone Glenn Stephens Primary Care Provider Celia Sampson [phone] Allergies Allergen (clinical drug ingredient) Drug/Non Drug Allergy documented on EMR Reaction Allergy Type Onset Date Status Substance with sulfonamide structure and antibacterial mechanism of action (substance) Sulfa Antibiotics Unknown Drug Allergy Active REASON FOR VISIT stomach worms Encounters Encounter Location Date Provider [facility] 36 [facility] [address] [place], [place] [id number] 10/20/2024 Celia Sampson Plan Of Treatment Next Appt Details Provider Name:Glenn Artis er, 01/22/2025 03:45:00 PM, 1210 [facility] 36 [facility], [address], [place], [place], [phone], Progress Notes * KENZIE GODFREYDOB:[birth year] (79 yo F)Acc No.[id number]:10/20/2024 Progress Notes Patient: KENZIE CHEN Provider: XIAO Bailey :1945 A ge:79 Y S ex:Female Date:10/20/2024 Address:[address] [place], [place] [address]M[place]IR [place], [id number] Pcp:Glenn Stephens Subjective: * Chief Complaints: * 1 . Stomach worms. * HPI: G astroenterology: 79 year old female presents with c/o Abdominal Pain. * ROS: D ERMATOLOGY: no R corey. 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
--- OUTSIDE RECORDS SUMMARY | 2024-10-27 06:00 | XMS_ITS ---
[facility] Address [address] [facility] [address] [id number] Care Team Providers Care Operations Support Analyst Name Role Phone Glenn Stephens Primary Care Provider Allergies Allergen (clinical drug ingredient) Drug/Non Drug Allergy documented on EMR Reaction Allergy Type Onset Date Status Substance with sulfonamide structure and antibacterial mechanism of action (substance) Sulfa Antibiotics Unknown Drug Allergy Active Results Component Value Reference Range Notes Stool O&P Reviewed date:11/07/2024 12:50:37 PM Interpretation: Performing Lab: Notes/Report: CBC Fingerstick (in house) Reviewed date:11/14/2024 01:11:45 PM Interpretation:hgb 11.2, hct 33.8 Performing Lab: Notes/Report: hgb 11.2, hct 33.8 wbc 7.2 3.5 - 10 lym 23.7% 15 - 50 mid 4.7% 2 - 15 gran 71.6% 35 - 80 rbc 3.77 3.5 - 5.5 hgb 11.2 11.5 - 16.5 hct 33.8 35 - 55 mcv 89.8 75 - 100 mch 29.8 25 - 35 mchc 33.2 31 - 38 plat 260 100 - 400 REASON FOR VISIT 2 months, Needs bone density screening Medications Medication SIG (Take, Route, Frequency, Duration) Notes Start Date End Date Status OXYGEN 2 LITERS DIRECTED Ac tive Flonase Allergy Relief 50 MCG/ACT 1 spray in each nostril Nasally Once a day 10/20/2023 Active Align 4 MG as directed Orally q HS Active Trelegy Ellipta 100-62.5-25 MCG/ACT 1 puff(s) inhaled once a day Active Vitamin D3 1000 UNIT 1 capsule Orally On ce a day Active Voltaren 1 % as directed Externally qid Active Coenzyme Q-10 200 MG as directed Orally qd Active traMADol HCl 50 MG 1 tablet Orally Thre e times a day; Duration: 30 days 10/27/2024 Active FiberCon 625 MG 2 tablets as needed Orally Two times a day Active Ferrous Sulfate 325 (65 Fe) MG 1 tablet Orally qod Active Lidocaine 5 % APPLY 1 PATCH TO PEPE NFUL AREA ONCE DAILY. MAY LEAVE ON FOR 12 HOURS THEN OFF 12 HOURS.; Duration: 30 Active buPROPion HCl ER (SR) 150 MG TAKE 1 TABLET BY MOUTH IN THE MORNING; Duration: 30 Active Metoprolol Succinate ER 25 MG 1 tablet Orally daily; Duration: 90 days Active Montelukast Sodium 10 MG TAKE 1 TABLET B Y MOUTH ONCE DAILY; Duration: 30 Active Donepezil HCl 5 MG TAKE 1 TABLET BY KAROL AT BEDTIME; Duration: 30 Active Hyoscyamine Sulfate 0.125 MG 1 tablet on the tongue and allow to dissolve as needed Orally bedtime 08/28/2024 Active Cymbalta 60 MG 1 cap(s) orally once a day; Duration: 30 days Active Azelastine HCl 0.15 % 2 sprays (1 spray in each nostril) Nasally Twice a day; Duration: 30 days 08/28/2024 Active Loratadine 10 MG 1 tablet Orally Once a day; Duration: 30 days Active Pravastatin Sodium 20 MG 1 tablet Orally Once a day at bedtime; Duration: 90 days Active Albuterol Sulfate HFA 108 (90 Base) MCG/ACT 2 inhalations four times a day as needed Active Farxiga 10 MG 1 tablet Orally Once a day; Duration: 30 day(s) 03/31/2024 Active Gabapentin 300 MG 1 capsule Orally Thr ee times a day; Duration: 30 days 08/23/2024 Active ALPRAZolam 0.25 MG 1 tablet Orally Thre e times a day; Duration: 30 day(s) 07/21/2024 Active Roflumilast 500 MCG 1 tablet Orally Once a day; Duration: 90 days Active Furosemide 20 MG TAKE 1 TABLET BY KAROL ONCE DAILY NEEDED; Duration: 30 Active Vital Signs Weight 154.4 lbs 10/27/2024 Blood pressure systolic 140 mm Hg 10/28/19 25 Blood pressure diastolic 64 mm Hg 025 Heart Rate 69 /min 10/27/2024 Height 63.50 in 10/27/2024 BMI 26.92 kg/m2 10/27/2024 Encounters Encounter Location Date Provider Diagnosis [facility] [address] [facility] [address] [facility] [address] [place] [phone] 10/27/2024 Glenn Stephens Chronic respiratory failure with hypoxia J96.11 ; Chronic obstructive pulmonary disease, unspecified J44.9 ; Essential hypertension I10 ; Centrilobular emphysema J43.2 ; Chronic renal impairment, stage 3b N18.32 ; Parasite infection B89 and Weight loss R63.4 Assessments Encounter Date Diagnosis (ICD Code) Assessment Notes Treatment Notes Treatment Clinical Notes Section Notes 10/27/2024 Chronic respiratory failure with hypoxia (ICD-10 - J96.11) 10/27/2024 Chronic obstructive pulmonary disease, unspecified (ICD-10 - J44.9) 10/27/2024 Essential hypertension (ICD-10 - I10) 10/27/2024 Centrilobular emphysema (ICD-10 - J43.2) 10/27/2024 Chronic renal impairment, stage 3b (ICD-10 - N18.32) 10/27/2024 Parasite infection (ICD-10 - B89) 10/27/2024 Weight loss (ICD-10 - R63.4) Boost/Ensure recommended Plan Of Treatment Treatment Notes Assessment Notes Weight loss Boost/Ensure recomme nded Next Appt Details Follow Up: 2 Months, Reason: Provider Name:Glenn Artis er, 01/22/2025 03:45:00 PM, [address] [facility] [address] [facility], [address], [place], [phone], Progress Notes * KENZIE GODFREYDOB:[birth year] (79 yo F)Acc No.[id number]:10/27/2024 Progress Notes Patient: KENZIE CHENith Provider: Glenn Stephens M.D. :1945 A ge:79 Y S ex:Female Date:10/27/2024 Address:[address] [place], [place] [address], [id number] Subjective: * Chief Complaints: * 1 . 2 months. 2. Needs bone density screening. * HPI: C ardiology: The patient is here for a check up on Hypertension, Renal insufficiency and COPD. Pt states she think she has worms in her stools. Pt states she has seen worms in her stool. Pt states she has seen pin worms and round worms. Pt is not fasting. 79 year old female presents with c/o Short of Breath w ith exertion. Denies : Chest Pain. D enies : Dizziness. D enies : Palpitations. * [...] neg for carcinoma, c/w BOOP, [facility]acc [facility] 2007, 12/19/13 MRI of right [...] pains 06/27/12, right hip total arthroplasty 01/31-02/04/15, [facility] 05/2017, [facility] after mechanical fal resulting in [...] Gel as directed Externally qid , Taking FiberCon 625 MG Tablet 2 [...] times a day as needed , Taking Farxiga 10 MG Tablet 1 tablet Orally Once a day , Taking ALPRAZolam 0.25 MG Tablet 1 tablet Orally Three times a day , Taking Roflumilast 500 MCG Tablet 1 tablet Orally Once a day , Taking Gabapentin 300 MG Capsule 1 capsule Orally Three times a day , Taking Pravastatin Sodium 20 MG Tablet 1 tablet Orally Once a day at bedtime , Taking Cymbalta 60 MG Capsule Delayed Release Particles 1 cap(s) orally once a day , Taking Azelastine HCl 0.15 % Solution 2 sprays (1 spray in each nostril) Nasally Twice a day , Taking Hyoscyamine Sulfate 0.125 MG Tablet Disintegrating 1 tablet on the tongue and allow to dissolve as needed Orally bedtime , Taking Loratadine 10 MG Tablet 1 tablet Orally Once a day , Taking Metoprolol Succinate ER 25 MG Tablet Extended Release 24 Hour 1 tablet Orally daily , Taking Lidocaine 5 % Patch APPLY 1 PATCH TO PAINFUL AREA ONCE DAILY. MAY LEAVE ON FOR 12 HOURS THEN OFF 12 HOURS. , Taking buPROPion HCl ER (SR) 150 MG Tablet Extended Release 12 Hour TAKE 1 TABLET BY MOUTH IN THE MORNING , Taking Montelukast Sodium 10 MG Tablet TAKE 1 TABLET BY MOUTH ONCE DAILY , Taking Donepezil HCl 5 MG Tablet TAKE 1 TABLET BY MOUTH AT BEDTIME , Taking traMADol HCl 50 MG Tablet 1 tablet Orally Three times a day * Allergies: S ulfa Antibiotics. Objective: * Vitals: W t: 154.4, Temp: 97.7, BP: 140/64, HR: 69, O2 Sat: 91% on 2 LPM, Nurse: CAROLE, Ht: 63.50, BMI:26.92. * Examination: G eneral Examination: General Appearance: N AD. H EENT: e dentulous, recently extracted. Today with dentures.. O ral cavity: n o lesions, mucosa moist and WNL, no erythema. N cruzito: s upple, no lymphadenopathy. C hest: n ormal shape and expansion. H eart: R SR. L ungs: c lear to auscultation, no wheezes or rales. A bdomen:? soft and nontender, no organomegaly or masses. N eurologic Exam: N o change in exam, wheelchair. S kin: n ormal, no rash. P eripheral pulses: n ormal. B ack: mild dorsal kyphosis. E xtremities: 1 + leg edema. Assessment: * Assessment: 1. C hronic respiratory failure with hypoxia - J96.11 (Primary) 2 . C hronic obstructive pulmonary disease, unspecified - J44.9 3 . E ssential hypertension - I10 4 . C entrilobular emphysema - J43.2 5 . C hronic renal impairment, stage 3b - N18.32 6 . P arasite infection - B89 7 . W eight loss - R63.4 Plan: * Treatment: 2.?Weight loss?LAB: CBC Fingerstick (in house) (Collection Date & Time - 10/27/2024)?hgb 11.2, hct 33.8* Value Reference Range w bc 7.2 3.5 - 10 * l ym 23.7% 15 - 50 * m id 4.7% 2 - 15 * g ran 71.6% 35 - 80 * r bc 3.77 3.5 - 5.5 * h gb 11.2 11.5 - 16.5 * h ct 33.8 35 - 55 * m cv 89.8 75 - 100 * m ch 29.8 25 - 35 * m chc 33.2 31 - 38 * p lat 260 100 - 400 * Luna Vilchis 11/09/2024 11: 46:47 AM EDT > stool op is pending. sample was to be recollected. pts informed.Amita Argueta 11/14/2024 01:11:15 PM EDT > Patient informed of normal results. Notes: Boost/Ensure recommended?? * Procedure Codes: G 2211 Complex e/m visit add on, 1036F TOBACCO NON-USER, 43238 CBC WITH AUTO DIFF, 80369 CAPILLARY BLOOD DRAW * Follow Up: 2 Months * Images: Billing Information: * Visit Code: 54091 Office Visit, Est Pt., Level 4. * Procedure Codes: G2211 Complex e/m visit add on. 1036F TOBACCO NON-USER. 03023 CBC WITH AUTO DIFF. 90514 CAPILLARY BLOOD DRAW. * Electronic signature of Glenn Stephens MD on 01/10/2025 at 03:14 PM EST Sign off status: Pending * Provider: Glenn Stephens M.D. Date: 0 10/27/2024 Generated for Jeffrey betancourt/Tana/eTransmitting on: 1 03/12/2024 03:14 PM EST History and Physical Notes * HPI (History of Present Illness) Category Sub-Category Detail Notes Category Not es Cardiology Short of Breath with exertion Chest Pain Palpitations Dizziness Examination Category Sub-Category Detail Notes Category Not es General Examination HEENT: edentulous, recently extracted. Today with dentures. Heart: RSR Lungs: clear to auscultatio n, no wheezes or rales Abdomen: soft and nontender, no organomegaly or masses Extremities: 1+ leg edema General Appearance: NAD Skin: normal, no rash Neurologic Exam: No change in exam, w heelchair Neck: supple, no lymphaden opathy Oral cavity: no lesions, mucosa m oist and WNL, no erythema Peripheral pulses: normal Back: mild dorsal kyphosis Chest: normal shape and exp ansion
--- OUTSIDE RECORDS SUMMARY | 2024-12-29 06:15 | XMS_ITS ---
[facility] [address] [facility] [address] [id number] Care Team Providers Care Development Eng Name Role Phone Glenn Stephens Primary Care Provider Allergies Allergen (clinical drug ingredient) Drug/Non Drug Allergy documented on EMR Reaction Allergy Type Onset Date Status Substance with sulfonamide structure and antibacterial mechanism of action (substance) Sulfa Antibiotics Unknown Drug Allergy Active Results Component Value Reference Range Notes P-Comprehensive Metabolic Pa letty (CMP) Reviewed date:01/03/2025 10:05:29 AM Interpretation:Creat 1.59, eGFR 33 Performing Lab: Notes/Report: Test performed by [employer] [facility] , [address], [place] [address] Derrick Mckenzie MD, [employer] CLIA: [id number] Sodium 143 135-145 mmol/L Potassium 4.2 3.5-5.3 mmol/L Chloride 106 97-108 mmol/L CO2 28 20-32 mmol/L Glucose 81 65-99 mg/dL BUN 14 8-23 mg/dL Creatinine 1.59 0.50-1.00 mg/dL Calcium 10.2 8.6-10.4 mg/dL eGFR by Creatinine 33 >59 mL/min/1.73m2 Protein 6.0 6.0-8.3 g/dL Albumin 3.7 3.5-5.3 g/dL Alkaline Phosphatase 79 35-121 IU/L ALT (SGPT) 8 <5-47 IU/L AST (SGOT) 13 <5-40 IU/L Bilirubin, Total 0.2 <0.2-1.2 mg/dL A/G Ratio 1.6 1.1-2.5 REASON FOR VISIT 2 months, Needs bone density screening & flu vaccine Medications Medication SIG (Take, Route, Frequency, Duration) Notes Start Date End Date Status Montelukast Sodium 10 MG 1 tablet Orally Once a day; Duration: 30 days Active Donepezil HCl 5 MG 1 tablet at bedtime Orally Once a day; Duration: 30 days Active Pravastatin Sodium 20 MG 1 tablet Orally Once a day at bedtime; Duration: 90 days Active traMADol HCl 50 MG 1 tablet Orally Thre e times a day; Duration: 30 days 10/27/2024 Active Lidocaine 5 % APPLY 1 PATCH TO PEPE NFUL AREA ONCE DAILY. MAY LEAVE ON FOR 12 HOURS THEN OFF 12 HOURS.; Duration: 30 Active Hyoscyamine Sulfate 0.125 MG 1 tablet on the tongue and allow to dissolve as needed Orally bedtime 08/28/2024 Active Azelastine HCl 0.15 % 2 sprays (1 spray in each nostril) Nasally Twice a day; Duration: 30 days 08/28/2024 Active Farxiga 10 MG 1 tablet Orally Once a day; Duration: 30 day(s) 03/31/2024 Active Albuterol Sulfate HFA 108 (90 Base) MCG/ACT 2 inhalations four times a day as needed Active Loratadine 10 MG 1 tablet Orally Once a day; Duration: 30 days Active Furosemide 20 MG TAKE 1 TABLET BY [facility] ONCE DAILY NEEDED; Duration: 30 Active Flonase Allergy Relief 50 MCG/ACT 1 [...] capsule Orally On ce a day Active ALPRAZolam 0.25 MG 1 tablet Orally Thre e times a day; Duration: 30 day(s) 11/23/2024 Active Gabapentin 300 MG 1 capsule Orally Thr ee times a day; Duration: 30 days 11/22/2024 Active Metoprolol Succinate ER 25 MG 1 tablet Orally daily; Duration: 30 days Active Roflumilast 500 MCG 1 tablet Orally Once a day; Duration: 30 days Active DULoxetine HCl 60 MG 1 capsule Orally On ce a day; Duration: 30 days Active Immunizations Vaccine Route Administration Date Status Comme nts Fluzone High Dose (65yr and older) IM Intramuscular 12/29/2024 Administered Vital Signs Weight 148.6 lbs 12/29/2024 Blood pressure systolic 120 mm Hg 12/30/19 25 Blood pressure diastolic 64 mm Hg 025 Heart Rate 62 /min 12/29/2024 Height 63.50 in 12/29/2024 BMI 25.91 kg/m2 12/29/2024 Encounters Encounter Location Date Provider Diagnosis [facility] [address] [facility] [address] [place], [place] [id number] 12/29/2024 Glenn Stephens Immunization due Z23 ; Chronic obstructive pulmonary disease, unspecified J44.9 ; Chronic respiratory failure with hypoxia J96.11 ; Essential hypertension I10 ; Depression with anxiety F41.8 ; Renal insufficiency N28.9 ; Centrilobular emphysema J43.2 ; Other chronic pain G89.29 ; Pressure injury of skin of buttock, unspecified injury stage, unspecified laterality L89.309 and Weight loss, unintentional R63.4 Assessments Encounter Date Diagnosis (ICD Code) Assessment Notes Treatment Notes Treatment Clinical Notes Section Notes 12/29/2024 Immunization due (ICD-10 - Z23) 12/29/2024 Chronic obstructive pulmonary disease, unspecified (ICD-10 - J44.9) 12/29/2024 Chronic respiratory failure with hypoxia (ICD-10 - J96.11) 12/29/2024 Essential hypertension (ICD-10 - I10) 12/29/2024 Depression with anxiety (ICD-10 - F41.8) 12/29/2024 Renal insufficiency (ICD-10 - N28.9) 12/29/2024 Centrilobular emphysema (ICD-10 - J43.2) 12/29/2024 Other chronic pain (ICD-10 - G89.29) 12/29/2024 Pressure injury of skin of buttock, unspecified injury stage, unspecified laterality (ICD-10 - L89.309) 12/29/2024 Weight loss, unintentional (ICD-10 - R63.4) discussed Boost, Ensure, Vegetable soup. Plan Of Treatment Medication Medication Name Sig Start Date Stop Date Notes buPROPion HCl ER (SR) 150 MG 1 tablet in the morning Orally Once a day Treatment Notes Assessment Notes Weight loss, unintentional discussed [address], Ensure, Vegetable soup. Next Appt Details Follow Up: 4 Weeks, Reason: Provider Name:Glenn Artis er, 01/22/2025 03:45:00 PM, [address] [facility] [address], [place], [place], [id number], Progress Notes * KENZIE GODFREYDOB:[birth year] (79 yo F)Acc No.[id number]:12/29/2024 Progress Notes Patient: KENZIE CHEN Provider: Glenn Stephens M.D. :1945 A ge:79 Y S ex:Female Date:12/29/2024 Address:[address] [place] [address], [id number] Subjective: * Chief Complaints: * 1 . 2 months. 2. Needs bone density screening & flu vaccine. * HPI: C ardiology: The pt is here for a check up on Hypertension and COPD. Pt's states the pt has some bed sore on her buttock from sitting in her recliner so much. Pt is not fasting. 79 year old female presents with c/o Chest Pain e pisodic little pains. c/o Short of Breath w ith exertion. Denies : Dizziness. D enies : Palpitations. * ROS: C ONSTITUTIONAL: Positive for A sindyher physician seen since last visit? Yes, Change in medication since last visit? No, Are you taking antibiotics? No, Are you taking steroids? No. D ERMATOLOGY: no R corey. 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 MAY LEAVE ON FOR 12 HOURS THEN OFF 12 HOURS. , Taking traMADol HCl 50 MG Tablet 1 tablet Orally Three times a day , Taking Pravastatin Sodium 20 MG Tablet 1 tablet Orally Once a day at bedtime , Taking Donepezil HCl 5 MG Tablet 1 tablet at bedtime Orally Once a day , Taking Montelukast Sodium 10 MG Tablet 1 tablet Orally Once a day , Taking buPROPion HCl ER (SR) 150 MG Tablet Extended Release 12 Hour 1 tablet in the morning Orally Once a day , Taking DULoxetine HCl 60 MG Capsule Delayed Release Particles 1 capsule Orally Once a day , Taking Gabapentin 300 MG Capsule 1 capsule Orally Three times a day , Taking ALPRAZolam 0.25 MG Tablet 1 tablet Orally Three times a day , Taking Roflumilast 500 MCG Tablet 1 tablet Orally Once a day , Taking Metoprolol Succinate ER 25 MG Tablet Extended Release 24 Hour 1 tablet Orally daily , Medication List reviewed and reconciled with the patient * Allergies: S ulfa Antibiotics. Objective: * Vitals: W t: 148.6, Temp: 97.8, BP: 120/64, HR: 62, O2 Sat: 92% on 2LPM, Nurse: CAROLE, Ht: 63.50, BMI:25.91. * Examination: G eneral Examination: General Appearance: N AD, weight loss noted. H EENT:?edentulous, recently extracted. Today with dentures.. O ral cavity: n o lesions, mucosa moist and WNL, no erythema. N cruzito: s upple, no lymphadenopathy. C hest: n ormal shape and expansion. H eart: R SR. L ungs: c lear to auscultation, no wheezes or rales. A bdomen: soft and nontender, no organomegaly or masses. N eurologic Exam: No change in exam, wheelchair. S kin: n ormal, no rash. P eripheral pulses: n ormal. B ack: mild dorsal kyphosis. E xtremities: 1 + leg edema. G enitalia: N o open wound of sacrum. Assessment: * Assessment: 1. I mmunization due - Z23 (Primary) 2 . C hronic obstructive pulmonary disease, unspecified - J44.9 3 . C hronic respiratory failure with hypoxia - J96.11? 4. E ssential hypertension - I10 5 . D epression with anxiety - F41.8 6 . R enal insufficiency - N28.9 7 . C entrilobular emphysema - J43.2 8 . O ther chronic pain - G89.29 9 . P ressure injury of skin of buttock, unspecified injury stage, unspecified laterality - L89.309 & #160; 1 0. W eight loss, unintentional - R63.4 Plan: * Treatment: Value Reference Range A /G Ratio 1.6 1.1-2.5 - * A lbumin 3.7 3.5-5.3 - g/dL * A lkaline Phosphatase 79 35-121 - IU/L * A LT (SGPT) 8 <5-47 - IU/L * A ST (SGOT) 13 <5-40 - IU/L * B ilirubin, Total 0.2 <0.2-1.2 - mg/dL * B UN 14 8-23 - mg/dL * C alcium 10.2 8.6-10.4 - mg/dL * C hloride 106 97-108 - mmol/L * C O2 28 20-32 - mmol/L * C reatinine 1.59 H 0.50-1.00 - mg/dL * G lucose 81 65-99 - mg/dL * P otassium 4.2 3.5-5.3 - mmol/L * S odium 143 135-145 - mmol/L * P rotein 6.0 6.0-8.3 - g/dL * e GFR by Creatinine 33 L >59 - mL/min/1.73m2 * Luna Vilchis 01/03/2025 10: 05:20 AM EST > See phone encounter 2.?Depression with anxiety? Stop buPROPion HCl ER (SR) Tablet Extended Release 12 Hour, 150 MG, 1 tablet in the morning, Orally, Once a day.??3.?Weight loss, unintentional? Notes: discussed Boost, Ensure, Vegetable soup.?? * Immunizations: Fluzone High Dose (65yr and older) : 0.5 mL (Route: Intramuscular) given by Amita Argueta on Right Deltoid (Immunization due) * Follow Up: 4 Weeks * Images: Billing Information: * Visit Code: 90929 Office Visit, Est Pt., Level 4. * Procedure Codes: * Electronic signature of Glenn Stephens MD on 01/10/2025 at 03:15 PM EST Sign off status: Pending * Provider: Glenn Stephens M.D. Date: Generated for Calei ng/Felicityg/eTransmitting on: 03/12/2024 03:15 PM EST History and Physical Notes * HPI (History of Present Illness) Category Sub-Category Detail Notes Category Not es Cardiology Short of Breath with exertion Chest Pain episodic little pain s Palpitations Dizziness Examination Category Sub-Category Detail Notes Category Not es General Examination HEENT: edentulous, recently extracted. Today with dentures. Heart: RSR Lungs: clear to auscultatio n, no wheezes or rales Abdomen: soft and nontender, no organomegaly or masses Extremities: 1+ leg edema General Appearance: NAD, weight loss not ed Skin: normal, no rash Neurologic Exam: No change in exam, w heelchair Neck: supple, no lymphaden opathy Oral cavity: no lesions, mucosa m oist and WNL, no erythema Peripheral pulses: normal Back: mild dorsal kyphosis Genitalia: No open wound of sac rum Chest: normal shape and exp ansion
--- OUTSIDE RECORDS SUMMARY | 2025-01-10 15:14 | XMS_ITS | Patient Health Record ---
[facility] [address] [facility] [address] [id number] Care Team Providers Care Senior Security Architect Name Role Phone Glenn Stephens Primary Care Provider Julius Tang Unavailable [phone] Meseret Bella Unavailable [phone] Celia Sampson Unavailable [phone] Allergies Allergen (clinical drug ingredient) Drug/Non Drug Allergy documented on EMR Reaction Allergy Type Onset Date Status Substance with sulfonamide structure and antibacterial mechanism of action (substance) Sulfa Antibiotics Unknown Drug Allergy Active Results Component Value Reference Range Notes P-Comprehensive Metabolic Pa letty (CMP) Reviewed date:01/03/2025 10:05:29 AM Interpretation:Creat 1.59, eGFR 33 Performing Lab: Notes/Report: Test performed by [facility] [address] [place] [address] , [address], [place] [address] Derrick Mckenzie MD, Senior Restaurant Manager CLIA: [id number] Sodium 143 135-145 mmol/L Potassium 4.2 3.5-5.3 [...] 0.2 <0.2-1.2 mg/dL A/G Ratio 1.6 1.1-2.5 H-Ova + Parasite Exam Reviewed date:11/14/2024 01:12:01 PM Interpretation:Negative Performing Lab: Notes/Report: OPEX These results were o btained using wet preparation(s) and OPEX trichrome stained sm ear. This test does not include testing OPEX for Cryptosporidium parvum, Cyclospora, or Microsporidia. OPEX Final report OPEXR1 No ova, cysts, or pa rasites seen. OPEXR1 One negative specime n does not rule out the possibility of OPEXR1 a parasitic infection. OPEXR1 Performed at: [facility] OPEXR1 [address] [place], [place] [id number] OPEXR1 Fruit Inspector: Michael Shaw PhD, Phone: [phone] OPEXR1 Comment H-Ova + Parasite Exam Reviewed date:12/05/2024 11:59:54 AM Interpretation:see duplicate order Performing Lab: Notes/Report: Cancel Comments SPECIMEN QNS CALLED OFFICE Stool O&P Reviewed date:11/07/2024 12:50:37 PM Interpretation: Performing Lab: Notes/Report: P-Basic Metabolic Panel (BMP ) Reviewed date:05/10/2024 08:57:20 AM Interpretation:K+ 5.7, cl 110, Cr 2.04, gfr 24 Performing Lab: Notes/Report: Test performed by [facility] [address] [place] [address] , [address], [place] [address] Derrick Mckenzie MD, Senior Restaurant Manager CLIA: [id number] Sodium 145 135-145 mmol/L Potassium 5.7 3.5-5.3 mmol/L Chloride 110 97-108 mmol/L CO2 26 22-32 mmol/L Glucose 73 65-99 mg/dL BUN 22 8-23 mg/dL Creatinine 2.04 0.50-1.00 mg/dL Calcium 10.4 8.6-10.4 mg/dL eGFR by Creatinine 24 >59 mL/min/1.73m2 CBC Fingerstick (in house) Reviewed date:11/14/2024 01:11:45 [...] - 38 plat 260 100 - 400 P-Basic Metabolic Panel (BMP ) Reviewed date:09/29/2024 10:44:21 AM Interpretation:Cr 1.58, gfr 33 Performing Lab: Notes/Report: Test performed by [facility] [address] [place] [address] , [address], [place] [address] Derrick Mckenzie MD, Senior Restaurant Manager CLIA: [id number] Sodium 145 135-145 mmol/L Potassium 4.8 3.5-5.3 mmol/L Chloride 108 97-108 mmol/L CO2 26 20-32 mmol/L Glucose 88 65-99 mg/dL BUN 13 8-23 mg/dL Creatinine 1.58 0.50-1.00 mg/dL Calcium 9.9 8.6-10.4 mg/dL eGFR by Creatinine 33 >59 mL/min/1.73m2 P-Sed Rate (ESR) Reviewed date:01/25/2024 03:42:17 PM Interpretation:Normal Performing Lab: Notes/Report: Test performed by [facility] [address] [place] [address] , [address], [place] [address] Derrick Mckenzie MD, Senior Restaurant Manager CLIA: [id number] Erythrocyte Sedimentation Ra te (ESR), Automated 8 <31 mm/hr P-CPK Reviewed date:01/25/2024 03:42:17 PM Interpretation:19 Performing Lab: Notes/Report: Test performed by [facility] [address] [place] [address] , [address], [place] [address] Derrick Mckenzie MD, Senior Restaurant Manager CLIA: [id number] Creatine Kinase 19 20-180 U/L P-Basic Metabolic Panel (BMP ) Reviewed date:01/25/2024 03:42:17 PM Interpretation:Cr 1.5, Ca 10.8, gfr 35 Performing Lab: Notes/Report: Test performed by [facility] [address] [place] [address] , [address], [place] [address] Derrick Mckenzie MD, Senior Restaurant Manager CLIA: [id number] Sodium 141 135-145 mmol/L Potassium 4.7 3.5-5.3 mmol/L Chloride 105 97-108 mmol/L CO2 30 22-32 mmol/L Glucose 77 65-99 mg/dL BUN 15 8-23 mg/dL Creatinine 1.50 0.50-1.00 mg/dL Calcium 10.8 8.6-10.4 mg/dL eGFR by Creatinine 35 >59 mL/min/1.73m2 Medications Medication SIG (Take, Route, Frequency, Duration) Notes Start Date End Date Status Montelukast Sodium 10 MG 1 tablet Orally Once a day; Duration: 30 days Active Donepezil HCl 5 MG 1 tablet at bedtime Orally Once a day; Duration: 30 days Active Pravastatin Sodium 20 MG 1 tablet Orally Once a day at bedtime; Duration: 90 days Active Ferrous Sulfate 325 (65 Fe) MG 1 tablet Orally qod Active FiberCon 625 MG 2 tablets as needed Orally Two times a day Active ALPRAZolam 0.25 MG 1 tablet Orally Thre e times a day; Duration: 30 day(s) 11/23/2024 Active Voltaren 1 % as directed Externally qid Active Gabapentin 300 MG 1 capsule Orally Thr ee times a day; Duration: 30 days 11/22/2024 Active DULoxetine HCl 60 MG 1 capsule Orally On ce a day; Duration: 30 days Active Coenzyme Q-10 200 MG as directed Orally qd Active traMADol HCl 50 MG 1 tablet Orally Thre e times a day; Duration: 30 days 10/27/2024 Active Lidocaine 5 % APPLY 1 PATCH TO PEPE NFUL AREA ONCE DAILY. MAY LEAVE ON FOR 12 HOURS THEN OFF 12 HOURS.; Duration: 30 Active Loratadine 10 MG 1 tablet Orally Once a day; Duration: 30 days Active Furosemide 20 MG TAKE 1 TABLET BY KAROL TH ONCE DAILY NEEDED; Duration: 30 Active Flonase Allergy Relief 50 MCG/ACT 1 spray in each nostril Nasally Once a day 10/20/2023 Active OXYGEN 2 LITERS DIRECTED Ac tive Trelegy Ellipta 100-62.5-25 MCG/ACT 1 puff(s) inhaled once a day Active Hyoscyamine Sulfate 0.125 MG 1 tablet [...] four times a day as needed Active Align 4 MG as directed Orally q HS Active Vitamin D3 1000 UNIT 1 capsule Orally On ce a day Active Metoprolol Succinate ER 25 MG 1 tablet Orally daily; Duration: 30 days Active Roflumilast 500 MCG 1 tablet Orally Once a day; Duration: 30 days Active Immunizations [...] (65yr and older) IM Intramuscular 01/07/2023 Administered Fluzone High Dose (65yr and older) IM Intramuscular 11/15/2023 Administered Fluzone High Dose (65yr and older) IM Intramuscular 12/29/2024 Administered H1N1 flu vaccine IM Intramuscular 12/24/2008 Administered Hepatitis A (adult) Unknown 02/04/2018 Administered Hepatitis A (adult) Unknown 08/08/2018 Administered PNEUMOVAX 23 VACCINE IM Intramuscular 12/22/2010 Administe red DT, 7 YEARS OR OLDER Unknown 05/04/1996 Administered COVID 19 Moderna Unknown 04/10/2020 Administered COVID 19 Moderna Unknown 05/08/2020 Administered COVID 19 Moderna Unknown 01/29/2021 Administered Prevnar (PCV13) IM Intramuscular 08/21/2014 Administered Tetanus [...] (18-64yrs)-trivalent-medic are pts IM Intramuscular 12/14/2012 Administered qNrxdosw-ykixreckl-fyiwewm e pts. IM Intramuscular 12/22/2010 Administered Problems Problem Type SNOMED Code ICD Code Onset Dates Problem Status W/U Status Risk Notes Problem Gastro-esophageal reflux disease without esophagitis (191217782) Gastro-esophagea l reflux disease without esophagitis (K21.9) Active confirmed Problem Hyperkalemia (86347489) Hyperkalemia (E87.5) Active confirmed Problem Essential hypertension (87025153) Essential hypertension (I10) Active confirmed Problem Constipation (65017141) Constipation (K59.00) Active confirmed Problem Anxiety (03615752) Anxiety (F41.9) Active confi rmed Problem Osteopenia (377859574) Osteopenia (M85.80) Active confirmed Problem Mixed anxiety and depressive disorder (122430774) Depression with anxiety (F41.8) Active confirmed Problem Memory loss (23792982) Memory loss (R41.3) Active confirmed Problem Chronic rhinitis (18303578) Chronic rhinitis (J31.0) Active confirmed Problem Centrilobular emphysema (94173023) Centrilobular emphysema (J43.2) Active confirmed Problem Chronic obstructive pulmonary disease (31183009) Chronic obstructive pulmonary disease, unspecified (J44.9) Active confirmed Problem Chronic respiratory failure (41551549) Chronic respiratory failure with hypoxia (J96.11) Active confirmed Problem Nocturnal enuresis (9036303) Nocturnal enuresis (N39.44) Active confirmed Problem History of musculoskeletal operation (364983412) Aftercare following joint replacement surgery (Z47.1) Active confirmed Problem Nicotine dependence (77623246) Personal history of nicotine dependence (Z87.891) Active confirmed Problem Cataract (833346056) Cataract (H26.9) Active confirmed Problem Chronic pain (83191140) Other chronic pain (G89.29) Active confirmed Problem 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) Active confirmed Problem Pulmonary fibrosis (72861256) Pulmonary fibrosis (J84.10) Active confirmed Problem Spinal stenosis of lumbosacral region (789282594) Spinal stenosis of lumbosacral region (M48.07) Active confirmed Problem Renal insufficiency (296830315) Renal insufficiency (N28.9) Active confirmed Problem Dermatitis (566157277) Dermatitis (L30.9) Active confirmed Problem Abnormal gait (66457455) Imbalance (R26.89) Active confirmed Problem Obese class II (983676614013027) BMI 37.0-37.9, adult (Z68.37) Active confirmed Problem Dyslipidemia (516848761) Dyslipidemia (E78.5) Active confirmed Problem Urinary incontinence (167542344) Urinary incontinence, unspecified type (R32) Active confirmed Problem Total hip replacement Prosthesis (089985714) Status post hip replacement, 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) Active confirmed Problem Dependence on continuous supplemental oxygen (13286888951823) Dependence on continuous supplemental oxygen (Z99.81) Active confirmed Problem Walking disability (965332317) Difficulty in walking (R26.2) Active confirmed Problem Chronic anemia (856763406) Chronic anemia (D64.9) Active confirmed Problem Fibrocystic breast changes (12412959) Fibrocystic breast disease (FCBD), unspecified laterality (N60.19) Active confirmed Problem 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 (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) CVA, old, 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) Active confirmed Problem Pressure injury of buttock (disorder) (217368594) Pressure injury of skin of buttock, unspecified injury stage, unspecified laterality (L89.309) Active confirmed Problem Chronic kidney disease stage 3B (disorder) (702219797) Chronic renal impairment, stage 3b (N18.32) Active confirmed Vital Signs Heart Rate 62 /min 12/29/2024 Blood pressure diastolic 64 mm Hg 12/29/2024 Height 63.50 in 12/29/2024 Blood pressure systolic 120 mm Hg 12/29/2024 Weight 148.6 lbs 12/29/2024 BMI 25.91 kg/m2 12/29/2024 Encounters Encounter Location Date [facility] [address] [place] [id number] 01/20/2024 Glenn Stephens Chronic respiratory failure with hypoxia J96.11 ; Essential hypertension I10 ; Spinal stenosis of lumbosacral region M48.07 ; Centrilobular emphysema J43.2 ; Difficulty in walking R26.2 and Dependence on continuous supplemental oxygen Z99.81 [facility] [address] [place] [id number] 02/14/2024 Glenn Stephens Chronic obstructive pulmonary disease, unspecified J44.9 ; Chronic respiratory failure with hypoxia J96.11 ; Essential hypertension I10 ; Status post hip replacement, 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 ; Spinal stenosis of lumbosacral region M48.07 and Renal insufficiency N28.9 [facility] [address] [place] [id number] 03/31/2024 Glenn Stephens Chronic respiratory failure with hypoxia J96.11 ; Status post hip replacement, 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 ; Spinal stenosis of lumbosacral region M48.07 and Chronic renal impairment, stage 3b N18.32 [facility] [address] [place] [id number] 04/06/2024 Celia Sampson Non-recurrent acute serous otitis media of both ears H65.03 ; Impacted cerumen of right ear H61.21 and Hypoxia R09.02 [facility] [address] [place] [id number] 05/08/2024 Glenn Stephens Chronic respiratory failure with hypoxia J96.11 ; Essential hypertension I10 and Chronic renal impairment, stage 3b N18.32 [facility] [address] [place] [id number] 08/28/2024 Glenn Stephens Renal insufficiency N28.9 ; [...] and Status post hip replacement, 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 [facility] [address] [place], [place] [id number] 10/27/2024 Glenn Stephens Chronic respiratory failure with hypoxia J96.11 ; Chronic obstructive pulmonary disease, unspecified J44.9 ; Essential hypertension I10 ; Centrilobular emphysema J43.2 ; Chronic renal impairment, stage 3b N18.32 ; Parasite infection B89 and Weight loss R63.4 [facility] [address] [place], [place] [id number] 12/29/2024 Glenn Stephens Immunization due Z23 ; Chronic obstructive pulmonary disease, unspecified J44.9 ; Chronic respiratory failure with hypoxia J96.11 ; Essential hypertension I10 ; Depression with anxiety F41.8 ; Renal insufficiency N28.9 ; Centrilobular emphysema J43.2 ; Other chronic pain G89.29 ; Pressure injury of skin of buttock, unspecified injury stage, unspecified laterality L89.309 and Weight loss, unintentional R63.4 [facility] [address] [place], [place] [id number] 01/25/2024 Glenn Stephens [facility] [address] [place], [place] [id number] 03/20/2024 Glenn Stephens Depression with anxi ety F41.8 [facility] [address] [facility] [address] [place], [place] [id number] 04/03/2024 Glenn Stephens [facility] [address] [place], [place] [id number] 04/04/2024 Glenn Stephens Spinal stenosis of lumbosacral region M48.07 [facility] [address] [place], [place] [id number] 05/10/2024 J Vinay Angelo [facility] [address] [place], [place] [id number] 06/26/2024 J Vinay Angelo [facility] [address] [place], [place] [id number] 07/17/2024 Julius Tecopa Spinal stenosis of lumbosacral region M48.07 [facility] [address] [place], [place] [id number] 07/21/2024 J Vinay Angelo Depression with anxi ety F41.8 [facility] [address] [place], [place] [id number] 08/22/2024 J Vinay Angelo Spinal stenosis of lumbosacral region M48.07 [facility] [address] [place], [place] [id number] 08/23/2024 J Vinay Angelo [facility] [address] [place], [place] [id number] 09/11/2024 J Vinay Angelo [facility] [address] [place] [id number] 09/29/2024 J Vinay Angelo [facility] [address] [place] [id number] 10/20/2024 J Vinay Angelo [facility] [address] [place], [place] [id number] 11/21/2024 J Vinay Stephens Spinal stenosis of lumbosacral region M48.07 [facility] [address] [place], [place] [id number] 11/23/2024 J Vinay Setphens Depression with anxi ety F41.8 [facility] [address] [place], [place] [id number] 01/03/2025 Glenn Stephens Assessments Encounter Date Diagnosis (ICD Code) Assessment Notes Treatment Notes Treatment Clinical Notes Section Notes 01/20/2024 Essential hypertension (ICD-10 - I10) 01/20/2024 Chronic respiratory failure with hypoxia (ICD-10 - J96.11) 02/14/2024 Chronic obstructive pulmonary disease, unspecified (ICD-10 - J44.9) 02/14/2024 Chronic respiratory failure with hypoxia (ICD-10 - J96.11) 03/20/2024 Depression with anxiety (ICD-10 - F41.8) 03/31/2024 Chronic respiratory failure with hypoxia (ICD-10 - J96.11) 03/31/2024 Status post hip replacement, right (ICD-10 - Z96.641) 04/04/2024 Spinal stenosis of lumbosacral region (ICD-10 - M48.07) 04/06/2024 Impacted cerumen of right ear (ICD-10 - H61.21) Right ear was irrigated. 04/06/2024 Non-recurrent acute serous otitis media of both ears (ICD-10 - H65.03) Has flonase at home she will start using. 05/08/2024 Essential hypertension (ICD-10 - I10) 05/08/2024 Chronic respiratory failure with hypoxia (ICD-10 - J96.11) 07/17/2024 Spinal stenosis of lumbosacral region (ICD-10 - M48.07) 07/21/2024 Depression with anxiety (ICD-10 - F41.8) 08/22/2024 Spinal stenosis of lumbosacral region (ICD-10 - M48.07) 08/28/2024 Chronic rhinitis (ICD-10 - J31.0) 08/28/2024 Renal insufficiency (ICD-10 - N28.9) 10/27/2024 Chronic obstructive pulmonary disease, unspecified (ICD-10 - J44.9) 10/27/2024 Chronic respiratory failure with hypoxia (ICD-10 - J96.11) 11/21/2024 Spinal stenosis of lumbosacral region (ICD-10 - M48.07) 11/23/2024 Depression with anxiety (ICD-10 - F41.8) 12/29/2024 Chronic obstructive pulmonary disease, unspecified (ICD-10 - J44.9) 12/29/2024 Immunization due (ICD-10 - Z23) 12/29/2024 Chronic respiratory failure with hypoxia (ICD-10 - J96.11) 10/27/2024 Essential hypertension (ICD-10 - I10) 08/28/2024 Essential hypertension (ICD-10 - I10) 05/08/2024 Chronic renal impairment, stage 3b (ICD-10 - N18.32) 04/06/2024 Hypoxia (ICD-10 - R09.02) Patient was not wearing her oxygen today. Will go home and put on her oxygen. 03/31/2024 Spinal stenosis of lumbosacral region (ICD-10 - M48.07) 02/14/2024 Essential hypertension (ICD-10 - I10) 01/20/2024 Spinal stenosis of lumbosacral region (ICD-10 - M48.07) 01/20/2024 Centrilobular emphysema (ICD-10 - J43.2) 02/14/2024 Status post hip replacement, right (ICD-10 - Z96.641) 03/31/2024 Chronic renal impairment, stage 3b (ICD-10 - N18.32) 08/28/2024 Chronic obstructive pulmonary disease, unspecified (ICD-10 - J44.9) 12/29/2024 Essential hypertension (ICD-10 - I10) 10/27/2024 Centrilobular emphysema (ICD-10 - J43.2) 12/29/2024 Depression with anxiety (ICD-10 - F41.8) 10/27/2024 Chronic renal impairment, stage 3b (ICD-10 - N18.32) 08/28/2024 Dyslipidemia (ICD-10 - E78.5) 02/14/2024 Spinal stenosis of lumbosacral region (ICD-10 - M48.07) 01/20/2024 Difficulty in walking (ICD-10 - R26.2) 01/20/2024 Dependence on continuous supplemental oxygen (ICD-10 - Z99.81) 02/14/2024 Renal insufficiency (ICD-10 - N28.9) 10/27/2024 Parasite infection (ICD-10 - B89) 08/28/2024 Difficulty in walking (ICD-10 - R26.2) 12/29/2024 Renal insufficiency (ICD-10 - N28.9) 10/27/2024 Weight loss (ICD-10 - R63.4) Boost/Ensure recommended 12/29/2024 Centrilobular emphysema (ICD-10 - J43.2) 08/28/2024 Imbalance (ICD-10 - R26.89) 08/28/2024 Dependence on continuous supplemental oxygen (ICD-10 - Z99.81) 12/29/2024 Other chronic pain (ICD-10 - G89.29) 08/28/2024 Depression with anxiety (ICD-10 - F41.8) 12/29/2024 Pressure injury of skin of buttock, unspecified injury stage, unspecified laterality (ICD-10 - L89.309) 08/28/2024 BMI 27.0-27.9,adult (ICD-10 - Z68.27) 12/29/2024 Weight loss, unintentional (ICD-10 - R63.4) discussed Boost, Ensure, Vegetable soup. 08/28/2024 History of falling (ICD-10 - Z91.81) 08/28/2024 Chronic anemia (ICD-10 - D64.9) 08/28/2024 Anxiety (ICD-10 - F41.9) 08/28/2024 Chronic respiratory failure with hypoxia (ICD-10 - J96.11) 08/28/2024 CVA, old, hemiparesis (ICD-10 - I69.359) 08/28/2024 Centrilobular emphysema (ICD-10 - J43.2) 08/28/2024 Status post hip replacement, right (ICD-10 - Z96.641) Plan Of Treatment Pending Test Test Name Order Date og08/03/2022 Next Appt Details Provider Name:Glenn Mclean Steff er, 01/22/2025 03:45:00 PM, [address], [place], [place], [id number], Insurance Providers Payer Name Payer Address Payer Phone Subscriber Number Group Number Insured Name Patient Relationship to Insured Coverage Start Date Coverage End Date [employer] (MEDICAR E) [address] [address] [place] [address] [id number] KENZIE GODFREY Self - patient is the insured Medications Administered Medication Instructions Date of Administration Dosage Notes B-12 11/16/2012 1 mL B-12 12/14/2012 1 mL Medical (General) History Medical History History ICD Code anxiety depression with seasonal affective disor whitney COPD fibrocystic breast disease spinal stenosis chronic back pain CT guided needle biopsy of lung 12/26/07 , neg for carcinoma, c/w [facility] 200712/19/13 MRI of right knee minor observ ations. 05/13/16 low-dose CT 05/08/2020 Covid vaccine x2 COVID 19 Booster 01/29/2021, Moderna 09/05/2023 Mechanical fall res ulting inn right rib Fx 9-11 and L1-2right transverse prcess Fx Surgical History Surgery Date(Month/Year) lipoma axilla 05/2012 right hip total arthroplasty 01/31/15 colonoscopy, Dr. Solorzano 09/2016 Hospitalization History Reason Date(Month/Year) [facility] after mechanical fal resu lting in Fx ribs and Lumbar 1-3 Fx; O2 dependent COPD' previous CVA ; AMS 09/04-09/22/2023 [facility] 05/2017 right hip total arthroplasty 01/31- 5 chest pains 06/27/12 pneumonia and Bronchitis August 2007
--- OUTSIDE RECORDS SUMMARY | 2025-01-10 15:14 | XMS_ITS | Encounter Summary ---
Author Organization Healthcare Address [address] [place] [address] Care Team Providers Care Functional Manager Name Role Phone Doni Stephens MD Primary Care Provider [phone] Encounter Details Date Type Department Care Team (Late st Contact Info) Description 09/06/2023 Lab Requisition [facility] [address] [place] [address] Zak Chery MD [address] [facility] [address] [place] [address] Encounter for general adult medical [...] place to sleep or slept in a care home (including now)? No 09/06/2023 Utilities Answer Date [...] Description 01/12/2025 9:40 AM EST Office Visit [facility] [address] [place] [phone] 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, BARREL STRAIGHTENER [address] [address] documented as of this encounter [...] ERAL ORDERABLES Final Result [facility] [address] [place] [address] documented in this encounter Visit Diagnoses Diagnosis [...] documented as of this encounter Care Teams Functional Manager Relationship Specialty Start Date End Date Doni Stephens MD [address] [place] [phone] PCP - General 07/12/20 documented as of this encounter
[2025-01-10 15:16] LABS: Microscopic, Urine URINE MICROSCOPIC (MICROSCOPIC)
--- OUTSIDE RECORDS SUMMARY | 2025-01-10 15:16 | XMS_ITS | Clinical Summary ---
Author Organization [facility] Address [address] [place] [address] Care Team Providers Care Registered Mail Clerk Name Role Phone Doni Stephens MD Primary Care Provider [phone] Allergies Active Allergy Reactions Criticality Noted Date [...] in place 09/13: MBS failed 09/16: MBS- [place] thick; Easy to chew 09/17: Remove DHT if consuming >50% of meals Confusion and disorientation 09/09/2023 Overview (09/18/2023): Family stated baseline delirium prior to event Delirium precautions CTH chronic infarcts 09/17: Mentation A&Ox3 Closed fracture of multiple ribs of right [...] resistant HTN Lopressor up to 25 BID Resolved Problems Problem Noted Date Diagnosed Date Resolved Date Fall, initial encounter 09/05/2023 0903/2024 Overview (09/14/2023): SGT admit UTI (urinary tract infection) 09/05/2023 11/19/2024 Overview (09/08/2023): Diagnosed 09/02 Resume home antibiotics [...] place to sleep or slept in a longterm (including now)? No 09/06/2023 CAGE ASSESSMENT Answer [...] drink first t fifi in the morning ([employer]) to steady your nerves or to get rid of a hangover? 0 09/11/2023 CAGE Questionnaire Score 0 024 Utilities Answer Date Recorded In the past 12 months has th e [employer], gas, oil, or water [employer] threatened to shut off services in your [...] Description 01/12/2025 9:40 AM EST Office Visit [facility] [address] [place] [phone] 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, MARKETING OPERATIONS MANAGER [address] [address] Health Maintenance Due Date Last Done Comments [facility]-Bone Density Scan 1945 [facility]-Medicare Annual Wellness (AWV) 1945 [facility]-Infant/Child/Adol SDOH Screenings 1945 [facility]- SDOH Screenings 10/17/1963 [facility]-Adult SDOH Screenings 10/17/1963 [facility]-Zoster Vaccines (1 of 2) 10/17/1995 [facility]-Depression Screening 05/02/2024 05/03/2023 [id number] Vaccine ( - season) 2024 01/29/2021, 05/08/2020, 04/10/2020 [facility]-Influenza Vaccine [...] 7:55 AM EDT 09/05/2023 8:02 AM EDT Kermit Reardon MD LAB BLOOD ORDERABLES Final Re sult [facility] [address] [place] [address] from Last 3 Months or Most Recently Relevant to Health Maintenance Insurance [facility] MEDICARE Advance Directives * Full Code (Latest Code Status on File) Date Activated Date Inactivated Comments 09/19/2023 1:52 PM 09/22/2023 5:37 PM Question Answer Comments Patient has decision-making capacity? Yes Care Teams Registered Mail Clerk Relationship Specialty Start Date End Date Doni Stephens MD [address] [place] [address] [place] [address] PCP - General 07/12/20
[2025-01-10 16:23] LABS: Albumin Level 3.7 g/dl (3.5-5.0); Anion Gap 7.7 mEq/L (5-15); Bilirubin,Urine Negative (Negative); Blood Urea Nitrogen 14 mg/dl (7-17); Calcium 10.3 mg/dl (8.4-10.2); Carbon Dioxide 30 mmol/L (22.0-30.0); Chloride 106 mmol/L (98-107); Color,Urine YELLOW (Yellow); Creatinine,Serum 1.40 mg/dl (0.52-1.04); Estimated Glomerular Filt Rate 36 ml/min (>60); GFR (African American) 44 ML/MIN (>60); Glucose 94 mg/dl (74-100); Glucose,Urine (UA) Negative (Negative); Ketones,Urine Negative (Negative); Leukocyte Esterase,Urine TRACE (Negative); PH,Urine 6.0 (5.0-8.5); Phosphorous 3.9 mg/dl (2.5-4.5); Potassium 4.7 mmoL/L (3.5-5.1); Protein,Urine 1+ (Negative); Sodium 139 mmol/L (136-145); Specific Gravity, Urine 1.015 (1.005-1.030); Urobilinogen,Urine 0.2 EU/dl (0.2)
[2025-01-10 16:42] LABS: 25-OH Vitamin D, Total 74.9 ng/mL (30-100)
[2025-01-10 16:49] LABS: Hematocrit 34.2 % (37.0-47.0); Hemoglobin 10.8 g/dL (12.2-16.2); Mean Corpuscular HGB Conc 31.6 g/dL (31.8-35.4); Mean Corpuscular Hemoglobin 29.8 pg (27.0-31.2); Mean Corpuscular Volume 94.5 fl (81-99); Nucleated Red Blood Cells % 0 %; Platelet Count 244 K/mm3 (142-424); Red Blood Count 3.62 M/mm3 (4.20-5.40); Red Cell Distribution Width-SD 45.7 fL; White Blood Count 10.5 K/mm3 (4.8-10.8)
[2025-01-10 17:30] LABS: Amorphous Sediment,Urine 1+ /lpf; Bacteria,Urine 4+ /lpf
== END 2025-01-10 23:59 | disposition home or self-care (01) ==
PROVIDERS: PCP Family Medicine; Visit Provider Nurse Practitioner
DX: N18.32 Chronic kidney disease, stage 3b (principal); E83.9 Disorder of mineral metabolism, unspecified; M89.9 Disorder of bone, unspecified
CPT/HCPCS: 36415; 80069; 81001; 82306; 82570; 83970; 84080; 84156; 85027; 87086